=== PATIENT | male | born 1940 | race Caucasian/White ===

== ENCOUNTER → 2017-01-02 | Outpatient (CLI) | payer BC ==
[~2017-01-02] MED LIST: ASPI-232 PO; ATOR10TA88 PO; BUPR-79 PO; CALC-8 PO; CALCIUM/MAG/ZINC PO; CHOL100010 PO; CHONCAP PO; CYAN100020 PO; DOCU100C31 PO; DOCU100T7 PO; FINA5TAB4 PO; GLUC10007 PO; GLUCTAB7 PO; HYDR-3124 PO; HYDR-3785 PO; LISI-461 PO; MIRA1TAB3 PO; MULTTAB PO; NSP/1000 PO; NSP500 PO; OFLO0.3S4 OPR; POLY335019 PO; PRED1SUS OPR; RISP3TAB12 PO; VARD20TA PO
[2017-01-02 13:37] LABS: ALT/SGPT 29 U/L (12-78); AST/SGOT 16 U/L (15-37); BLOOD UREA NITROGEN 16 mg/dl (7-18); BUN/CREATININE RATIO 13.7 (10-20); CALCIUM 9.2 mg/dl (8.5-10.1); CARBON DIOXIDE 28 mmol/L (21-32); CHLORIDE 105 mmol/L (98-107); GLUCOSE 142 mg/dl (70-99); POTASSIUM 4.5 mmol/L (3.5-5.1); SODIUM 140 mmol/L (136-145)
[2017-01-02 13:45] LABS: BASO % 0.1 %; BASO ABS # 0.01 K/uL (0-0.2); COMPLETE YES; EOS % 1.2 %; HEMATOCRIT 45.5 % (42-52); IG% 0.1 %; LYMPH % 24.5 %; LYMPH ABS # 1.67 K/uL (1.2-3.4); MEAN CELL VOLUME 91.2 fL (80-100); MEAN CORPUSCULAR HEMOGLOBIN 32.7 pg (25-34); MEAN CORPUSCULAR HGB CONC 35.8 g/dl (32-36); MONO % 8.5 %; NEUT % 65.6 %; PLATELET COUNT 165 K/uL (130-400); RED BLOOD COUNT 4.99 M/uL (4.7-6.1); WHITE BLOOD COUNT 6.82 K/uL (4.8-10.8)
== END | disposition home or self-care (01) ==
LOC: C.LABBC 10:40
DX: I10 Essential (primary) hypertension (principal); E78.5 Hyperlipidemia, unspecified

== ENCOUNTER → 2017-02-25 | Day surgery (SDC) | payer BC ==
[2017-02-03 14:42] VITALS: Ht 195.6 cm; Wt 111.8 kg
[~2017-02-25] VITALS: Ht 195.6 cm; Wt 111.8 kg
[~2017-02-25] MED LIST changes: +500ML BSS 0.3ML EPI 1:1000PF IRRIG ONE; +ACETAMINOPHEN 325 MG TAB PO PRN; +AMVISC PLUS 0.8ML SYRINGE INT OCU ONE; +ATOR10TA82 PO; -ATOR10TA88 PO; +ATROPINE SULFATE 0.1 MG/ML 5ML SYR IV PRN; +AcetaZOLAMIDE 250 MG TAB PO SCH; +BETAXOLOL HCL 0.25% OP SUSP PER DROP CHARGE OPR SCH; +BRIMONIDINE TART 0.2% OP SOLN PER DROP CHARGE ONE; +BSS FLUSH ONE; -CALCIUM/MAG/ZINC PO; -CHONCAP PO; -DOCU100C31 PO; +ENDOCOAT 0.85ML SYRINGE INT OCU ONE; +EpHEDrine SULFATE INJ 50 MG/ML AMP IV PRN; +EpINEphrine INJ 1MG/ML AMP 1 MG/ML AMP ONE; -GLUC10007 PO; -HYDR-3785 PO; +LACTATED RINGER'S 1000ML 500 ML IV SCH; +LIDOCAINE 4% OP SOLN DROP CHARGE ONE; +LIDOCAINE 4% OP SOLN DROP CHARGE OPR SCH; +LIDOCAINE HCL 1% MPF 2 ML VIAL ONE; +MIDAZOLAM HCL 1 MG/ML 2ML VIAL ONE; -MIRA1TAB3 PO; +MIX: 4ML BSS 1ML EPI 1:1000 PF INSTIL ONE; +MOXIFLOXACIN OPH SOLN PER DROP CHARGE ONE; -NSP/1000 PO; +OCUCOAT 1 ML SOLN IO ONE; -POLY335019 PO; +POVIDONE-IODINE OP SOLN 30 ML BTL ONE; +PROPARACAINE 0.5% OP SOLN PER DROP CHARGE OPR SCH; +TOBRAMYCIN/DEXAMETHASONE OPH OINT PER APPLN CHARGE ONE
--- NOTE | 2017-02-25 07:34 | History & Physical Bridge - [place] ---
H&P Re-Evaluation Bridge Note: I have examined the patient, reviewed the History & Physical and in the interval since the performance of the History & Physical I have noted the following changes of clinical significance: No changes noted
[2017-02-25] MEDS: PHENYLEPHRINE HCL 2.5% OP SOLN PER DROP CHARGE OPR SCH ×2 (07:39→07:45)
[2017-02-25] MEDS: TROPICAMIDE 1% OP SOLN PER DROP CHARGE OPR SCH ×2 (07:41→07:46)
[2017-02-25] MEDS: CYCLOPENTOLATE HCL 1% OP SOLN PER DROP CHARGE OPR SCH ×2 (07:42→07:47)
[2017-02-25] MEDS: MOXIFLOXACIN OPH SOLN PER DROP CHARGE OPR SCH ×2 (07:43→07:54)
--- NOTE | 2017-02-25 08:40 | Discharge Instructions-SurgCtr ---
Discharge Instructions Date of Service February 25, 2017. Visit Reason for Visit: Cataract Right Eye Discharge Discharge Diagnosis / Problem: lens implant right eye Discharge Goals Goal(s): Improve function Activity Recommendations Activity Limitations: resume your previous activity Lifting Limitations: no more than 10 pounds Exercise/Sports Limitations: gradually increase as tolerated May Resume Sexual Activity: when tolerated Shower/Bathe: tomorrow Driving or Machine Use: resume 1 day after discharge Anesthesia . Post Anesthesia Instructions: If you have had General Anesthesia or IV Sedation: * Do not drive today. * Resume driving when surgeon permits. * Do not make important decisions or sign legal documents today. * Call surgeon for: 1. Temperature elevations greater than 101 degrees F. 2. Uncontrollable pain. 3. Excessive bleeding. 4. Persistent nausea and vomiting. 5. Medication intolerance (nausea, vomiting or rash). * For nausea and vomiting use only clear liquids such as: tea, soda, bouillon until nausea subsides, then gradually increase diet as tolerated. * If you have any concerns or questions, call your surgeon's office. If physician is unavailable and it is an emergency, call 911 or go to the nearest emergency room. . Instructions / Follow-Up Instructions / Follow-Up ACTIVITY RECOMMENDATIONS: * Light activities. * Mild irritation and blurred vision are common for the first few days. * You may walk outside, read, watch television. * Redness around the white part of the eye is common. MEDICATIONS: Resume previous medications unless instructed otherwise by your surgeon. * Take white Diamox (Acetazolamide) tablet at 1 pm today. Start all eye drops at 1 pm today: * Eye drops (today and tomorrow): Prednisone - one drop in operative eye every 3 hours while awake Ofloxacin - one drop in operative eye every 3 hours while awake SPECIAL CARE INSTRUCTIONS: * Tape plastic shield over eye to sleep at night. Call your doctor at with any concerns or problems. FOLLOW UP VISIT: Follow-up with Dr Velazquez at [place] office as scheduled. Diet Recommendations Home Diet: no limitations Procedures Procedures Performed: cataract extraction with lens implant Pending Studies Studies pending at discharge: no Medical Emergencies . Who to Call and When: Medical Emergencies: If at any time you feel your situation is an emergency, please call 911 immediately. . Non-Emergent Contact Non-Emergency issues call your: Finance Admin Call Non-Emergent contact if: your pain is not controlled [phone] . . "Provider Documentation" section prepared by Gilbert Velazquez. .
--- NOTE | 2017-02-25 08:42 | [facility] Operative Report ---
Operative Report Date of Service February 25, 2017. Operative Report 1. PREOPERATIVE DIAGNOSIS: Senile nuclear cataract, right eye. 2. POSTOPERATIVE DIAGNOSIS: Senile nuclear cataract, right eye. 3. PROCEDURE: Phacoemulsification of right cataract with posterior chamber lens implant, type Bausch [employer] Lomb, model MX60L, power +10.0 diopters. ANESTHESIA: Local standby. SURGEON: Dr. Velazquez. COMPLICATIONS: None. OPERATING TIME: 10 minutes. 4. OPERATION AND FINDINGS: DESCRIPTION OF PROCEDURE: The right pupil was dilated. The anesthetic was administered using a topical technique. The right eye was prepped and draped. A speculum was placed. A clear corneal incision was formed. The chamber was filled with Amvisc Plus and Endocoat. Epinephrine solution was used. A paracentesis was placed. A capsulorrhexis was performed. The nucleus was hydrodissected. The lens was removed with phacoemulsification. Time was 3.87 seconds. The aspiration unit was used to remove the cortex. The capsule was filled with Amvisc Plus. The lens implant was folded and placed into the capsule. The incision was hydrated. The Amvisc was aspirated. The wound was secure. The chamber was deep. The pupil was round. Brimonidine, TobraDex ointment and Vigamox solution were placed. The speculum was removed. The patient was returned to the Recovery Room in stable condition. I attest to the content of the Intraoperative Record and any orders documented therein. Any exceptions are noted below. The scribe's documentation has been prepared in my presence, under my direction and personally reviewed by me in its entirety. I confirm that the note above accurately reflects all work, treatment, procedures, and medical decision making performed by me. I personally scribed for Gilbert Velazquez M.D. ([email or web address]) on 02/25/17 at 08:42. Electronically submitted by Debo Vale ([email or web address]).
[2017-02-25 08:49] VITALS: TEMP 36.3
[2017-02-25 09:06] VITALS: BP 131/75; PULSE 82; O2SAT 96
--- NOTE | 2017-02-25 09:24 | Anesthesia Progress Nt - [facility] ---
Anesthesia Post Op Note Date & Time February 25, 2017 at 09:25 Vital Signs Pain Intensity: 0 Vital Signs Past 12 Hours Date Time Temp Pulse Resp B/P Pulse Ox O2 Delivery O2 Flow Rate FiO2 02/25/17 09:06 82 16 131/75 96 Room Air 02/25/17 08:49 36.3 82 16 124/73 98 Room Air 02/25/17 07:28 36.6 99 20 109/60 95 Room Air Notes Mental Status: alert / awake / arousable, participated in evaluation Pt Amnestic to Procedure: Yes Nausea / Vomiting: adequately controlled Pain: adequately controlled Airway Patency, RR, SpO2: stable & adequate BP & HR: stable & adequate Hydration State: stable & adequate Anesthetic Complications: no major complications apparent
== END | disposition home or self-care (01) ==
LOC: X.SURG 07:11
PROVIDERS: ATTEND Specialist
DX: H25.11 Age-related nuclear cataract, right eye (principal); I10 Essential (primary) hypertension; Z79.82 Long term (current) use of aspirin; Z79.899 Other long term (current) drug therapy

== ENCOUNTER → 2017-03-04 | Day surgery (SDC) | payer BC ==
[2017-03-03 15:03] VITALS: Ht 195.6 cm; Wt 111.8 kg
[~2017-03-04] VITALS: Ht 195.6 cm; Wt 111.8 kg
[~2017-03-04] MED LIST changes: -ATROPINE SULFATE 0.1 MG/ML 5ML SYR IV PRN; +BETAXOLOL HCL 0.25% OP SUSP PER DROP CHARGE OPL SCH; -BETAXOLOL HCL 0.25% OP SUSP PER DROP CHARGE OPR SCH; -EpHEDrine SULFATE INJ 50 MG/ML AMP IV PRN; +LIDOCAINE 4% OP SOLN DROP CHARGE OPL SCH; -LIDOCAINE 4% OP SOLN DROP CHARGE OPR SCH; +PROPARACAINE 0.5% OP SOLN PER DROP CHARGE OPL SCH; -PROPARACAINE 0.5% OP SOLN PER DROP CHARGE OPR SCH
[2017-03-04] MEDS: PHENYLEPHRINE HCL 2.5% OP SOLN PER DROP CHARGE OPL SCH ×2 (12:00→12:05)
[2017-03-04] MEDS: TROPICAMIDE 1% OP SOLN PER DROP CHARGE OPL SCH ×2 (12:01→12:07)
[2017-03-04] MEDS: CYCLOPENTOLATE HCL 1% OP SOLN PER DROP CHARGE OPL SCH ×2 (12:03→12:09)
[2017-03-04] MEDS: MOXIFLOXACIN OPH SOLN PER DROP CHARGE OPL SCH ×2 (12:04→12:14)
--- NOTE | 2017-03-04 12:40 | Discharge Instructions-SurgCtr ---
Discharge Instructions Date of Service March 04, 2017. Visit Reason for Visit: Cataract Left Eye Discharge Discharge Diagnosis / Problem: lens implant left eye Discharge Goals Goal(s): Improve function Activity Recommendations Activity Limitations: resume your previous activity Lifting Limitations: no more than 10 pounds Exercise/Sports Limitations: gradually increase as tolerated May Resume Sexual Activity: when tolerated Shower/Bathe: tomorrow Driving or Machine Use: resume 1 day after discharge Anesthesia . Post Anesthesia Instructions: If you have had General Anesthesia or IV Sedation: * Do not drive today. * Resume driving when surgeon permits. * Do not make important decisions or sign legal documents today. * Call surgeon for: 1. Temperature elevations greater than 101 degrees F. 2. Uncontrollable pain. 3. Excessive bleeding. 4. Persistent nausea and vomiting. 5. Medication intolerance (nausea, vomiting or rash). * For nausea and vomiting use only clear liquids such as: tea, soda, bouillon until nausea subsides, then gradually increase diet as tolerated. * If you have any concerns or questions, call your surgeon's office. If physician is unavailable and it is an emergency, call 911 or go to the nearest emergency room. . Instructions / Follow-Up Instructions / Follow-Up ACTIVITY RECOMMENDATIONS: * Light activities. * Mild irritation and blurred vision are common for the first few days. * You may walk outside, read, watch television. * Redness around the white part of the eye is common. MEDICATIONS: Resume previous medications unless instructed otherwise by your surgeon. * Take white Diamox (Acetazolamide) tablet at 3 pm today. Start all eye drops at 3 pm today: * Eye drops (today and tomorrow): Prednisone - one drop in operative eye every 3 hours while awake Ofloxacin - one drop in operative eye every 3 hours while awake SPECIAL CARE INSTRUCTIONS: * Tape plastic shield over eye to sleep at night. Call your doctor at with any concerns or problems. FOLLOW UP VISIT: Follow-up with Dr Velazquez at [place] office as scheduled. Diet Recommendations Home Diet: no limitations Procedures Procedures Performed: cataract extraction with lens implant Pending Studies Studies pending at discharge: no Medical Emergencies . Who to Call and When: Medical Emergencies: If at any time you feel your situation is an emergency, please call 911 immediately. . Non-Emergent Contact Non-Emergency issues call your: Double Needle Operator Call Non-Emergent contact if: your pain is not controlled [phone] . . "Provider Documentation" section prepared by Gilbert Velazquez. .
--- NOTE | 2017-03-04 12:41 | [facility] Operative Report ---
Operative Report Date of Service March 04, 2017. Operative Report 1. PREOPERATIVE DIAGNOSIS: Senile nuclear cataract, left eye. 2. POSTOPERATIVE DIAGNOSIS: Senile nuclear cataract, left eye. 3. PROCEDURE: Phacoemulsification of left cataract with posterior chamber lens implant, type Bausch [employer] Lomb, model MI60L, power +10.5 diopters. ANESTHESIA: Local standby. SURGEON: Dr. Velazquez. COMPLICATIONS: None. OPERATING TIME: 10 minutes. 4. OPERATION AND FINDINGS: DESCRIPTION OF PROCEDURE: The left pupil was dilated. The anesthetic was administered using a topical technique. The left eye was prepped and draped. A speculum was placed. A clear corneal incision was formed. The chamber was filled with Amvisc Plus and Endocoat. Epinephrine solution was used. A paracentesis was placed. A capsulorrhexis was performed. The nucleus was hydrodissected. The lens was removed with phacoemulsification. Time was 3.05 seconds. The aspiration unit was used to remove the cortex. The capsule was filled with Amvisc Plus. The lens implant was folded and placed into the capsule. The incision was hydrated. The Amvisc was aspirated. The wound was secure. The chamber was deep. The pupil was round. Brimonidine, TobraDex ointment and Vigamox solution were placed. The speculum was removed. The patient was returned to the Recovery Room in stable condition. I attest to the content of the Intraoperative Record and any orders documented therein. Any exceptions are noted below. The scribe's documentation has been prepared in my presence, under my direction and personally reviewed by me in its entirety. I confirm that the note above accurately reflects all work, treatment, procedures, and medical decision making performed by me. I personally scribed for Gilbert Velazquez M.D. ([email or web address]) on 03/04/17 at 12:41. Electronically submitted by Debo Vale ([email or web address]).
[2017-03-04 12:44] VITALS: TEMP 36.7
[2017-03-04 13:12] VITALS: BP 139/75; PULSE 75; O2SAT 97
--- NOTE | 2017-03-04 13:40 | Anesthesia Progress Nt - [facility] ---
Anesthesia Post Op Note Date & Time March 04, 2017 at 13:40 Vital Signs Pain Intensity: 0 Vital Signs Past 12 Hours Date Time Temp Pulse Resp B/P Pulse Ox O2 Delivery O2 Flow Rate FiO2 03/04/17 13:12 75 18 139/75 97 Room Air 03/04/17 12:44 36.7 80 16 129/69 98 Room Air 03/04/17 11:50 37.1 96 16 113/75 96 Room Air Notes Mental Status: alert / awake / arousable, participated in evaluation Pt Amnestic to Procedure: Yes Nausea / Vomiting: adequately controlled Pain: adequately controlled Airway Patency, RR, SpO2: stable & adequate BP & HR: stable & adequate Hydration State: stable & adequate Anesthetic Complications: no major complications apparent
== END | disposition home or self-care (01) ==
LOC: X.SURG 11:22
PROVIDERS: ATTEND Specialist
DX: H25.12 Age-related nuclear cataract, left eye (principal); I10 Essential (primary) hypertension

== ENCOUNTER → 2017-06-01 | Outpatient (CLI) | payer BC ==
[~2017-06-01] MED LIST changes: -500ML BSS 0.3ML EPI 1:1000PF IRRIG ONE; -ACETAMINOPHEN 325 MG TAB PO PRN; -AMVISC PLUS 0.8ML SYRINGE INT OCU ONE; -ATOR10TA82 PO; +ATOR10TA88 PO; -AcetaZOLAMIDE 250 MG TAB PO SCH; -BETAXOLOL HCL 0.25% OP SUSP PER DROP CHARGE OPL SCH; -BRIMONIDINE TART 0.2% OP SOLN PER DROP CHARGE ONE; -BSS FLUSH ONE; -ENDOCOAT 0.85ML SYRINGE INT OCU ONE; -EpINEphrine INJ 1MG/ML AMP 1 MG/ML AMP ONE; -LACTATED RINGER'S 1000ML 500 ML IV SCH; -LIDOCAINE 4% OP SOLN DROP CHARGE ONE; -LIDOCAINE 4% OP SOLN DROP CHARGE OPL SCH; -LIDOCAINE HCL 1% MPF 2 ML VIAL ONE; -MIDAZOLAM HCL 1 MG/ML 2ML VIAL ONE; -MIX: 4ML BSS 1ML EPI 1:1000 PF INSTIL ONE; -MOXIFLOXACIN OPH SOLN PER DROP CHARGE ONE; -OCUCOAT 1 ML SOLN IO ONE; -POVIDONE-IODINE OP SOLN 30 ML BTL ONE; -PROPARACAINE 0.5% OP SOLN PER DROP CHARGE OPL SCH; -TOBRAMYCIN/DEXAMETHASONE OPH OINT PER APPLN CHARGE ONE
== END | disposition home or self-care (01) ==
LOC: C.LABBC 11:39
PROVIDERS: ATTEND Urology
DX: N40.0 Benign prostatic hyperplasia without lower urinary tract symptoms (principal)

== ENCOUNTER → 2017-07-10 | Outpatient (CLI) | payer BC ==
[2017-07-10 14:27] LABS: ALT/SGPT 25 U/L (12-78); AST/SGOT 16 U/L (15-37); BLOOD UREA NITROGEN 15 mg/dl (7-18); BUN/CREATININE RATIO 12.1 (10-20); CALCIUM 9.1 mg/dl (8.5-10.1); CARBON DIOXIDE 23 mmol/L (21-32); CHLORIDE 105 mmol/L (98-107); CHOLESTEROL 129 mg/dl (0-200); GLUCOSE 126 mg/dl (70-99); SODIUM 138 mmol/L (136-145); TRIGLYCERIDES 160 mg/dl (0-150); VERY LOW DENSITY LIPOPROT CALC 32 mg/dl
[2017-07-10 14:30] LABS: CHOLESTEROL/HDL RATIO 2.6; HDL CHOLESTEROL 49 mg/dl; LDL CHOLESTEROL CALCULATED 48 mg/dl
[2017-07-10 15:09] LABS: ESTIMATED AVERAGE GLUCOSE 105 mg/dl; HA1C FLAG Normal (Normal)
== END | disposition home or self-care (01) ==
LOC: C.LABBC 09:46
DX: E78.5 Hyperlipidemia, unspecified (principal); R73.9 Hyperglycemia, unspecified; I10 Essential (primary) hypertension

== ENCOUNTER → 2018-01-12 | Outpatient (CLI) | payer BC ==
[~2018-01-12] MED LIST changes: +ATOR10TA82 PO; -ATOR10TA88 PO
[2018-01-12 13:19] LABS: BASO % 0.1 %; BASO ABS # 0.01 K/uL (0-0.2); EOS % 1.4 %; EOS ABS # 0.12 K/uL (0-0.5); HEMATOCRIT 47.3 % (42-52); HEMOGLOBIN 16.6 g/dL (14.0-18.0); IG# 0.01 K/uL (0.00-0.02); LYMPH % 21.5 %; LYMPH ABS # 1.82 K/uL (1.2-3.4); MEAN CORPUSCULAR HEMOGLOBIN 33.3 pg (25-34); MEAN CORPUSCULAR HGB CONC 35.1 g/dl (32-36); MEAN PLATELET VOLUME 10.5 fL (7.4-10.4); MONO % 6.7 %; MONO ABS # 0.57 K/uL (0.11-0.59); NEUT % 70.2 %; NEUT ABS # 5.93 K/uL (1.4-6.5); PLATELET COUNT 154 K/uL (130-400); RED CELL DISTRIBUTION WIDTH CV 12.3 % (11.5-14.5); WHITE BLOOD COUNT 8.46 K/uL (4.8-10.8)
[2018-01-12 13:25] LABS: ALT/SGPT 28 U/L (12-78); AST/SGOT 15 U/L (15-37); BLOOD UREA NITROGEN 14 mg/dl (7-18); CARBON DIOXIDE 25 mmol/L (21-32); CREATININE 1.23 mg/dl (0.60-1.40); GLUCOSE 189 mg/dl (70-99); POTASSIUM 4.2 mmol/L (3.5-5.1); SODIUM 136 mmol/L (136-145)
[2018-01-13 06:04] LABS: HEMOGLOBIN A1C 5.6 % (4.5-5.6)
== END | disposition home or self-care (01) ==
LOC: C.LABBC 10:39
DX: I10 Essential (primary) hypertension (principal); E78.5 Hyperlipidemia, unspecified; R73.9 Hyperglycemia, unspecified

== ENCOUNTER → 2018-05-27 | Outpatient (CLI) | payer BC ==
[2018-05-27 13:42] LABS: BLOOD UREA NITROGEN 18 mg/dl (7-18); CREATININE 1.13 mg/dl (0.60-1.40)
== END | disposition home or self-care (01) ==
LOC: C.LABBC 09:47
PROVIDERS: ATTEND Urology
DX: R39.15 Urgency of urination (principal)

== ENCOUNTER 2024-06-09 02:10 | Inpatient (IN) ==
[2024-06-09 04:40] LABS: Hematocrit (blood only) 43.1 % (42.0-52.0); Mean Corpuscular Hemoglobin 32.4 pg (25.0-34.0); Mean Corpuscular Hgb Conc 34.8 g/dL (32.0-36.0); Mean Corpuscular Volume 93.1 fL (80.0-100.0); Mean Platelet Volume 10.3 fL (9.4-12.4); Platelet Count 122 K/uL (130-400); RDW Coefficient of Variation 11.8 % (11.5-14.5); RDW Standard Deviation 40.2 fL (36.4-46.3); Red Blood Count 4.63 M/uL (4.70-6.10); White Blood Count 14.28 K/ul (4.8-10.8)
[2024-06-09] MEDS: OPTIRAY 320 100ml IV ONE (04:58)
[2024-06-09] MEDS: HYDROmorphone INJ 0.5 MG/0.5 ML SYR IV STA (05:13)
[2024-06-09] MEDS: SODIUM CHLORIDE 0.9% 500 ML IV ONE (05:15)
[2024-06-09 05:17] LABS: Troponin I High Sensitivity 8.5 pg/ml (0-20)
[2024-06-09 05:21] LABS: Anion Gap 8 (3-11); BUN Creatinine Ratio 12.7 (10-20); Blood Urea Nitrogen 13 mg/dl (6-23); Calcium 9.4 mg/dl (8.6-10.3); Carbon Dioxide 33 mmol/L (21-32); Chloride 96 mmol/L (98-107); Est GFR (African American) 77.9 ml/min; Est GFR (Non-African American) 67.2 ml/min; Glucose 207 mg/dl (70-99(Fasting)); Sodium 137 mmol/L (136-145)
[2024-06-09 05:30] LABS: Basophils # (auto) 0.01 K/uL (0.00-0.20); Basophils % (auto) 0.1 %; Immature Granulocytes # (auto) 0.09 K/uL (0.01-0.20); Immature Granulocytes % (auto) 0.6 %; Lymphocytes # (auto) 0.49 K/uL (1.20-3.40); Lymphocytes % (auto) 3.4 %; Monocytes # (auto) 0.39 K/uL (0.11-0.59); Monocytes % (auto) 2.7 %; Neutrophils % (auto) 93.2 %
--- NOTE | 2024-06-09 05:47 | Emergency Department Note ---
Impression & Plan Small bowel obstruction, Atrial fibrillation with rapid ventricular response admit to the [facility] ED Provider Note NAME: LENIN FAN AGE: 84 SEX: Male INFORMANT: Patient ED PROVIDER(S): Nano Moss DO CHIEF COMPLAINT: Right-sided abdominal pain PLAN: Disposition: admit to the [facility] MEDICAL DECISION MAKING: this is a 84-year-old male patient presents to the emergency department with right-sided abdominal pain since earlier this afternoon. He became more concerned around 5 PM this evening when the pain started to increase and would not subside. Patient has no previous abdominal surgery history although he suffers from significant constipation as result of his Parkinson's disease. An order was placed for continuous cardiac monitoring. The patient was in A-fib at a rate of 112. A twelve-lead EKG was obtained. Patient's abdominal pain was controlled with IV Dilaudid. Laboratory studies revealed a leukocytosis with a white count of 14.2 with 93% neutrophils. Platelet count was decreased at 122. Troponin was negative Glucose was 207. Portable chest x-ray was performed which was unremarkable. Patient had a CT scan of the abdomen/pelvis which showed evidence of a small bowel obstruction. Patient's heart rhythm appeared to change while here in the ER. he had a repeat ECG performed. Patient went for CT scan of the abdomen/pelvis. Upon returning from radiology had persistent pain and was given another dose of IV Dilaudid. It was noted the patient was significantly tachycardic and had a third ECG performed which showed A-fib with RVR. His blood pressure remained stable. General surgery was consulted as the patient had small bowel obstruction noted on CT scan. Overall, the patient's abdominal pain had diminished after receiving IV analgesia. It was noted the patient's heart rate converted to 75-1/4 ECG was obtained and showed normal sinus rhythm with PACs. Care/management discussed with: General surgery team; [facility] Triage Nursing notes: reviewed and agree With them. Vital Signs: reviewed and remarkable for tachycardia Additional History obtained from: patient's is at the bedside Chronic Medical/Social Conditions affecting care: Parkinson's disease Differential Diagnosis: constipation, small bowel obstruction, diverticulitis, colitis, cholecystitis Diagnostics, independently interpreted by me: ECG: sinus tachycardia at a rate of 119 with PACs. Poor baseline but no obvious signs of ischemia repeat ECG: Atrial flutter at a rate of 124 with 2-1 conduction. There is no obvious ST segment elevation or signs of ischemia. Repeat ECG: Atrial fibrillation with RVR at a rate of 140. PVCs noted. No obvious signs of ischemia. Repeat ECG: Normal sinus rhythm at a rate of 77 with an occasional PAC. Cardiac Monitoring: A-fib at a rate of 112 Imaging studies: CT scan of the abdomen/pelvis: As per stat rad Portable chest x-ray: As per my independent interpretation HPI: 84 year old Male arrives for evaluation of right sided abdominal pain. patient describes a history of chronic constipation as a result of his Parkinson's disease. He noted sudden onset of right-sided abdominal pain yesterday afternoon. pain became worse around 5 PM in the evening and the patient could not get comfortable. He developed some nausea. PAST MEDICAL HISTORY: See Below, Bipolar disorder and Parkinson's disease PAST SURGICAL HISTORY: no intra-abdominal surgeries., SOCIAL HISTORY: Lives with his , does not drink alcohol HOME MEDICATIONS: see list ALLERGIES: see list VITALS: See Below PHYSICAL EXAMINATION: HEENT: Head - normocephalic and atraumatic Pupils are equal, round, and reactive to light. Extraocular eye muscles are intact, and sclera are anicteric. Nose - moist nasal mucosa without discharge. Mouth - moist buccal mucosa. Oropharynx is nonerythematous and there is no tonsillar exudate or edema noted. Neck: Supple; no JVD, nuchal rigidity, cervical lymphadenopathy, or auscultated bruits. Heart: Regular rate and rhythm. There is a normal S1 and S2 with no murmurs, clicks, or gallops appreciated. Lungs: Clear to auscultation bilaterally with no wheezes, rales, or rhonchi. Abdomen: Soft, Mildly distended with some discomfort to palpation in the right middle quadrant of the abdomen. There were diminished bowel sounds. There are no palpable pulsatile masses or hepatosplenomegaly. There is no guarding, rigidity, or rebound noted. Extremities: 1+ pitting edema both lower extremities. There are easily palpable peripheral pulses. Skin: warm and dry with good turgor and no rashes. Emergency department treatment: IV normal saline bolus, IV Zofran, IV Dilaudid x 2 emergency department course: The patient was evaluated in room B-12. A complete history and physical was performed. IV lock was initiated and labs were drawn as above. Twelve-lead EKG was obtained. An order was placed for continuous cardiac monitoring. Patient was in A-fib at a rate of 112. Patient was medicated with IV Zofran and Dilaudid for the abdominal pain. He was bolused with IV normal saline solution. He went for CT scan of the abdomen/pelvis. Upon returning from radiology, the patient had recurrent pain and was given another dose of IV Dilaudid. It was also noted that his heart rate seemed to be even faster and revealed atrial flutter. Was performed. I reviewed some results with the patient. The patient was noted to have a slower heart rate and this revealed normal sinus rhythm. The patient seems to be resting more comfortably. I discussed the case with general surgery and they consulted on the patient. I then discussed the case with the [facility] Hospitalist and they will admit for further management. Past Med/Surg History Problem List (Updated 06/09/24 @ 07:25 by Nano Moss DO) Atrial fibrillation with rapid ventricular response (Acute) Small bowel obstruction (Acute) Atrial fibrillation Parkinsons disease Small bowel obstruction Deviated nasal septum Nasal crusting Benign localized prostatic hyperplasia with lower urinary tract symptoms (LUTS) Impacted cerumen Urinary urgency (Acute) BPH (benign prostatic hyperplasia) Surgical History History of cataract extraction 02/2017-bilateral History of bladder surgery Green light laser surgery for excess bladder tissue-03/09/14 History of Mohs micrographic surgery for skin cancer Head-2014 Left arm-2013 History of sebaceous cyst x3-2 on back, 1 on chest History of tonsillectomy and adenoidectomy 1948 History of surgery femur [id number] leg repair laser vaporization with transurethral resection of prostate Previous back surgery H/O: knee surgery Family History Brother Prostate cancer Father Hypertension Heart disease following heart attack Mother Hearing loss Heart disease following heart attack Other No family history of adverse response to anesthesia No family history of bleeding disorder Social History Smoking Status: Never smoker Do You Dip or Chew Tobacco: No; Hx Alcohol Use: Yes Alcohol Intake Frequency: Monthly or Less Hx Substance Use: No marital status: current occupational status: retired Allergies Allergies Allergy/AdvReac Type Severity Reaction Status Date / Time acetaminophen Allergy Unknown ANKLES Verified 07/10/23 10:51 SWELL UP benzalkonium chloride Allergy Unknown UNKNOWN Verified 07/10/23 10:51 brimonidine Allergy Unknown UNKNOWN Verified 07/10/23 10:51 travoprost Allergy Unknown UNKNOWN Verified 07/10/23 10:51 diclofenac [From Voltaren] Allergy Verified 07/10/23 10:51 Home Meds Home Medications Medication Instructions Recorded Confirmed Areds 2 1 softgel PO BID 06/09/24 06/09/24 Prevagen 1 tab PO QAM 06/09/24 06/09/24 atorvastatin 10 mg tablet 10 mg PO HS 06/09/24 06/09/24 carbidopa 25 mg-levodopa 100 mg 1 tab PO TID 06/09/24 06/09/24 tablet ciclopirox 8 % topical solution 1 applic topical HS 06/09/24 06/09/24 docusate sodium 100 mg tablet 200 mg PO HS PRN Constipation 06/09/24 06/09/24 (Stool Softener) dorzolamide-timolol (PF) 2 %-0.5 % 1 drp OPB BID 06/09/24 06/09/24 eye drops in a dropperette entacapone 200 mg tablet 200 mg PO TID 06/09/24 06/09/24 finasteride 5 mg tablet 5 mg PO HS 06/09/24 06/09/24 glucosamine-chondroitin 750 mg-600 1 tab PO DAILY 06/09/24 06/09/24 mg tablet lisinopril 10 1 tab PO DAILY 06/09/24 06/09/24 mg-hydrochlorothiazide 12.5 mg tablet mirtazapine 30 mg tablet 30 mg PO HS 06/09/24 06/09/24 niacin 1,000 mg tablet,extended 2,000 mg PO HS 06/09/24 06/09/24 release 24 hr peg 400-propylene glycol 0.4 %-0.3 1 drp OPB QID PRN Dry Eyes 06/09/24 06/09/24 % eye drops (Systane (propylene glycol)) quetiapine 100 mg tablet 100 mg PO HS 06/09/24 06/09/24 solifenacin 10 mg tablet 10 mg PO HS 06/09/24 06/09/24 tadalafil 10 mg tablet 10 mg PO DAILY PRN Sexual Activity 06/09/24 06/09/24 vitamin B complex 1 tab PO DAILY 06/09/24 06/09/24 vitamin D3 25 mcg (1,000 unit)-vit 1 tab PO DAILY 06/09/24 06/09/24 K2 90 mcg disintegrating tablet Results & Data (ED) Vital Signs Vital Signs - 24 hr 06/09/24 04:30 06/09/24 05:30 06/09/24 06:30 Pulse Rate Pulse Rate [Apical] 141 H 113 H 87 Pulse Rhythm [Apical] Irregular Irregular Regular Pulse Strength [Apical] Normal Normal Respiratory Rate 20 20 20 Respiratory Effort / Characteristics Non-Labored Non-Labored Non-Labored Respiratory Depth Normal Normal Normal Respiratory Pattern Regular Regular Regular Blood Pressure [Right Arm] 115/84 106/74 119/71 Blood Pressure Mean [Right Arm] 94 84 87 Blood Pressure Position [Right Arm] Sitting Sitting Pulse Oximetry 97 97 99 Oxygen Delivery Method Room Air Room Air Room Air 06/09/24 07:11 Pulse Rate 76 Pulse Rate [Apical] Pulse Rhythm [Apical] Pulse Strength [Apical] Respiratory Rate Respiratory Effort / Characteristics Respiratory Depth Respiratory Pattern Blood Pressure [Right Arm] Blood Pressure Mean [Right Arm] Blood Pressure Position [Right Arm] Pulse Oximetry Oxygen Delivery Method Laboratory Data 06/09/24 Unknown 06/09/24 Unknown Lab Results 06/09/24 06/09/24 Range/Units 05:45 Unknown WBC 14.28 H (4.8-10.8) K/ul RBC 4.63 L (4.70-6.10) M/uL Hgb 15.0 (14.0-18.0) g/dl Hct 43.1 (42.0-52.0) % MCV 93.1 (80.0-100.0) fL MCH 32.4 (25.0-34.0) pg MCHC 34.8 (32.0-36.0) g/dL RDW Std Deviation 40.2 (36.4-46.3) fL RDW Coeff of Jose Luis 11.8 (11.5-14.5) % Plt Count 122 L (130-400) K/uL MPV 10.3 (9.4-12.4) fL Immature Gran % (Auto) 0.6 % Neut % (Auto) 93.2 % Lymph % (Auto) 3.4 % Clinch % (Auto) 2.7 % Eos % (Auto) 0.0 % Baso % (Auto) 0.1 % Neut # (Auto) 13.30 H (1.40-6.50) K/uL Lymph # (Auto) 0.49 L (1.20-3.40) K/uL Clinch # (Auto) 0.39 (0.11-0.59) K/uL Eos # (Auto) 0.00 (0.00-0.50) K/uL Baso # (Auto) 0.01 (0.00-0.20) K/uL Immature Gran # (Auto) 0.09 (0.01-0.20) K/uL Sodium 137 (136-145) mmol/L Potassium 3.9 TNP (3.5-5.1) mmol/L Chloride 96 L (98-107) mmol/L Carbon Dioxide 33 H (21-32) mmol/L Anion Gap 8 (3-11) BUN 13 (6-23) mg/dl Creatinine 1.02 (0.6-1.4) mg/dl Est Cr Clr Drug Dosing Not Reportable Est GFR ( Amer) 77.9 ml/min Est GFR (Non-Af Amer) 67.2 ml/min BUN/Creatinine Ratio 12.7 (10-20) Glucose 207 H (70-99(Fasting)) mg/dl Calcium 9.4 (8.6-10.3) mg/dl Troponin I High Sens 8.5 (0-20) pg/ml TSH 1.312 (0.300-4.500) uIu/ml Administered Medications Discontinued Medications Hydromorphone HCl (Hydromorphone Inj 0.5 Mg/0.5 Ml Syr) 0.5 mg IV NOW STA Stop: 06/09/24 04:42 Last Admin: 06/09/24 05:13 Dose: 0.5 mg Documented By: AAW Sodium Chloride (Nss) 500 mls @ 999 mls/hr IV .Q31M ONE Stop: 06/09/24 05:28 Last Infusion: 06/09/24 05:50 Dose: Infused Documented By: Admin: 06/09/24 05:15 Dose: 999 mls/hr Documented By: ESDRAS Ioversol (Optiray 320 100ml) 100 ml IV ONCE ONE Stop: 06/09/24 04:59 Last Admin: 06/09/24 04:58 Dose: 93 ml Documented By: MARCELLO Imaging Data Radiologist's Impression: Abdomen/Pelvis CT 06/09/24 00:00 CR Exam(s): CT ABDOMEN + PELVIS With Contrast IV Amt: 93 ml optiray 320 EXAM: CT Abdomen and Pelvis With Intravenous Contrast CLINICAL HISTORY: Reason for exam: LOWER ABD PAIN. TECHNIQUE: Axial computed tomography images of the abdomen and pelvis with intravenous contrast. CTDI is 12.19 mGy and DLP is 656.4 mGy-cm. Automated exposure control was utilized for the study. A dose lowering technique was utilized adhering to the principles of ALARA. CONTRAST: Patient received 93 ml optiray 320 of IV contrast COMPARISON: No relevant prior studies available. FINDINGS: Lung bases: Unremarkable. No mass. No consolidation. Heart: Pericardial effusion measuring up to 1.1 cm, incompletely visualized. ABDOMEN: Liver: Calcified granulomata in the liver. Gallbladder and bile ducts: Unremarkable. No calcified stones. No ductal dilation. Pancreas: Unremarkable. No mass. No ductal dilation. Spleen: Unremarkable. No splenomegaly. Adrenals: Unremarkable. No mass. Kidneys and ureters: Unremarkable. No solid mass. No hydronephrosis. Stomach and bowel: Small bowel obstruction with transition point suspected the within the right hemiabdomen (series 301 image 22). Upstream small bowel loops measure up to 3.4 cm. Please note that many of these are fluid-filled. Mild some mucosal enhancement noted. Findings may relate to concurrent enteritis. Consider correlation with laboratory values. PELVIS: Appendix: No findings to suggest acute appendicitis. Bladder: Unremarkable. No mass. Reproductive: Prostatic calcifications. ABDOMEN and PELVIS: Intraperitoneal space: Moderate mesenteric ascites which may be reactive in nature or be due to volume overload. No evidence of pneumatosis, portal venous gas, or free air. Bones/joints: Degenerative changes in the spine. 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 No acute fracture. No dislocation. Soft tissues: Umbilical hernia containing fat. Vasculature: Atherosclerotic disease. No abdominal aortic aneurysm. Lymph nodes: Unremarkable. No enlarged lymph nodes. IMPRESSION: 1. Small bowel obstruction with transition point suspected the within the right hemiabdomen (series 301 image 22). Upstream small bowel loops measure up to 3.4 cm. Please note that many of these are fluid-filled. Mild some mucosal enhancement noted. Findings may relate to concurrent enteritis. Consider correlation with laboratory values. 2. Moderate mesenteric ascites which may be reactive in nature or be due to volume overload. 3. No evidence of pneumatosis, portal venous gas, or free air. 4. No other acute findings. 5. Incidental findings as described. Communications: Verify Receipt Electronically signed by: Tenzin Cummings MD 06/09/24 06:16 AM Discharge Plan Visit Data Chief Complaint: Abdominal Pain Stated Complaint: STOMACH ACHE ED Provider: Nano Moss Discharge Problem: Small bowel obstruction, Atrial fibrillation with rapid ventricular response Forms Stand Alone Forms: [facility] [employer] Prescriptions Prescriptions: No Action Areds 2 1 softgel PO BID niacin 1,000 mg Tablet Extended Release 24 Hr 2,000 mg PO HS atorvastatin 10 mg Tablet 10 mg PO HS quetiapine 100 mg Tablet 100 mg PO HS ciclopirox 8 % Solution 1 applic TOPICAL HS Rx Instructions: Infected Toe Nail entacapone 200 mg Tablet 200 mg PO TID mirtazapine 30 mg Tablet 30 mg PO HS vitamin B complex Tablet 1 tab PO DAILY lisinopril-hydrochlorothiazide 10-12.5 mg Tablet 1 tab PO DAILY carbidopa-levodopa 25-100 mg Tablet 1 tab PO TID docusate sodium [Stool Softener] 100 mg Tablet 200 mg PO HS PRN (Reason: Constipation) finasteride 5 mg Tablet 5 mg PO HS glucosamine-chondroitin 750-600 mg Tablet 1 tab PO DAILY Systane (propylene glycol) 0.4-0.3 % Drops 1 drp OPB QID PRN (Reason: Dry Eyes) tadalafil 10 mg Tablet 10 mg PO DAILY PRN (Reason: Sexual Activity) Rx Instructions: administer approximately 30min before sexual activity; do not use more than 1 dose per 24hrs solifenacin 10 mg Tablet 10 mg PO HS vitamin D3-vitamin K2 25 mcg (1,000 unit)-90 mcg Tablet,Disintegrating 1 tab PO DAILY dorzolamide-timolol (PF) 2-0.5 % Dropperette 1 drp OPB BID Prevagen 1 tab PO QAM Referrals Referrals: Misael Swenson MD [Primary Care Provider] -
--- NOTE | 2024-06-09 06:17 | CT Scan Report ---
Exam(s): CT ABDOMEN + PELVIS With Contrast IV Amt: 93 ml optiray 320 EXAM: CT Abdomen and Pelvis With Intravenous Contrast CLINICAL HISTORY: Reason for exam: LOWER ABD PAIN. TECHNIQUE: Axial computed tomography images of the abdomen and pelvis with intravenous contrast. CTDI is 12.19 mGy and DLP is 656.4 mGy-cm. Automated exposure control was utilized for the study. A dose lowering technique was utilized adhering to the principles of ALARA. CONTRAST: Patient received 93 ml optiray 320 of IV contrast COMPARISON: No relevant prior studies available. FINDINGS: Lung bases: Unremarkable. No mass. No consolidation. Heart: Pericardial effusion measuring up to 1.1 cm, incompletely visualized. ABDOMEN: Liver: Calcified granulomata in the liver. Gallbladder and bile ducts: Unremarkable. No calcified stones. No ductal dilation. Pancreas: Unremarkable. No mass. No ductal dilation. Spleen: Unremarkable. No splenomegaly. Adrenals: Unremarkable. No mass. Kidneys and ureters: Unremarkable. No solid mass. No hydronephrosis. Stomach and bowel: Small bowel obstruction with transition point suspected the within the right hemiabdomen (series 301 image 22). Upstream small bowel loops measure up to 3.4 cm. Please note that many of these are fluid-filled. Mild some mucosal enhancement noted. Findings may relate to concurrent enteritis. Consider correlation with laboratory values. PELVIS: Appendix: No findings to suggest acute appendicitis. Bladder: Unremarkable. No mass. Reproductive: Prostatic calcifications. ABDOMEN and PELVIS: Intraperitoneal space: Moderate mesenteric ascites which may be reactive in nature or be due to volume overload. No evidence of pneumatosis, portal venous gas, or free air. Bones/joints: Degenerative changes in the spine. 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 No acute fracture. No dislocation. Soft tissues: Umbilical hernia containing fat. Vasculature: Atherosclerotic disease. No abdominal aortic aneurysm. Lymph nodes: Unremarkable. No enlarged lymph nodes. IMPRESSION: 1. Small bowel obstruction with transition point suspected the within the right hemiabdomen (series 301 image 22). Upstream small bowel loops measure up to 3.4 cm. Please note that many of these are fluid-filled. Mild some mucosal enhancement noted. Findings may relate to concurrent enteritis. Consider correlation with laboratory values. 2. Moderate mesenteric ascites which may be reactive in nature or be due to volume overload. 3. No evidence of pneumatosis, portal venous gas, or free air. 4. No other acute findings. 5. Incidental findings as described. Communications: Verify Receipt Electronically signed by: Tenzin Cummings MD 06/09/24 06:16 AM
--- NOTE | 2024-06-09 06:34 | Surgery Consultation ---
Date of Consultation June 09, 2024 Assessment & Plan (1) Small bowel obstruction: I discussed with the treating emergency room physician the patient is being admitted on the hospitalist service. The patient was noted to have new onset atrial fibrillation we will defer management of this condition to the hospitalist service From surgery perspective we recommend the following: Provide IV fluid for hydration Provide antiemetics if needed Implement n.p.o. status At the present time the patient is nontoxic-appearing. He has been normotensive. He has had periods of tachycardia but has been noted to have rapid atrial fibrillation at times. He is afebrile. His abdominal exam is entirely benign. He has not had any emesis and his abdomen is nondistended. Therefore feel we can hold off on placing an NG tube but I did explain to the patient that if he would have any worsening of his abdominal exam or if he has any nausea or vomiting this modality may be considered It is unclear what is causing the patient's small bowel obstruction as he has not had any prior surgeries. He may have an enteritis at play which is contributing to this and we will monitor his clinical progress with further recommendations to follow based on his clinical course as it unfolds Supervising Physician Co-Signing Physician Notes Patient seen and examined, labs and imaging reviewed, agree with above. 84-year-old male with no surgical history presented with abdominal pain. Imaging showed small bowel obstruction. On exam he is afebrile stable vitals. His abdomen is soft, moderately tender to palpation, distended, no guarding or rebound. WBC 14. CT personally reviewed and interpreted agree with the assessment at this dented small bowel leading up to some mildly decompressed small bowel indicating a likely small bowel obstruction. Even in version abdomen is these are typically reviewed related to scar tissue. At this point will manage nonoperatively. Hold off on NG tube unless develops nausea or vomiting or failure to improve. Continue with bowel rest. Surgery will follow, call with questions or concerns. PARTH UA in a.m. History of Present Illness Reason for Consultation: Small bowel obstruction History of Present Illness This is an 84-year-old male who presented to the emergency department secondary to abdominal pressure that began yesterday. The patient notes that he felt as though he had some abdominal pressure in his lower abdomen and some associated abdominal pain. He denies any fevers, shakes, or chills. He says he has not had any episodes of nausea or vomiting. He notes he has never had abdominal surgery. He notes that since his current complaints began he has not had a bowel movement or passed any flatus but he did have a bowel movement yesterday before his symptoms began. He does not report any other modifying factors. Since arrival to the hospital the patient has had labs and imaging which independent reviewed. A CT scan of the abdomen pelvis showed the patient had concerns for small bowel obstruction with a transition point in the right hemiabdomen. The interpreting radiologist also felt that this may relate to a possible enteritis. There is no evidence of pneumatosis, portal venous gas, or free air. There was some mesenteric ascites which the interpreting radiologist felt may be reactive in nature due to volume overload. Labs included CBC were white blood cell count was elevated 14.2. Hemoglobin and hematocrit were within normal range. Platelet count was 122,000. Chemistry profile showed sodium was normal as was his BUN and creatinine. A potassium level could not be checked due to hemolysis of the specimen. At the time of my interview the patient was resting comfortably in bed he was in no distress Allergies Allergy/AdvReac Type Severity Reaction Status Date / Time acetaminophen Allergy Unknown ANKLES Verified 07/10/23 10:51 SWELL UP benzalkonium chloride Allergy Unknown UNKNOWN Verified 07/10/23 10:51 brimonidine Allergy Unknown UNKNOWN Verified 07/10/23 10:51 travoprost Allergy Unknown UNKNOWN Verified 07/10/23 10:51 diclofenac [From Voltaren] Allergy Verified 07/10/23 10:51 Home Medications Medication Instructions Recorded Confirmed Type Areds 2 1 softgel PO BID 06/09/24 06/09/24 History Prevagen 1 tab PO QAM 06/09/24 06/09/24 History atorvastatin 10 mg tablet 10 mg PO HS 06/09/24 06/09/24 History carbidopa 25 mg-levodopa 100 mg 1 tab PO TID 06/09/24 06/09/24 History tablet ciclopirox 8 % topical solution 1 applic topical HS 06/09/24 06/09/24 History docusate sodium 100 mg tablet 200 mg PO HS PRN Constipation 06/09/24 06/09/24 History (Stool Softener) dorzolamide-timolol (PF) 2 %-0.5 % 1 drp OPB BID 06/09/24 06/09/24 History eye drops in a dropperette entacapone 200 mg tablet 200 mg PO TID 06/09/24 06/09/24 History finasteride 5 mg tablet 5 mg PO HS 06/09/24 06/09/24 History glucosamine-chondroitin 750 mg-600 1 tab PO DAILY 06/09/24 06/09/24 History mg tablet lisinopril 10 1 tab PO DAILY 06/09/24 06/09/24 History mg-hydrochlorothiazide 12.5 mg tablet mirtazapine 30 mg tablet 30 mg PO HS 06/09/24 06/09/24 History niacin 1,000 mg tablet,extended 2,000 mg PO HS 06/09/24 06/09/24 History release 24 hr peg 400-propylene glycol 0.4 %-0.3 1 drp OPB QID PRN Dry Eyes 06/09/24 06/09/24 History % eye drops (Systane (propylene glycol)) quetiapine 100 mg tablet 100 mg PO HS 06/09/24 06/09/24 History solifenacin 10 mg tablet 10 mg PO HS 06/09/24 06/09/24 History tadalafil 10 mg tablet 10 mg PO DAILY PRN Sexual Activity 06/09/24 06/09/24 History vitamin B complex 1 tab PO DAILY 06/09/24 06/09/24 History vitamin D3 25 mcg (1,000 unit)-vit 1 tab PO DAILY 06/09/24 06/09/24 History K2 90 mcg disintegrating tablet Patient History Surgical History History of cataract extraction 02/2017-bilateral History of bladder surgery Green light laser surgery for excess bladder tissue-03/09/14 History of Mohs micrographic surgery for skin cancer Head-2014 Left arm-2013 History of sebaceous cyst x3-2 on back, 1 on chest History of tonsillectomy and adenoidectomy 1948 History of surgery femur [id number] leg repair laser vaporization with transurethral resection of prostate Previous back surgery H/O: knee surgery Family History Brother Prostate cancer Father Hypertension Heart disease following heart attack Mother Hearing loss Heart disease following heart attack Other No family history of adverse response to anesthesia No family history of bleeding disorder Social History Smoking Status: Unknown if ever smoked Do You Dip or Chew Tobacco: No; Hx Alcohol Use: No Hx Substance Use: No Preferred Language: Welsh Communication Ability: Effective Gum Worker Required: No Beliefs That Will Affect Care: None marital status: Current Living Situation: Spouse current occupational status: retired Feels Safe at Home: Yes Safety Concerns: Feels Safe At This Time Review of Systems Review of Systems: All systems reviewed & are unremarkable except as noted in HPI & below Physical Exam Constitutional: WD/WN, vitals as above Eyes: no conjunctival abnormality ENMT: Ears: no hearing impairment and no external ear abnormality Mouth: no oropharynx abnormality Neck: trachea midline Respiratory: normal respiratory effort; no respiratory distress and no labored breathing Cardiovascular: Rate/Rhythm: + irregularly irregular Gastrointestinal (Abdomen): At the time of my exam the patient's abdomen was soft without distention. He had no pain with palpation at the time of my exam. There is no rebound tenderness or guarding. There is no rigidity of the abdomen noted. I did not appreciate any hernias on exam. Musculoskeletal: No calf tenderness Skin: no rashes Neurologic: moves all extremities Psychiatric: A+Ox3, euthymic affect PG Care Time/CCT Total # of Minutes Spent Total Time Spent with Patient: Total time spent is greater than 50% in coordination of care (as documented) at patient's floor/unit and/or counseling patient: Coding Level of Care Code 50133 INT INP/OBS CARE 3/75MIN Diagnoses Small bowel obstruction K56.609
[2024-06-09 06:41] LABS: Potassium 3.9 mmol/L (3.5-5.1)
[2024-06-09 06:57] LABS: Thyroid Stimulating Hormone 1.312 uIu/ml (0.300-4.500)
--- NOTE | 2024-06-09 07:21 | History & Physical Report ---
Date of Service June 09, 2024 Assessment & Plan (1) Small bowel obstruction: Plan: Patient presented with small bowel obstruction on CT scan with concern for transition into right abdomen. No intra-abdominal surgeries were reported on history. Patient be kept n.p.o. intravenous fluids with potassium we may utilize general surgical consult undertaken Parenteral pain and antiemetic control. (2) Parkinsons disease: Plan: Patient Sinemet and entacapone will be held low threshold to restart given the impact on his movement disorder (3) Atrial fibrillation: Plan: Atrial fibrillation was self-limited and he has no history of the same. Typically for cardiovascular risk he takes atorvastatin for hypertension he takes lisinopril hydrochlorothiazide Plan Patient has previously had greenlight surgery on his prostate he typically takes finasteride and tadalafil For depression patient takes Remeron and he takes quetiapine for sleep The patient is a progressive surgery within 24 hours we will institute heparin subcutaneous for DVT prevention History of Present Illness Primary Care Provider: Misael Swenson MD 84-year-old male presents to the emergency department with right-sided abdominal pain since 06/08/2024 pain was unremitting and increased presents to the emergency department imaging revealed small bowel obstruction with transition point in the right abdomen. During his stay in emergency department the patient developed new onset atrial fibrillation with rapid ventricular response with stopped spontaneously without treatment Patient and states that his abdominal discomfort been for about 2 days worsened over last 1 day. He has had no flatus or bowel movement since. Allergies Allergy/AdvReac Type Severity Reaction Status Date / Time acetaminophen Allergy Unknown ANKLES Verified 07/10/23 10:51 SWELL UP benzalkonium chloride Allergy Unknown UNKNOWN Verified 07/10/23 10:51 brimonidine Allergy Unknown UNKNOWN Verified 07/10/23 10:51 travoprost Allergy Unknown UNKNOWN Verified 07/10/23 10:51 diclofenac [From Voltaren] Allergy Verified 07/10/23 10:51 Home Medications Medication Instructions Recorded Confirmed Type Areds 2 1 softgel PO BID 06/09/24 06/09/24 History Prevagen 1 tab PO QAM 06/09/24 06/09/24 History atorvastatin 10 mg tablet 10 mg PO HS 06/09/24 06/09/24 History carbidopa 25 mg-levodopa 100 mg 1 tab PO TID 06/09/24 06/09/24 History tablet ciclopirox 8 % topical solution 1 applic topical HS 06/09/24 06/09/24 History docusate sodium 100 mg tablet 200 mg PO HS PRN Constipation 06/09/24 06/09/24 History (Stool Softener) dorzolamide-timolol (PF) 2 %-0.5 % 1 drp OPB BID 06/09/24 06/09/24 History eye drops in a dropperette entacapone 200 mg tablet 200 mg PO TID 06/09/24 06/09/24 History finasteride 5 mg tablet 5 mg PO HS 06/09/24 06/09/24 History glucosamine-chondroitin 750 mg-600 1 tab PO DAILY 06/09/24 06/09/24 History mg tablet lisinopril 10 1 tab PO DAILY 06/09/24 06/09/24 History mg-hydrochlorothiazide 12.5 mg tablet mirtazapine 30 mg tablet 30 mg PO HS 06/09/24 06/09/24 History niacin 1,000 mg tablet,extended 2,000 mg PO HS 06/09/24 06/09/24 History release 24 hr peg 400-propylene glycol 0.4 %-0.3 1 drp OPB QID PRN Dry Eyes 06/09/24 06/09/24 History % eye drops (Systane (propylene glycol)) quetiapine 100 mg tablet 100 mg PO HS 06/09/24 06/09/24 History solifenacin 10 mg tablet 10 mg PO HS 06/09/24 06/09/24 History tadalafil 10 mg tablet 10 mg PO DAILY PRN Sexual Activity 06/09/24 06/09/24 History vitamin B complex 1 tab PO DAILY 06/09/24 06/09/24 History vitamin D3 25 mcg (1,000 unit)-vit 1 tab PO DAILY 06/09/24 06/09/24 History K2 90 mcg disintegrating tablet Past Med/Surg History Problem List (Updated 06/09/24 @ 07:25 by Nano Moss DO) Atrial fibrillation with rapid ventricular response (Acute) Small bowel obstruction (Acute) Atrial fibrillation Parkinsons disease Small bowel obstruction Deviated nasal septum Nasal crusting Benign localized prostatic hyperplasia with lower urinary tract symptoms (LUTS) Impacted cerumen Urinary urgency (Acute) BPH (benign prostatic hyperplasia) Surgical History History of cataract extraction 02/2017-bilateral History of bladder surgery Green light laser surgery for excess bladder tissue-03/09/14 History of Mohs micrographic surgery for skin cancer Head-2014 Left arm-2013 History of sebaceous cyst x3-2 on back, 1 on chest History of tonsillectomy and adenoidectomy 1948 History of surgery femur [id number] leg repair laser vaporization with transurethral resection of prostate Previous back surgery H/O: knee surgery Family History Brother Prostate cancer Father Hypertension Heart disease following heart attack Mother Hearing loss Heart disease following heart attack Other No family history of adverse response to anesthesia No family history of bleeding disorder Social History Smoking Status: Unknown if ever smoked Do You Dip or Chew Tobacco: No; Hx Alcohol Use: No Hx Substance Use: No Preferred Language: Guyanese Communication Ability: Effective Bookmaker'S Clerk Required: No Beliefs That Will Affect Care: None marital status: Current Living Situation: Spouse current occupational status: retired Feels Safe at Home: Yes Safety Concerns: Feels Safe At This Time Review of Systems Review of Systems: Mild distress and fatigue no headache, no visual changes no speech or swallowing issues no chest pain, pressure or palpitations patient did not sense palpitations when his atrial fibrillation occurred no shortness of breath, cough or wheezes no abdominal pain, hypoactive bowel sounds mild nausea without vomiting no bowel movements patient without focal pain no dysuria, hematuria or frequency no focal joint pain or swelling no back pain, CVA tenderness or radicular pain no bruising, bleeding or rashes no focal signs of weakness or numbness or altered sensation no complaints of anxiety or depression.. Physical Exam Physical Exam: The patient appeared well nourished and normally developed. Vital signs as documented. Head exam is normocephalic atraumatic Neck is without JVD, thyromegaly, or carotid bruits. Lungs are clear to auscultation, no focal loss of breath sounds Cardiac exam, Rhythm is regular.. No murmurs, rubs or gallops. Abdominal exam reveals absent bowel sounds, soft diffusely tender without acute abdomen Extremities are nonedematous and both pedal pulses are present Neurologic exam is alert and oriented, no focal loss of strength or sensation Skin is without bruises or rashes Psychologically is without concerns for anxiety or depression.. Results & Data Results & Data Vital Signs (Past 12 Hours) Vital Signs Pulse Pulse Resp BP Pulse Ox O2 Del Method 06/09/24 07:11 76 06/09/24 06:30 87 20 119/71 99 Room Air 06/09/24 05:30 113 H 20 106/74 97 Room Air 06/09/24 04:30 141 H 20 115/84 97 Room Air Laboratory Results Reviewed CBC reviewed chemistry reviewed troponin Code Status & VTE Plan VTE Prophylaxis Plan VTE Prophylaxis will be ordered: Yes PG Care Time/CCT Total # of Minutes Spent Total Time Spent with Patient: Total time spent is greater than 50% in coordination of care (as documented) at patient's floor/unit and/or counseling patient: Coding Level of Care Code 45643 INT INP/OBS CARE 2/55MIN Diagnoses Small bowel obstruction K56.609 Parkinsons disease G20.A1 Atrial fibrillation I48.91
[2024-06-09] MEDS ORDERED: MoRPHine SULFATE 4 MG/ML 1 ML CARP\\VIAL IV PRN (08:29)
--- NOTE | 2024-06-09 08:35 | XRay Report ---
XR chest 1V portable HISTORY: new onset afib COMPARISON: Chest 04/29/2023. FINDINGS: The lungs are clear. Cardiac silhouette is normal in size. No pleural effusions. No pneumot horax. IMPRESSION: No acute process. ACT 112: Negative or not required by law. Electronically signed by: Miguel Barillas M.D. 06/09/2024 8:34 AM
[2024-06-09 11:19] LABS: Appearance Urine Turbid (Clear); Bacteria Urine Automated None Seen (None Seen); Bilirubin Urine Negative (Negative); Blood Urine Negative (Negative); Color Urine Dark Yellow; Glucose Urine UA Negative (Negative); Ketones Urine Trace (Negative); Leukocyte Esterase Urine Trace (Negative); Nitrite Urine Negative (Negative); Protein Urine 1+ (Negative); Specific Gravity Urine > 1.045 (1.000-1.030); Urobilinogen Urine Negative (Negative); pH Urine 7.5 (4.5-7.5)
[2024-06-09 11:26] LABS: Amorphous Sediment Urine Present (None Prsent)
[2024-06-09] MEDS: MoRPHine SULFATE 2 MG/ML CARP IV PRN (11:46)
[2024-06-09] MEDS: POTASSIUM CHLORIDE 20 MEQ in SODIUM CHLORIDE 0.9% 1,000 ML IV SCH (12:16)
[2024-06-09] MEDS: MIRTAZAPINE TAB 15 MG TAB PO SCH (20:42)
[2024-06-09] MEDS: QUEtiapine FUMARATE 100 MG TABLET PO SCH (20:42)
[2024-06-09] MEDS: NSS + 20MEQ KCL 20 MEQ/1,000 ML BAG IV SCH (22:04)
[2024-06-09] MEDS: METOPROLOL TARTRATE 1 MG/ML VIAL IV PRN (23:50)
[2024-06-10] MEDS: ONDANSETRON INJ 2 MG/ML 2 ML VIAL IV PRN (03:17)
[2024-06-10] MEDS: LACTATED RINGER'S 500 ML IV ONE ×2 (03:21→04:02)
[2024-06-10 06:49] LABS: Hematocrit (blood only) 41.3 % (42.0-52.0); Hemoglobin 14.7 g/dl (14.0-18.0); Mean Corpuscular Hemoglobin 33.5 pg (25.0-34.0); Mean Corpuscular Hgb Conc 35.6 g/dL (32.0-36.0); Mean Corpuscular Volume 94.1 fL (80.0-100.0); Mean Platelet Volume 10.2 fL (9.4-12.4); Platelet Count 133 K/uL (130-400); RDW Coefficient of Variation 11.9 % (11.5-14.5); RDW Standard Deviation 41.1 fL (36.4-46.3); Red Blood Count 4.39 M/uL (4.70-6.10); White Blood Count 19.09 K/ul (4.8-10.8)
[2024-06-10 07:00] LABS: BUN Creatinine Ratio 22.2 (10-20); Calcium 8.5 mg/dl (8.6-10.3); Creatinine Clr Calc Pharmacy 64.6 ml/min; Est GFR (African American) 90.6 ml/min; Est GFR (Non-African American) 78.2 ml/min; Potassium 4.1 mmol/L (3.5-5.1)
--- NOTE | 2024-06-10 08:17 | Surgery Progress Note ---
Date of Service June 10, 2024 Assessment & Plan (1) Small bowel obstruction: Plan: Patient reports feeling same as yesterday Continues with abd pain abd is distended, soft , TTP wbc increase from yesterday 19 (14) Afebrile this am and overnight ordered KUB nausea with coughing , if emesis occurs would recommend NGT for bowel decompression will follow Admission and Anticipated Discharge Date Admission Date: June 09, 2024 Supervising Physician Co-Signing Physician Notes Patient seen and examined, labs and reviewed, agree with above. Admitted with small bowel obstruction, had some recent emesis, still distended. On exam afebrile, in A-fib, abdomen soft, distended, mildly tender, no peritonitis. WBC up. KUB with persistent distention. NG tube ordered, repeat KUB tomorrow, Dr. Leiva following over the weekend Subjective pt resting in bed, feeling same as yesterday Nausea when coughing , not at rest Review of Systems Constitutional: no fever Respiratory: + cough; no dyspnea Cardiovascular: no chest pain Gastrointestinal: + abdominal pain, + bloating and + nause a; no vomiting Physical Exam Constitutional: cooperative; no acute distress Respiratory: normal respiratory effort; no respiratory distress Cardiovascular: Rate/Rhythm: regular rate Gastrointestinal (Abdomen): Inspection/Auscultation: + abdomen distended Percussion/Palpation: + abdomen tender and abdomen soft Results & Data Vital Signs (Past 12 Hours) Vital Signs Temp Pulse Pulse Pulse Resp BP BP 06/10/24 07:34 97.3 F L 82 19 06/10/24 05:00 71 101/61 06/10/24 04:50 70 06/10/24 04:50 70 06/10/24 04:42 147 H 105/64 06/10/24 04:40 147 H 06/10/24 04:30 133 H 20 06/10/24 04:20 133 H 06/10/24 04:10 126 H 06/10/24 04:01 121 H 06/10/24 03:51 123 H 06/10/24 03:46 119 H 06/10/24 03:42 140 H 06/10/24 03:39 125 H 06/10/24 03:32 144 H 06/10/24 03:27 130 H 06/10/24 03:22 131 H 06/10/24 03:01 98.5 F 147 H 22 109/70 06/10/24 00:24 107 H 06/10/24 00:05 123 H 117/76 06/09/24 23:54 117 H 06/09/24 23:50 129 H 06/09/24 23:30 122 H 06/09/24 23:24 163 H 06/09/24 23:06 98.2 F 86 17 06/09/24 22:46 86 BP Pulse Ox O2 Del Method 06/10/24 07:34 116/69 98 Room Air 06/10/24 05:00 06/10/24 04:50 06/10/24 04:50 103/60 06/10/24 04:42 06/10/24 04:40 105/64 06/10/24 04:30 107/73 99 Room Air 06/10/24 04:20 104/70 06/10/24 04:10 106/69 06/10/24 04:01 83/57 L 06/10/24 03:51 90/54 L 06/10/24 03:46 94/50 L 97 Room Air 06/10/24 03:42 96/64 L 06/10/24 03:39 103/54 L 06/10/24 03:32 103/61 06/10/24 03:27 86/57 L 06/10/24 03:22 97/63 L 06/10/24 03:01 109/70 96 Room Air 06/10/24 00:24 108/68 06/10/24 00:05 06/09/24 23:54 126/77 06/09/24 23:50 06/09/24 23:30 121/64 06/09/24 23:24 114/69 06/09/24 23:06 130/66 97 Room Air 06/09/24 22:46 Results CBC w Diff Results: RBC 4.39 M/uL (4.70-6.10) L 06/10/24 WBC 19.09 K/ul (4.8-10.8) H 06/10/24 Hgb 14.7 g/dl (14.0-18.0) 06/10/24 Hct 41.3 % (42.0-52.0) L 06/10/24 MCV 94.1 fL (80.0-100.0) 06/10/24 MCH 33.5 pg (25.0-34.0) 06/10/24 MCHC 35.6 g/dL (32.0-36.0) 06/10/24 RDW Standard Deviation 41.1 fL (36.4-46.3) 06/10/24 RDW Coefficient of Variation 11.9 % (11.5-14.5) 06/10/24 Plt Count 133 K/uL (130-400) 06/10/24 MPV 10.2 fL (9.4-12.4) 06/10/24 Neutrophils (%) (Auto) 93.2 % 06/09/24 Lymphocytes (%) (Auto) 3.4 % 06/09/24 Monocytes # (Auto) 0.39 K/uL (0.11-0.59) 06/09/24 Eosinophils # (Auto) 0.00 K/uL (0.00-0.50) 06/09/24 Immature Granulocyte % (Auto) 0.6 % 06/09/24 Neutrophils # (Auto) 13.30 K/uL (1.40-6.50) H 06/09/24 Lymphocytes # (Auto) 0.49 K/uL (1.20-3.40) L 06/09/24 Monocytes # (Auto) 0.39 K/uL (0.11-0.59) 06/09/24 Eosinophils # (Auto) 0.00 K/uL (0.00-0.50) 06/09/24 Basophils # (Auto) 0.01 K/uL (0.00-0.20) 06/09/24 Immature Granulocyte # (Auto) 0.09 K/uL (0.01-0.20) 4 PG Care Time/CCT Total # of Minutes Spent Total Time Spent with Patient: Total time spent is greater than 50% in coordination of care (as documented) at patient's floor/unit and/or counseling patient: Coding Level of Care Code 98723 SUB INP/OBS CARE 11/05MIN Diagnoses Small bowel obstruction K56.609
--- NOTE | 2024-06-10 10:46 | XRay Report ---
KUB CLINICAL HISTORY: Small bowel obstruction. COMPARISON STUDY: CT of the abdomen and pelvis June 09, 2024.. FINDINGS: Incidental note is made of contrast within the bladder from recent contrast-enhanced CT. Mu ltiple loops of moderately dilated small bowel are again noted. Small bowel loops measure up to 5.4 c m in caliber. No evidence for free air on supine exam. There is moderate stool within the colon and r ectum. IMPRESSION: Persistent small bowel obstruction. ACT 112: Negative or not required by law. Electronically signed by: Benjamin Urena M.D. 06/10/2024 10:45 AM
--- NOTE | 2024-06-10 14:51 | Hospitalist Progress Note ---
Date of Service June 10, 2024 Assessment & Plan (1) Small bowel obstruction: Plan: Patient presented with small bowel obstruction on CT scan with concern for transition into right abdomen. No intra-abdominal surgeries were reported on history. Patient be kept n.p.o. intravenous fluids with potassium we may utilize general surgical consult undertaken Parenteral pain and antiemetic control. NGT if vomiting (2) Parkinsons disease: Plan: Patient Sinemet and entacapone will be held low threshold to restart given the impact on his movement disorder (3) Atrial fibrillation: Plan: Atrial fibrillation was self-limited and he has no history of the same. Typically for cardiovascular risk he takes atorvastatin for hypertension he takes lisinopril hydrochlorothiazide Plan Patient has previously had greenlight surgery on his prostate he typically takes finasteride and tadalafil For depression patient takes Remeron and he takes quetiapine for sleep The patient is a progressive surgery within 24 hours we will institute heparin subcutaneous for DVT prevention at bedside Admission and Anticipated Discharge Date Admission Date: June 09, 2024 Subjective No acute events overnight Currently states he had a slight spit up earlier, but no further issues and is not feeling nauseous Review of Systems Review of Systems: comprehensive ROS completed Physical Exam Physical Exam: Gen: no acute distress, lying in bed comfortably HEENT: NC/AT, MMM CVS: s1s2 nl, RRR Lungs: CTAB Abd: diminished BS, soft, nontender Ext: no edema : no wang Psych: pleasant, communicating appropriately Results & Data Results & Data Vital Signs (Past 12 Hours) Vital Signs Temp Pulse Pulse Resp BP BP BP 06/10/24 14:23 135 H 115/70 06/10/24 10:59 36.3 C L 126 H 18 105/71 06/10/24 10:08 118 H 126/66 06/10/24 09:13 135 H 06/10/24 07:34 36.3 C L 82 19 116/69 06/10/24 05:00 71 101/61 06/10/24 04:50 70 06/10/24 04:50 70 103/60 06/10/24 04:42 147 H 105/64 06/10/24 04:40 147 H 105/64 06/10/24 04:30 133 H 20 107/73 06/10/24 04:20 133 H 104/70 06/10/24 04:10 126 H 106/69 06/10/24 04:01 121 H 83/57 L 06/10/24 03:51 123 H 90/54 L 06/10/24 03:46 119 H 94/50 L 06/10/24 03:42 140 H 96/64 L 06/10/24 03:39 125 H 103/54 L 06/10/24 03:32 144 H 103/61 06/10/24 03:27 130 H 86/57 L 06/10/24 03:22 131 H 97/63 L 06/10/24 03:01 36.9 C 147 H 22 109/70 109/70 Pulse Ox O2 Del Method 06/10/24 14:23 06/10/24 10:59 96 Room Air 06/10/24 10:08 06/10/24 09:13 06/10/24 07:34 98 Room Air 06/10/24 05:00 06/10/24 04:50 06/10/24 04:50 06/10/24 04:42 06/10/24 04:40 06/10/24 04:30 99 Room Air 06/10/24 04:20 06/10/24 04:10 06/10/24 04:01 06/10/24 03:51 06/10/24 03:46 97 Room Air 06/10/24 03:42 06/10/24 03:39 06/10/24 03:32 06/10/24 03:27 06/10/24 03:22 06/10/24 03:01 96 Room Air PG Care Time/CCT Total # of Minutes Spent Total Time Spent with Patient: Total time spent is greater than 50% in coordination of care (as documented) at patient's floor/unit and/or counseling patient: Coding Level of Care Code 99109 SUB INP/OBS CARE 2/35MIN Diagnoses Small bowel obstruction K56.609 Parkinsons disease G20.A1 Atrial fibrillation I48.91
[2024-06-10] MEDS ORDERED: POTASSIUM CHLORIDE 20 MEQ in SODIUM CHLORIDE 0.9% 1,000 ML IV SCH (17:30)
[2024-06-10] MEDS: ONDANSETRON INJ 2 MG/ML 2 ML VIAL ONE (20:44)
[2024-06-10] MEDS: HYDROmorphone INJ 0.5 MG/0.5 ML SYR ONE (20:44)
[2024-06-10] MEDS: DORZOLAMIDE/TIMOLOL 22.3/6.8MG/ML 10 ML BTL OPB SCH (23:00)
--- NOTE | 2024-06-11 00:10 | Electrocardiogram Report ---
Test Reason : Blood Pressure : */* mmHG Vent. Rate : 119 BPM Atrial Rate : 249 BPM P-R Int : * ms QRS Dur : 82 ms QT Int : 404 ms P-R-T Axes : 107 -70 208 degrees QTcB Int : 568 ms Poor data quality, interpretation may be adversely affected Atrial flutter with variable A-V block Left anterior fascicular block Possible Inferior infarct Poor R wave progression, consider anterior [place] vs. lead placement vs. LVH Abnormal ECG When compared with ECG of 14-Dec-2015 10:47, Atrial flutter has replaced Sinus rhythm Confirmed by Romel Ramos ([id number]) on 06/11/2024 12:10:20 AM Referred By: REFERRED SELF Confirmed By: Romel Ramos
--- NOTE | 2024-06-11 00:11 | Electrocardiogram Report ---
Test Reason : Blood Pressure : */* mmHG Vent. Rate : 124 BPM Atrial Rate : 248 BPM P-R Int : * ms QRS Dur : 78 ms QT Int : 286 ms P-R-T Axes : 270 -48 92 degrees QTcB Int : 410 ms Atrial flutter with 2:1 A-V conduction Left anterior fascicular block Cannot rule out Inferior infarct (cited on or before 09-Jun-2024) Abnormal ECG When compared with ECG of 09-Jun-2024 03:46, No significant change Confirmed by Romel Ramos ([id number]) on 06/11/2024 12:10:51 AM Referred By: REFERRED SELF Confirmed By: Romel Ramos
--- NOTE | 2024-06-11 00:12 | Electrocardiogram Report ---
Test Reason : Blood Pressure : */* mmHG Vent. Rate : 77 BPM Atrial Rate : 77 BPM P-R Int : 172 ms QRS Dur : 80 ms QT Int : 394 ms P-R-T Axes : 72 -13 73 degrees QTcB Int : 445 ms Sinus rhythm with Premature atrial complexes Otherwise normal ECG When compared with ECG of 09-Jun-2024 05:13, Sinus rhythm has replaced Atrial fibrillation Vent. rate has decreased by 63 bpm Confirmed by Romel Ramos ([id number]) on 06/11/2024 12:12:28 AM Referred By: REFERRED SELF Confirmed By: Romel Ramos
--- NOTE | 2024-06-11 00:12 | Electrocardiogram Report ---
Test Reason : Blood Pressure : */* mmHG Vent. Rate : 140 BPM Atrial Rate : * BPM P-R Int : * ms QRS Dur : 82 ms QT Int : 332 ms P-R-T Axes : * 7 78 degrees QTcB Int : 506 ms Atrial fibrillation with rapid ventricular response with premature ventricular or aberrantly conducte d complexes Prolonged QT Abnormal ECG When compared with ECG of 09-Jun-2024 04:35, Atrial fibrillation has replaced Atrial flutter Left anterior fascicular block is no longer Present Minimal criteria for Inferior infarct are no longer Present Confirmed by Romel Ramos ([id number]) on 06/11/2024 12:11:56 AM Referred By: REFERRED SELF Confirmed By: Romel Ramos
--- NOTE | 2024-06-11 00:14 | Electrocardiogram Report ---
Test Reason : Blood Pressure : */* mmHG Vent. Rate : 130 BPM Atrial Rate : 130 BPM P-R Int : 150 ms QRS Dur : 100 ms QT Int : 304 ms P-R-T Axes : 90 -54 81 degrees QTcB Int : 447 ms Probable Atrial flutter Left axis deviation Nonspecific T wave abnormality Abnormal ECG When compared with ECG of 09-Jun-2024 07:11, Atrial flutter has replaced Sinus rhythm Vent. rate has increased by 53 bpm QRS axis Shifted left Confirmed by Romel Ramos ([id number]) on 06/11/2024 12:14:16 AM Referred By: REFERRED SELF Confirmed By: Romel Ramos
[2024-06-11 06:04] LABS: Hematocrit (blood only) 40.5 % (42.0-52.0); Hemoglobin 14.4 g/dl (14.0-18.0); Mean Corpuscular Hemoglobin 33.8 pg (25.0-34.0); Mean Corpuscular Hgb Conc 35.6 g/dL (32.0-36.0); Mean Corpuscular Volume 95.1 fL (80.0-100.0); Mean Platelet Volume 10.7 fL (9.4-12.4); Platelet Count 152 K/uL (130-400); RDW Coefficient of Variation 11.9 % (11.5-14.5); RDW Standard Deviation 41.2 fL (36.4-46.3); Red Blood Count 4.26 M/uL (4.70-6.10); White Blood Count 17.69 K/ul (4.8-10.8)
[2024-06-11 06:20] LABS: BUN Creatinine Ratio 29.6 (10-20); Calcium 8.4 mg/dl (8.6-10.3); Creatinine Clr Calc Pharmacy 53.9 ml/min; Est GFR (African American) 72.7 ml/min; Est GFR (Non-African American) 62.7 ml/min; Potassium 3.6 mmol/L (3.5-5.1)
--- NOTE | 2024-06-11 08:38 | Surgery Progress Note ---
Date of Service June 11, 2024 Assessment & Plan (1) Small bowel obstruction: Plan: NG placed yesterday some progress IVF OOB await bowel function WBC trending down Admission and Anticipated Discharge Date Admission Date: June 09, 2024 Subjective c/o some abdominal pain feels alittle better no flatus NG in place; bilious Review of Systems Constitutional: no fever and no chills Respiratory: no cough and no dyspnea Cardiovascular: no chest pain Gastrointestinal: + abdominal pain and + change in bowel h abits; no nausea and no vomiting Genitourinary: no dysuria Neurologic: + generalized weakness; no localized wea kness Psychiatric: no behavioral changes Physical Exam Constitutional: + thin Neck: trachea midline Respiratory: normal respiratory effort, lungs clear to auscultation Cardiovascular: RRR, no murmur, no edema Gastrointestinal (Abdomen): Inspection/Auscultation: abdomen normal to inspection and normal bowel sounds; abdomen not distended Percussion/Palpation: + abdomen tender and abdomen soft; no guarding and abdomen not rigid Musculoskeletal: Head/Neck/Chest: normocephalic and head atraumatic Skin: no rashes, warm and dry Results & Data Vital Signs (Past 12 Hours) Vital Signs Temp Pulse Pulse Pulse Resp BP BP 06/11/24 08:07 36.4 C L 79 18 115/66 06/11/24 07:38 84 06/11/24 04:25 111 H 96/60 L 06/11/24 04:09 128 H 113/64 06/11/24 04:05 37.1 C 128 H 128 H 14 113/64 06/10/24 23:00 36.7 C 68 17 127/72 06/10/24 22:00 86 Pulse Ox O2 Del Method 06/11/24 08:07 98 Room Air 06/11/24 07:38 06/11/24 04:25 06/11/24 04:09 06/11/24 04:05 94 Room Air 06/10/24 23:00 95 Room Air 06/10/24 22:00
--- NOTE | 2024-06-11 08:53 | Hospitalist Progress Note ---
Date of Service June 11, 2024 Assessment & Plan (1) Small bowel obstruction: (2) Parkinsons disease: (3) Atrial fibrillation: Plan #Small bowel obstruction: - Patient presented with small bowel obstruction on CT scan with concern for transition into right abdomen. No intra-abdominal surgeries were reported on history. - Patient be kept n.p.o. intravenous fluids with potassium - Gen surgery on board - Parenteral pain and antiemetic control. - NGT placed for vomiting #Elevated troponin - he has been intermittently tachycardic. 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 Typically for cardiovascular risk he takes atorvastatin for hypertension he takes lisinopril hydrochlorothiazide Patient has previously had greenlight surgery on his prostate he typically takes finasteride and tadalafil For depression patient takes Remeron and he takes quetiapine for sleep DVT ppx: hep subq 06/10 at bedside Admission and Anticipated Discharge Date Admission Date: June 09, 2024 Subjective NGT placed yesterday Currently: c/o epigastric / lower chest pain Review of Systems Review of Systems: comprehensive ROS completed Physical Exam Physical Exam: Gen: no acute distress, sitting in chair comfortably HEENT: NC/AT, MMM, NGT in place CVS: s1s2 nl, tachycardic Lungs: CTAB Abd: diminished BS, soft, nontender Ext: no edema : no wang Psych: pleasant, communicating appropriately Results & Data Results & Data Vital Signs (Past 12 Hours) Vital Signs Temp Pulse Pulse Pulse Resp BP BP 06/11/24 08:07 36.4 C L 79 18 115/66 06/11/24 07:38 84 06/11/24 04:25 111 H 96/60 L 06/11/24 04:09 128 H 113/64 06/11/24 04:05 37.1 C 128 H 128 H 14 113/64 06/10/24 23:00 36.7 C 68 17 127/72 06/10/24 22:00 86 Pulse Ox O2 Del Method 06/11/24 08:07 98 Room Air 06/11/24 07:38 06/11/24 04:25 06/11/24 04:09 06/11/24 04:05 94 Room Air 06/10/24 23:00 95 Room Air 06/10/24 22:00 PG Care Time/CCT Total # of Minutes Spent Total Time Spent with Patient: Total time spent is greater than 50% in coordination of care (as documented) at patient's floor/unit and/or counseling patient: Coding Level of Care Code 46687 SUB INP/OBS CARE 2/35MIN Diagnoses Small bowel obstruction K56.609 Parkinsons disease G20.A1 Atrial fibrillation I48.91
[2024-06-11 08:56] LABS: Magnesium 2.2 mg/dl (1.7-2.4)
[2024-06-11 09:12] LABS: Troponin I High Sensitivity 26.3 pg/ml (0-20)
[2024-06-11] MEDS: HEPARIN SOD 5,000 UNIT/0.5 ML VIAL SQ SCH (10:11)
--- NOTE | 2024-06-11 11:34 | Electrocardiogram Report ---
Test Reason : Blood Pressure : */* mmHG Vent. Rate : 117 BPM Atrial Rate : 104 BPM P-R Int : 142 ms QRS Dur : 80 ms QT Int : 394 ms P-R-T Axes : 88 -21 56 degrees QTcB Int : 549 ms Sinus rhythm with frequent and consecutive atrial ectopy with occasional aberrant conduction. Nonspecific T wave abnormality Abnormal ECG When compared with ECG of 09-Jun-2024 23:33, QRS axis Shifted right Non-specific change in ST segment in Inferior leads Confirmed by Jardo Antonio ([id number]) on 06/11/2024 11:34:19 AM Referred By: REFERRED SELF Confirmed By: Jarod Antonio
[2024-06-11] MEDS: SODIUM CHLORIDE 0.9% 500 ML IV ONE ×2 (14:05→17:33)
--- NOTE | 2024-06-11 14:37 | XRay Report ---
KUB CLINICAL HISTORY: NG tube placement COMPARISON STUDY: CT of the abdomen and pelvis June 09, 2024. KUB June 10, 2024. FINDINGS: Tip of nasogastric tube projects over the proximal body of the stomach. Sidehole is at the level of the distal esophagus. Several loops of mildly dilated small bowel are noted. Small bowel dil atation has decreased. IMPRESSION: 1. Tip of nasogastric tube within the proximal body of the stomach with sidehole at the level of the distal esophagus. The tube could be advanced an additional 4 cm. 2. Small bowel dilatation, improved since prior exam. ACT 112: Negative or not required by law. Electronically signed by: Benjamin Urena M.D. 06/11/2024 2:36 PM
[2024-06-11] MEDS: SODIUM CHLORIDE 0.9% 1,000 ML IV ONE (15:24)
[2024-06-11] MEDS: METOPROLOL TARTRATE 1 MG/ML VIAL IV STA (17:32)
[2024-06-11] MEDS ORDERED: STAT IV Infusion **Titration per Protocol STA (17:51)
[2024-06-11] MEDS ORDERED: dilTIAZem HCL 125 MG in DEXTROSE 5% 100 ML IV SCH (18:00)
[2024-06-11 19:17] LABS: BUN Creatinine Ratio 41.1 (10-20); Calcium 7.7 mg/dl (8.6-10.3); Creatinine Clr Calc Pharmacy 59.6 ml/min; Est GFR (African American) 84.9 ml/min; Est GFR (Non-African American) 73.2 ml/min; Potassium 3.7 mmol/L (3.5-5.1)
[2024-06-12 06:46] LABS: Hematocrit (blood only) 35.7 % (42.0-52.0); Hemoglobin 12.2 g/dl (14.0-18.0); Mean Corpuscular Hemoglobin 33.2 pg (25.0-34.0); Mean Corpuscular Hgb Conc 34.2 g/dL (32.0-36.0); Mean Platelet Volume 10.5 fL (9.4-12.4); Platelet Count 125 K/uL (130-400); Red Blood Count 3.68 M/uL (4.70-6.10)
[2024-06-12 07:03] LABS: BUN Creatinine Ratio 40.2 (10-20); Calcium 7.6 mg/dl (8.6-10.3); Creatinine Clr Calc Pharmacy 66.2 ml/min; Est GFR (African American) 91.9 ml/min; Est GFR (Non-African American) 79.3 ml/min; Potassium 3.5 mmol/L (3.5-5.1)
--- NOTE | 2024-06-12 07:18 | Electrocardiogram Report ---
Test Reason : Blood Pressure : */* mmHG Vent. Rate : 103 BPM Atrial Rate : 103 BPM P-R Int : 164 ms QRS Dur : 64 ms QT Int : 338 ms P-R-T Axes : 90 -9 67 degrees QTcB Int : 442 ms Sinus tachycardia with PACs Nonspecific ST abnormality Confirmed by Jarod Antonio ([id number]) on 06/12/2024 7:18:07 AM Referred By: REFERRED SELF Confirmed By: Jarod Antonio
--- NOTE | 2024-06-12 07:24 | Electrocardiogram Report ---
Test Reason : Blood Pressure : */* mmHG Vent. Rate : 67 BPM Atrial Rate : 67 BPM P-R Int : 140 ms QRS Dur : 84 ms QT Int : 408 ms P-R-T Axes : 71 -11 52 degrees QTcB Int : 431 ms Sinus rhythm with Premature atrial complexes Nonspecific ST abnormality Otherwise normal ECG When compared with ECG of 11-Jun-2024 09:38, (unconfirmed) Premature atrial complexes are now Present Vent. rate has decreased by 36 bpm Confirmed by Jarod Antonio ([id number]) on 06/12/2024 7:24:04 AM Referred By: REFERRED SELF Confirmed By: Jarod Anotnio
--- NOTE | 2024-06-12 08:11 | Hospitalist Progress Note ---
Date of Service June 12, 2024 Assessment & Plan (1) Small bowel obstruction: (2) Parkinsons disease: (3) Atrial fibrillation: Plan #Small bowel obstruction: - Patient presented with small bowel obstruction on CT scan with concern for transition into right abdomen. No intra-abdominal surgeries were reported on history. - Patient be kept n.p.o. intravenous fluids with potassium - Gen surgery on board - Parenteral pain and antiemetic control. - NGT still with good output today #Elevated troponin - he has been intermittently tachycardic. 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 Pt had a fall as recent as 04/2024. Discussed the risk / benefit of AC. Also recommended outpatient follow up with cardiology for further evaluation, including Watchman procedure. Currently plan is to AC with therapeutic Lovenox (cleared by surgery) but would not discharge on AC as outpatient due to unsteady gait. - metoprolol 5mg IV q6h with prn in place - HR much better controlled at this time Patient has previously had greenlight surgery on his prostate he typically takes finasteride and tadalafil For depression patient takes Remeron and he takes quetiapine for sleep DVT ppx: hep subq 06/10 at bedside 06/12: updated over the phone Admission and Anticipated Discharge Date Admission Date: June 09, 2024 Subjective NGT remains in place No new complaints Review of Systems Review of Systems: comprehensive ROS completed Physical Exam Physical Exam: Gen: no acute distress, sitting in chair comfortably HEENT: NC/AT, MMM, NGT in place CVS: s1s2 nl, tachycardic Lungs: CTAB Abd: diminished BS, soft, nontender Ext: no edema : no wang Psych: pleasant, communicating appropriately Results & Data Results & Data Vital Signs (Past 12 Hours) Vital Signs Temp Pulse Pulse Resp BP BP BP 06/12/24 06:00 36.7 C 89 14 97/50 L 06/12/24 02:20 36.7 C 67 18 122/70 06/12/24 00:15 75 14 99/57 L 06/12/24 00:15 75 99/57 L 06/12/24 00:00 132 H 110/56 L 06/11/24 23:45 132 H 14 110/56 L 06/11/24 23:03 36.7 C 80 18 109/62 06/11/24 22:30 79 06/11/24 20:12 36.7 C 68 18 118/65 Pulse Ox O2 Del Method 06/12/24 06:00 96 Room Air 06/12/24 02:20 94 Room Air 06/12/24 00:15 06/12/24 00:15 06/12/24 00:00 06/11/24 23:45 06/11/24 23:03 94 Room Air 06/11/24 22:30 06/11/24 20:12 98 Room Air PG Care Time/CCT Total # of Minutes Spent Total Time Spent with Patient: Total time spent is greater than 50% in coordination of care (as documented) at patient's floor/unit and/or counseling patient: Coding Level of Care Code 22280 SUB INP/OBS CARE 3/50MIN Diagnoses Small bowel obstruction K56.609 Parkinsons disease G20.A1 Atrial fibrillation I48.91
[2024-06-12] MEDS: LACTATED RINGER'S 1,000 ML IV SCH (08:40)
--- NOTE | 2024-06-12 09:00 | Surgery Progress Note ---
Date of Service June 12, 2024 Assessment & Plan (1) Small bowel obstruction: Plan: some progress NG still with good amount of output; con't NG till at least tomorrow OK to start lovenox Present on Admission?: Yes Admission and Anticipated Discharge Date Admission Date: June 09, 2024 Subjective minimal abdominal pain small BM yesterday NG still with significant output Review of Systems Constitutional: no fever and no chills Respiratory: no cough and no dyspnea Cardiovascular: no chest pain Gastrointestinal: + abdominal pain; no nausea and no vomit ing Genitourinary: no dysuria Neurologic: + generalized weakness Psychiatric: no behavioral changes Physical Exam Constitutional: WD/WN, vitals as above Respiratory: normal respiratory effort, lungs clear to auscultation Cardiovascular: Rate/Rhythm: + irregularly irregular Gastrointestinal (Abdomen): Inspection/Auscultation: abdomen normal to inspection and normal bowel sounds; abdomen not distended Percussion/Palpation: abdomen soft; abdomen nontender, no guarding and abdomen not rigid Musculoskeletal: Head/Neck/Chest: normocephalic and head atraumatic Results & Data Vital Signs (Past 12 Hours) Vital Signs Temp Pulse Pulse Resp BP BP BP 06/12/24 08:49 125 H 104/80 06/12/24 08:39 36.6 C 82 18 111/58 L 06/12/24 06:00 36.7 C 89 14 97/50 L 06/12/24 02:20 36.7 C 67 18 122/70 06/12/24 00:15 75 14 99/57 L 06/12/24 00:15 75 99/57 L 06/12/24 00:00 132 H 110/56 L 06/11/24 23:45 132 H 14 110/56 L 06/11/24 23:03 36.7 C 80 18 109/62 06/11/24 22:30 79 Pulse Ox O2 Del Method 06/12/24 08:49 06/12/24 08:39 98 Room Air 06/12/24 06:00 96 Room Air 06/12/24 02:20 94 Room Air 06/12/24 00:15 06/12/24 00:15 06/12/24 00:00 06/11/24 23:45 06/11/24 23:03 94 Room Air 06/11/24 22:30 Diagnostic Findings KUB CLINICAL HISTORY: NG tube placement COMPARISON STUDY: CT of the abdomen and pelvis June 09, 2024. KUB June 10, 2024. FINDINGS: Tip of nasogastric tube projects over the proximal body of the stomach. Sidehole is at the level of the distal esophagus. Several loops of mildly dilated small bowel are noted. Small bowel dilatation has decreased. IMPRESSION: 1. Tip of nasogastric tube within the proximal body of the stomach with sidehole at the level of the distal esophagus. The tube could be advanced an additional 4 cm. 2. Small bowel dilatation, improved since prior exam.
[2024-06-12] MEDS ORDERED: ENOXAPARIN 1 MG/KG SQ SCH (09:30)
[2024-06-12] MEDS: ENOXAPARIN 80 MG/0.8 ML SYR SQ SCH (11:45)
[2024-06-12] MEDS: METOPROLOL TARTRATE 1 MG/ML VIAL IV SCH (13:06)
--- NOTE | 2024-06-12 18:42 | Communication Note ---
Date of Service: June 12, 2024 Notified by RN that there was some blood in NGT output. Pt evaluated at bedside, appears stable. Given output mixed with bile, will order gastric occult. Furthermore, hold Lovenox, Protonix IV BID. Pt hemodynamically stable. If more blood output, hemodynamic instability, then T&S plus Hgb Check would need to be done.
[2024-06-12 19:23] LABS: Hematocrit (blood only) 37.9 % (42.0-52.0); Hemoglobin 12.8 g/dl (14.0-18.0)
[2024-06-12 19:37] LABS: Gastric Occult Blood Positive (Negative); pH Gastric Fluid 1
[2024-06-12] MEDS: PANTOprazole 40 MG in SYRINGE 0 ML IV SCH (20:47)
[2024-06-12 23:58] LABS: Hematocrit (blood only) 35.5 % (42.0-52.0); Hemoglobin 11.9 g/dl (14.0-18.0)
[2024-06-13 07:05] LABS: Calcium 7.7 mg/dl (8.6-10.3); Potassium 3.3 mmol/L (3.5-5.1)
[2024-06-13 07:10] LABS: BUN Creatinine Ratio 39.7 (10-20); Creatinine Clr Calc Pharmacy 77.2 ml/min; Est GFR (African American) 96.1 ml/min; Est GFR (Non-African American) 82.9 ml/min
[2024-06-13 07:30] LABS: Hematocrit (blood only) 35.6 % (42.0-52.0); Hemoglobin 11.8 g/dl (14.0-18.0); Mean Corpuscular Hemoglobin 32.5 pg (25.0-34.0); Mean Corpuscular Hgb Conc 33.1 g/dL (32.0-36.0); Mean Corpuscular Volume 98.1 fL (80.0-100.0); Mean Platelet Volume 10.3 fL (9.4-12.4); Platelet Count 116 K/uL (130-400); RDW Standard Deviation 43.3 fL (36.4-46.3); Red Blood Count 3.63 M/uL (4.70-6.10); White Blood Count 6.43 K/ul (4.8-10.8)
--- NOTE | 2024-06-13 10:14 | Hospitalist Progress Note ---
Date of Service June 13, 2024 Assessment & Plan (1) Small bowel obstruction: (2) Parkinsons disease: (3) Atrial fibrillation: Plan #Small bowel obstruction: - Patient presented with small bowel obstruction on CT scan with concern for transition into right abdomen. No intra-abdominal surgeries were reported on history. - Patient be kept n.p.o. intravenous fluids with potassium - Gen surgery on board - Parenteral pain and antiemetic control. - NGT still with good output today -will repeat KUB on 06/13; pateint had bloody output on 06/12 however fluid today appears yellow. -Hemoglobin has also remained stable on 06/13 -will continue NG tube on low intermittent suction. #Elevated troponin - he has been intermittently tachycardic. 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 Pt had a fall as recent as 04/2024. Discussed the risk / benefit of AC. Also recommended outpatient follow up with cardiology for further evaluation, including Watchman procedure. Currently plan is to AC with therapeutic Lovenox (cleared by surgery) but would not discharge on AC as outpatient due to unsteady gait. - metoprolol 5mg IV q6h with prn in place - HR much better controlled at this time Patient has previously had greenlight surgery on his prostate he typically takes finasteride and tadalafil For depression patient takes Remeron and he takes quetiapine for sleep DVT ppx: scd 06/10 at bedside 06/12: updated over the phone 06/13: updated at bedsude Admission and Anticipated Discharge Date Admission Date: June 09, 2024 Subjective Patient continues to not pass gas nor did he have a BM. His is at bedside and questions were answered. Review of Systems Review of Systems: All systems reviewed & are unremarkable except as noted in HPI & below Physical Exam Physical Exam: Gen: no acute distress, sitting in bed. HEENT: NC/AT, MMM, NGT in place CVS: s1s2 nl, tachycardic Lungs: CTAB Abd: diminished BS, soft, nontender Ext: no edema : no wang Psych: pleasant, communicating appropriately Results & Data Results & Data Vital Signs (Past 12 Hours) Vital Signs Temp Pulse Pulse Resp BP BP BP 06/13/24 08:04 36.6 C 74 18 129/63 06/13/24 07:15 133 H 06/13/24 06:20 77 134/65 06/13/24 06:05 75 131/68 06/13/24 02:46 36.7 C 79 15 114/57 L 06/13/24 00:15 71 14 123/67 06/13/24 00:15 71 145/70 H 06/13/24 00:00 87 145/70 H 06/12/24 23:59 36.5 C 87 14 145/70 H 06/12/24 23:18 36.7 C 80 15 111/58 L Pulse Ox O2 Del Method 06/13/24 08:04 98 Room Air 06/13/24 07:15 06/13/24 06:20 06/13/24 06:05 06/13/24 02:46 97 Room Air 06/13/24 00:15 06/13/24 00:15 06/13/24 00:00 06/12/24 23:59 95 Room Air 06/12/24 23:18 99 Room Air PG Care Time/CCT Total # of Minutes Spent Total Time Spent with Patient: Total time spent is greater than 50% in coordination of care (as documented) at patient's floor/unit and/or counseling patient: Coding Level of Care Code 28257 SUB INP/OBS CARE 2/35MIN Diagnoses Small bowel obstruction K56.609 Parkinsons disease G20.A1 Atrial fibrillation I48.91
--- NOTE | 2024-06-13 11:20 | XRay Report ---
KUB HISTORY: Small bowel obstruction. NG tube placement. COMPARISON: KUB 06/11/2024. FINDINGS: A nasogastric tube terminates at the gastroesophageal junction. This should be advanced by approximately 5 to 10 cm. Mildly dilated gas-filled loops of small bowel are again noted which is sim ilar to the prior study. No renal calculi. No ureteral calculi. No pneumoperitoneum or pneumatosis. IMPRESSION: 1. Nasogastric tube terminates at the gastroesophageal junction. This should be advanced by approxima tely 5 to 10 cm. 2. Mildly dilated gas-filled loops of small bowel persist. ACT 112: Negative or not required by law. Electronically signed by: Miguel Barillas M.D. 06/13/2024 11:18 AM
--- NOTE | 2024-06-13 12:03 | Surgery Progress Note ---
Date of Service June 13, 2024 Assessment & Plan (1) Small bowel obstruction: Plan: some progress NG still with good amount of output; con't NG till at least tomorrow Continue to monitor Admission and Anticipated Discharge Date Admission Date: June 09, 2024 Subjective continues without flatus. No nausea or vomiting. No fevers. Physical Exam Gastrointestinal (Abdomen): Percussion/Palpation: abdomen soft; abdomen no ntender, no guarding and abdomen not rigid Results & Data Vital Signs (Past 12 Hours) Vital Signs Temp Pulse Pulse Resp BP BP BP 06/13/24 11:50 36.7 C 92 H 19 113/54 L 06/13/24 08:04 36.6 C 74 18 129/63 06/13/24 07:15 133 H 06/13/24 06:20 77 134/65 06/13/24 06:05 75 131/68 06/13/24 02:46 36.7 C 79 15 114/57 L 06/13/24 00:15 71 14 123/67 06/13/24 00:15 71 145/70 H Pulse Ox O2 Del Method 06/13/24 11:50 97 Room Air 06/13/24 08:04 98 Room Air 06/13/24 07:15 06/13/24 06:20 06/13/24 06:05 06/13/24 02:46 97 Room Air 06/13/24 00:15 06/13/24 00:15
[2024-06-14 05:23] LABS: Hematocrit (blood only) 30.4 % (42.0-52.0); Hemoglobin 10.4 g/dl (14.0-18.0); Mean Corpuscular Hemoglobin 32.9 pg (25.0-34.0); Mean Corpuscular Hgb Conc 34.2 g/dL (32.0-36.0); Mean Corpuscular Volume 96.2 fL (80.0-100.0); Mean Platelet Volume 10.1 fL (9.4-12.4); Platelet Count 112 K/uL (130-400); RDW Coefficient of Variation 11.6 % (11.5-14.5); Red Blood Count 3.16 M/uL (4.70-6.10); White Blood Count 6.61 K/ul (4.8-10.8)
[2024-06-14 05:36] LABS: BUN Creatinine Ratio 36.3 (10-20); Calcium 7.7 mg/dl (8.6-10.3); Creatinine Clr Calc Pharmacy 75.3 ml/min; Est GFR (African American) 95.1 ml/min; Potassium 3.3 mmol/L (3.5-5.1)
--- NOTE | 2024-06-14 07:47 | Surgery Progress Note ---
Date of Service June 14, 2024 Assessment & Plan (1) Small bowel obstruction: Plan: Denies abd pain/nausea/vomiting +flatus and bm overnight clamping trial this AM , clamp NGT if residuals less than 200cc in 4 hr , may remove tube and start clear liquids VSS Will follow Admission and Anticipated Discharge Date Admission Date: June 09, 2024 Supervising Physician Co-Signing Physician Notes Patient seen and examined, agree with above. Admitted with SBO, passing flatus and had a small bowel movement overnight. Abdomen feeling much better. On exam afebrile with stable vitals, abdomen soft, nondistended, nontender. NG tube currently clamped, will await residuals and if below 200 we can pull it. Will then advance him to clear liquids. Subjective Pt reports +flatus and bm overnight no n/v no abd pain Review of Systems Constitutional: no fever and no chills Respiratory: no dyspnea Cardiovascular: no chest pain Gastrointestinal: no abdominal pain, no nausea and no vomiting Physical Exam Constitutional: cooperative and comfortable; no acute distress Respiratory: normal respiratory effort and able to speak in complete sentences; no respiratory distress Cardiovascular: Rate/Rhythm: regular rate Gastrointestinal (Abdomen): Inspection/Auscultation: abdomen not distended Percussion/Palpation: abdomen soft; abdomen nontender Results & Data Vital Signs (Past 12 Hours) Vital Signs Temp Pulse Pulse Resp BP BP BP 06/14/24 07:20 97.9 F 75 19 145/67 H 06/14/24 06:20 62 115/52 L 06/14/24 06:05 71 113/52 L 06/14/24 04:00 71 14 06/14/24 00:08 70 113/59 L 06/14/24 00:00 98.8 F 80 14 123/71 06/13/24 23:53 80 123/71 06/13/24 22:00 73 06/13/24 20:30 06/13/24 20:00 99.0 F 83 16 147/74 H Pulse Ox O2 Del Method 06/14/24 07:20 97 Room Air 06/14/24 06:20 06/14/24 06:05 06/14/24 04:00 Room Air 06/14/24 00:08 06/14/24 00:00 99 Room Air 06/13/24 23:53 06/13/24 22:00 06/13/24 20:30 Room Air 06/13/24 20:00 99 Room Air PG Care Time/CCT Total # of Minutes Spent Total Time Spent with Patient: Total time spent is greater than 50% in coordination of care (as documented) at patient's floor/unit and/or counseling patient: Coding Level of Care Code 46223 SUB INP/OBS CARE 11/05MIN Diagnoses Small bowel obstruction K56.609
--- NOTE | 2024-06-14 16:38 | Hospitalist Progress Note ---
Date of Service June 14, 2024 Assessment & Plan (1) Small bowel obstruction: (2) Parkinsons disease: (3) Atrial fibrillation: Plan #Small bowel obstruction: - Patient presented with small bowel obstruction on CT scan with concern for transition into right abdomen. No intra-abdominal surgeries were reported on history. - Gen surgery on board - Parenteral pain and antiemetic control. - NGT clamped and removed -Hemoglobin has also remained decreased on 06/14, but this could be due to IVF dilution -now on a liquid diet, consult dietary for low fiber diet. #Elevated troponin - he has been intermittently tachycardic. 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 Pt had a fall as recent as 04/2024. Discussed the risk / benefit of AC. Also recommended outpatient follow up with cardiology for further evaluation, in cluding Watchman procedure. Currently plan is to AC with therapeutic Lovenox (cleared by surgery) but would not discharge on AC as outpatient due to unsteady gait. - metoprolol 5mg IV q6h with prn in place - HR much better controlled at this time Patient has previously had greenlight surgery on his prostate he typically takes finasteride and tadalafil For depression patient takes Remeron and he takes quetiapine for sleep DVT ppx: scd 06/10 at bedside 06/12: updated over the phone 06/13 and 06/14: updated at bedside Admission and Anticipated Discharge Date Admission Date: June 09, 2024 Subjective Patient reports feeling well. Patient has no new complaints. Patient reports 2 bowel movements. Review of Systems Review of Systems: All systems reviewed & are unremarkable except as noted in HPI & below Physical Exam Physical Exam: Gen: no acute distress, sitting in bed. HEENT: NC/AT, MMM CVS: s1s2 nl, normal heart rate Lungs: CTAB Abd: diminished BS, soft, nontender Ext: no edema : no wang Psych: pleasant, communicating appropriately Results & Data Results & Data Vital Signs (Past 12 Hours) Vital Signs Temp Pulse Pulse Resp BP BP Pulse Ox 06/14/24 13:10 85 132/74 06/14/24 12:38 71 134/68 06/14/24 12:22 36.7 C 71 19 134/68 98 06/14/24 07:20 36.6 C 75 19 145/67 H 97 06/14/24 06:20 62 115/52 L 06/14/24 06:05 71 113/52 L O2 Del Method 06/14/24 13:10 06/14/24 12:38 06/14/24 12:22 Room Air 06/14/24 07:20 Room Air 06/14/24 06:20 06/14/24 06:05 PG Care Time/CCT Total # of Minutes Spent Total Time Spent with Patient: Total time spent is greater than 50% in coordination of care (as documented) at patient's floor/unit and/or counseling patient: Coding Level of Care Code 79662 SUB INP/OBS CARE 2/35MIN Diagnoses Small bowel obstruction K56.609 Parkinsons disease G20.A1 Atrial fibrillation I48.91
--- NOTE | 2024-06-15 07:36 | Surgery Progress Note ---
Date of Service June 15, 2024 Assessment & Plan (1) Small bowel obstruction: Plan: resolving SBO denies abd pain , abd soft non ttp , non distended VSS tolerating clears, advan. to fulls for breakfast if tolerates may have low fiber for lunch General surgery will sign off at this time, call with questions/concerns Admission and Anticipated Discharge Date Admission Date: June 09, 2024 Supervising Physician Co-Signing Physician Notes Patient seen and examined, agree with above. Admitted with small bowel obstruction, now responding to nonoperative management. He has had bowel movements and passing flatus, and he tolerated clear liquid diet. We can advance his diet as tolerated to a low fiber diet. Tolerate some possible discharge tomorrow. Surgery will follow. Subjective having BMs no n/v , ngt removed yesterday Review of Systems Gastrointestinal: no abdominal pain, no nausea and no vomiting Physical Exam Constitutional: + acute distress, cooperative and comfor table Gastrointestinal (Abdomen): Inspection/Auscultation: abdomen not distended Percussion/Palpation: abdomen soft; abdomen nontender Results & Data Vital Signs (Past 12 Hours) Vital Signs Temp Pulse Pulse Pulse Resp BP Pulse Ox 06/15/24 05:48 58 L 06/15/24 03:27 97.9 F 76 16 106/61 94 06/14/24 23:50 54 L 06/14/24 23:05 97.7 F 59 L 16 106/54 L 97 06/14/24 23:00 58 L 06/14/24 22:56 54 L 06/14/24 20:00 97.5 F L 74 16 116/63 98 O2 Del Method 06/15/24 05:48 06/15/24 03:27 Room Air 06/14/24 23:50 06/14/24 23:05 Room Air 06/14/24 23:00 06/14/24 22:56 06/14/24 20:00 Room Air PG Care Time/CCT Total # of Minutes Spent Total Time Spent with Patient: Total time spent is greater than 50% in coordination of care (as documented) at patient's floor/unit and/or counseling patient: Coding Level of Care Code 03871 SUB INP/OBS CARE 25MIN Diagnoses Small bowel obstruction K56.609
[2024-06-15 08:11] VITALS: RESP 18
[2024-06-15 08:25] LABS: Hematocrit (blood only) 37.3 % (42.0-52.0); Hemoglobin 12.7 g/dl (14.0-18.0); Mean Corpuscular Hemoglobin 33.1 pg (25.0-34.0); Mean Corpuscular Volume 97.1 fL (80.0-100.0); Mean Platelet Volume 9.8 fL (9.4-12.4); Platelet Count 130 K/uL (130-400); RDW Coefficient of Variation 11.9 % (11.5-14.5); RDW Standard Deviation 42.7 fL (36.4-46.3); Red Blood Count 3.84 M/uL (4.70-6.10); White Blood Count 8.84 K/ul (4.8-10.8)
[2024-06-15 08:40] LABS: BUN Creatinine Ratio 25.9 (10-20); Calcium 7.6 mg/dl (8.6-10.3); Creatinine Clr Calc Pharmacy 72.4 ml/min; Est GFR (African American) 92.7 ml/min; Potassium 3.3 mmol/L (3.5-5.1)
--- NOTE | 2024-06-15 11:42 | Discharge Summary ---
Discharge Summary Date of Service June 15, 2024 Principal Dx & Hospital Course #1 = Principal Diagnosis (1) Small bowel obstruction: (2) Parkinsons disease: (3) Atrial fibrillation: Plan #Small bowel obstruction: - Patient presented with small bowel obstruction on CT scan with concern for transition into right abdomen. No intra-abdominal surgeries were reported on history. - Gen surgery on board - required parenteral pain and antiemetic control. - NGT clamped and removed day prior to discharge -Patient was then transitioned to a clear liquid diet, then a full liquid diet, then on a low fiber diet. -Unsure of exact cause: perhaps pseudoobstruction from his parkinson's -hemoglobin stable. -will defer to PCP if patient requires a colonoscopy given that he falls in the range of 75-85. #Elevated troponin - he has been intermittently tachycardic. thus suspect Type II - EKG showing sinus tach #Parkinsons disease: -resume home meds. #Atrial fibrillation: - give frequent episodes, had long conversation about AC with pt and his . Pt had a fall as recent as 04/2024. Discussed the risk / benefit of AC. Also recommended outpatient follow up with cardiology for further evaluation, including Watchman procedure. Currently plan not discharge on AC as outpatient due to unsteady gait. - metoprolol 5mg IV q6h with prn in place - HR much better controlled at this time; resumed home meds at discharge. Patient has previously had greenlight surgery on his prostate he typically takes finasteride and tadalafil For depression patient takes Remeron and he takes quetiapine for sleep 1.) Myocardial infarction type 2 due to demand ischemia Trops 26.3/31.9/28.4, EKG's with a A flutter/A fib/nonspecific T wave abnormality Treatment: multiple EKG's, tele monitoring, lovenox, Risk Factor(s): new onset A flutter/A fib with self resolution 2.) Underweight with a BMI 19.2 Significantly low (<19.9) BMI will impact the severity of illness and risk of mortality of your patient. Admission HPI Per Admitting Provider 84-year-old male presents to the emergency department with right-sided abdominal pain since 06/08/2024 pain was unremitting and increased presents to the emergency department imaging revealed small bowel obstruction with transition point in the right abdomen. During his stay in emergency department the patient developed new onset atrial fibrillation with rapid ventricular response with stopped spontaneously without treatment Patient and states that his abdominal discomfort been for about 2 days worsened over last 1 day. He has had no flatus or bowel movement since. Discharge Exam Gen: no acute distress, sitting in bed. HEENT: NC/AT, MMM CVS: s1s2 nl, normal heart rate Lungs: CTAB Abd: diminished BS, soft, nontender Ext: no edema : no wang Psych: pleasant, communicating appropriately Discharge Plan Discharge Items Patient Disposition: Home - Self-Care Reason For Visit: small bowel obstruction Discharge Diagnosis: small bowel obstruction Activity: Resume your previous activity Non-emergency contact: Primary Care Provider Call non-emergency contact if: you have any medication questions Follow-up/Referrals: Misael Swenson MD [Primary Care Provider] - 06/20/24 1:25 pm (Hospital follow up scheduled June 20 at 1:[address] Dent) Diet: Low Fiber Addtl Attending Provider Instructions: You were found to have atrial fibrillation. WIll hold anticoagulation for now due to your usteady gait. Will defer to Dr. Swenson, if he would like to order this. We will also recommend followup with Cardiology. In regards to your Small bowel obstruction, we will recommend you continue on a low fiber diet. Here is some basic information about a low fiber diet: 1. Purpose: A low fiber diet limits the intake of foods high in dietary fiber to reduce the workload on the digestive system and ease symptoms like diarrhea, abdominal pain, or cramping. 2. Foods to limit or avoid: - Whole grains (e.g., whole wheat, whole oats, brown rice) - Legumes (e.g., lentils, beans, chickpeas) - Nuts and seeds - Raw fruits and vegetables (except for some cooked or peeled options) - High-fiber cereals or breads 3. Foods generally allowed: - Refined grains (e.g., white bread, white rice, refined cereals) - Cooked and peeled fruits and vegetables (e.g., applesauce, canned fruits, cooked carrots) - Lean meats, poultry, and fish - Dairy products (unless lactose intolerant) - Eggs 4. Cooking and preparation methods: - Choose peeled or cooked fruits and vegetables instead of raw ones. - Remove seeds and skin from fruits and vegetables. - Opt for refined grain products instead of whole grains. - Cook or soak legumes to reduce their fiber content. Pending Studies at Discharge: No Stand-Alone Forms: [facility], Smoking Cessation Medications and DC Order Prescriptions: Continued Areds 2 1 softgel PO BID niacin 1,000 mg Tablet Extended Release 24 Hr 2,000 mg PO HS atorvastatin 10 mg Tablet 10 mg PO HS quetiapine 100 mg Tablet 100 mg PO HS ciclopirox 8 % Solution 1 applic TOPICAL HS Rx Instructions: Infected Toe Nail entacapone 200 mg Tablet 200 mg PO TID mirtazapine 30 mg Tablet 30 mg PO HS vitamin B complex Tablet 1 tab PO DAILY carbidopa-levodopa 25-100 mg Tablet 1 tab PO TID docusate sodium [Stool Softener] 100 mg Tablet 200 mg PO HS PRN (Reason: Constipation) finasteride 5 mg Tablet 5 mg PO HS glucosamine-chondroitin 750-600 mg Tablet 1 tab PO DAILY Systane (propylene glycol) 0.4-0.3 % Drops 1 drp OPB QID PRN (Reason: Dry Eyes) tadalafil 10 mg Tablet 10 mg PO DAILY PRN (Reason: Sexual Activity) Rx Instructions: administer approximately 30min before sexual activity; do not use more than 1 dose per 24hrs solifenacin 10 mg Tablet 10 mg PO HS vitamin D3-vitamin K2 25 mcg (1,000 unit)-90 mcg Tablet,Disintegrating 1 tab PO DAILY dorzolamide-timolol (PF) 2-0.5 % Dropperette 1 drp OPB BID Prevagen 1 tab PO QAM Held lisinopril-hydrochlorothiazide 10-12.5 mg Tablet 1 tab PO DAILY Hold Instructions: Resume on 06/22/24. until you followup with Dr. Swenson Discharge Orders: Discharge Order (Routine); Ordered 06/15/24 Ordered By: Mat Zelaya Admission Data Admit Date/Time: 06/09/24 07:14 Attending Provider: Mat Zelaya Admit Provider: Leodan Rice Primary Care Provider: Misael Swenson Other Providers: Chucky Roberson; Javier Angela; Leodan Rice Other Interventions: Discharge Summary Assessment (RN) Last Done: 06/15/24 14:55 Hospital Stay Data Consultations 06/09/24 06:22 Consult General Surgery Stat 06/09/24 07:09 ED Decision to Admit Stat 06/09/24 07:14 Consult General Surgery Stat Diagnostic Imagining Performed 06/09/24 CT abd pelvis IV con only Stat Discharge Instructions Given to Patient (Per Discharging Provider) You were found to have atrial fibrillation. WIll hold anticoagulation for now due to your usteady gait. Will defer to Dr. Swenson, if he would like to order this. We will also recommend followup with Cardiology. In regards to your Small bowel obstruction, we will recommend you continue on a low fiber diet. Here is some basic information about a low fiber diet: 1. Purpose: A low fiber diet limits the intake of foods high in dietary fiber to reduce the workload on the digestive system and ease symptoms like diarrhea, abdominal pain, or cramping. 2. Foods to limit or avoid: - Whole grains (e.g., whole wheat, whole oats, brown rice) - Legumes (e.g., lentils, beans, chickpeas) - Nuts and seeds - Raw fruits and vegetables (except for some cooked or peeled options) - High-fiber cereals or breads 3. Foods generally allowed: - Refined grains (e.g., white bread, white rice, refined cereals) - Cooked and peeled fruits and vegetables (e.g., applesauce, canned fruits, cooked carrots) - Lean meats, poultry, and fish - Dairy products (unless lactose intolerant) - Eggs 4. Cooking and preparation methods: - Choose peeled or cooked fruits and vegetables instead of raw ones. - Remove seeds and skin from fruits and vegetables. - Opt for refined grain products instead of whole grains. - Cook or soak legumes to reduce their fiber content. Total Time Total Time Spent Total Time Spent (In Minutes): 32 Coding Level of Care Code 91936 INP/OBS DISCH >30 MIN Diagnoses Small bowel obstruction K56.609 Parkinsons disease G20.A1 Atrial fibrillation I48.91
[2024-06-15 12:21] VITALS: BP 130/71; TEMP 97.5; O2SAT 94
[2024-06-15 14:56] VITALS: PULSE 58
== END 2024-06-15 15:32 | disposition home or self-care (01) | DRG 388 ==
LOC: SUATTDRO → ED 02:10 → SUATTDRO 07:14 → EDINP 07:14 → 4W 08:28
DX: F31.9 Bipolar disorder, unspecified; Z68.1 Body mass index [BMI] 19.9 or less, adult; R63.6 Underweight; K56.609 Unspecified intestinal obstruction, unspecified as to partial versus complete obstruction; G20.A1 Parkinson's disease without dyskinesia, without mention of fluctuations; I21.A1 Myocardial infarction type 2; I48.92 Unspecified atrial flutter; Z88.8 Allergy status to other drugs, medicaments and biological substances; K59.09 Other constipation; I48.91 Unspecified atrial fibrillation

== ENCOUNTER 2024-12-16 15:39 | Inpatient (IN) ==
[2024-12-16 16:57] LABS: Basophils # (auto) 0.02 K/uL (0.00-0.20); Basophils % (auto) 0.2 %; Eosinophils # (auto) 0.03 K/uL (0.00-0.50); Eosinophils % (auto) 0.3 %; Hematocrit (blood only) 43.6 % (42.0-52.0); Immature Granulocytes # (auto) 0.06 K/uL (0.01-0.20); Immature Granulocytes % (auto) 0.6 %; Lymphocytes # (auto) 1.72 K/uL (1.20-3.40); Lymphocytes % (auto) 16.9 %; Mean Corpuscular Hemoglobin 33.6 pg (25.0-34.0); Mean Corpuscular Hgb Conc 34.4 g/dL (32.0-36.0); Mean Corpuscular Volume 97.5 fL (80.0-100.0); Mean Platelet Volume 10.5 fL (9.4-12.4); Monocytes # (auto) 0.95 K/uL (0.11-0.59); Monocytes % (auto) 9.4 %; Neutrophils # (auto) 7.37 K/uL (1.40-6.50); Neutrophils % (auto) 72.6 %; Platelet Count 121 K/uL (130-400); RDW Coefficient of Variation 13.8 % (11.5-14.5); RDW Standard Deviation 49.6 fL (36.4-46.3); Red Blood Count 4.47 M/uL (4.70-6.10); White Blood Count 10.15 K/ul (4.8-10.8)
--- NOTE | 2024-12-16 16:59 | XRay Report ---
EXAM: Radiograph of the Chest 1 View INDICATION: Confusion TECHNIQUE: Frontal view of the chest. COMPARISON: 06/09/2024 FINDINGS: Lungs and pleural spaces: Stable hyperinflation and mild chronic appearing interstitial thickening. No consolidation or pulmonary edema. No pleural effusion or pneumothorax. Heart: Shape and configuration within normal limits allowing for technique. Mediastinum: Normal contour. Bones/joints: Degenerative changes noted throughout the spine. No acute osseous abnormality seen. Soft tissues: No abnormality noted. No radiopaque foreign body noted. Upper abdomen: No abnormality noted. IMPRESSION: Stable chronic changes. No acute disease. ACT 112: N/A Electronically signed by Grace Epps 12-16-2024 4:59 PM
--- NOTE | 2024-12-16 17:07 | Electrocardiogram Report ---
Test Reason : Blood Pressure : */* mmHG Vent. 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
[2024-12-16 17:10] LABS: Albumin Globulin Ratio 1.4 (0.9-2); Albumin Level 3.3 gm/dl (3.4-5.0); BUN Creatinine Ratio 21.9 (10-20); Bilirubin,Total 1.6 mg/dl (0.2-1.0); Calcium 8.9 mg/dl (8.6-10.3); Creatinine Clr Calc Pharmacy 47.8 ml/min; Globulin 2.4 gm/dl (2.5-4.0); Potassium 3.9 mmol/L (3.5-5.1); Total Protein 5.7 gm/dl (6.0-8.3)
[2024-12-16 17:16] LABS: Troponin I High Sensitivity 11.9 pg/ml (0-20)
--- NOTE | 2024-12-16 17:17 | Emergency Department Note ---
Impression & Plan Recurrent falls, Bilateral leg edema, Elevated brain natriuretic peptide (BNP) level, Thrombocytopenia ED Provider Note HISTORY OF PRESENT ILLNESS: Patient is an 84-year-old male presenting at the discretion of his digital sales assistant. Patient reports he was at his digital sales assistant today through [facility] for a routine follow-up examination. They were there to discuss him being off of Eliquis indefinitely, given his recurrent falls from his Parkinson's disease. He had an EKG performed that showed he had atrial flutter and was tachycardic at 112 and reportedly was hypotensive. He has had increasing swelling of his bilateral legs and they referred him to the emergency department for admission. Patient reportedly disclosed to the digital sales assistant at the visit that he has been dizzy, though he denies this in the emergency department. Patient denies any complaints in the ER. at bedside reports that his lower extremities are always swollen, but seem more swollen in the last few days. Reports that patient takes 20 mg of Lasix daily, but has not taken any extra given his increasing swelling. Patient denies any chest pain or shortness of breath. ROS: as above PHYSICAL EXAM: Constitutional: Patient appears in no acute distress. HENT: Head: Normocephalic and atraumatic. Eyes: EOMI, PERRL Mouth/Throat: Mucous membranes moist. Neck: Trachea midline. Neck supple. Cardiovascular: RRR, No murmurs, rubs or gallops. Intact distal pulses. Pulmonary/Chest: No respiratory distress. Breath sounds clear and equal bilaterally. No wheezes or rales. Abdominal: Abdomen soft, no tenderness, rebound or guarding. Musculoskeletal: No tenderness or deformity noted. +3 pitting edema of bilateral lower extremities extending to knees. Skin: Warm and dry. Patient has scattered ecchymosis and abrasions as well as superficial cuts to his bilateral upper extremities. Psychiatric: Appropriate mood and affect for situation. Neurological: Alert and keenly responsive. CN II-XII grossly intact, moving all extremities equally and fully. MDM: - Vitals signs stable. - History obtained via patient and patient's . History as above. - Chronic conditions affecting care: BPH; Afib; Parkinson's disease; CHF - Differential diagnoses include, but are not limited to: electrolyte abnormality; ACS; dysrhythmia; CHF exacerbation - Order placed for continuous cardiac monitoring. At this time, monitor showed rate of 56 bpm with normal sinus rhythm, per my interpretation. - External medical records reviewed. Discharge summary dated 06/2024 was reviewed. Patient was admitted at that time for a small bowel obstruction. - EKG image interpreted by myself showed normal sinus rhythm. Rate 75 bpm. QT 386. No acute ischemic changes. - Laboratory workup interpreted by myself showed normal WBC; thrombocytopenia (plt 121); elevated INR (1.5); normal electrolytes; elevated total bilirubin (1.6); normal troponin; elevated BNP (390) - CXR image reviewed by myself negative for pneumonia, per my interpretation. - Patient's EKG from clinic was reviewed. It was obtained at 1443. Image interpreted by myself showed atrial flutter. Rate 112 bpm. QT 342. No acute ischemic changes. Per nursing report from the cardiology clinic, the patient was hypotensive at clinic. However, we do not know what his vital signs were. - Patient given 20 mg IV lasix. - Discussion was had with caseworker intake about patient's case and need for admission - Hospitalist consulted for admission - Patient admitted to [facility] service for further evaluation and management. ASSESSMENT AND PLAN: Diagnosis: Recurrent falls; thrombocytopenia; elevated BNP; bilateral lower extremity edema Plan: Admit Past Med/Surg History Problem List (Updated 12/16/24 @ 20:01 by Elisha Chawla MD) Thrombocytopenia (Acute) Elevated brain natriuretic peptide (BNP) level (Acute) Bilateral leg edema (Acute) Recurrent falls (Acute) Acute hip pain (Acute) Closed head injury (Acute) Fall (Acute) Atrial fibrillation with rapid ventricular response (Acute) Small bowel obstruction (Acute) Atrial fibrillation Parkinsons disease Small bowel obstruction Deviated nasal septum Nasal crusting Benign localized prostatic hyperplasia with lower urinary tract symptoms (LUTS) Impacted cerumen Urinary urgency (Acute) BPH (benign prostatic hyperplasia) Surgical History History of cataract extraction 02/2017-bilateral History of bladder surgery Green light laser surgery for excess bladder tissue-03/09/14 History of Mohs micrographic surgery for skin cancer Head-2015 Left arm-2014 History of sebaceous cyst x3-2 on back, 1 on chest History of tonsillectomy and adenoidectomy 1949 History of surgery femur [id number] leg repair laser vaporization with transurethral resection of prostate Previous back surgery H/O: knee surgery Family History Brother Prostate cancer Father Hypertension Heart disease following heart attack Mother Hearing loss Heart disease following heart attack Other No family history of adverse response to anesthesia No family history of bleeding disorder Social History Smoking Status: Never smoker Do You Dip or Chew Tobacco: No; Hx Alcohol Use: No Hx Substance Use: No Preferred Language: Macedonian Communication Ability: Effective Gun Fertilizer Required: No Beliefs That Will Affect Care: None marital status: Current Living Situation: Spouse current occupational status: retired Feels Safe at Home: Yes Assistive Devices: Cane and Walker Allergies Allergies Allergy/AdvReac Type Severity Reaction Status Date / Time acetaminophen Allergy Unknown ANKLES Verified 12/16/24 18:04 SWELL UP benzalkonium chloride Allergy Unknown UNKNOWN Verified 12/16/24 18:04 brimonidine Allergy Unknown UNKNOWN Verified 12/16/24 18:04 travoprost Allergy Unknown UNKNOWN Verified 12/16/24 18:04 diclofenac [From Voltaren] Allergy Verified 12/16/24 18:04 Home Meds Home Medications Medication Instructions Recorded Confirmed Prevagen 1 tab PO QAM 06/09/24 12/16/24 carbidopa 25 mg-levodopa 100 mg 1 tab PO TID 06/09/24 12/16/24 tablet ciclopirox 8 % topical solution 1 applic topical HS 06/09/24 12/16/24 docusate sodium 100 mg tablet 200 mg PO HS PRN Constipation 06/09/24 12/16/24 (Stool Softener) dorzolamide-timolol (PF) 2 %-0.5 % 1 drp OPB BID 06/09/24 12/16/24 eye drops in a dropperette entacapone 200 mg tablet 200 mg PO TID 06/09/24 12/16/24 glucosamine-chondroitin 750 mg-600 1 tab PO DAILY 06/09/24 12/16/24 mg tablet mirtazapine 30 mg tablet 30 mg PO HS 06/09/24 12/16/24 niacin 1,000 mg tablet,extended 2,000 mg PO HS 06/09/24 12/16/24 release 24 hr peg 400-propylene glycol 0.4 %-0.3 1 drp OPB QID PRN Dry Eyes 06/09/24 12/16/24 % eye drops (Systane (propylene glycol)) quetiapine 100 mg tablet 100 mg PO HS 06/09/24 12/16/24 vit C 250 mg-vit E 90 mg-zinc 40 1 tab PO BID ##0 06/09/24 12/16/24 mg-copper 1 [id number] capsule (PreserVision AREDS-2) vitamin B complex 1 tab PO DAILY 06/09/24 12/16/24 vitamin D3 25 mcg (1,000 unit)-vit 1 tab PO DAILY 06/09/24 12/16/24 K2 90 mcg disintegrating tablet cholecalciferol (vitamin D3) 25 25 mcg PO DAILY 12/16/24 12/16/24 mcg (1,000 unit) capsule (Vitamin D3) furosemide 20 mg tablet 20 mg PO QAM 12/16/24 12/16/24 metoprolol succinate 25 mg 12.5 mg PO QAM 12/16/24 12/16/24 tablet,extended release 24 hr Previous Rx's Medication Instructions Recorded finasteride 5 mg tablet 5 mg PO HS #90 tabs 07/22/24 solifenacin 10 mg tablet 10 mg PO HS #90 tabs 07/22/24 Results & Data (ED) Vital Signs Vital Signs - 24 hr 12/16/24 15:40 12/16/24 15:40 12/16/24 15:44 Temperature 36.4 C L Temperature Source Oral Pulse Rate 79 Pulse Rate [Right Brachial] 60 Pulse Rhythm [Right Brachial] Regular Pulse Strength [Right Brachial] Normal Respiratory Rate 17 14 Respiratory Effort / Characteristics Non-Labored Non-Labored Spontaneous Respiratory Depth Normal Normal Respiratory Pattern Regular Blood Pressure 110/70 Blood Pressure [Right Arm] 135/81 Blood Pressure Mean 83 Blood Pressure Mean [Right Arm] 99 Blood Pressure Position [Right Arm] Lying Pulse Oximetry 96 99 Oxygen Delivery Method Room Air Room Air Room Air Sepsis Recent Fever Within 48 Hours No Sepsis New/Unexplained Change in Mental Status No Sepsis Action Taken by Nursing No Action Required 12/16/24 15:49 12/16/24 15:49 12/16/24 16:40 Temperature Temperature Source Pulse Rate 63 Pulse Rate [Right Brachial] Pulse Rhythm [Right Brachial] Pulse Strength [Right Brachial] Respiratory Rate Respiratory Effort / Characteristics Respiratory Depth Respiratory Pattern Blood Pressure Blood Pressure [Right Arm] Blood Pressure Mean Blood Pressure Mean [Right Arm] Blood Pressure Position [Right Arm] Pulse Oximetry 96 Oxygen Delivery Method Room Air Room Air Sepsis Recent Fever Within 48 Hours Sepsis New/Unexplained Change in Mental Status Sepsis Action Taken by Nursing 12/16/24 17:40 12/16/24 19:00 Temperature Temperature Source Pulse Rate Pulse Rate [Right Brachial] 53 L 54 L Pulse Rhythm [Right Brachial] Regular Regular Pulse Strength [Right Brachial] Normal Normal Respiratory Rate 19 25 H Respiratory Effort / Characteristics Non-Labored Non-Labored Respiratory Depth Normal Normal Respiratory Pattern Regular Regular Blood Pressure Blood Pressure [Right Arm] 121/53 L 120/58 L Blood Pressure Mean Blood Pressure Mean [Right Arm] 75 78 Blood Pressure Position [Right Arm] Lying Lying Pulse Oximetry 99 96 Oxygen Delivery Method Room Air Room Air Sepsis Recent Fever Within 48 Hours Sepsis New/Unexplained Change in Mental Status Sepsis Action Taken by Nursing Laboratory Data 12/16/24 16:03 12/16/24 16:03 Lab Results 12/16/24 Range/Units 16:03 WBC 10.15 (4.8-10.8) K/ul RBC 4.47 L (4.70-6.10) M/uL Hgb 15.0 (14.0-18.0) g/dl Hct 43.6 (42.0-52.0) % MCV 97.5 (80.0-100.0) fL MCH 33.6 (25.0-34.0) pg MCHC 34.4 (32.0-36.0) g/dL RDW Std Deviation 49.6 H (36.4-46.3) fL RDW Coeff of Jose Luis 13.8 (11.5-14.5) % Plt Count 121 L (130-400) K/uL MPV 10.5 (9.4-12.4) fL Immature Gran % (Auto) 0.6 % Neut % (Auto) 72.6 % Lymph % (Auto) 16.9 % [place] % (Auto) 9.4 % Eos % (Auto) 0.3 % Baso % (Auto) 0.2 % Neut # (Auto) 7.37 H (1.40-6.50) K/uL Lymph # (Auto) 1.72 (1.20-3.40) K/uL [place] # (Auto) 0.95 H (0.11-0.59) K/uL Eos # (Auto) 0.03 (0.00-0.50) K/uL Baso # (Auto) 0.02 (0.00-0.20) K/uL Immature Gran # (Auto) 0.06 (0.01-0.20) K/uL PT 16.1 H (9.0-12.0) Seconds INR 1.5 H (0.9-1.1) APTT 30 (21-31) Seconds PTT Ratio 1.1 Sodium 142 (136-145) mmol/L Potassium 3.9 (3.5-5.1) mmol/L Chloride 102 (98-107) mmol/L Carbon Dioxide 36 H (21-32) mmol/L Anion Gap 4 (3-11) BUN 28 H (6-23) mg/dl Creatinine 1.28 (0.6-1.4) mg/dl Est Cr Clr Drug Dosing 47.8 ml/min eGFR 55.19 BUN/Creatinine Ratio 21.9 H (10-20) Glucose 152 H (70-99(Fasting)) mg/dl Calcium 8.9 (8.6-10.3) mg/dl Magnesium 2.0 (1.7-2.4) mg/dl Total Bilirubin 1.6 H (0.2-1.0) mg/dl AST 47 H (13-39) U/L ALT 16 (7-52) U/L Alkaline Phosphatase 225 H (34-104) U/L Troponin I High Sens 11.9 (0-20) pg/ml B-Natriuretic Peptide 390 H (0-100) pg/ml Total Protein 5.7 L (6.0-8.3) gm/dl Albumin 3.3 L (3.4-5.0) gm/dl Globulin 2.4 L (2.5-4.0) gm/dl Albumin/Globulin Ratio 1.4 (0.9-2) Administered Medications Discontinued Medications Furosemide (Furosemide Inj 20 Mg/2 Ml Vial) 20 mg IV ONE ONE Stop: 12/16/24 18:56 Last Admin: 12/16/24 19:31 Dose: 20 mg Documented By: AUDREY Imaging Data Radiologist's Impression: Chest X-Ray 12/16/24 15:49 EXAM: Radiograph of the Chest 1 View INDICATION: Confusion TECHNIQUE: Frontal view of the chest. COMPARISON: 06/09/2024 FINDINGS: Lungs and pleural spaces: Stable hyperinflation and mild chronic appearing interstitial thickening. No consolidation or pulmonary edema. No pleural effusion or pneumothorax. Heart: Shape and configuration within normal limits allowing for technique. Mediastinum: Normal contour. Bones/joints: Degenerative changes noted throughout the spine. No acute osseous abnormality seen. Soft tissues: No abnormality noted. No radiopaque foreign body noted. Upper abdomen: No abnormality noted. IMPRESSION: Stable chronic changes. No acute disease. ACT 112: N/A Electronically signed by Grace Epps 12-16-2024 4:59 PM Discharge Plan Visit Data Chief Complaint: Cardiac Assessment Stated Complaint: HEART PROBLEMS, DOC REF, LOW BP, TACHYCARDIA ED Provider: Elisha Chawla Discharge Problem: Recurrent falls, Bilateral leg edema, Elevated brain natriuretic peptide (BNP) level, Thrombocytopenia Forms Stand Alone Forms: My [facility] Prescriptions Prescriptions: No Action finasteride 5 mg tablet 5 mg PO HS Qty: 90 3RF solifenacin 10 mg tablet 10 mg PO HS Qty: 90 3RF niacin 1,000 mg Tablet Extended Release 24 Hr 2,000 mg PO HS quetiapine 100 mg Tablet 100 mg PO HS ciclopirox 8 % Solution 1 applic TOPICAL HS Rx Instructions: Infected Toe Nail entacapone 200 mg Tablet 200 mg PO TID mirtazapine 30 mg Tablet 30 mg PO HS vitamin B complex Tablet 1 tab PO DAILY carbidopa-levodopa 25-100 mg Tablet 1 tab PO TID docusate sodium [Stool Softener] 100 mg Tablet 200 mg PO HS PRN (Reason: Constipation) glucosamine-chondroitin 750-600 mg Tablet 1 tab PO DAILY Systane (propylene glycol) 0.4-0.3 % Drops 1 drp OPB QID PRN (Reason: Dry Eyes) vitamin D3-vitamin K2 25 mcg (1,000 unit)-90 mcg Tablet,Disintegrating 1 tab PO DAILY dorzolamide-timolol (PF) 2-0.5 % Dropperette 1 drp OPB BID PreserVision AREDS-2 250-90-40-1 mg Capsule 1 tab PO BID Qty: 0 Prevagen 1 tab PO QAM furosemide 20 mg tablet 20 mg PO QAM metoprolol succinate 25 mg tablet extended release 24 hr 12.5 mg PO QAM cholecalciferol (vitamin D3) [Vitamin D3] 25 mcg (1,000 unit) Capsule 25 mcg PO DAILY Referrals Referrals: Misael Swenson MD [Primary Care Provider] -
[2024-12-16 17:20] LABS: INR 1.5 (0.9-1.1); Partial Thromboplastin Ratio 1.1; Partial Thromboplastin Time 30 Seconds (21-31); Prothrombin Time 16.1 Seconds (9.0-12.0)
[2024-12-16] MEDS: FUROSEMIDE INJ 20 MG/2 ML VIAL IV ONE (19:31)
--- NOTE | 2024-12-16 19:45 | History & Physical Report ---
Date of Service December 16, 2024 Assessment & Plan (1) Recurrent falls: (2) Atrial fibrillation with rapid ventricular response: (3) Parkinsons disease: (4) Heart failure with preserved ejection fraction: (5) Ambulatory dysfunction: Plan Pt is a 84 yo male ("Carlos") with a past medical history of atrial fibrillation previously on eliquis which was stopped 2 weeks ago for recurrent falls, recurrent falls due to parkinsons, and hx of BPH/LUTS who presents to the hospital on 12/16 for recurrent falls at home and afib with RVR and hypotension at cardio appointment on day of admission. #Ambulatory dysfunction - secondary to parkinsons, 7 falls at home in the last 3 weeks - fall precautions - orthostatics ordered - PT/OT consults placed; pending #HFpEF - per [facility] cardio note 12/16: Echocardiogram 08/25/2024 demonstrating normal LVEF with EF of 65%, dilated right atrium, mildly dilated left atrium dilated aortic root of 3.9 cm, ascending aorta 3.6 cm, small anterior pericardial effusion around the RA and RV free wall, no significant valvular abnormalities - no clear cardiac or presyncopal symptoms prior to falls but given noted vague possible "blacking out," will do echo tomorrow am - 20 mg IV lasix given on admission - to get his home 20 mg furosemide dose tomorrow #Atrial fib - no further episodes in the ER of a fib/flutter or RVR, he has been rate controlled and sinus - typically on eliquis but this was stopped given frequent falls - continue home metoprolol succinate - am TSH ordered #Parkinsons - continue home carbidopa-levodopa - see ambulatory dysfunction problem above - may benefit from walker with seat to mitigate further falls Continue all other home medications. VTE prophylaxis: none (decision with /patient given he was taken off his eliquis recently as he frequently falls and his risk of bleeding with frequent falls is high) History of Present Illness Chief Complaint: CHF exacerbation; recurrent falls Primary Care Provider: Misael Swenson MD Pt is a 84 yo male ("Carlos") with a past medical history of atrial fibrillation previously on eliquis which was stopped 2 weeks ago for recurrent falls, recurrent falls due to parkinsons, and hx of BPH/LUTS who presents to the hospital on 12/16 for recurrent falls at home and afib with RVR and hypotension at cardio appointment on day of admission. Pt seen at beside with his . His gives most of the history. She states that recently, he has been falling more due to his parkinsons. She states that over the last 3 weeks he has had 7 falls at home and was here in the ER just a day or so ago due to fall where he hit his head into the wall which left a dent into the wall. Lives at home with his who states she can and does help him but she also has medical problems so the falls as worrisome and difficult for her to manage at times. She states sometimes she is able to get a chair to him a nd he will sit to avoid falling. He uses a walker (one without a seat) at home and a 4 pronged cane when going to appointments. When asked about if he has symptoms prior to the falls, his states that he did mention "blacking out" with a fall before but any time he has fallen he has immediately called for her and seemed to be in his usual state of mind. He denies chest pain or SOB or feeling faint prior to any of his falls. Pt saw cardio today in office with the [facility], also saw them 2 weeks ago and it was decided to stop his home eliquis due to recurrent fall risk. At that appointment his heart rate was in the 110s and his blood pressure was low, although he felt okay. She states his legs have been more swollen the last week or so bilaterally and without pain. No shortness of breath, chest pain, or orthopnea. Right now, pt states he feels fine other than having to urinate. Allergies Allergy/AdvReac Type Severity Reaction Status Date / Time acetaminophen Allergy Unknown ANKLES Verified 12/16/24 18:04 SWELL UP benzalkonium chloride Allergy Unknown UNKNOWN Verified 12/16/24 18:04 brimonidine Allergy Unknown UNKNOWN Verified 12/16/24 18:04 travoprost Allergy Unknown UNKNOWN Verified 12/16/24 18:04 diclofenac [From Voltaren] Allergy Verified 12/16/24 18:04 Home Medications Medication Instructions Recorded Confirmed Type Prevagen 1 tab PO QAM 06/09/24 12/16/24 History carbidopa 25 mg-levodopa 100 mg 1 tab PO TID 06/09/24 12/16/24 History tablet ciclopirox 8 % topical solution 1 applic topical HS 06/09/24 12/16/24 History docusate sodium 100 mg tablet 200 mg PO HS PRN Constipation 06/09/24 12/16/24 Hi story (Stool Softener) dorzolamide-timolol (PF) 2 %-0.5 % 1 drp OPB BID 06/09/24 12/16/24 History eye drops in a dropperette entacapone 200 mg tablet 200 mg PO TID 06/09/24 12/16/24 History glucosamine-chondroitin 750 mg-600 1 tab PO DAILY 06/09/24 12/16/24 History mg tablet mirtazapine 30 mg tablet 30 mg PO HS 06/09/24 12/16/24 History niacin 1,000 mg tablet,extended 2,000 mg PO HS 06/09/24 12/16/24 History release 24 hr peg 400-propylene glycol 0.4 %-0.3 1 drp OPB QID PRN Dry Eyes 06/09/24 12/16/24 History % eye drops (Systane (propylene glycol)) quetiapine 100 mg tablet 100 mg PO HS 06/09/24 12/16/24 History vit C 250 mg-vit E 90 mg-zinc 40 1 tab PO BID ##0 06/09/24 12/16/24 History mg-copper 1 [id number] capsule (PreserVision AREDS-2) vitamin B complex 1 tab PO DAILY 06/09/24 12/16/24 History vitamin D3 25 mcg (1,000 unit)-vit 1 tab PO DAILY 06/09/24 12/16/24 History K2 90 mcg disintegrating tablet finasteride 5 mg tablet 5 mg PO HS #90 tabs 07/22/24 12/16/24 Rx solifenacin 10 mg tablet 10 mg PO HS #90 tabs 07/22/24 12/16/24 Rx cholecalciferol (vitamin D3) 25 25 mcg PO DAILY 12/16/24 12/16/24 History mcg (1,000 unit) capsule (Vitamin D3) furosemide 20 mg tablet 20 mg PO QAM 12/16/24 12/16/24 History metoprolol succinate 25 mg 12.5 mg PO QAM 12/16/24 12/16/24 History tablet,extended release 24 hr Past Med/Surg History Problem List (Updated 12/16/24 @ 21:24 by Angelica Rodrigez DO) Ambulatory dysfunction Heart failure with preserved ejection fraction Thrombocytopenia (Acute) Elevated brain natriuretic peptide (BNP) level (Acute) Bilateral leg edema (Acute) Recurrent falls (Acute) Acute hip pain (Acute) Closed head injury (Acute) Fall (Acute) Atrial fibrillation with rapid ventricular response (Acute) Small bowel obstruction (Acute) Atrial fibrillation Parkinsons disease Small bowel obstruction Deviated nasal septum Nasal crusting Benign localized prostatic hyperplasia with lower urinary tract symptoms (LUTS) Impacted cerumen Urinary urgency (Acute) BPH (benign prostatic hyperplasia) Surgical History History of cataract extraction 02/2017-bilateral History of bladder surgery Green light laser surgery for excess bladder tissue-03/09/14 History of Mohs micrographic surgery for skin cancer Head-2014 Left arm-2013 History of sebaceous cyst x3-2 on back, 1 on chest History of tonsillectomy and adenoidectomy 1948 History of surgery femur [id number] leg repair laser vaporization with transurethral resection of prostate Previous back surgery H/O: knee surgery Family History Brother Prostate cancer Father Hypertension Heart disease following heart attack Mother Hearing loss Heart disease following heart attack Other No family history of adverse response to anesthesia No family history of bleeding disorder Social History Smoking Status: Never smoker Do You Dip or Chew Tobacco: No; Hx Alcohol Use: No Hx Substance Use: No Preferred Language: Tajik Communication Ability: Effective Power Plant Assistant Required: No Beliefs That Will Affect Care: None marital status: Current Living Situation: Spouse current occupational status: retired Other Information That Helps Us Care for You: No Feels Safe at Home: Yes Safety Concerns: Feels Safe At This Time Assistive Devices: Cane, Denture - Upper, Hearing Aid - Bilateral and Walker Review of Systems Review of Systems: Per HPI. Physical Exam Physical Exam: General: Alert and oriented, no acute distress, HEENT: Normocephalic, moist oral mucosa, Cardio: Regular rate and rhythm Resp: Lungs clear to auscultation b/l, no wheezes or rhonchi, GI: Soft and nontender, nondistended, bowel sounds active Skin: Warm, pink, dry, Ext: Bilateral 2+ pitting edema from knees down and including the feet, without calf tenderness, edema is symmetric and homans negative bilaterally Results & Data Results & Data Vital Signs (Past 12 Hours) Vital Signs Temp Pulse Pulse Resp BP BP Pulse Ox 12/16/24 19:00 54 L 25 H 120/58 L 96 12/16/24 17:40 53 L 19 121/53 L 99 12/16/24 16:40 63 12/16/24 15:49 96 12/16/24 15:49 12/16/24 15:44 36.4 C L 79 14 110/70 99 12/16/24 15:40 60 17 135/81 96 12/16/24 15:40 O2 Del Method 12/16/24 19:00 Room Air 12/16/24 17:40 Room Air 12/16/24 16:40 12/16/24 15:49 Room Air 12/16/24 15:49 Room Air 12/16/24 15:44 Room Air 12/16/24 15:40 Room Air 12/16/24 15:40 Room Air Supervising Physician Co-Signing Physician Notes Attending addendum: I have physically seen this patient, have supervised the medical residents activities, and agree with the H&P unless as otherwise noted. Assessment and Plan: The patient is a 84-year-old male with a past medical history including atrial fibrillation, no longer on Eliquis due to falls, HFpEF, thrombocytopenia, bilateral lower extremity edema, history of A-fib with RVR, small bowel obstruction history, Parkinson disease, BPH with LUTS, and history of recurrent falls. The patient had been seen at his cardiology appointment earlier in the day, was found to be in atrial fibrillation with RVR, with low blood pressure, and was advised to come to the emergency department for assessment. #HFpEF/atrial fibrillation/hypertension- Found to be hypotensive, in atrial fibrillation with RVR at cardiology appointment earlier in the day. He was referred to the ED for further assessment. Chest x-ray and clinical examination suggest CHF, and with history of HFpEF, patient did receive furosemide 20 mg IV from the ED, with diuresis noted in the ED The patient will be admitted to telemetry for serial cardiac enzymes, serial EKG's, cardiac rhythm monitoring Will resume his usual oral dose of furosemide 20 mg p.o. every morning tomorrow, adjusting back to IV if necessary As noted, patient continues off of Eliquis due to concerns regarding potential bleeding complications Continue metoprolol succinate Ambulatory dysfunction/recurrent falls- Multiple contributing factors including but not limited to: CHF, Parkinson's, progression of generalized debilitation and weakness, urinary tract infection, medication side effect, and others Consult PT/OT Parkinson's-continue carbidopa-levodopa, entacapone, quetiapine Chronic medical conditions: Glaucoma-continue usual eyedrops BPH with LUTS/bladder spasm-continue finasteride and Solifenacin Resident Activity Tracking Resident Involvement: Resident Care Provided Care Provided: Adult [facility] Medicine
[2024-12-16] MEDS ORDERED: ARTIFICIAL TEARS OP PRN (23:46)
[2024-12-17] MEDS: QUEtiapine FUMARATE 100 MG TABLET PO SCH (00:37)
[2024-12-17] MEDS: FINASTERIDE 5 MG TAB PO SCH (00:38)
[2024-12-17] MEDS: OXYBUTYNIN CHLORIDE XL 5 MG TABCR PO SCH (00:38)
[2024-12-17] MEDS: CARBIDOPA/LEVODOPA 25/100MG TAB PO SCH (00:38)
[2024-12-17] MEDS: MIRTAZAPINE TAB 15 MG TAB PO SCH (00:39)
[2024-12-17] MEDS: ENTACAPONE 200 MG TAB PO SCH (00:40)
[2024-12-17] MEDS: NIACIN EXTENDED REL 500 MG TABCR PO SCH (00:40)
--- NOTE | 2024-12-17 05:27 | Billing Data ---
Date of Service December 17, 2024 Coding Level of Care Code 18147 INT INP/OBS CARE
[2024-12-17 07:41] LABS: Hematocrit (blood only) 35.6 % (42.0-52.0); Hemoglobin 12.3 g/dl (14.0-18.0); Mean Corpuscular Hemoglobin 33.3 pg (25.0-34.0); Mean Corpuscular Hgb Conc 34.6 g/dL (32.0-36.0); Mean Corpuscular Volume 96.5 fL (80.0-100.0); Mean Platelet Volume 10.4 fL (9.4-12.4); Platelet Count 85 K/uL (130-400); RDW Coefficient of Variation 13.7 % (11.5-14.5); RDW Standard Deviation 49.1 fL (36.4-46.3); Red Blood Count 3.69 M/uL (4.70-6.10); White Blood Count 7.22 K/ul (4.8-10.8)
[2024-12-17 08:10] LABS: Albumin Globulin Ratio 1.4 (0.9-2); Albumin Level 2.6 gm/dl (3.4-5.0); BUN Creatinine Ratio 23.6 (10-20); Bilirubin,Total 1.8 mg/dl (0.2-1.0); Calcium 8.1 mg/dl (8.6-10.3); Creatinine Clr Calc Pharmacy 55.6 ml/min; Globulin 1.9 gm/dl (2.5-4.0); Potassium 3.6 mmol/L (3.5-5.1); Total Protein 4.5 gm/dl (6.0-8.3)
[2024-12-17 08:11] LABS: Basophils # (auto) 0.02 K/uL (0.00-0.20); Basophils % (auto) 0.3 %; Eosinophils # (auto) 0.06 K/uL (0.00-0.50); Eosinophils % (auto) 0.8 %; Immature Granulocytes # (auto) 0.02 K/uL (0.01-0.20); Immature Granulocytes % (auto) 0.3 %; Lymphocytes # (auto) 1.73 K/uL (1.20-3.40); Monocytes # (auto) 0.59 K/uL (0.11-0.59); Monocytes % (auto) 8.2 %; Neutrophils % (auto) 66.4 %; Thyroid Stimulating Hormone 1.897 uIu/ml (0.300-4.500)
[2024-12-17] MEDS: VITAMIN B COMPLEX TAB PO SCH (08:20)
[2024-12-17] MEDS: CHOLECALCIFEROL 25 MCG (1000 UNITS) TAB PO SCH (08:20)
[2024-12-17] MEDS: FUROSEMIDE 20 MG TAB PO SCH (08:20)
[2024-12-17] MEDS: METOPROLOL SUCC 25MG EXT REL TAB PO SCH (08:23)
--- NOTE | 2024-12-17 11:31 | XCELERA ---
[id number]
--- NOTE | 2024-12-17 14:41 | Hospitalist Progress Note ---
Date of Service December 17, 2024 Assessment & Plan (1) Recurrent falls: (2) Atrial fibrillation with rapid ventricular response: (3) Parkinsons disease: (4) Heart failure with preserved ejection fraction: (5) Ambulatory dysfunction: Plan Pt is a 84 yo male ("Carlos") with a past medical history of atrial fibrillation previously on eliquis which was stopped 2 weeks ago for recurrent falls, recurrent falls due to parkinsons, and hx of BPH/LUTS who presents to the hospital on 12/16 for recurrent falls at home and afib with RVR and hypotension at cardio appointment on day of admission. #Ambulatory dysfunction - secondary to parkinsons, 7 falls at home in the last 3 weeks - fall precautions - orthostatics positive. Could be related to dehydration as the patient has been on oral Lasix. Could also be related to Parkinson's disease Recheck orthostatic vital signs daily - PT/OT consults placed; pending #HFpEF - per [facility] cardio note 12/16: Echocardiogram 08/25/2024 demonstrating normal LVEF with EF of 65%, dilated right atrium, mildly dilated left atrium dilated aortic root of 3.9 cm, ascending aorta 3.6 cm, small anterior pericardial effusion around the RA and RV free wall, no significant valvular abnormalities - no clear cardiac or presyncopal symptoms prior to falls but given noted vague possible "blacking out," echocardiogram was ordered. Echocardiogram was unremarkable - 20 mg IV lasix given on admission -Back on his 20 mg furosemide home dose starting today. Noted to have orthostatic hypotension. Will hold furosemide #Atrial fib - no further episodes in the ER of a fib/flutter or RVR, he has been rate controlled and sinus - typically on eliquis but this was stopped given frequent falls - continue home metoprolol succinate - am TSH ordered #Parkinsons - continue home carbidopa-levodopa - see ambulatory dysfunction problem above - may benefit from walker with seat to mitigate further falls Patient may orthostatic hypotension related to Parkinson's disease versus related to dehydration from Lasix. Continue all other home medications. VTE prophylaxis: none (decision with /patient given he was taken off his eliquis recently as he frequently falls and his risk of bleeding with frequent falls is high) Admission and Anticipated Discharge Date Admission Date: December 16, 2024 Subjective Patient was seen and examined at 10:30 AM. He denies any chest pain or shortness of breath. He says that he has been falling lately. Review of Systems Review of Systems: All systems reviewed & are unremarkable except as noted in Subjective Physical Exam Physical Exam: General: Awake, conversant Heart: S1, S2/regular rate and rhythm, no murmur rubs or gallops Lungs: Clear to auscultation bilaterally. Normal effort Abdomen: Soft/nontender/nondistended. No hepatosplenomegaly Extremities: No clubbing/cyanosis. 2+ bilateral leg edema Behavior: Appropriate, cooperative Results & Data Results & Data Vital Signs (Past 12 Hours) Vital Signs Temp Pulse Resp BP Pulse Ox O2 Del Method 12/17/24 11:15 36.5 C 60 18 120/64 99 Room Air 12/17/24 07:08 36.4 C L 57 L 18 126/67 100 Room Air 12/17/24 03:02 36.5 C 58 L 20 117/70 99 Room Air Laboratory Results Abnormal lab results 12/16/24 12/17/24 Range/Units 16:03 06:32 RBC 4.47 L 3.69 L (4.70-6.10) M/uL Hgb 12.3 L (14.0-18.0) g/dl Hct 35.6 L (42.0-52.0) % RDW Std Deviation 49.6 H 49.1 H (36.4-46.3) fL Plt Count 121 L 85 L (130-400) K/uL Neut # (Auto) 7.37 H (1.40-6.50) K/uL [place] # (Auto) 0.95 H (0.11-0.59) K/uL PT 16.1 H (9.0-12.0) Seconds INR 1.5 H (0.9-1.1) Carbon Dioxide 36 H 34 H (21-32) mmol/L Anion Gap 1 L (3-11) BUN 28 H 25 H (6-23) mg/dl BUN/Creatinine Ratio 21.9 H 23.6 H (10-20) Glucose 152 H 127 H (70-99(Fasting)) mg/dl Calcium 8.1 L (8.6-10.3) mg/dl Total Bilirubin 1.6 H 1.8 H (0.2-1.0) mg/dl AST 47 H (13-39) U/L ALT 4 L (7-52) U/L Alkaline Phosphatase 225 H 160 H (34-104) U/L B-Natriuretic Peptide 390 H (0-100) pg/ml Total Protein 5.7 L 4.5 L D (6.0-8.3) gm/dl Albumin 3.3 L 2.6 L (3.4-5.0) gm/dl Globulin 2.4 L 1.9 L (2.5-4.0) gm/dl PG Care Time/CCT Total # of Minutes Spent Total Time Spent with Patient: Total time spent is greater than 50% in coordination of care (as documented) at patient's floor/unit and/or counseling patient: Coding Level of Care Code 41241 SUB INP/OBS CARE 2/35MIN Diagnoses Recurrent falls R29.6 Atrial fibrillation with rapid ventricular response I48.91 Parkinsons disease G20.A1 Heart failure with preserved ejection fraction I50.30 Ambulatory dysfunction R26.2
[2024-12-18 07:15] LABS: Basophils # (auto) 0.01 K/uL (0.00-0.20); Basophils % (auto) 0.2 %; Eosinophils # (auto) 0.07 K/uL (0.00-0.50); Eosinophils % (auto) 1.1 %; Hematocrit (blood only) 34.6 % (42.0-52.0); Hemoglobin 12.2 g/dl (14.0-18.0); Immature Granulocytes # (auto) 0.03 K/uL (0.01-0.20); Immature Granulocytes % (auto) 0.5 %; Lymphocytes # (auto) 1.81 K/uL (1.20-3.40); Lymphocytes % (auto) 27.4 %; Mean Corpuscular Hemoglobin 33.7 pg (25.0-34.0); Mean Corpuscular Hgb Conc 35.3 g/dL (32.0-36.0); Mean Corpuscular Volume 95.6 fL (80.0-100.0); Mean Platelet Volume 10.2 fL (9.4-12.4); Monocytes # (auto) 0.48 K/uL (0.11-0.59); Monocytes % (auto) 7.3 %; Neutrophils # (auto) 4.21 K/uL (1.40-6.50); Neutrophils % (auto) 63.5 %; Platelet Count 78 K/uL (130-400); RDW Coefficient of Variation 13.8 % (11.5-14.5); RDW Standard Deviation 48.8 fL (36.4-46.3); Red Blood Count 3.62 M/uL (4.70-6.10); White Blood Count 6.61 K/ul (4.8-10.8)
[2024-12-18 07:33] LABS: Albumin Globulin Ratio 1.5 (0.9-2); Albumin Level 2.5 gm/dl (3.4-5.0); BUN Creatinine Ratio 22.4 (10-20); Bilirubin,Total 1.5 mg/dl (0.2-1.0); Calcium 7.8 mg/dl (8.6-10.3); Creatinine Clr Calc Pharmacy 54.7 ml/min; Globulin 1.7 gm/dl (2.5-4.0); Potassium 3.3 mmol/L (3.5-5.1); Total Protein 4.2 gm/dl (6.0-8.3)
--- NOTE | 2024-12-18 14:01 | Hospitalist Progress Note ---
Date of Service December 18, 2024 Assessment & Plan (1) Recurrent falls: (2) Atrial fibrillation with rapid ventricular response: (3) Parkinsons disease: (4) Heart failure with preserved ejection fraction: (5) Ambulatory dysfunction: Plan Pt is a 84 yo male ("Carlos") with a past medical history of atrial fibrillation previously on eliquis which was stopped 2 weeks ago for recurrent falls, recurrent falls due to parkinsons, and hx of BPH/LUTS who presents to the hospital on 12/16 for recurrent falls at home and afib with RVR and hypotension at cardio appointment on day of admission. #Ambulatory dysfunction - secondary to parkinsons, 7 falls at home in the last 3 weeks - fall precautions - orthostatics positive. Could be related to dehydration as the patient has been on oral Lasix. Could also be related to Parkinson's disease Recheck orthostatic vital signs daily. Still positive orthostatic today - PT/OT consults placed; pending #Orthostatic hypotension Strongly positive in the last 2 days. Multifactorial Parkinson disease could be contributing Lasix could be contributing. Currently on hold as the patient does not have any shortness of breath. He does have significant leg swelling Flomax could be contributing. Patient has BPH with significant symptoms requiring Flomax Start midodrine #HFpEF - per [facility] cardio note 12/16: Echocardiogram 08/25/2024 demonstrating normal LVEF with EF of 65%, dilated right atrium, mildly dilated left atrium dilated aortic root of 3.9 cm, ascending aorta 3.6 cm, small anterior pericardial effusion around the RA and RV free wall, no significant valvular abnormalities - no clear cardiac or presyncopal symptoms prior to falls but given noted vague possible "blacking out," echocardiogram was ordered. Echocardiogram was unremarkable - 20 mg IV lasix given on admission Noted to have orthostatic hypotension. Will hold furosemide #Atrial fib - no further episodes in the ER of a fib/flutter or RVR, he has been rate controlled and sinus - typically on eliquis but this was stopped given frequent falls - continue home metoprolol succinate - am TSH ordered Noted the patient has episodes of RVR. May need to increase the dose of metoprolol but being mindful of orthostatic hypotension #Parkinsons - continue home carbidopa-levodopa - see ambulatory dysfunction problem above - may benefit from walker with seat to mitigate further falls Patient may orthostatic hypotension related to Parkinson's disease versus related to dehydration from Lasix. Continue all other home medications. VTE prophylaxis: none (decision with /patient given he was taken off his eliquis recently as he frequently falls and his risk of bleeding with frequent falls is high) Admission and Anticipated Discharge Date Admission Date: December 16, 2024 Subjective Patient was seen and examined at 11 AM. Denies chest pain or shortness of breath. Patient does not feel dehydrated. He has 2+ pitting edema bilaterally. He does not have any shortness of breath. Review of Systems Review of Systems: All systems reviewed & are unremarkable except as noted in Subjective Physical Exam Physical Exam: General: Awake, conversant Heart: S1, S2/regular rate and rhythm, no murmur rubs or gallops Lungs: Clear to auscultation bilaterally. Normal effort Abdomen: Soft/nontender/nondistended. No hepatosplenomegaly Extremities: No clubbing/cyanosis. 2+ bilateral leg edema Behavior: Appropriate, cooperative Results & Data Results & Data Vital Signs (Past 12 Hours) Vital Signs Temp Pulse Pulse Resp BP Pulse Ox O2 Del Method 12/18/24 13:43 119 H 12/18/24 11:21 36.7 C 84 20 99/63 L 99 Room Air 12/18/24 08:16 36.3 C L 65 20 110/66 98 Room Air 12/18/24 07:06 63 12/18/24 04:26 36.6 C 63 20 127/70 98 Room Air Laboratory Results Abnormal lab results 12/18/24 Range/Units 06:38 RBC 3.62 L (4.70-6.10) M/uL Hgb 12.2 L (14.0-18.0) g/dl Hct 34.6 L (42.0-52.0) % RDW Std Deviation 48.8 H (36.4-46.3) fL Plt Count 78 L (130-400) K/uL Potassium 3.3 L (3.5-5.1) mmol/L Carbon Dioxide 36 H (21-32) mmol/L Anion Gap 0 L (3-11) BUN 24 H (6-23) mg/dl BUN/Creatinine Ratio 22.4 H (10-20) Glucose 126 H (70-99(Fasting)) mg/dl Calcium 7.8 L (8.6-10.3) mg/dl Total Bilirubin 1.5 H (0.2-1.0) mg/dl Alkaline Phosphatase 181 H (34-104) U/L Total Protein 4.2 L (6.0-8.3) gm/dl Albumin 2.5 L (3.4-5.0) gm/dl Globulin 1.7 L (2.5-4.0) gm/dl PG Care Time/CCT Total # of Minutes Spent Total Time Spent with Patient: Total time spent is greater than 50% in coordination of care (as documented) at patient's floor/unit and/or counseling patient: Coding Level of Care Code 21001 SUB INP/OBS CARE 2/35MIN Diagnoses Recurrent falls R29.6 Atrial fibrillation with rapid ventricular response I48.91 Parkinsons disease G20.A1 Heart failure with preserved ejection fraction I50.30 Ambulatory dysfunction R26.2
[2024-12-18] MEDS ORDERED: Nursing to Pharmacy Communication SCH (15:00)
[2024-12-18] MEDS: MIDODRINE HCL 2.5 MG TAB PO SCH (17:03)
[2024-12-18] MEDS ORDERED: CARBIDOPA/LEVODOPA 25/100MG TAB PO SCH (21:00)
[2024-12-19 06:25] LABS: Basophils # (auto) 0.02 K/uL (0.00-0.20); Basophils % (auto) 0.3 %; Eosinophils # (auto) 0.06 K/uL (0.00-0.50); Eosinophils % (auto) 0.9 %; Hemoglobin 11.7 g/dl (14.0-18.0); Immature Granulocytes # (auto) 0.02 K/uL (0.01-0.20); Immature Granulocytes % (auto) 0.3 %; Lymphocytes # (auto) 2.02 K/uL (1.20-3.40); Lymphocytes % (auto) 30.5 %; Mean Corpuscular Hemoglobin 33.3 pg (25.0-34.0); Mean Corpuscular Hgb Conc 34.4 g/dL (32.0-36.0); Mean Corpuscular Volume 96.9 fL (80.0-100.0); Mean Platelet Volume 10.4 fL (9.4-12.4); Monocytes # (auto) 0.41 K/uL (0.11-0.59); Monocytes % (auto) 6.2 %; Neutrophils # (auto) 4.09 K/uL (1.40-6.50); Neutrophils % (auto) 61.8 %; Platelet Count 74 K/uL (130-400); RDW Coefficient of Variation 13.6 % (11.5-14.5); RDW Standard Deviation 48.9 fL (36.4-46.3); Red Blood Count 3.51 M/uL (4.70-6.10); White Blood Count 6.62 K/ul (4.8-10.8)
[2024-12-19 06:41] LABS: Albumin Globulin Ratio 1.5 (0.9-2); Albumin Level 2.4 gm/dl (3.4-5.0); Bilirubin,Total 1.4 mg/dl (0.2-1.0); Calcium 7.6 mg/dl (8.6-10.3); Creatinine Clr Calc Pharmacy 56.2 ml/min; Globulin 1.6 gm/dl (2.5-4.0); Potassium 3.5 mmol/L (3.5-5.1)
[2024-12-19] MEDS: METOPROLOL SUCC 25MG EXT REL TAB PO ONE (11:00)
[2024-12-19] MEDS: dilTIAZem HCL 30 MG TAB PO SCH (13:16)
--- NOTE | 2024-12-19 14:20 | Hospitalist Progress Note ---
Date of Service December 19, 2024 Assessment & Plan (1) Recurrent falls: (2) Atrial fibrillation with rapid ventricular response: (3) Parkinsons disease: (4) Heart failure with preserved ejection fraction: (5) Ambulatory dysfunction: Plan Pt is a 84 yo male ("Carlos") with a past medical history of atrial fibrillation previously on eliquis which was stopped 2 weeks ago for recurrent falls, recurrent falls due to parkinsons, and hx of BPH/LUTS who presents to the hospital on 12/16 for recurrent falls at home and afib with RVR and hypotension at cardio appointment on day of admission. #Ambulatory dysfunction - secondary to parkinsons, 7 falls at home in the last 3 weeks - fall precautions - orthostatics positive. Could be related to dehydration as the patient has been on oral Lasix. Could also be related to Parkinson's disease Recheck orthostatic vital signs daily. Still positive orthostatic today - PT/OT consults placed; pending #Orthostatic hypotension Strongly positive in the last few days. Multifactorial Parkinson disease could be contributing Lasix could be contributing. Currently on hold as the patient does not have any shortness of breath. He does have significant leg swelling Flomax could be contributing. Patient has BPH with significant symptoms requiring Flomax Started midodrine 12/18. Increased dose to 10 mg 3 times daily today #HFpEF - per [facility] cardio note 12/16: Echocardiogram 08/25/2024 demonstrating normal LVEF with EF of 65%, dilated right atrium, mildly dilated left atrium dilated aortic root of 3.9 cm, ascending aorta 3.6 cm, small anterior pericardial effusion around the RA and RV free wall, no significant valvular abnormalities - no clear cardiac or presyncopal symptoms prior to falls but given noted vague possible "blacking out," echocardiogram was ordered. Echocardiogram was unremarkable - 20 mg IV lasix given on admission Noted to have orthostatic hypotension. Will hold furosemide #Atrial fib -Patient is often going into RVR Increased the dose of metoprolol to 25 mg daily Added p.o. Cardizem - typically on eliquis but this was stopped given frequent falls -TSH normal #Parkinsons - continue home carbidopa-levodopa - see ambulatory dysfunction problem above - may benefit from walker with seat to mitigate further falls Patient may orthostatic hypotension related to Parkinson's disease versus related to dehydration from Lasix. Continue all other home medications. VTE prophylaxis: none (decision with /patient given he was taken off his eliquis recently as he frequently falls and his risk of bleeding with frequent falls is high) Admission and Anticipated Discharge Date Admission Date: December 16, 2024 Subjective Patient was seen and examined at 11:05 AM. Orthostatic vital signs were positive this morning but the patient was not dizzy. Nurse informed me that his heart rate is creeping up. Increase the dose of metoprolol and added Cardizem. Midodrine dose increased Review of Systems Review of Systems: All systems reviewed & are unremarkable except as noted in Subjective Physical Exam Physical Exam: General: Awake, conversant Heart: S1, S2/regular rate and rhythm, no murmur rubs or gallops Lungs: Clear to auscultation bilaterally. Normal effort Abdomen: Soft/nontender/nondistended. No hepatosplenomegaly Extremities: No clubbing/cyanosis. 2+ bilateral leg edema Behavior: Appropriate, cooperative Results & Data Results & Data Vital Signs (Past 12 Hours) Vital Signs Temp Pulse Pulse Pulse Resp BP BP 12/19/24 11:11 36.4 C L 119 H 18 106/72 12/19/24 11:00 36.6 C 119 H 19 135/82 12/19/24 07:33 36.6 C 112 H 17 115/63 12/19/24 07:07 36.5 C 81 18 105/62 12/19/24 06:45 55 L 12/19/24 04:10 36.5 C 64 16 125/61 Pulse Ox O2 Del Method 12/19/24 11:11 100 Room Air 12/19/24 11:00 98 Room Air 12/19/24 07:33 98 Room Air 12/19/24 07:07 97 Room Air 12/19/24 06:45 12/19/24 04:10 97 Room Air Laboratory Results Abnormal lab results 12/19/24 Range/Units 05:49 RBC 3.51 L (4.70-6.10) M/uL Hgb 11.7 L (14.0-18.0) g/dl Hct 34.0 L (42.0-52.0) % RDW Std Deviation 48.9 H (36.4-46.3) fL Plt Count 74 L (130-400) K/uL Carbon Dioxide 34 H (21-32) mmol/L Anion Gap 1 L (3-11) BUN 24 H (6-23) mg/dl BUN/Creatinine Ratio 22.0 H (10-20) Glucose 126 H (70-99(Fasting)) mg/dl Calcium 7.6 L (8.6-10.3) mg/dl Total Bilirubin 1.4 H (0.2-1.0) mg/dl Alkaline Phosphatase 175 H (34-104) U/L Total Protein 4.0 L (6.0-8.3) gm/dl Albumin 2.4 L (3.4-5.0) gm/dl Globulin 1.6 L (2.5-4.0) gm/dl PG Care Time/CCT Total # of Minutes Spent Total Time Spent with Patient: Total time spent is greater than 50% in coordination of care (as documented) at patient's floor/unit and/or counseling patient: Coding Level of Care Code 14585 SUB INP/OBS CARE 2/35MIN Diagnoses Recurrent falls R29.6 Atrial fibrillation with rapid ventricular response I48.91 Parkinsons disease G20.A1 Heart failure with preserved ejection fraction I50.30 Ambulatory dysfunction R26.2
[2024-12-19] MEDS: MIDODRINE HCL 10 MG TAB PO SCH (16:19)
[2024-12-19] MEDS: dilTIAZem HCl 5 MG/ML 5 ML VIAL IV STA (16:36)
[2024-12-20 06:20] LABS: Basophils # (auto) 0.02 K/uL (0.00-0.20); Basophils % (auto) 0.3 %; Eosinophils # (auto) 0.09 K/uL (0.00-0.50); Eosinophils % (auto) 1.3 %; Hematocrit (blood only) 33.9 % (42.0-52.0); Hemoglobin 11.7 g/dl (14.0-18.0); Immature Granulocytes # (auto) 0.03 K/uL (0.01-0.20); Immature Granulocytes % (auto) 0.4 %; Lymphocytes % (auto) 24.9 %; Mean Corpuscular Hemoglobin 33.9 pg (25.0-34.0); Mean Corpuscular Hgb Conc 34.5 g/dL (32.0-36.0); Mean Corpuscular Volume 98.3 fL (80.0-100.0); Mean Platelet Volume 10.4 fL (9.4-12.4); Monocytes # (auto) 0.53 K/uL (0.11-0.59); Monocytes % (auto) 7.8 %; Neutrophils # (auto) 4.45 K/uL (1.40-6.50); Neutrophils % (auto) 65.3 %; Platelet Count 78 K/uL (130-400); RDW Coefficient of Variation 13.7 % (11.5-14.5); RDW Standard Deviation 48.9 fL (36.4-46.3); Red Blood Count 3.45 M/uL (4.70-6.10); White Blood Count 6.82 K/ul (4.8-10.8)
[2024-12-20 06:44] LABS: Albumin Globulin Ratio 1.4 (0.9-2); Albumin Level 2.3 gm/dl (3.4-5.0); BUN Creatinine Ratio 20.6 (10-20); Bilirubin,Total 1.2 mg/dl (0.2-1.0); Calcium 7.6 mg/dl (8.6-10.3); Creatinine Clr Calc Pharmacy 48.6 ml/min; Globulin 1.6 gm/dl (2.5-4.0); Potassium 3.5 mmol/L (3.5-5.1); Total Protein 3.9 gm/dl (6.0-8.3)
[2024-12-20] MEDS: METOPROLOL SUCC 25MG EXT REL TAB PO SCH ×2 (09:05→10:11)
[2024-12-20] MEDS: DOCUSATE SODIUM 100 MG CAP PO PRN (14:16)
--- NOTE | 2024-12-20 15:54 | Hospitalist Progress Note ---
Date of Service December 20, 2024 Assessment & Plan (1) Recurrent falls: (2) Atrial fibrillation with rapid ventricular response: (3) Parkinsons disease: (4) Heart failure with preserved ejection fraction: (5) Ambulatory dysfunction: Plan Pt is a 84 yo male ("Carlos") with a past medical history of atrial fibrillation previously on eliquis which was stopped 2 weeks ago for recurrent falls, recurrent falls due to parkinsons, and hx of BPH/LUTS who presents to the hospital on 12/16 for recurrent falls at home and afib with RVR and hypotension at cardio appointment on day of admission. #Ambulatory dysfunction - secondary to parkinsons, 7 falls at home in the last 3 weeks - fall precautions - orthostatics positive. Could be related to dehydration as the patient has been on oral Lasix. Could also be related to Parkinson's disease Recheck orthostatic vital signs daily. Still positive orthostatic today, but less prominent and asymptomatic. - PT/OT recommending rehab #Orthostatic hypotension Strongly positive in the last few days. Multifactorial Parkinson disease could be contributing Lasix could be contributing. Currently on hold as the patient does not have any shortness of breath. He does have significant leg swelling Flomax could be contributing. Patient has BPH with significant symptoms requiring Flomax Started midodrine 12/18. Increased dose to 10 mg 3 times daily 12/19 Josue stocking helping Today 12/16, the patient was orthostatic but was asymptomatic #HFpEF - per [facility] cardio note 12/16: Echocardiogram 08/25/2024 demonstrating normal LVEF with EF of 65%, dilated right atrium, mildly dilated left atrium dilated aortic root of 3.9 cm, ascending aorta 3.6 cm, small anterior pericardial effusion around the RA and RV free wall, no significant valvular abnormalities - no clear cardiac or presyncopal symptoms prior to falls but given noted vague possible "blacking out," echocardiogram was ordered. Echocardiogram was unremarkable - 20 mg IV lasix given on admission Noted to have orthostatic hypotension. Will hold furosemide #Atrial fib -Patient is often going into RVR on 12/19 Increased the dose of metoprolol to 25 mg daily Added p.o. Cardizem Today heart rate seems to be in the low side. Lowered the metoprolol back to usual home dose of 12.5. Discontinue Cardizem. - typically on eliquis but this was stopped given frequent falls -TSH normal #Parkinsons - continue home carbidopa-levodopa - see ambulatory dysfunction problem above - may benefit from walker with seat to mitigate further falls Patient may orthostatic hypotension related to Parkinson's disease versus related to dehydration from Lasix. Continue all other home medications. VTE prophylaxis: none (decision with /patient given he was taken off his eliquis recently as he frequently falls and his risk of bleeding with frequent falls is high) Disposition: If patient continues to do well, may be discharged in the next 1 or 2 days. I asked the case loader operator to apply for authorization. Admission and Anticipated Discharge Date Admission Date: December 16, 2024 Subjective Patient was seen and examined at 12:30 PM. Denied chest pain or shortness of breath. Does not feel dizzy today. Review of Systems Review of Systems: All systems reviewed & are unremarkable except as noted in Subjective Physical Exam Physical Exam: General: Awake, conversant Heart: S1, S2/regular rate and rhythm, no murmur rubs or gallops Lungs: Clear to auscultation bilaterally. Normal effort Abdomen: Soft/nontender/nondistended. No hepatosplenomegaly Extremities: No clubbing/cyanosis. 2+ bilateral leg edema Behavior: Appropriate, cooperative Results & Data Results & Data Vital Signs (Past 12 Hours) Vital Signs Temp Pulse Pulse Resp BP Pulse Ox O2 Del Method 12/20/24 11:59 36.7 C 53 L 18 117/54 L 97 Room Air 12/20/24 08:03 36.5 C 56 L 18 111/58 L 99 Room Air 12/20/24 07:51 51 L 12/20/24 07:25 Room Air 12/20/24 04:26 36.5 C 60 18 94/45 L 97 Room Air Laboratory Results Abnormal lab results 12/20/24 Range/Units 05:59 RBC 3.45 L (4.70-6.10) M/uL Hgb 11.7 L (14.0-18.0) g/dl Hct 33.9 L (42.0-52.0) % RDW Std Deviation 48.9 H (36.4-46.3) fL Plt Count 78 L (130-400) K/uL Chloride 108 H (98-107) mmol/L Carbon Dioxide 33 H (21-32) mmol/L Anion Gap 1 L (3-11) BUN 26 H (6-23) mg/dl BUN/Creatinine Ratio 20.6 H (10-20) Glucose 127 H (70-99(Fasting)) mg/dl Calcium 7.6 L (8.6-10.3) mg/dl Total Bilirubin 1.2 H (0.2-1.0) mg/dl ALT 6 L (7-52) U/L Alkaline Phosphatase 197 H (34-104) U/L Total Protein 3.9 L (6.0-8.3) gm/dl Albumin 2.3 L (3.4-5.0) gm/dl Globulin 1.6 L (2.5-4.0) gm/dl PG Care Time/CCT Total # of Minutes Spent Total Time Spent with Patient: Total time spent is greater than 50% in coordination of care (as documented) at patient's floor/unit and/or counseling patient: Coding Level of Care Code 26454 SUB INP/OBS CARE 2/35MIN Diagnoses Recurrent falls R29.6 Atrial fibrillation with rapid ventricular response I48.91 Parkinsons disease G20.A1 Heart failure with preserved ejection fraction I50.30 Ambulatory dysfunction R26.2
[2024-12-21 06:28] LABS: Albumin Globulin Ratio 1.4 (0.9-2); Albumin Level 2.3 gm/dl (3.4-5.0); Bilirubin,Total 1.2 mg/dl (0.2-1.0); Calcium 7.5 mg/dl (8.6-10.3); Creatinine Clr Calc Pharmacy 51.9 ml/min; Globulin 1.6 gm/dl (2.5-4.0); Potassium 3.8 mmol/L (3.5-5.1); Total Protein 3.9 gm/dl (6.0-8.3)
--- NOTE | 2024-12-21 06:37 | Electrocardiogram Report ---
Test Reason : Blood Pressure : */* mmHG Vent. Rate : 124 BPM Atrial Rate : 248 BPM P-R Int : * ms QRS Dur : 82 ms QT Int : 352 ms P-R-T Axes : * -33 -79 degrees QTcB Int : 506 ms Atrial flutter with 2:1 A-V conduction Left axis deviation Low voltage QRS Nonspecific ST and T wave abnormality Prolonged QT Abnormal ECG When compared with ECG of 16-Dec-2024 15:54, Atrial flutter has replaced Sinus rhythm Vent. rate has increased by 49 bpm Confirmed by Romel Ramos ([id number]) on 12/21/2024 6:37:27 AM Referred By: REFERRED SELF Confirmed By: Romel Ramos
--- NOTE | 2024-12-21 10:30 | Hospitalist Progress Note ---
Date of Service December 21, 2024 Assessment & Plan (1) Recurrent falls: (2) Atrial fibrillation with rapid ventricular response: (3) Parkinsons disease: (4) Heart failure with preserved ejection fraction: (5) Ambulatory dysfunction: Plan Pt is a 84 yo male ("Carlos") with a past medical history of atrial fibrillation previously on eliquis which was stopped 2 weeks ago for recurrent falls, recurrent falls due to parkinsons, and hx of BPH/LUTS who presents to the hospital on 12/16 for recurrent falls at home and afib with RVR and hypotension at cardio appointment on day of admission. #Ambulatory dysfunction - secondary to parkinsons, 7 falls at home in the last 3 weeks - fall precautions - orthostatics positive. Could be related to dehydration as the patient has been on oral Lasix. 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 Multifactorial Dehydration, could also be related to Parkinson's disease and dysauthonomia Lasix could be contributing. Currently on hold as the patient does not have any shortness of breath. He does have significant leg swelling Flomax could be contributing. Patient has BPH with significant symptoms requiring Flomax Started midodrine 12/18. Increased dose to 10 mg 3 times daily 12/19 Josue stocking helping may add Fludrocortisone if needed #HFpEF - per [facility] cardio note 12/16: Echocardiogram 08/25/2024 demonstrating normal LVEF with EF of 65%, dilated right atrium, mildly dilated left atrium dilated aortic root of 3.9 cm, ascending aorta 3.6 cm, small anterior pericardial effusion around the RA and RV free wall, no significant valvular abnormalities - no clear cardiac or presyncopal symptoms prior to falls but given noted vague possible "blacking out," echocardiogram was ordered. Echocardiogram was unrem arkable - 20 mg IV lasix given on admission Noted to have orthostatic hypotension. Will hold furosemide #Atrial fib -Patient is often going into RVR on 12/19 Increased the dose of metoprolol to 25 mg daily Added p.o. Cardizem Today heart rate seems to be in the low side. Lowered the metoprolol back to usual home dose of 12.5. Discontinue Cardizem. - typically on eliquis but this was stopped given frequent falls -TSH normal #Parkinsons - continue home carbidopa-levodopa - see ambulatory dysfunction problem above - may benefit from walker with seat to mitigate further falls Patient may orthostatic hypotension related to Parkinson's disease versus related to dehydration from Lasix. Continue all other home medications. VTE prophylaxis: none (decision with /patient given he was taken off his eliquis recently as he frequently falls and his risk of bleeding with frequent falls is high) Disposition: If patient continues to do well, may be discharged in the next 1 or 2 days. I asked the shelter case manager to apply for authorization. Admission and Anticipated Discharge Date Admission Date: December 16, 2024 Subjective Patient was seen and examined , No new complaints today Review of Systems Review of Systems: All systems reviewed are negative, apart from the ones contained in the history. Physical Exam Physical Exam: The patient is awake, alert and oriented 3, well developed and well nourished, normocephalic and atraumatic, lying in bed and in no acute distress. HEENT--PERRL, EOMI, mucous membranes and oropharynx mildly dry Neck--supple. No JVD. No bruits. Thyroid normal, trachea midline, no adenopathy. Heart--normal S1 and S2. No murmurs, rubs or gallops. Lungs--clear bilaterally, no respiratory distress, no accessory muscle use. Abdomen--normal bowel sounds and soft. Extremities--no cyanosis or clubbing. No edema. Dermatologic--normal skin turgor, normal color, no abnormal lymph nodes, no rash. Neurologic--cranial nerves II through XII grossly intact. Rheumatologic--normal range of motion. Psychiatric--normal affect. Results & Data Results & Data Vital Signs (Past 12 Hours) Vital Signs Temp Pulse Pulse Pulse Resp BP BP 12/21/24 08:12 97.3 F L 63 18 114/63 12/21/24 08:00 59 L 12/21/24 03:11 97.7 F 48 L 16 125/68 12/20/24 23:15 97.5 F L 56 L 18 123/63 Pulse Ox O2 Del Method 12/21/24 08:12 98 Room Air 12/21/24 08:00 12/21/24 03:11 100 Room Air 12/20/24 23:15 97 Room Air PG Care Time/CCT Total # of Minutes Spent Total Time Spent with Patient: Total time spent is greater than 50% in coordination of care (as documented) at patient's floor/unit and/or counseling patient: Coding Level of Care Code 02394 SUB INP/OBS CARE 2/35MIN Diagnoses Recurrent falls R29.6 Atrial fibrillation with rapid ventricular response I48.91 Parkinsons disease G20.A1 Heart failure with preserved ejection fraction I50.30 Ambulatory dysfunction R26.2 Time Spent (min) 35
[2024-12-22 03:14] VITALS: TEMP 97.3
[2024-12-22 06:25] LABS: Hematocrit (blood only) 34.5 % (42.0-52.0); Hemoglobin 12.2 g/dl (14.0-18.0); Mean Corpuscular Hemoglobin 33.9 pg (25.0-34.0); Mean Corpuscular Hgb Conc 35.4 g/dL (32.0-36.0); Mean Corpuscular Volume 95.8 fL (80.0-100.0); Mean Platelet Volume 10.5 fL (9.4-12.4); Platelet Count 78 K/uL (130-400); RDW Standard Deviation 45.7 fL (36.4-46.3); White Blood Count 8.15 K/ul (4.8-10.8)
[2024-12-22 06:34] LABS: BUN Creatinine Ratio 23.2 (10-20); Calcium 7.5 mg/dl (8.6-10.3); Creatinine Clr Calc Pharmacy 62.1 ml/min; Potassium 3.7 mmol/L (3.5-5.1)
[2024-12-22 08:24] VITALS: RESP 18
--- NOTE | 2024-12-22 10:22 | Discharge Summary ---
Date of Service December 22, 2024 Admission HPI Per Admitting Provider Pt is a 84 yo male ("Carlos") with a past medical history of atrial fibrillation previously on eliquis which was stopped 2 weeks ago for recurrent falls, recurrent falls due to parkinsons, and hx of BPH/LUTS who presents to the hospital on 12/16 for recurrent falls at home and afib with RVR and hypotension at cardio appointment on day of admission. Pt seen at beside with his . His gives most of the history. She states that recently, he has been falling more due to his parkinsons. She states that over the last 3 weeks he has had 7 falls at home and was here in the ER just a day or so ago due to fall where he hit his head into the wall which left a dent into the wall. Lives at home with his who states she can and does help him but she also has medical problems so the falls as worrisome and difficult for her to manage at times. She states sometimes she is able to get a chair to him and he will sit to avoid falling. He uses a walker (one without a seat) at home and a 4 pronged cane when going to appointments. When asked about if he has symptoms prior to the falls, his states that he did mention "blacking out" with a fall before but any time he has fallen he has immediately called for her and seemed to be in his usual state of mind. He denies chest pain or SOB or feeling faint prior to any of his falls. Pt saw cardio today in office with the [facility] group, also saw them 2 weeks ago and it was decided to stop his home eliquis due to recurrent fall risk. At that appointment his heart rate was in the 110s and his blood pressure was low, although he felt okay. She states his legs have been more swollen the last week or so bilaterally and without pain. No shortness of breath, chest pain, or orthopnea. Right now, pt states he feels fine other than having to urinate. Admission Exam (Per Admitting) Constitutional The patient is awake, alert and oriented 3, well developed and well nourished, normocephalic and atraumatic, lying in bed and in no acute distress. HEENT--PERRL, EOMI, mucous membranes and oropharynx mildly dry Neck--supple. No JVD. No bruits. Thyroid normal, trachea midline, no adenopathy. Heart--normal S1 and S2. No murmurs, rubs or gallops. Lungs--clear bilaterally, no respiratory distress, no accessory muscle use. Abdomen--normal bowel sounds and soft. Extremities--no cyanosis or clubbing. No edema. Dermatologic--normal skin turgor, normal color, no abnormal lymph nodes, no rash. Neurologic--cranial nerves II through XII grossly intact. Rheumatologic--normal range of motion. Psychiatric--normal affect. Discharge Data Consultations 12/16/24 18:55 ED Decision to Admit Stat Hospital Course (1) Recurrent falls: (2) Atrial fibrillation with rapid ventricular response: (3) Parkinsons disease: (4) Heart failure with preserved ejection fraction: (5) Ambulatory dysfunction: Plan Pt is a 84 yo male ("Carlos") with a past medical history of atrial fibrillation previously on eliquis which was stopped 2 weeks ago for recurrent falls, recurrent falls due to parkinsons, and hx of BPH/LUTS who presents to the hospital on 12/16 for recurrent falls at home and afib with RVR and hypotension at cardio appointment on day of admission. #Ambulatory dysfunction - secondary to parkinsons, 7 falls at home in the last 3 weeks - fall precautions - orthostatics positive. Could be related to dehydration as the patient has been on oral Lasix. 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 Multifactorial Dehydration, could also be related to Parkinson's disease and dysauthonomia Lasix could be contributing. Currently on hold as the patient does not have any shortness of breath. He does have significant leg swelling Flomax could be contributing. Patient has BPH with significant symptoms requiring Flomax Started midodrine 12/18. Increased dose to 10 mg 3 times daily 12/19 Josue stocking helping may add Fludrocortisone if needed #HFpEF - per [facility] cardio note 12/16: Echocardiogram 08/25/2024 demonstrating normal LVEF with EF of 65%, dilated right atrium, mildly dilated left atrium dilated aortic root of 3.9 cm, ascending aorta 3.6 cm, small anterior pericardial effusion around the RA and RV free wall, no significant valvular abnormalities - no clear cardiac or presyncopal symptoms prior to falls but given noted vague possible "blacking out," echocardiogram was ordered. Echocardiogram was unr emarkable - 20 mg IV lasix given on admission Noted to have orthostatic hypotension. Will hold furosemide #Atrial fib -Patient is often going into RVR on 12/19 Increased the dose of metoprolol to 25 mg daily Added p.o. Cardizem Today heart rate seems to be in the low side. Lowered the metoprolol back to usual home dose of 12.5. Discontinue Cardizem. - typically on eliquis but this was stopped given frequent falls -TSH normal #Parkinsons - continue home carbidopa-levodopa - see ambulatory dysfunction problem above - may benefit from walker with seat to mitigate further falls Patient may orthostatic hypotension related to Parkinson's disease versus related to dehydration from Lasix. Continue all other home medications. VTE prophylaxis: none (decision with /patient given he was taken off his eliquis recently as he frequently falls and his risk of bleeding with frequent falls is high) Disposition: Insurance denied authorization for SNF, patient will be discharged home with home health and PT Coding Level of Care Code 67571 INP/OBS DISCH >30 MIN Diagnoses Recurrent falls R29.6 Atrial fibrillation with rapid ventricular response I48.91 Parkinsons disease G20.A1 Heart failure with preserved ejection fraction I50.30 Ambulatory dysfunction R26.2 Time Spent (min) 35
[2024-12-22 11:14] VITALS: BP 146/75; PULSE 89; O2SAT 98
== END 2024-12-22 12:58 | disposition home health service (06) | DRG 57 ==
LOC: ED 15:39 → 2N 20:33 → SUATTDRO 20:33 → 2N 23:43 → 4W 12-19 16:28

== ENCOUNTER 2025-01-26 11:47 | Inpatient (IN) ==
--- NOTE | 2025-01-26 12:20 | Emergency Department Note ---
Impression & Plan Pneumonia, Atrial fibrillation, Weakness, Fall, Thrombocytopenia ED Provider Note NAME: LENIN FAN AGE: 84 SEX: M : 1940 ARRIVES VIA: Ambulance INFORMANT: Patient, ED PROVIDER(S): Gilbert Rivas DO CHIEF COMPLAINT: Fall HPI: The patient is an 84-year-old male who presented to the emergency department for an evaluation after a fall. The patient states that he was going to sit down in his chair but he missed the chair and slid to the ground. He did not hurt himself. He denies having any back pain or neck pain. The patient denies having any hip pain. He was unable to stand so 911 was called. The patient had generalized weakness and he came to emergency department for further evaluation. He does have a history of atrial fibrillation but is not currently taking any blood thinners. The patient denies having any recent fevers. He denies having any dysuria or frequency. ROS: See above HPI for pertinent positives & negatives. A total of 10 systems reviewed and were otherwise negative. PAST MEDICAL HISTORY: See Below PAST SURGICAL HISTORY: See Below FAMILY HISTORY: See Below SOCIAL HISTORY: See Below HOME MEDICATIONS: See Below ALLERGIES: See Below VITALS: See Below PHYSICAL EXAMINATION: GENERAL: Patient is awake alert in no acute distress patient is resting comfortably and showing no signs of anxiety EYES: The conjunctivae are clear. The pupils are round and reactive. EARS, NOSE, MOUTH AND THROAT: The nose is without any evidence of any deformity. NECK: The neck is nontender and supple. RESPIRATORY: Normal respiratory effort is noted there is no evidence of wheezing rhonchi or rales CARDIOVASCULAR: Regular rate and rhythm noted there no murmurs rubs or gallops normal S1 normal S2. GASTROINTESTINAL: The abdomen is soft. Abdomen is nontender. MUSCULOSKELETAL/EXTREMITIES: There is no evidence of gross deformity full range of motion is noted in the hips and shoulders. SKIN: Skin is warm and dry. Pedal edema was noted bilaterally. NEUROLOGIC: Patient is awake alert and oriented x3. Strength is symmetric but diminished. 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 The patient is able to hold each leg off the bed for 5 seconds. Speech was somewhat pressured. There was a slight left facial droop with forehead sparing noted. MEDICAL DECISION MAKING: The patient is an 84-year-old male who presented to the emergency department by ambulance after a fall. The patient had a very minor fall but when the ambulance arrived and tried to help the patient ambulate he was unable to ambulate at his baseline. He states has been very weak especially over the last several days. I discussed the patient's laboratory and radiographic studies with him and his significant other. He was found have signs of pneumonia on chest x-ray. This could be causing the patient's overall weakness. I discussed the patient's laboratory and radiographic studies with with him. I also [facility] They have agreed to evaluate the patient in the emergency department for further management and disposition. He was started on an IV antibiotic. Triage Nursing notes reviewed. Prior medical records reviewed Vital Signs: reviewed and remarkable for bradycardia. Differential diagnosis: Infection, dehydration, metabolic abnormality, hypo/hyperglycemia, electrolyte disturbance, anemia, hypoxia, cardiac sources, intracerebral event, toxicologic, neurologic, as well as other pathologies. ER treatment provided: See below Diagnostics interpreted by me: ECG: EKG was obtained in the emergency department. My interpretation is normal sinus rhythm at 64 bpm. There is no PVCs noted. Nonspecific ST segment abnormalities were noted. This was compared to a tracing from December 19, 2024. Sinus rhythm has replaced atrial fibrillation since the previous tracing. Cardiac Monitoring: An order was placed for continuous cardiac monitoring. The monitor shows a rate of 56 bpm with sinus bradycardia. Laboratory studies: As stated above and show below. Imaging studies: See below. Radiographic imaging was reviewed by myself Consultation(s): I discussed this case with S[facility] Past Med/Surg History Problem List (Updated 01/26/25 @ 17:41 by Gilbert Rivas DO) Fall (Acute) Weakness (Acute) Pneumonia (Acute) Generalized weakness Pneumonia Ambulatory dysfunction Heart failure with preserved ejection fraction Thrombocytopenia (Acute) Elevated brain natriuretic peptide (BNP) level (Acute) Bilateral leg edema (Acute) Recurrent falls (Acute) Atrial fibrillation with rapid ventricular response (Acute) Small bowel obstruction (Acute) Atrial fibrillation (Acute) Parkinsons disease Small bowel obstruction Deviated nasal septum Nasal crusting Benign localized prostatic hyperplasia with lower urinary tract symptoms (LUTS) Impacted cerumen Urinary urgency (Acute) BPH (benign prostatic hyperplasia) Surgical History History of cataract extraction 02/2017-bilateral History of bladder surgery Green light laser surgery for excess bladder tissue-03/09/14 History of Mohs micrographic surgery for skin cancer Head-2014 Left arm-2013 History of sebaceous cyst x3-2 on back, 1 on chest History of tonsillectomy and adenoidectomy 1948 History of surgery femur [id number] leg repair laser vaporization with transurethral resection of prostate Previous back surgery H/O: knee surgery Family History Brother Prostate cancer Father Hypertension Heart disease following heart attack Mother Hearing loss Heart disease following heart attack Other No family history of adverse response to anesthesia No family history of bleeding disorder Social History Smoking Status: Never smoker Do You Dip or Chew Tobacco: No; Hx Alcohol Use: No Hx Substance Use: No Preferred Language: Somali Communication Ability: Effective [place] Cleaner Required: No Beliefs That Will Affect Care: None marital status: Current Living Situation: Spouse current occupational status: retired Feels Safe at Home: Yes Assistive Devices: Cane and Walker Allergies Allergies Allergy/AdvReac Type Severity Reaction Status Date / Time acetaminophen Allergy Unknown ANKLES Verified 01/26/25 15:23 SWELL UP benzalkonium chloride Allergy Unknown UNKNOWN Verified 01/26/25 15:23 brimonidine Allergy Unknown UNKNOWN Verified 01/26/25 15:23 travoprost Allergy Unknown UNKNOWN Verified 01/26/25 15:23 diclofenac [From Voltaren] Allergy Verified 01/26/25 15:23 Home Meds Home Medications Medication Instructions Recorded Confirmed Prevagen 1 tab PO QAM 06/09/24 01/26/25 carbidopa 25 mg-levodopa 100 mg 1 tab PO TID 06/09/24 01/26/25 tablet ciclopirox 8 % topical solution 1 applic topical HS 06/09/24 01/26/25 docusate sodium 100 mg tablet 200 mg PO HS PRN Constipation 06/09/24 01/26/25 (Stool Softener) dorzolamide-timolol (PF) 2 %-0.5 % 1 drp OPB BID 06/09/24 01/26/25 eye drops in a dropperette entacapone 200 mg tablet 200 mg PO TID 06/09/24 01/26/25 glucosamine-chondroitin 750 mg-600 1 tab PO QAM 06/09/24 01/26/25 mg tablet mirtazapine 30 mg tablet 30 mg PO HS 06/09/24 01/26/25 niacin 1,000 mg tablet,extended 2,000 mg PO HS 06/09/24 01/26/25 release 24 hr peg 400-propylene glycol 0.4 %-0.3 1 drp OPB QID PRN Dry Eyes 06/09/24 01/26/25 % eye drops (Systane (propylene glycol)) quetiapine 100 mg tablet 100 mg PO HS 06/09/24 01/26/25 vit C 250 mg-vit E 90 mg-zinc 40 1 tab PO BID ##0 06/09/24 01/26/25 mg-copper 1 [id number] capsule (PreserVision AREDS-2) vitamin B complex 1 tab PO DAILY 06/09/24 01/26/25 cholecalciferol (vitamin D3) 25 25 mcg PO DAILY 12/16/24 01/26/25 mcg (1,000 unit) capsule (Vitamin D3) furosemide 20 mg tablet 20 mg PO QAM 12/16/24 01/26/25 metoprolol succinate 25 mg 12.5 mg PO QAM 12/16/24 01/26/25 tablet,extended release 24 hr midodrine 10 mg tablet 10 mg PO TID 01/26/25 01/26/25 Previous Rx's Medication Instructions Recorded finasteride 5 mg tablet 5 mg PO HS #90 tabs 07/22/24 solifenacin 10 mg tablet 10 mg PO HS #90 tabs 07/22/24 Results & Data (ED) Vital Signs Vital Signs - 24 hr 01/26/25 11:54 01/26/25 14:00 Temperature 36.8 C Temperature Source Oral Pulse Rate 66 Pulse Rate [Apical] 55 L Pulse Rhythm [Apical] Regular Respiratory Rate 18 16 Respiratory Effort / Characteristics Non-Labored Spontaneous Respiratory Depth Normal Respiratory Pattern Regular Blood Pressure 117/66 Blood Pressure [Right Arm] 130/66 Blood Pressure Mean 83 Blood Pressure Mean [Right Arm] 87 Pulse Oximetry 98 Oxygen Delivery Method Room Air Sepsis Recent Fever Within 48 Hours No Sepsis New/Unexplained Change in Mental Status No Sepsis Action Taken by Nursing No Action Required Home Medications Current Medication List: was personally reviewed by me Laboratory Data Attestation: I reviewed the patient's lab results. 01/26/25 12:00 01/26/25 12:00 Lab Results 01/26/25 01/26/25 01/26/25 Range/Units 11:54 12:00 12:45 WBC 10.00 (4.8-10.8) K/ul RBC 4.01 L (4.70-6.10) M/uL Hgb 13.6 L (14.0-18.0) g/dl Hct 38.9 L (42.0-52.0) % MCV 97.0 (80.0-100.0) fL MCH 33.9 (25.0-34.0) pg MCHC 35.0 (32.0-36.0) g/dL RDW Std Deviation 44.9 (36.4-46.3) fL RDW Coeff of Jose Luis 12.6 (11.5-14.5) % Plt Count 85 L (130-400) K/uL MPV 10.4 (9.4-12.4) fL Immature Gran % (Auto) 0.4 % Neut % (Auto) 74.8 % Lymph % (Auto) 15.8 % [place] % (Auto) 8.5 % Eos % (Auto) 0.3 % Baso % (Auto) 0.2 % Neut # (Auto) 7.48 H (1.40-6.50) K/uL Lymph # (Auto) 1.58 (1.20-3.40) K/uL [place] # (Auto) 0.85 H (0.11-0.59) K/uL Eos # (Auto) 0.03 (0.00-0.50) K/uL Baso # (Auto) 0.02 (0.00-0.20) K/uL Immature Gran # (Auto) 0.04 (0.01-0.20) K/uL PT 15.4 H (9.0-12.0) Seconds INR 1.5 H (0.9-1.1) APTT 33 H (21-31) Seconds PTT Ratio 1.2 Sodium 140 (136-145) mmol/L Potassium 4.2 (3.5-5.1) mmol/L Chloride 102 (98-107) mmol/L Carbon Dioxide 36 H (21-32) mmol/L Anion Gap 2 L (3-11) BUN 17 (6-23) mg/dl Creatinine 1.02 (0.6-1.4) mg/dl Est Cr Clr Drug Dosing 63.7 ml/min eGFR 72.47 BUN/Creatinine Ratio 16.7 (10-20) Glucose 136 H (70-99(Fasting)) mg/dl POC Glucose 118 H (70-99) mg/dl Calcium 7.8 L (8.6-10.3) mg/dl Magnesium 2.3 (1.7-2.4) mg/dl Total Bilirubin 2.1 H (0.2-1.0) mg/dl AST 34 (13-39) U/L ALT 31 (7-52) U/L Alkaline Phosphatase 213 H (34-104) U/L Total Creatine Kinase 46 (30-223) U/L Troponin I High Sens 25.2 H (0-20) pg/ml C-Reactive Protein (0-0.5) mg/dl Total Protein 4.6 L (6.0-8.3) gm/dl Albumin 2.6 L (3.4-5.0) gm/dl Globulin 2.0 L (2.5-4.0) gm/dl Albumin/Globulin Ratio 1.3 (0.9-2) Procalcitonin (0-0.5) ng/ml TSH 1.467 (0.300-4.500) uIu/ml Urine Color Urine Appearance (Clear) Urine pH (4.5-7.5) Ur Specific [place] (1.000-1.030) Urine Protein (Negative) Urine Glucose (UA) (Negative) Urine Ketones (Negative) Urine Blood (Negative) Urine Nitrite (Negative) Urine Bilirubin (Negative) Urine Urobilinogen (Negative) Ur Leukocyte Esterase (Negative) Adenovirus (PCR) Not Detected (NotDetected) B. pertussis DNA (PCR) Not Detected (NotDetected) B.parapertussis DNA PCR Not Detected (NotDetected) C. pneumoniae DNA (PCR) Not Detected (NotDetected) Coronavirus OC43 (PCR) DETECTED A (NotDetected) Coronavirus HKU1 (PCR) Not Detected (NotDetected) Coronavirus 229E (PCR) Not Detected (NotDetected) SARS-CoV-2 (PCR) NEGATIVE (Negative) Coronavirus NL63 (PCR) (NotDetected) Human Metapneumovir PCR (NotDetected) Influenza Type A (PCR) (Neg) Influenza Type B (PCR) (Neg) M. pneumoniae (PCR) (NotDetected) Parainfluenza 1 (PCR) (NotDetected) Parainfluenza 2 (PCR) (NotDetected) Parainfluenza 3 (PCR) (NotDetected) Parainfluenza 4 (PCR) (NotDetected) RSV (RT-PCR) (Neg) RSV (PCR) (NotDetected) Entero/Rhino (PCR) (NotDetected) 01/26/25 01/26/25 01/26/25 Range/Units 12:45 12:45 12:45 WBC (4.8-10.8) K/ul RBC (4.70-6.10) M/uL Hgb (14.0-18.0) g/dl Hct (42.0-52.0) % MCV (80.0-100.0) fL MCH (25.0-34.0) pg MCHC (32.0-36.0) g/dL RDW Std Deviation (36.4-46.3) fL RDW Coeff of Jose Luis (11.5-14.5) % Plt Count (130-400) K/uL MPV (9.4-12.4) fL Immature Gran % (Auto) % Neut % (Auto) % Lymph % (Auto) % [place] % (Auto) % Eos % (Auto) % Baso % (Auto) % Neut # (Auto) (1.40-6.50) K/uL Lymph # (Auto) (1.20-3.40) K/uL [place] # (Auto) (0.11-0.59) K/uL Eos # (Auto) (0.00-0.50) K/uL Baso # (Auto) (0.00-0.20) K/uL Immature Gran # (Auto) (0.01-0.20) K/uL PT (9.0-12.0) Seconds INR (0.9-1.1) APTT (21-31) Seconds PTT Ratio Sodium (136-145) mmol/L Potassium (3.5-5.1) mmol/L Chloride (98-107) mmol/L Carbon Dioxide (21-32) mmol/L Anion Gap (3-11) BUN (6-23) mg/dl Creatinine (0.6-1.4) mg/dl Est Cr Clr Drug Dosing ml/min eGFR BUN/Creatinine Ratio (10-20) Glucose (70-99(Fasting)) mg/dl POC Glucose (70-99) mg/dl Calcium (8.6-10.3) mg/dl Magnesium (1.7-2.4) mg/dl Total Bilirubin (0.2-1.0) mg/dl AST (13-39) U/L ALT (7-52) U/L Alkaline Phosphatase (34-104) U/L Total Creatine Kinase (30-223) U/L Troponin I High Sens (0-20) pg/ml C-Reactive Protein (0-0.5) mg/dl Total Protein (6.0-8.3) gm/dl Albumin (3.4-5.0) gm/dl Globulin (2.5-4.0) gm/dl Albumin/Globulin Ratio (0.9-2) Procalcitonin (0-0.5) ng/ml TSH (0.300-4.500) uIu/ml Urine Color Urine Appearance (Clear) Urine pH (4.5-7.5) Ur Specific [place] (1.000-1.030) Urine Protein (Negative) Urine Glucose (UA) (Negative) Urine Ketones (Negative) Urine Blood (Negative) Urine Nitrite (Negative) Urine Bilirubin (Negative) Urine Urobilinogen (Negative) Ur Leukocyte Esterase (Negative) Adenovirus (PCR) (NotDetected) B. pertussis DNA (PCR) (NotDetected) B.parapertussis DNA PCR (NotDetected) C. pneumoniae DNA (PCR) (NotDetected) Coronavirus OC43 (PCR) (NotDetected) Coronavirus HKU1 (PCR) (NotDetected) Coronavirus 229E (PCR) (NotDetected) SARS-CoV-2 (PCR) Not Detected (Negative) Coronavirus NL63 (PCR) Not Detected (NotDetected) Human Metapneumovir PCR Not Detected (NotDetected) Influenza Type A (PCR) Negative Not Detected (Neg) Influenza Type B (PCR) Negative Not Detected (Neg) M. pneumoniae (PCR) Not Detected (NotDetected) Parainfluenza 1 (PCR) Not Detected (NotDetected) Parainfluenza 2 (PCR) Not Detected (NotDetected) Parainfluenza 3 (PCR) Not Detected (NotDetected) Parainfluenza 4 (PCR) Not Detected (NotDetected) RSV (RT-PCR) Negative (Neg) RSV (PCR) Not Detected (NotDetected) Entero/Rhino (PCR) Not Detected (NotDetected) 01/26/25 01/26/25 01/26/25 Range/Units 12:47 13:46 14:18 WBC (4.8-10.8) K/ul RBC (4.70-6.10) M/uL Hgb (14.0-18.0) g/dl Hct (42.0-52.0) % MCV (80.0-100.0) fL MCH (25.0-34.0) pg MCHC (32.0-36.0) g/dL RDW Std Deviation (36.4-46.3) fL RDW Coeff of Jose Luis (11.5-14.5) % Plt Count (130-400) K/uL MPV (9.4-12.4) fL Immature Gran % (Auto) % Neut % (Auto) % Lymph % (Auto) % [place] % (Auto) % Eos % (Auto) % Baso % (Auto) % Neut # (Auto) (1.40-6.50) K/uL Lymph # (Auto) (1.20-3.40) K/uL [place] # (Auto) (0.11-0.59) K/uL Eos # (Auto) (0.00-0.50) K/uL Baso # (Auto) (0.00-0.20) K/uL Immature Gran # (Auto) (0.01-0.20) K/uL PT (9.0-12.0) Seconds INR (0.9-1.1) APTT (21-31) Seconds PTT Ratio Sodium (136-145) mmol/L Potassium (3.5-5.1) mmol/L Chloride (98-107) mmol/L Carbon Dioxide (21-32) mmol/L Anion Gap (3-11) BUN (6-23) mg/dl Creatinine (0.6-1.4) mg/dl Est Cr Clr Drug Dosing ml/min eGFR BUN/Creatinine Ratio (10-20) Glucose (70-99(Fasting)) mg/dl POC Glucose (70-99) mg/dl Calcium (8.6-10.3) mg/dl Magnesium (1.7-2.4) mg/dl Total Bilirubin (0.2-1.0) mg/dl AST (13-39) U/L ALT (7-52) U/L Alkaline Phosphatase (34-104) U/L Total Creatine Kinase (30-223) U/L Troponin I High Sens 22.7 H (0-20) pg/ml C-Reactive Protein 1.59 H (0-0.5) mg/dl Total Protein (6.0-8.3) gm/dl Albumin (3.4-5.0) gm/dl Globulin (2.5-4.0) gm/dl Albumin/Globulin Ratio (0.9-2) Procalcitonin 0.08 (0-0.5) ng/ml TSH (0.300-4.500) uIu/ml Urine Color Yellow Urine Appearance Clear (Clear) Urine pH 6.5 (4.5-7.5) Ur Specific [place] 1.015 (1.000-1.030) Urine Protein Negative (Negative) Urine Glucose (UA) Negative (Negative) Urine Ketones Negative (Negative) Urine Blood Negative (Negative) Urine Nitrite Negative (Negative) Urine Bilirubin Negative (Negative) Urine Urobilinogen Negative (Negative) Ur Leukocyte Esterase Negative (Negative) Adenovirus (PCR) (NotDetected) B. pertussis DNA (PCR) (NotDetected) B.parapertussis DNA PCR (NotDetected) C. pneumoniae DNA (PCR) (NotDetected) Coronavirus OC43 (PCR) (NotDetected) Coronavirus HKU1 (PCR) (NotDetected) Coronavirus 229E (PCR) (NotDetected) SARS-CoV-2 (PCR) (Negative) Coronavirus NL63 (PCR) (NotDetected) Human Metapneumovir PCR (NotDetected) Influenza Type A (PCR) (Neg) Influenza Type B (PCR) (Neg) M. pneumoniae (PCR) (NotDetected) Parainfluenza 1 (PCR) (NotDetected) Parainfluenza 2 (PCR) (NotDetected) Parainfluenza 3 (PCR) (NotDetected) Parainfluenza 4 (PCR) (NotDetected) RSV (RT-PCR) (Neg) RSV (PCR) (NotDetected) Entero/Rhino (PCR) (NotDetected) Administered Medications Azithromycin (Zithromax) 500 mg in 255 mls @ 127.5 mls/hr IV ONCE ONE Stop: 01/26/25 17:51 Last Admin: 01/26/25 16:19 Dose: 127.5 mls/hr Documented By: KERON Discontinued Medications Ceftriaxone Sodium (Rocephin) 2,000 mg in 50 mls @ 100 mls/hr IV NOW STA Stop: 01/26/25 13:10 Last Infusion: 01/26/25 14:05 Dose: Infused Documented By: Admin: 01/26/25 13:28 Dose: 100 mls/hr Documented By: HILDA Imaging Data Attestation: I personally reviewed and interpreted this imaging study as follows: My Impression: 1 view chest x-ray was obtained in the emergency department. My interpretation is left-sided infiltrate, final report below. CT the brain was obtained in the emergency department. My interpretation is no intracranial hemorrhage or mass effect, final report below. Radiologist's Impression: Cervical Spine CT 01/26/25 12:04 CT cervical spine wo con CT DOSE: 1321.61 mGy.cm CLINICAL HISTORY: frequesnt falls. COMPARISON: None TECHNIQUE: Multiple axial CT images of the cervical spine were obtained without contrast. Sagittal and coronal reconstructions were done. A dose lowering technique was utilized adhering to the principles of ALARA. FINDINGS: There is no acute fracture or traumatic malalignment. The prevertebral soft tissues are not swollen. The odontoid and atlantoaxial articulation are intact. There is a torticollis convex to the right which may be degenerative or spastic. There are multilevel changes of degenerative disc disease and spondylosis. The soft tissue analysis demonstrates a generalized thyromegaly and a moderate- sized left pleural effusion. IMPRESSION: No acute traumatic cervical spine injury. Multilevel degenerative change and spondylosis is present. Enlarged thyroid gland. Moderate size left pleural effusion. ACT 112: Negative or not required by law. The above report was generated using voice recognition software. It may contain grammatical, syntax or spelling errors. Electronically signed by: Ariana Steinberg M.D. 01/26/2025 1:38 PM Chest X-Ray 01/26/25 12:04 XR chest 1V portable CLINICAL HISTORY: weakness COMPARISON STUDY: 12/16/2024 FINDINGS: Since the prior exam, the patient has developed a airspace opacity in the left lower lobe compatible with pneumonia in the appropriate clinical context. Heart size and pulmonary vascularity are unremarkable. There is no sizable pleural effusion. There is no pneumothorax. IMPRESSION: Left lower lobe infiltrate compatible with pneumonia. ACT 112: Negative or not required by law. Electronically signed by: Ariana Steinberg M.D. 01/26/2025 12:[address] 01/26/25 12:04 CT head/brain wo con CLINICAL HISTORY: weakness. TECHNIQUE: Multiple axial CT images of the head were obtained without contrast. A dose lowering technique was utilized adhering to the principles of ALARA. CT DOSE: 1322 COMPARISON: 12/15/2024 FINDINGS: No intracranial hemorrhage seen. No mass effect, midline shift, or hydrocephalus. No skull fracture seen. There is mild mucosal thickening and a small amount of fluid in the left maxillary sinus. No mastoid effusion. IMPRESSION: 1. No acute intracranial findings. 2. Mild left maxillary sinusitis. ACT 112: Negative or not required by law. The above report was generated using voice recognition software. It may contain grammatical, syntax or spelling errors. Electronically signed by: Javier Steele M.D. 01/26/2025 1:38 PM Discharge Plan Visit Data Chief Complaint: Fall Stated Complaint: FALL ED Provider: Gilbert Rivas Discharge Problem: Pneumonia, Atrial fibrillation, Weakness, Fall, Thrombocytopenia Patient Disposition: Admitted As Inpatient Discharge Instructions Interventions: ED Discharge Assessment Last Done: 01/26/25 17:12
--- NOTE | 2025-01-26 12:25 | XRay Report ---
XR chest 1V portable CLINICAL HISTORY: weakness COMPARISON STUDY: 12/16/2024 FINDINGS: Since the prior exam, the patient has developed a airspace opacity in the left lower lobe c ompatible with pneumonia in the appropriate clinical context. Heart size and pulmonary vascularity ar e unremarkable. There is no sizable pleural effusion. There is no pneumothorax. IMPRESSION: Left lower lobe infiltrate compatible with pneumonia. ACT 112: Negative or not required by law. Electronically signed by: Ariana Steinberg M.D. 01/26/2025 12:23 PM
[2025-01-26 12:27] LABS: Basophils # (auto) 0.02 K/uL (0.00-0.20); Basophils % (auto) 0.2 %; Eosinophils # (auto) 0.03 K/uL (0.00-0.50); Eosinophils % (auto) 0.3 %; Hematocrit (blood only) 38.9 % (42.0-52.0); Hemoglobin 13.6 g/dl (14.0-18.0); Immature Granulocytes # (auto) 0.04 K/uL (0.01-0.20); Immature Granulocytes % (auto) 0.4 %; Lymphocytes # (auto) 1.58 K/uL (1.20-3.40); Lymphocytes % (auto) 15.8 %; Mean Corpuscular Hemoglobin 33.9 pg (25.0-34.0); Mean Platelet Volume 10.4 fL (9.4-12.4); Monocytes # (auto) 0.85 K/uL (0.11-0.59); Monocytes % (auto) 8.5 %; Neutrophils # (auto) 7.48 K/uL (1.40-6.50); Neutrophils % (auto) 74.8 %; Platelet Count 85 K/uL (130-400); RDW Coefficient of Variation 12.6 % (11.5-14.5); RDW Standard Deviation 44.9 fL (36.4-46.3); Red Blood Count 4.01 M/uL (4.70-6.10)
[2025-01-26 12:34] LABS: INR 1.5 (0.9-1.1); Partial Thromboplastin Ratio 1.2; Partial Thromboplastin Time 33 Seconds (21-31); Prothrombin Time 15.4 Seconds (9.0-12.0)
[2025-01-26 12:47] LABS: Albumin Level 2.6 gm/dl (3.4-5.0); Bilirubin,Total 2.1 mg/dl (0.2-1.0); Calcium 7.8 mg/dl (8.6-10.3); Magnesium 2.3 mg/dl (1.7-2.4); Potassium 4.2 mmol/L (3.5-5.1)
[2025-01-26 12:50] LABS: Troponin I High Sensitivity 25.2 pg/ml (0-20)
[2025-01-26 12:53] LABS: Albumin Globulin Ratio 1.3 (0.9-2); BUN Creatinine Ratio 16.7 (10-20); Creatinine Clr Calc Pharmacy 63.7 ml/min; Total Protein 4.6 gm/dl (6.0-8.3)
[2025-01-26 12:59] LABS: Thyroid Stimulating Hormone 1.467 uIu/ml (0.300-4.500)
[2025-01-26] MEDS: cefTRIAXone SODIUM 2,000 MG/50 ML BAG IV STA (13:28)
[2025-01-26 13:30] LABS: Influenza A virus by PCR Negative (Neg); Influenza B virus by PCR Negative (Neg); RSV by PCR Negative (Neg); SARS CoV2 RNA(COVID-19) Ceph NEGATIVE (Negative)
--- NOTE | 2025-01-26 13:39 | CT Scan Report ---
CT cervical spine wo con CT DOSE: 1321.61 mGy.cm CLINICAL HISTORY: frequesnt falls. COMPARISON: None TECHNIQUE: Multiple axial CT images of the cervical spine were obtained without contrast. Sagittal a nd coronal reconstructions were done. A dose lowering technique was utilized adhering to the principl es of SHARI. FINDINGS: There is no acute fracture or traumatic malalignment. The prevertebral soft tissues are not swollen. The odontoid and atlantoaxial articulation are intact. There is a torticollis convex to the right which may be degenerative or spastic. There are multilevel changes of degenerative disc diseas e and spondylosis. The soft tissue analysis demonstrates a generalized thyromegaly and a moderate-sized left pleural eff usion. IMPRESSION: No acute traumatic cervical spine injury. Multilevel degenerative change and spondylosis is present. Enlarged thyroid gland. Moderate size left pleural effusion. ACT 112: Negative or not required by law. The above report was generated using voice recognition software. It may contain grammatical, syntax o r spelling errors. Electronically signed by: Ariana Steinberg M.D. 01/26/2025 1:38 PM
--- NOTE | 2025-01-26 13:39 | CT Scan Report ---
CT head/brain wo con CLINICAL HISTORY: weakness. TECHNIQUE: Multiple axial CT images of the head were obtained without contrast. A dose lowering tech nique was utilized adhering to the principles of ALARA. CT DOSE: 1322 COMPARISON: 12/15/2024 FINDINGS: No intracranial hemorrhage seen. No mass effect, midline shift, or hydrocephalus. No skull fracture seen. There is mild mucosal thickening and a small amount of fluid in the left maxillary sin us. No mastoid effusion. IMPRESSION: 1. No acute intracranial findings. 2. Mild left maxillary sinusitis. ACT 112: Negative or not required by law. The above report was generated using voice recognition software. It may contain grammatical, syntax o r spelling errors. Electronically signed by: Javier Steele M.D. 01/26/2025 1:38 PM
--- NOTE | 2025-01-26 13:44 | Electrocardiogram Report ---
Test Reason : Blood Pressure : */* mmHG Vent. Rate : 64 BPM Atrial Rate : 64 BPM P-R Int : 142 ms QRS Dur : 64 ms QT Int : 420 ms P-R-T Axes : 68 22 61 degrees QTcB Int : 433 ms Normal sinus rhythm Low voltage QRS Borderline ECG When compared with ECG of 19-Dec-2024 16:36, Sinus rhythm has replaced Atrial flutter Vent. rate has decreased by 60 bpm Questionable change in QRS duration Confirmed by Jarod Antonio ([id number]) on 01/26/2025 1:44:22 PM Referred By: REFERRED SELF Confirmed By: Jarod Antonio
[2025-01-26 14:05] LABS: Appearance Urine Clear (Clear); Bilirubin Urine Negative (Negative); Blood Urine Negative (Negative); Color Urine Yellow; Glucose Urine UA Negative (Negative); Ketones Urine Negative (Negative); Leukocyte Esterase Urine Negative (Negative); Nitrite Urine Negative (Negative); Protein Urine Negative (Negative); Specific Gravity Urine 1.015 (1.000-1.030); Urobilinogen Urine Negative (Negative); pH Urine 6.5 (4.5-7.5)
--- NOTE | 2025-01-26 16:16 | History & Physical Report ---
Date of Service January 26, 2025 Assessment & Plan (1) Pneumonia: Plan: Acute - Admit to med/surg - Heart healthy diet ordered - VS per unit protocol - OOB w/ assist - Pt received Rocephin by ED provider and I added a dose of Zithromax for atypical coverage - Recently hospitalized in December, requires HAP coverage --> d/c rocephin and change to cefepime, continue zithromax for now - Respiratory biofire ordered and pending - Duonebs QIDR and q2 prn dyspnea/wheezing - Mucinex 600mg BID - Incidental finding of left pleural effusion on CT cervical spine, very small when reviewed x-ray, ?parapneumonic effusion (2) Generalized weakness: Plan: Acute on chronic with underlying Parkinson's disease - OOB w/ assist - H/o frequent falls - PT/OT eval and treat - May require short stay in rehab prior to returning home (3) Parkinsons disease: Plan: Chronic/stable - Continue Sinemet and Entacapone (4) Benign localized prostatic hyperplasia with lower urinary tract symptoms (LUTS): Plan: Chronic/stable - Continue finasteride (5) Atrial fibrillation: Plan: Chronic/stable - Examines in sinus, rate controlled - Continue metoprolol succ - Not on DOAC as he has thrombocytopenia Plan Chronic stable medical problems: 1. HFpEF - continue lasix 2. Depression - continue remeron and seroquel 3. Orthostatic hypotension likely secondary to Parkinson's - continue midodrine VTE ppx will be covered with SCDs, no chemoppx d/t thrombocytopenia. Trend TB and LFTs with hepatic function panel in AM. CBC and BMP ordered as well as mag level. Plan of care has been d/w Dr. Zelaya who will also see and evaluate this patient. Further orders to be implemented as clinical course warrants. History of Present Illness Chief Complaint: Generalized weakness Primary Care Provider: Misael Swenson MD Alex ("Carlos") is an 84 yo M with a pmhx of Parkinson's disease, paroxysmal afib, HFpEF, HTN, thrombocytopenia and BPH w/ LUTS who presents to the ER today accompanied by his c/o generalized weakness and fall. Patient reportedly had a fall overnight while ambulating back to his bed from the bathroom and had to summon EMS to assist him back into bed. Today, he was walking over from his lift chair to assist his with something and then he noted feeling weak, when he attempted to ambulate back to his lift chair, he missed the chair and fell. He reports slight cough and some feeling more short winded than usual. He denies fever, chest pain, productive cough, n/v/d, f/c, headache, or urinary symptoms. He does endorse constipation. He denies injury from the fall. Vitals are stable, he is afebrile, and HR and BP are normal. He has no leukocytosis on CBC but known thrombocytopenia with a platelet count of 85. CRP elevated at 1.59, procalcitonin is normal. TB is up at 2.1 and alk phos is elevated at 213, both of which were elevated during previous admission. CXR demonstrates a LLL infiltrate and also incidental findings of a moderate size effusion on CT cervical spine. CTH negative and CT cervical spine without acute abnormalities. He was medicated with a dose of Rocephin and has been referred for admission to the hospital medicine service. Allergies Allergy/AdvReac Type Severity Reaction Status Date / Time acetaminophen Allergy Unknown ANKLES Verified 01/26/25 15:23 SWELL UP benzalkonium chloride Allergy Unknown UNKNOWN Verified 01/26/25 15:23 brimonidine Allergy Unknown UNKNOWN Verified 01/26/25 15:23 travoprost Allergy Unknown UNKNOWN Verified 01/26/25 15:23 diclofenac [From Voltaren] Allergy Verified 01/26/25 15:23 Home Medications Medication Instructions Recorded Confirmed Type Prevagen 1 tab PO QAM 06/09/24 01/26/25 History carbidopa 25 mg-levodopa 100 mg 1 tab PO TID 06/09/24 01/26/25 History tablet ciclopirox 8 % topical solution 1 applic topical HS 06/09/24 01/26/25 History docusate sodium 100 mg tablet 200 mg PO HS PRN Constipation 06/09/24 01/26/25 History (Stool Softener) dorzolamide-timolol (PF) 2 %-0.5 % 1 drp OPB BID 06/09/24 01/26/25 History eye drops in a dropperette entacapone 200 mg tablet 200 mg PO TID 06/09/24 01/26/25 History glucosamine-chondroitin 750 mg-600 1 tab PO QAM 06/09/24 01/26/25 History mg tablet mirtazapine 30 mg tablet 30 mg PO HS 06/09/24 01/26/25 History niacin 1,000 mg tablet,extended 2,000 mg PO HS 06/09/24 01/26/25 History release 24 hr peg 400-propylene glycol 0.4 %-0.3 1 drp OPB QID PRN Dry Eyes 06/09/24 01/26/25 History % eye drops (Systane (propylene glycol)) quetiapine 100 mg tablet 100 mg PO HS 06/09/24 01/26/25 History vit C 250 mg-vit E 90 mg-zinc 40 1 tab PO BID ##0 06/09/24 01/26/25 History mg-copper 1 [id number] capsule (PreserVision AREDS-2) vitamin B complex 1 tab PO DAILY 06/09/24 01/26/25 History finasteride 5 mg tablet 5 mg PO HS #90 tabs 07/22/24 01/26/25 Rx solifenacin 10 mg tablet 10 mg PO HS #90 tabs 07/22/24 01/26/25 Rx cholecalciferol (vitamin D3) 25 25 mcg PO DAILY 12/16/24 01/26/25 History mcg (1,000 unit) capsule (Vitamin D3) furosemide 20 mg tablet 20 mg PO QAM 12/16/24 01/26/25 History metoprolol succinate 25 mg 12.5 mg PO QAM 12/16/24 01/26/25 History tablet,extended release 24 hr midodrine 10 mg tablet 10 mg PO TID 01/26/25 01/26/25 History Past Med/Surg History Problem List (Updated 01/26/25 @ 17:41 by Gilbert Rivas DO) Fall (Acute) Weakness (Acute) Pneumonia (Acute) Generalized weakness Pneumonia Ambulatory dysfunction Heart failure with preserved ejection fraction Thrombocytopenia (Acute) Elevated brain natriuretic peptide (BNP) level (Acute) Bilateral leg edema (Acute) Recurrent falls (Acute) Atrial fibrillation with rapid ventricular response (Acute) Small bowel obstruction (Acute) Atrial fibrillation (Acute) Parkinsons disease Small bowel obstruction Deviated nasal septum Nasal crusting Benign localized prostatic hyperplasia with lower urinary tract symptoms (LUTS) Impacted cerumen Urinary urgency (Acute) BPH (benign prostatic hyperplasia) Surgical History History of cataract extraction 02/2017-bilateral History of bladder surgery Green light laser surgery for excess bladder tissue-03/09/14 History of Mohs micrographic surgery for skin cancer Head-2014 Left arm-2013 History of sebaceous cyst x3-2 on back, 1 on chest History of tonsillectomy and adenoidectomy 1948 History of surgery femur [id number] leg repair laser vaporization with transurethral resection of prostate Previous back surgery H/O: knee surgery Family History Brother Prostate cancer Father Hypertension Heart disease following heart attack Mother Hearing loss Heart disease following heart attack Other No family history of adverse response to anesthesia No family history of bleeding disorder Social History Smoking Status: Never smoker Do You Dip or Chew Tobacco: No; Hx Alcohol Use: No Hx Substance Use: No Preferred Language: Armenian Communication Ability: Effective Copier Operator Required: No Beliefs That Will Affect Care: None marital status: Current Living Situation: Spouse current occupational status: retired Other Information That Helps Us Care for You: No Feels Safe at Home: Yes Safety Concerns: Feels Safe At This Time Assistive Devices: Cane and Walker Assistive Devices Comment: Dentures & hearing aids w/ patient Review of Systems 2 Review of Systems: All systems reviewed and are unremarkable except as noted in HPI and below. Denies fever, chills, fatigue, headache, nasal congestion, sore throat, chest pain, palpitations, orthopnea, PND, abdominal pain, n/v/d, constipation, dysuria, hematuria, frequency, back pain, joint pain or swelling, easy bruising or bleeding, skin lesions or rashes. Physical Exam 2 Physical Exam: GENERAL: 84 yo elderly frail WM. A&Ox4. No distress. EYES: EOMI. PERRLA. Anicteric. HENT: Moist mucous membranes. No cervical lymphadenopathy. LUNGS: Nonlabored. Diminished in left lower lobe. CARDIOVASCULAR: Regular rate and rhythm. ABDOMEN: Soft, non-tender and non-distended. Bowel sounds normoactive x 4 quad. EXTREMITIES: Pedal edema. Non-tender. Peripheral pulses +2/4. SKIN: Warm, dry, intact. No rashes or lesions. Results & Data Results & Data Vital Signs (Past 12 Hours) Vital Signs Temp Pulse Pulse Resp BP BP Pulse Ox 01/26/25 16:00 56 L 14 125/65 100 01/26/25 14:00 55 L 16 130/66 01/26/25 11:54 36.8 C 66 18 117/66 98 O2 Del Method 01/26/25 16:00 Room Air 01/26/25 14:00 01/26/25 11:54 Room Air Laboratory Results 01/26/25 12:00 01/26/25 12:00 Diagnostic Findings Cervical Spine CT 01/26/25 12:04 CT cervical spine wo con CT DOSE: 1321.61 mGy.cm CLINICAL HISTORY: frequesnt falls. COMPARISON: None TECHNIQUE: Multiple axial CT images of the cervical spine were obtained without contrast. Sagittal and coronal reconstructions were done. A dose lowering technique was utilized adhering to the principles of ALARA. FINDINGS: There is no acute fracture or traumatic malalignment. The prevertebral soft tissues are not swollen. The odontoid and atlantoaxial articulation are intact. There is a torticollis convex to the right which may be degenerative or spastic. There are multilevel changes of degenerative disc disease and spondylosis. The soft tissue analysis demonstrates a generalized thyromegaly and a moderate- sized left pleural effusion. IMPRESSION: No acute traumatic cervical spine injury. Multilevel degenerative change and spondylosis is present. Enlarged thyroid gland. Moderate size left pleural effusion. ACT 112: Negative or not required by law. The above report was generated using voice recognition software. It may contain grammatical, syntax or spelling errors. Electronically signed by: Ariana Steinberg M.D. 01/26/2025 1:38 PM Chest X-Ray 01/26/25 12:04 XR chest 1V portable CLINICAL HISTORY: weakness COMPARISON STUDY: 12/16/2024 FINDINGS: Since the prior exam, the patient has developed a airspace opacity in the left lower lobe compatible with pneumonia in the appropriate clinical context. Heart size and pulmonary vascularity are unremarkable. There is no sizable pleural effusion. There is no pneumothorax. IMPRESSION: Left lower lobe infiltrate compatible with pneumonia. ACT 112: Negative or not required by law. Electronically signed by: Ariana Steinberg M.D. 01/26/2025 12:[address] 01/26/25 12:04 CT head/brain wo con CLINICAL HISTORY: weakness. TECHNIQUE: Multiple axial CT images of the head were obtained without contrast. A dose lowering technique was utilized adhering to the principles of ALARA. CT DOSE: 1322 COMPARISON: 12/15/2024 FINDINGS: No intracranial hemorrhage seen. No mass effect, midline shift, or hydrocephalus. No skull fracture seen. There is mild mucosal thickening and a small amount of fluid in the left maxillary sinus. No mastoid effusion. IMPRESSION: 1. No acute intracranial findings. 2. Mild left maxillary sinusitis. ACT 112: Negative or not required by law. The above report was generated using voice recognition software. It may contain grammatical, syntax or spelling errors. Electronically signed by: Javier Steele M.D. 01/26/2025 1:38 PM Code Status & VTE Plan Code Status DNR/DNI status - confirmed with patient and at bedside VTE Prophylaxis Plan VTE Prophylaxis will be ordered: Yes Supervising Physician Co-Signing Physician Notes During face to face encounter, I obtained a history and physical examination, discussed plan of care with patient and answered any questions. I discussed plan of care with EDOUARD Gimenez. I reviewed above note and agree with it except for the following: Patient will be admitted for pnumonia and weakness. WIll monitor for now ad continue antibiotics as above. PG Care Time/CCT Total # of Minutes Spent Total Time Spent with Patient: Total time spent is greater than 50% in coordination of care (as documented) at patient's floor/unit and/or counseling patient: 77 minutes Coding Level of Care Code 30310 INT INP/OBS CARE 3/75MIN Diagnoses Pneumonia of left lower lobe due to infectious organism J18.9 Laterality: left Lung location: lower lobe of lung Pneumonia type: due to unspecified organism Generalized weakness R53.1 Parkinsons disease G20.A1 Benign localized prostatic hyperplasia with lower urinary tract symptoms (LUTS) N40.1 Atrial fibrillation I48.91 (1) Pneumonia Laterality: left Lung location: lower lobe of lung Pneumonia type: due to unspecified organism Qualified Code(s): J18.9 - Pneumonia, unspecified organism
[2025-01-26] MEDS: AZITHROMYCIN 500 MG/255 ML BAG IV ONE (16:19)
[2025-01-26 17:16] LABS: Adenovirus PCR Not Detected (NotDetected); Bordetella parapertussis PCR Not Detected (NotDetected); Bordetella pertussis PCR Not Detected (NotDetected); Chlamydia pneumoniae PCR Not Detected (NotDetected); Coronavirus 229E PCR Not Detected (NotDetected); Coronavirus CoV-2 (COVID19)PCR Not Detected (NotDetected); Coronavirus HKU1 PCR Not Detected (NotDetected); Coronavirus NL63 PCR Not Detected (NotDetected); Coronavirus OC43PCR DETECTED (NotDetected); Human Metapneumovirus PCR Not Detected (NotDetected); Influenza A PCR Not Detected (NotDetected); Influenza B PCR Not Detected (NotDetected); Mycoplasma pneumoniae PCR Not Detected (NotDetected); Parainfluenza Virus 1 PCR Not Detected (NotDetected); Parainfluenza Virus 2 PCR Not Detected (NotDetected); Parainfluenza Virus 3 PCR Not Detected (NotDetected); Parainfluenza Virus 4 PCR Not Detected (NotDetected); Respiratory Syncytial VirusPCR Not Detected (NotDetected); Rhinovirus/Enterovirus PCR Not Detected (NotDetected)
[2025-01-26] MEDS ORDERED: ACETAMINOPHEN 325 MG TAB PO PRN (17:56)
[2025-01-26] MEDS ORDERED: ONDANSETRON INJ 2 MG/ML 2 ML VIAL IV PRN (17:56)
[2025-01-26] MEDS ORDERED: MELATONIN 3 MG TAB PO PRN (17:56)
[2025-01-26] MEDS ORDERED: ALUMINUM/MAGNESIUM SUSP 30 ML UDC PO PRN (17:56)
[2025-01-26] MEDS ORDERED: ARTIFICIAL TEARS OP PRN (18:01)
--- NOTE | 2025-01-26 18:02 | Ultrasound Report ---
Clinical history: Pleural effusion Technique: Directed sonography was performed of the left chest Findings: There is a large left pleural effusion, with a volume of roughly 800 cc Impression: Large left pleural effusion ACT 112: Positive. There are findings on this exam that require communication between the performing entity and the patient following Patient Test Result Information Act ([place] ACT 112) guidelines. Electronically signed by Heath Sam 01-26-2025 6:02 PM
[2025-01-26] MEDS: ENTACAPONE 200 MG TAB PO SCH (18:28)
[2025-01-26] MEDS: CARBIDOPA/LEVODOPA 25/100MG TAB PO SCH (18:28)
[2025-01-26] MEDS: MIDODRINE HCL 10 MG TAB PO SCH (18:28)
--- OUTSIDE RECORDS SUMMARY | 2025-01-26 18:32 | External Medical Summary | Continuity of Care Document ---
Author Name Unknown Organization [facility] [address] [facility] Address [address] [place], [place] [id number] Care Team Providers Care Recruitment Consultant Name Role Phone Gregg Swenson Primary Care Physician [phone] [id number]/16/24 - 12/16/24 [facility] [address] [facility] [address] [facility], [address] [place] [address] [phone] Encounter Diagnosis Tachycardia(Discharge Diagnosis) - 12/16/24 Atrial flutter(Discharge Diagnosis) - 12/16/24 Hypotension(Discharge Diagnosis) - 12/16/24 Frequent falls(Discharge Diagnosis) - 12/16/24 Diastolic CHF(Discharge Diagnosis) - 12/16/24 Discharge Disposition: Home or Self Care Attending Physician: SAPPHIRE Jackson Sarah A Referring Physician: MD Swenson Ravishankar E Encounter Type: Clinic Allergies, Adverse Reactions, Alerts Substance Criticality Severity Reaction Reaction Severity Status Voltaren swelling Active Tylenol 1 Swelling Active 1of feet only Assessment and Plan Extracted from: Title:Cardiology Office Visit Note Author:SAPPHIRE Bridges rd, Sarah A Date:12/16/24 Impression: 1. Paroxysmal atrial fibrillation and atrial flutter 2. Parkinson's disease 3. Diastolic heart failure 4. Hypotension 5. Frequent falls 6. Echocardiogram 08/25/2024 demonstrating normal LVEF with EF of 65%, dilated right atrium, mildly dilated left atrium dilated aortic root of 3.9 cm, ascending aorta 3.6 cm, small anterior pericardial effusion around the RA and RV free wall, no significant valvular abnormalities Mr. Crowe looks very unwell. He does not seem to be compensating well for the atrial flutter and is hypotensive today with systolics in the 70s with standing. He also appears to be in worsening heart failure. As I discussed with him, this combination is very difficult to deal with in the outpatient setting and I think he should return to the emergency department. He may ultimately need midodrine to support his blood pressure while his heart failure and atrial rate is dealt with. He has been off of anticoagulation over the last couple weeks due to his falls which I agree with. He had been considering a watchman but really had no transportation to get to [place]. At this point I think it be very difficult to get him through the pre and postop anticoagulation given his very frequent falls and so this may turn down attendant not to be an option for him anyway. His Parkinson's disease is progressive and his cardiac picture is complicated and if they do not have a goals of care discussion with him at the hospital will be important for us to do so in the outpatient setting. We can decide on follow-up based on his Immunizations Given and Recorded Vaccine Date Status Refusal Reason SARS-CoV-2 mRNA (Pfizer 12+) bivalent 1 07/16/22 R ecorded influenza virus vaccine, inactivated 06/19/22 Rigo rded influenza virus vaccine, inactivated 07/04/20 Give n influenza virus vaccine, inactivated 07/07/19 Give n SARS-CoV-2 mRNA ([id number]) 2 01/16/22 Recorded SARS-CoV-2 (COVID-19) mRNA BNT-162b2 vax 3 08/09/21 Recorded SARS-CoV-2 (COVID-19) mRNA BNT-162b2 vax 4 12/06/20 Recorded SARS-CoV-2 (COVID-19) mRNA BNT-162b2 vax 5 11/15/20 Recorded pneumococcal 23-valent vaccine 6 07/04/20 Given pneumococcal 23-valent vaccine 7 09/04/04 Recorded zoster vaccine, inactivated 07/23/18 Recorded zoster vaccine, inactivated 05/27/17 Recorded tetanus/diphtheria/pertuss, acel (Tdap) 10/23/14 R ecorded influenza virus vaccine, H1N1 8 09/11/09 Recorded pneumococcal 13-valent vaccine 09/04/04 Recorded 1Result Comment: 2022-07-28: Historical information-source unspecified 2Result Comment: 2022-07-28: Historical information-source unspecified 3Result Comment: 2022-07-28: Historical information-source unspecified 4Result Comment: 2022-07-28: Historical information-source unspecified 5Result Comment: 2022-07-28: Historical information-source unspecified 6Result Comment: Raquel Hammond LPN 7Result Comment: Dr. Anne 8Result Comment: 2022-07-28: Historical information-source unspecified Mental Status 12/16/24 Barriers to Learning one year None evide nt Mandatory Health Literacy Documentation Yes Health Literacy Communication Barriers N ever Primary Language Somali Problem List Condition Confirmation Course Effective Dates Status Health Status Informant Actinic keratosis Confirmed Active Multiple nevi Confirmed Active Tailor's bunionette, bilateral Confirmed Active Bipolar 1 disorder Confirmed Active Callus Confirmed Active Chronic depression Confirmed Active Chronic insomnia Confirmed Active Chronic lumbar pain Confirmed Active [place] of foot Confirmed Active Difficulty in urination Confirmed Active Disseminated superficial actinic porokeratosis Confirmed Active Wears hearing aid in both ears Confirmed Active Excessive cerumen in both ear canals Confirmed Active Extrapyramidal symptom Confirmed Active FHx: melanoma Confirmed Active Hx of melanoma of skin Confirmed Active Encounter for follow-up examination after completed treatment for cancer Confirmed Active Hearing loss Confirmed Active Hypercholesterolemia Confirmed Active Hyperlipidemia Confirmed Active Hypertension Confirmed Active Hypertension Confirmed Active ED (erectile dysfunction) Confirmed Active Urinary frequency Confirmed Active Malignant melanoma in situ of skin of anterior chest Confirmed Active Night sweats Confirmed Active Tinea unguium Confirmed Active Parkinson's disease Confirmed Active AF (paroxysmal atrial fibrillation) Confirmed Active Peripheral vascular disease Confirmed Active Seborrheic keratoses Confirmed Active Solar purpura Confirmed Active Actinic elastosis Confirmed Active Weight loss Confirmed Active Diagnosis Diagnosis Type Effective Dates Health Status Cl inical Service Informant Tachycardia Discharge Diagnosis 12/16/24 Non-Specified Hypotension Discharge Diagnosis 12/16/24 Non-Specified Atrial flutter Discharge Diagnosis 12/16/24 Non-Specified Frequent falls Discharge Diagnosis 12/16/24 Non-Specified Diastolic CHF Discharge Diagnosis 12/16/24 Non-Specified Procedures Procedure Date Related Diagnosis Body Site Status Shave biopsy and cauterization of skin 01/28/24 Completed Mohs micrographic surgery 08/25/23 Completed Excision 06/25/23 Completed Shave biopsy and cauterization of skin 06/11/23 Completed Mohs micrographic surgery 12/16/22 Completed Shave biopsy and cauterizati on of skin 1 12/02/22 Completed Shave biopsy and cauterisation of skin 07/25/19 Completed Hip X-ray 2 01/27/19 Completed Knee X-ray 3 01/27/19 Completed Shave biopsy and cauterization of skin 01/19/19 Completed Shave biopsy of skin 06/30/17 Comp leted Shave biopsy and cauterizati on of skin 4 05/07/16 Completed Shave biopsy of skin 08/09/15 Comp leted Shave biopsy and cauterization of skin 10/25/14 Completed Excision of skin 5 10/26/13 Comple cherelle Shave biopsy 6 10/18/13 Completed PET imaging 7 40 Completed EKG Completed Stress test ECG - treadmill Completed 11. Left jawline 2. left lower leg 2IMPRESSION: Mild degenerative changes of the hips bilaterally. Mild degenerative change of the low lumbar spine and sacroiliac joints. No acute process. 3IMPRESSION: Mild degenerative change primarily of the patellofemoral joint. No acute process. 4right forearm 5left forearm 6left forearm 71. No areas of high FDG avidity is seen to suggest neoplastic activity. 2. Mild increase in radiotracer accumulation within the bone marrow likely represent post treatmentbone marrow activity. Vital Signs Most recent to oldest [Reference Range]: 1 2 Patient Weight 78.4 kg (12/16/24 2:49 PM) Heart Rate 115 bpm (12/16/24 2:32 PM) Blood Pressure 98/62mmHg (12/16/24 2:32 PM) 70/54mmHg (12/16/24 2:30 PM) Cuff Pulse Pressure 36 mmHg (12/16/24 2:32 PM) Social History Social History Type Response Smoking Status Never smoked cigaret mervin Sex Male Sex Representation Male (finding) Cardiology Outpatient Note * SAPPHIRE Jackson Sarah A: PERFORM, MODIFY Event Display: Cardiology Outpt Note Authored Date: [id number] Primary Care Provider MD Swenson Ravishankar E Referring Provider MD Messi, Gregg Lakhani Chief Complaint pt decline past 2-3 weeks with falls (7), last fall being dizzy. BLE swelling worse. denies sob. arm wounds/skin tears from fall. ER for fall yesterday. History of Present Illness Mr. Crowe presents for complaints of worsening edema and frequent falls. He has had 7 falls in the past couple of weeks. His notes there is a hole in the wall where he hit his head. He was seen in the emergency department yesterday for hip pain due to falls. Genevieve has a number of skin tears on his right arm from falls. He he reports that his lower extremity edema has worsened somewhat. He is very dizzy when he stands up. Review of Systems All other systems reviewed and negative except as discussed in the HPI Physical Exam Vitals & Measurements HR: 115 (Monitored) BP: 98/62 SpO2: 95% WT: 78.4 kg WT: 78.400 kg (Dosing) Physical Examination General: Alert and oriented, No acute distress. Neck: No jugular venous distention. Respiratory: Lungs are clear to auscultation, Respirations are non-labored. Cardiovascular: Normal rate, Regular rhythm, No murmur, bilateral lower extremity pitting edemato the knees. Integumentary: Warm, Dry, [place] Neurologic: Alert, Oriented. Cognition and Speech: Speech clear and coherent. Psychiatric: Cooperative, Appropriate mood & affect. Assessment/Plan Impression: 1. Paroxysmal atrial fibrillation and atrial flutter 2. Parkinson's disease 3. Diastolic heart failure 4. Hypotension 5. Frequent falls 6. Echocardiogram 08/25/2024 demonstrating normal LVEF with EF of 65%, dilated right atrium, mildlydilated left atrium dilated aortic root of 3.9 cm, ascending aorta 3.6 cm, small anterior pericardial effusion around the RA and RV free wall, no significant valvular abnormalities Mr. Crowe looks very unwell. He does not seem to be compensating well for the atrial flutterand is hypotensive today with systolics in the 70s with standing. He also appears to be in worsening heart failure. As I discussed with him, this combination is very difficult to deal with in the outpatient setting and I think he should return to the emergency department. He may ultimately need midodrine to support his blood pressure while his heart failure and atrial rate is dealt with. He has been off of anticoagulation over the last couple weeks due to his falls which I agree with. He had been considering a watchman but really had no transportation to get to [place]. At this point I think it be very difficult to get him through the pre and postop anticoagulation given his very frequent falls and so this may turn down attendant not to be an option for him anyway. His Parkinson's disease is progressive and his cardiac picture is complicated and if they do nothave a goals of care discussion with him at the hospital will be important for us to do so in theoutpatient setting. 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 Multiple nevi Night sweats Parkinson's disease Peripheral vascular disease Seborrheic keratoses Solar purpura Tailor's bunionette, bilateral Tinea unguium Urinary frequency Wears hearing aid in both ears Weight loss Resolved Acute URI Impacted cerumen Neoplasm of uncertain behavior of skin Seborrheic keratosis Procedure/Surgical History •Shave biopsy and cauterization of skin| Service Date: 01/28/2024•Mohs micrographic surgery| Service Date: 08/25/2023•Excision| Service Date: 06/25/2023•Shave biopsy and cauterization of skin| Service Date: 06/11/2023•Mohs micrographic surgery| Service Date: 12/16/2022•Shave biopsy and cauterization of skin| Service Date: 12/02/2022•Shave biopsy and cauterisation of skin| Service Date: 07/25/2019•Knee X-ray| Service Date: 01/27/2019•Hip X-ray| Service Date: 01/27/2019•Shave biopsy and cauterization of skin| Service Date: 01/19/2019•Shave biopsy of skin| Service Date: 06/30/2017•Shave biopsy and cauterization of skin| Service Date: 05/07/2016•Shave biopsy of skin| Service Date: 08/09/2015•Shave biopsy and cauterization of skin| Service Date: 10/25/2014•Excision of skin| Service Date: 10/26/2013•Shave biopsy| Service Date: 10/18/2013•PET imaging| Service Date: 1940•EKG•Stress test ECG - treadmill Medications apixaban(Eliquis 5 mg oral tablet), 1 tab, PO, bid atorvastatin(atorvastatin 10 mg oral tablet), 1 tab, PO, Daily carbidopa-levodopa(carbidopa-levodopa 25 mg-100 mg oral tablet) cholecalciferol(Vitamin D3) cholecalciferol(Prevagen 50 mcg (2000 intl units) oral capsule), 50 mcg= 1 cap, PO chondroitin/glucosamine/methylsulfonylmethane(Glucosamine Chondroitin Advanced oral tablet) ciclopirox topical(Penlac Nail Lacquer 8% topical solution), 1 appl, topical, Daily, 6 refills dorzolamide-timolol ophthalmic(dorzolamide-timolol 2.23%-0.68% (2%-0.5% base) ophthalmic solution),1 drop, both eyes, bid entacapone(entacapone 200 mg oral tablet) finasteride(finasteride 5 mg oral tablet), 5 mg= 1 tab, PO, Daily furosemide(furosemide 20 mg oral tablet), 20 mg= 1 tab, PO, Daily, 3 refills hydroCHLOROthiazide(hydroCHLOROthiazide 25 mg oral tablet), 1 tab, PO, Daily metoprolol(metoprolol succinate 25 mg oral tablet, extended release), 25 mg= 1 tab, PO, Daily, 3 refills mirtazapine(mirtazapine 30 mg oral tablet), 30 mg= 1 tab, PO, qhs multivitamin(Vitamin B Complex oral capsule), 1 cap, PO, Daily multivitamin with minerals(PreserVision AREDS 2) niacin(niacin 1000 mg oral tablet, extended release), 2 tab, PO, qhs ocular lubricant(Systane) QUEtiapine(QUEtiapine 100 mg oral tablet) solifenacin(solifenacin 10 mg oral tablet), 10 mg= 1 tab, PO, Daily tadalafil(tadalafil 10 mg oral tablet), 20 mg= 2 tab, PO, Daily, PRN, 3 refills Allergies Tylenol Swelling Voltaren swelling Social History Smoking Status Never smoked cigarettes Alcohol - Denies Alcohol Use Substance Abuse - Denies Substance Abuse Tobacco - Denies Tobacco Use Family History Heart attack: Mother and Father. Health Status Family Member(s) Electronic Signature on File CC: Gregg Swenson MD [address] [place] [id number] Electronically Reviewed/Signed by: SAPPHIRE Quispe Author Signature Dt/Tm:12/16/2024 05:21 PM [facility] Patient Care team information Care Team Personnel Name: MD Messi, Gregg Lakhani Position: Physician Member Role: Primary Care Provider Address: [address] [place] [address] Telecom: [phone] Care Team Related Persons Name: MARCUS CROWE Insurance Providers Guarantor name: LENIN CROWE Health Plan Information #: 1 Payer: [employer] Member Number: [id number] Policy Number: NA Group Number: [id number] Health Plan Information #: 2 Payer: [employer] Member Number: [id number] Policy Number: NA Group Number: NA"
--- OUTSIDE RECORDS SUMMARY | 2025-01-26 18:32 | External Medical Summary | Continuity of Care Document ---
Author Name Unknown Organization [address] Address [address] [place] [address] [address] [place], [place] [id number] Care Team Providers Care Game Attendant Name Role Phone Gregg Swenson Primary Care Physician [phone] [id number] Date[facility]s): [facility]/26/24 - 12/26/[address] [facility] [address] [facility], [address] [place] [address] [phone] Encounter Diagnosis Hospital discharge follow-up(Discharge Diagnosis) - 12/26/24 AF (paroxysmal atrial fibrillation)(Discharge Diagnosis) - 12/26/24 Parkinson's disease(Discharge Diagnosis) - 12/26/24 Ambulatory dysfunction(Discharge Diagnosis) - 12/26/24 Orthostatic hypotension(Discharge Diagnosis) - 12/26/24 Sacral wound(Discharge Diagnosis) - 12/26/24 Discharge Disposition: Home or Self Care Attending Physician: DO Small Kristen M Referring Physician: DO Small Kristen M Encounter Type: Clinic Allergies, Adverse Reactions, Alerts Substance Criticality Severity Reaction Reaction Severity Status Voltaren swelling Active Tylenol 1 Swelling Active 1of feet only Immunizations Given and Recorded Vaccine Date Status Refusal Reason SARS-CoV-2 mRNA (Pfizer 12+) bivalent 1 07/16/22 R ecorded influenza virus vaccine, inactivated 06/19/22 Rigo rded influenza virus vaccine, inactivated 07/04/20 Give n influenza virus vaccine, inactivated 07/07/19 Give n SARS-CoV-2 mRNA ([id number]-sib) 2 01/16/22 Recorded SARS-CoV-2 (COVID-19) mRNA BNT-162b2 [...] Anne 8Result Comment: 2022-07-28: Historical information-source unspecified Problem List Condition Confirmation Course Effective Dates Status Health Status Informant Actinic keratosis Confirmed Active Multiple nevi Confirmed Active Tailor's bunionette, bilateral Confirmed Active Bipolar 1 disorder Confirmed Active Callus Confirmed Active Chronic depression Confirmed Active Chronic insomnia Confirmed Active Chronic lumbar pain Confirmed Active [place] of foot Confirmed Active Difficulty in urination [...] purpura Confirmed Active Actinic elastosis Confirmed Active Ambulatory dysfunction Confirmed Active Weight loss Confirmed Active Diagnosis Diagnosis Type Effective Dates Health Status Clinical Service Informant Hospital discharge follow-up Discharge Diagnosis 12/26/24 Non-Specified AF (paroxysmal atrial fibrillation) Discharge Diagnosis 12/26/24 Non-Specified Parkinson's disease Discharge Diagnosis 12/26/24 Non-Specified Ambulatory dysfunction Discharge Diagnosis 12/26/24 Non-Specified Orthostatic hypotension Discharge Diagnosis 12/26/24 Non-Specified Sacral wound Discharge Diagnosis 12/26/24 Non-Specified Procedures Procedure Date Related Diagnosis Body [...] Most recent to oldest [Reference Range]: 1 Patient Weight 80 kg (12/26/24 2:13 PM) Heart Rate 56 bpm (12/26/24 2:13 PM) Respiratory Rate 22 br/min (12/26/24 2:13 PM) Blood Pressure 99/55mmHg (12/26/24 2:13 PM) Social History Social History Type Response Smoking Status Never smoked cigaret mervin Sex Male Sex Representation Male (finding) Patient Care team information Care Team Personnel Name: MD Messi, Gregg Lakhani Position: Physician Member Role: Primary Care Provider Address: [address] [facility] [address] Telecom: [phone] Name: DO Sunny, Jeremy Position: Resident Member Role: Lifetime Relationship [place] [address] [facility] [address] Telecom: [phone] Care Team Related Persons Name: MARCUS FAN Insurance Providers Guarantor name: LENIN FAN Health Plan Information #: 1 Payer: [employer] Member Number: [id number] Policy Number: NA Group Number: [id number] Health Plan Information #: 2 Payer: [employer] Member Number: [id number] Policy Number: NA Group Number: NA
[2025-01-26] MEDS: ALBUT/IPRATROP 3MG/0.5MG NEB 3 ML VIAL NEB SCH (19:40)
[2025-01-26] MEDS ORDERED: NIACIN 1000 MG PO SCH (21:00)
[2025-01-26] MEDS: DOCUSATE SODIUM 100 MG CAP PO SCH (21:02)
[2025-01-26] MEDS: TIMOLOL MALEATE 0.5% OP SOLN 5 ML BTL OP SCH (21:03)
[2025-01-26] MEDS: DORZOLAMIDE HCL 2% OPH SOLN 10 ML BTL OP SCH (21:03)
[2025-01-26] MEDS: FINASTERIDE 5 MG TAB PO SCH (21:04)
[2025-01-26] MEDS: OXYBUTYNIN CHLORIDE XL 5 MG TABCR PO SCH (21:04)
[2025-01-26] MEDS: guaiFENesin 600 MG TABCR PO SCH (21:04)
[2025-01-26] MEDS: MIRTAZAPINE TAB 15 MG TAB PO SCH (21:04)
[2025-01-26] MEDS: CEFEPIME 2000MG 2,000 MG/20 ML SYR IV SCH (21:05)
[2025-01-26] MEDS: QUEtiapine FUMARATE 100 MG TABLET PO SCH (21:06)
[2025-01-27 06:11] LABS: Basophils # (auto) 0.01 K/uL (0.00-0.20); Basophils % (auto) 0.2 %; Eosinophils # (auto) 0.04 K/uL (0.00-0.50); Eosinophils % (auto) 0.6 %; Hematocrit (blood only) 32.5 % (42.0-52.0); Hemoglobin 11.5 g/dl (14.0-18.0); Immature Granulocytes # (auto) 0.06 K/uL (0.01-0.20); Immature Granulocytes % (auto) 0.9 %; Lymphocytes # (auto) 1.21 K/uL (1.20-3.40); Lymphocytes % (auto) 18.2 %; Mean Corpuscular Hemoglobin 33.8 pg (25.0-34.0); Mean Corpuscular Hgb Conc 35.4 g/dL (32.0-36.0); Mean Corpuscular Volume 95.6 fL (80.0-100.0); Mean Platelet Volume 10.3 fL (9.4-12.4); Monocytes # (auto) 0.52 K/uL (0.11-0.59); Monocytes % (auto) 7.8 %; Neutrophils # (auto) 4.82 K/uL (1.40-6.50); Neutrophils % (auto) 72.3 %; Platelet Count 70 K/uL (130-400); RDW Coefficient of Variation 12.5 % (11.5-14.5); RDW Standard Deviation 42.9 fL (36.4-46.3); White Blood Count 6.66 K/ul (4.8-10.8)
[2025-01-27 06:21] LABS: Albumin Level 2.2 gm/dl (3.4-5.0); BUN Creatinine Ratio 17.5 (10-20); Bilirubin Direct 0.5 mg/dl (0-0.2); Bilirubin,Total 1.5 mg/dl (0.2-1.0); C Reactive Protein 1.77 mg/dl (0-0.5); Calcium 7.3 mg/dl (8.6-10.3); Creatinine Clr Calc Pharmacy 63.1 ml/min; Potassium 3.5 mmol/L (3.5-5.1); Total Protein 3.9 gm/dl (6.0-8.3)
[2025-01-27] MEDS: AZITHROMYCIN 250 MG TAB PO SCH (07:24)
[2025-01-27] MEDS: CHOLECALCIFEROL 25 MCG (1000 UNITS) TAB PO SCH (07:24)
[2025-01-27] MEDS: FUROSEMIDE 20 MG TAB PO SCH (07:25)
[2025-01-27] MEDS: METOPROLOL SUCC 25MG EXT REL TAB PO SCH (07:25)
[2025-01-27] MEDS ORDERED: NON-FORMULARY MEDICATION (Glucosamine-Chondroitin 750-600 mg Tablet) PO SCH (09:00)
[2025-01-27] MEDS ORDERED: ALBUT/IPRATROP 3MG/0.5MG NEB 3 ML VIAL NEB PRN (11:12)
[2025-01-27] MEDS: FLUDROCORTISONE ACETATE 0.1 MG TAB PO SCH (11:40)
--- NOTE | 2025-01-27 14:52 | Hospitalist Progress Note ---
Date of Service January 27, 2025 Assessment & Plan (1) Pneumonia: Plan: Patient is a 84-year-old gentleman with history of Parkinson, A-fib, CHF with preserved EF, BPH He been falling since this year, on day of admission been having weakness and sent for, he is also being on midodrine 10 3 times daily for orthostatic hypotension At baseline he can walk 4 to 5 feet with rollator, his CT head and CT C-spine are negative His chest x-ray was concerning for left lower lobe infiltrate and for moderate size effusion He was admitted for IV antibiotics, physical therapy eval for for episode PNA pleural effusion fall episode parkinson with autonomic dysfunction A-fib, CHF with preserved EF BPH s/p LUTS thromocytopenia PNA-ceftriaxone, on room air HCAP coverage with cefepime and zpack f/u on nasal MRSA level fall episode started this year, PT eval, check orthostatic BP may add fludrocortisone to his midodrine regime noted he's on seroquel antipsychotics no neck pain, no low back pain left side pleural effusion he will need to r/u with pulmonary for thoracentesis BPH-finsteride A-fib, CHF metoprolol ER 12.5mg daily he's reportedly off furosemide (2) Generalized weakness: Plan: Acute on chronic with underlying Parkinson's disease - OOB w/ assist - H/o frequent falls - PT/OT eval and treat - May require short stay in rehab prior to returning home (3) Parkinsons disease: Plan: Chronic/stable - Continue Sinemet and Entacapone (4) Benign localized prostatic hyperplasia with lower urinary tract symptoms (LUTS): Plan: Chronic/stable - Continue finasteride (5) Atrial fibrillation: Plan: Chronic/stable - Examines in sinus, rate controlled - Continue metoprolol succ - Not on DOAC as he has thrombocytopenia Plan Chronic stable medical problems: 1. HFpEF - continue lasix 2. Depression - continue remeron and seroquel 3. Orthostatic hypotension likely secondary to Parkinson's - continue midodrine VTE ppx will be covered with SCDs, no chemoppx d/t thrombocytopenia. Trend TB and LFTs with hepatic function panel in AM. CBC and BMP ordered as well as mag level. Plan of care has been d/w Dr. Zelaya who will also see and evaluate this patient. Further orders to be implemented as clinical course warrants. Admission and Anticipated Discharge Date Admission Date: January 26, 2025 Subjective He has been having falling episodes this year, He has been diagnosed with Parkinson's since 1 years ago only able to walk 3 to 4 feet with wheelchair Will add fludrocortisone to his midodrine regimen He was advised to follow-up with his neurologist at [facility] and determine whether he can address the Parkinson regimen He is agreeable to go to short-term rehab No palpitation no diarrhea no fever no chills Review of Systems Review of Systems: Constitutional: No Weight Change, No Fever, No Chills, No Night Sweats, No Fatigue, No Malaise Cardiovascular: no chest pain; no palpitation; no shortness Gastrointestinal: No Nausea, No Vomiting, No Diarrhea, No Constipation, no melena; no hematochezia Musculoskeletal: no back pain; no neck pain = Neuro: + for falling episode; + for parkinson; no LOC, no back pain, no neck pain Heme/Lymph: No Bruising, No Bleeding, No Transfusions History, No Lymphadenopathy Endocrine: No Polyuria, No Polydipsia, No Temperature Intolerance Physical Exam Physical Exam: VITALS: Reviewed. WEIGHT/BMI reviewed. GEN: Healthy appearing, well-developed, NAD. -Head: NC/AT; -Eyes: PERRL, EOMI. No discharge or redn ess; NECK: no carotid burit CV: RRR, no m/r/g. LUNGS: CTAB, no w/r/c. ABD: Soft, NT/ND, NBS, no masses or organomegaly. : N/A MSK: No deformities, Normal gait. EXT: No clubbing, cyanosis, or edema. NEURO: AAox3; normal finger to nose; 5/5 strength; decrease strength in the lower extremity able to follow command; able to speak in full sentence Results & Data Results & Data Vital Signs (Past 12 Hours) Vital Signs Temp Pulse Resp BP Pulse Ox O2 Del Method 01/27/25 07:39 36.4 C L 70 16 120/61 98 Room Air 01/27/25 07:36 Room Air 01/27/25 07:13 69 18 97 Room Air Laboratory Results Abnormal Lab Results 01/26/25 01/26/25 01/27/25 12:45 14:18 05:41 WBC 6.66 RBC 3.40 L Hgb 11.5 L Hct 32.5 L MCV 95.6 MCH 33.8 MCHC 35.4 RDW Std Deviation 42.9 RDW Coeff of Jose Luis 12.5 Plt Count 70 L MPV 10.3 Immature Gran % (Auto) 0.9 Neut % (Auto) 72.3 Lymph % (Auto) 18.2 Dorado % (Auto) 7.8 Eos % (Auto) 0.6 Baso % (Auto) 0.2 Neut # (Auto) 4.82 Lymph # (Auto) 1.21 Dorado # (Auto) 0.52 Eos # (Auto) 0.04 Baso # (Auto) 0.01 Immature Gran # (Auto) 0.06 Sodium 140 Potassium 3.5 Chloride 105 Carbon Dioxide 33 H Anion Gap 2 L BUN 18 Creatinine 1.03 Est Cr Clr Drug Dosing 63.1 eGFR 71.63 BUN/Creatinine Ratio 17.5 Glucose 132 H Calcium 7.3 L Magnesium 2.0 Total Bilirubin 1.5 H Direct Bilirubin 0.5 H AST 28 ALT 8 Alkaline Phosphatase 174 H Troponin I High Sens 22.7 H C-Reactive Protein 1.77 H Total Protein 3.9 L Albumin 2.2 L Adenovirus (PCR) Not Detected B. pertussis DNA (PCR) Not Detected B.parapertussis DNA PCR Not Detected C. pneumoniae DNA (PCR) Not Detected Coronavirus OC43 (PCR) DETECTED A Coronavirus HKU1 (PCR) Not Detected Coronavirus 229E (PCR) Not Detected SARS-CoV-2 (PCR) Not Detected Coronavirus NL63 (PCR) Not Detected Human Metapneumovir PCR Not Detected Influenza Type A (PCR) Not Detected Influenza Type B (PCR) Not Detected M. pneumoniae (PCR) Not Detected Parainfluenza 1 (PCR) Not Detected Parainfluenza 2 (PCR) Not Detected Parainfluenza 3 (PCR) Not Detected Parainfluenza 4 (PCR) Not Detected RSV (PCR) Not Detected Entero/Rhino (PCR) Not Detected Diagnostic Findings Cervical Spine CT 01/26/25 12:04 CT cervical spine wo con CT DOSE: 1321.61 mGy.cm CLINICAL HISTORY: frequesnt falls. COMPARISON: None TECHNIQUE: Multiple axial CT images of the cervical spine were obtained without contrast. Sagittal and coronal reconstructions were done. A dose lowering technique was utilized adhering to the principles of ALARA. FINDINGS: There is no acute fracture or traumatic malalignment. The prevertebral soft tissues are not swollen. The odontoid and atlantoaxial articulation are intact. There is a torticollis convex to the right which may be degenerative or spastic. There are multilevel changes of degenerative disc disease and spondylosis. The soft tissue analysis demonstrates a generalized thyromegaly and a moderate- sized left pleural effusion. IMPRESSION: No acute traumatic cervical spine injury. Multilevel degenerative change and spondylosis is present. Enlarged thyroid gland. Moderate size left pleural effusion. ACT 112: Negative or not required by law. The above report was generated using voice recognition software. It may contain grammatical, syntax or spelling errors. Electronically signed by: Ariana Steinberg M.D. 01/26/2025 1:38 PM Chest X-Ray 01/26/25 12:04 XR chest 1V portable CLINICAL HISTORY: weakness COMPARISON STUDY: 12/16/2024 FINDINGS: Since the prior exam, the patient has developed a airspace opacity in the left lower lobe compatible with pneumonia in the appropriate clinical context. Heart size and pulmonary vascularity are unremarkable. There is no sizable pleural effusion. There is no pneumothorax. IMPRESSION: Left lower lobe infiltrate compatible with pneumonia. ACT 112: Negative or not required by law. Electronically signed by: Ariana Steinberg M.D. 01/26/2025 12:[address] 01/26/25 12:04 CT head/brain wo con CLINICAL HISTORY: weakness. TECHNIQUE: Multiple axial CT images of the head were obtained without contrast. A dose lowering technique was utilized adhering to the principles of ALARA. CT DOSE: 1322 COMPARISON: 12/15/2024 FINDINGS: No intracranial hemorrhage seen. No mass effect, midline shift, or hydrocephalus. No skull fracture seen. There is mild mucosal thickening and a small amount of fluid in the left maxillary sinus. No mastoid effusion. IMPRESSION: 1. No acute intracranial findings. 2. Mild left maxillary sinusitis. ACT 112: Negative or not required by law. The above report was generated using voice recognition software. It may contain grammatical, syntax or spelling errors. Electronically signed by: Javier Steele M.D. 01/26/2025 1:38 PM Chest Ultrasound 01/26/25 16:43 Clinical history: Pleural effusion Technique: Directed sonography was performed of the left chest Findings: There is a large left pleural effusion, with a volume of roughly 800 cc Impression: Large left pleural effusion ACT 112: Positive. There are findings on this exam that require communication between the performing entity and the patient following Patient Test Result Information Act ([place] ACT 112) guidelines. Electronically signed by Heath Sam 01-26-2025 6:02 PM Medications Administered Current Inpatient Medications Acetaminophen (Acetaminophen 325 Mg Tab) 650 mg PO Q4H PRN PRN Reason: pain/fever Stop: 02/25/25 17:55 Al Hydrox/Mg Hydrox/Simethicone (Aluminum/Magnesium Susp 30 Ml Udc) 30 ml PO Q6H PRN PRN Reason: Dyspepsia Stop: 02/25/25 17:55 Albuterol (Albut/Ipratrop 3mg/0.5mg Neb 3 Ml Vial) 3 ml NEB QIDR PRN; Protocol PRN Reason: Shortness Of Breath Or Wheezing Stop: 02/25/25 18:59 Artificial Tears (Artificial Tears) 1 drops OP QID PRN PRN Reason: Dryness Stop: 02/25/25 18:00 Azithromycin (Azithromycin 250 Mg Tab) 250 mg PO QAM DENISSE Stop: 02/01/25 08:59 Last Admin: 01/27/25 07:24 Dose: 250 mg Carbidopa/Levodopa (Carbidopa/Levodopa 25/100mg Tab) 1 tab PO TIDM DENISSE Stop: 02/25/25 18:14 Last Admin: 01/27/25 11:38 Dose: 1 tab Docusate Sodium (Docusate Sodium 100 Mg Cap) 200 mg PO HS DENISSE Stop: 02/25/25 20:59 Last Admin: 01/26/25 21:02 Dose: 200 mg Dorzolamide HCl (Dorzolamide Hcl 2% Oph Soln 10 Ml Btl) 1 drops OP BID DENISSE Stop: 02/25/25 20:59 Last Admin: 01/27/25 07:26 Dose: 1 drops Entacapone (Entacapone 200 Mg Tab) 200 mg PO TIDM DENISSE Stop: 02/25/25 18:14 Last Admin: 01/27/25 11:38 Dose: 200 mg Finasteride (Finasteride 5 Mg Tab) 5 mg PO HS DENISSE Stop: 02/25/25 20:59 Last Admin: 01/26/25 21:04 Dose: 5 mg Fludrocortisone Acetate (Fludrocortisone Acetate 0.1 Mg Tab) 0.1 mg PO QAM [facility] Stop: 02/26/25 11:29 Last Admin: 01/27/25 11:40 Dose: 0.1 mg Furosemide (Furosemide 20 Mg Tab) 20 mg PO QAM [facility] Stop: 02/26/25 08:59 Last Admin: 01/27/25 07:25 Dose: 20 mg Guaifenesin (Guaifenesin 600 Mg Tabcr) 600 mg PO Q12 DENISSE Stop: 02/25/25 20:59 Last Admin: 01/27/25 07:26 Dose: 600 mg Cefepime HCl (Maxipime 2000mg) 2,000 mg in 20 mls @ 5 mls/min IV Q8H [facility]; Protocol Stop: 02/02/25 20:59 Last Admin: 01/27/25 13:40 Dose: 5 mls/min Magnesium Hydroxide (Magnesium Hydroxide Susp 30 Ml Udc) 30 ml PO Q6H PRN PRN Reason: Constipation Stop: 02/25/25 17:55 Melatonin (Melatonin 3 Mg Tab) 3 mg PO HS PRN PRN Reason: Insomnia Stop: 02/25/25 17:55 Metoprolol Succinate (Metoprolol Succ 25mg Ext Rel Tab) 12.5 mg PO QAM [facility] Stop: 02/26/25 08:59 Last Admin: 01/27/25 07:25 Dose: 12.5 mg Midodrine (Midodrine Hcl 10 Mg Tab) 10 mg PO DAILY@0800,1200,1700 [facility] Stop: 02/25/25 18:14 Last Admin: 01/27/25 11:38 Dose: 10 mg Mirtazapine (Mirtazapine Tab 15 Mg Tab) 30 mg PO HS [facility] Stop: 02/25/25 20:59 Last Admin: 01/26/25 21:04 Dose: 30 mg Ondansetron HCl (Ondansetron Inj 2 Mg/Ml 2 Ml Vial) 4 mg IV Q6H PRN PRN Reason: Nausea Stop: 02/25/25 17:55 Oxybutynin Chloride (Oxybutynin Chloride Xl 5 Mg Tabcr) 10 mg PO HS [facility] Stop: 02/25/25 20:59 Last Admin: 01/26/25 21:04 Dose: 10 mg Polyethylene Glycol (Polyethylene (Miralax) 17 Gm Pack) 17 gm PO DAILY PRN PRN Reason: Constipation Stop: 02/25/25 17:55 Quetiapine Fumarate (Quetiapine Fumarate 100 Mg Tablet) 100 mg PO HS DENISSE Stop: 02/25/25 20:59 Last Admin: 01/26/25 21:06 Dose: 100 mg Timolol Maleate (Timolol Maleate 0.5% Op Soln 5 Ml Btl) 1 drops OP BID DENISSE Stop: 02/25/25 20:59 Last Admin: 01/27/25 07:26 Dose: 1 drops Vitamin D (Cholecalciferol 25 Mcg (1000 Units) Tab) 25 mcg PO DAILY DENISSE Stop: 02/26/25 08:59 Last Admin: 01/27/25 07:24 Dose: 25 mcg PG Care Time/CCT Total # of Minutes Spent Total Time Spent with Patient: Total time spent is greater than 50% in coordination of care (as documented) at patient's floor/unit and/or counseling patient: Coding Level of Care Code 76154 SUB INP/OBS CARE 2/35MIN Diagnoses Pneumonia of left lower lobe due to infectious organism J18.9 Pneumonia type: due to unspecified organism Laterality: left Lung location: lower lobe of lung Generalized weakness R53.1 Parkinsons disease G20.A1 Benign localized prostatic hyperplasia with lower urinary tract symptoms (LUTS) N40.1 Atrial fibrillation I48.91 Time Spent (min) 35 (1) Pneumonia Pneumonia type: due to unspecified organism Laterality: left Lung location: lower lobe of lung Qualified Code(s): J18.9 - Pneumonia, unspecified organism
[2025-01-28 08:00] LABS: Hemoglobin 12.4 g/dl (14.0-18.0); Mean Corpuscular Hemoglobin 34.1 pg (25.0-34.0); Mean Corpuscular Hgb Conc 35.4 g/dL (32.0-36.0); Mean Corpuscular Volume 96.2 fL (80.0-100.0); Mean Platelet Volume 9.7 fL (9.4-12.4); Platelet Count 75 K/uL (130-400); RDW Coefficient of Variation 12.2 % (11.5-14.5); RDW Standard Deviation 43.5 fL (36.4-46.3); Red Blood Count 3.64 M/uL (4.70-6.10); White Blood Count 6.02 K/ul (4.8-10.8)
[2025-01-28 08:21] LABS: BUN Creatinine Ratio 21.5 (10-20); Calcium 7.4 mg/dl (8.6-10.3); Creatinine Clr Calc Pharmacy 69.9 ml/min; Phosphorus 2.6 mg/dl (2.5-4.9); Potassium 3.6 mmol/L (3.5-5.1)
[2025-01-28] MEDS: MAGNESIUM HYDROXIDE SUSP 30 ML UDC PO PRN (09:47)
[2025-01-28] MEDS: CALCIUM 600MG + VIT D 400 IU TAB PO SCH (10:39)
--- NOTE | 2025-01-28 13:39 | Hospitalist Progress Note ---
Date of Service January 28, 2025 Assessment & Plan (1) Pneumonia: Plan: Patient is a 84-year-old gentleman with history of Parkinson, A-fib, CHF with preserved EF, BPH He been falling since this year, on day of admission been having weakness and sent for, he is also being on midodrine 10 3 times daily for orthostatic hypotension At baseline he can walk 4 to 5 feet with rollator, his CT head and CT C-spine are negative His chest x-ray was concerning for left lower lobe infiltrate and for moderate size effusion He was admitted for IV antibiotics, physical therapy eval for for episode PNA pleural effusion fall episode parkinson with autonomic dysfunction A-fib, CHF with preserved EF BPH s/p LUTS thromocytopenia overall plan he's will need STR, and PT eval his orthostatic from 140---> 90, added fludrocortisone 0.1mg to his middroine 10mg TID shelter monitor to r/o A-fib likely dc to STR c/w ceftriaxone for PNA PNA-ceftriaxone, on room air HCAP coverage with cefepime and zpack f/u on nasal MRSA level fall episode started this year, PT eval, check orthostatic BP may add fludrocortisone to his midodrine regime noted he's on seroquel antipsychotics no neck pain, no low back pain severe orthostatic hypotension-already on midodrine 10mg TID added fludrocortisone 0.1mg daily left side pleural effusion he will need to r/u with pulmonary for thoracentesis BPH-finsteride A-fib, CHF metoprolol ER 12.5mg daily he's reportedly off furosemide BPH s/p lUTS (2) Generalized weakness: Plan: Acute on chronic with underlying Parkinson's disease - OOB w/ assist - H/o frequent falls - PT/OT eval and treat - May require short stay in rehab prior to returning home (3) Parkinsons disease: Plan: Chronic/stable - Continue Sinemet and Entacapone (4) Benign localized prostatic hyperplasia with lower urinary tract symptoms (LUTS): Plan: Chronic/stable - Continue finasteride (5) Atrial fibrillation: Plan: Chronic/stable - Examines in sinus, rate controlled - Continue metoprolol succ - Not on DOAC as he has thrombocytopenia Plan Chronic stable medical problems: 1. HFpEF - continue lasix 2. Depression - continue remeron and seroquel 3. Orthostatic hypotension likely secondary to Parkinson's - continue midodrine VTE ppx will be covered with SCDs, no chemoppx d/t thrombocytopenia. Trend TB and LFTs with hepatic function panel in AM. CBC and BMP ordered as well as mag level. Plan of care has been d/w Dr. Zelaya who will also see and evaluate this patient. Further orders to be implemented as clinical course warrants. Admission and Anticipated Discharge Date Admission Date: January 26, 2025 Subjective He is orthostatic this morning where his blood pressure dropped from 140 supine to 95 standing He is already on midodrine 10 3 times daily and we added fludrocortisone yesterday He will need short-term rehab, He was advised follow-up with neurologist about titration of regimen Denies any palpitation denies chest pain no dizziness in the supine position Review of Systems Review of Systems: Constitutional: No fever no chills Cardiovascular: No Chest Pain, No SOB, No PND, No Dyspnea on Exertion, No Orthopnea, No Claudication, No Edema, No Palpitations Respiratory: No Cough, No Sputum, No Wheezing, No Smoke Exposure, No Dyspnea Gastrointestinal: No Nausea, No Vomiting, No Diarrhea, No Constipation, No Pain, Genitourinary: No dysuria Musculoskeletal: No Arthralgias, No Myalgias, No Joint Swelling, No Joint Stiffness, No Back Pain, No Neck Pain, No Injury History Skin: No Skin Lesions, No Pruritis, No Hair Changes, No Breast/Skin Changes, No Nipple Discharge Neuro: Positive for weaknesses, dizziness no headache Psych: No Anxiety/Panic, No Depression, No Insomnia, No Personality Changes, No Delusions, No Rumination, No SI/HI/AH/VH, No Social Issues, No Memory Changes, No Violence/Abuse Hx., No Eating Concerns Endocrine: No Polyuria, No Polydipsia, No Temperature Intolerance Physical Exam Physical Exam: VITALS: Reviewed. WEIGHT/BMI reviewed. GEN: Healthy appearing, well-developed, NAD. -Head: NC/AT; -Eyes: PERRL, EOMI. No discharge or redn ess; NECK: Supple, with no masses. CV: RRR, no m/r/g. LUNGS: CTAB, no w/r/c. ABD: Soft, NT/ND, NBS, no masses or organomegaly. SKIN: Warm, well perfused. No skin rashes or abnormal lesions. EXT: + for knee arthritis NEURO: Positive for intention trauma, AO x 3 5 out of 5 strength in upper extremity, decreased strength in lower extremity Results & Data Results & Data Vital Signs (Past 12 Hours) Vital Signs Temp Pulse Pulse Resp BP BP Pulse Ox 01/28/25 11:08 36.3 C L 68 16 126/81 99 01/28/25 09:09 36.5 C 64 16 145/74 H 99 01/28/25 08:35 01/28/25 07:00 65 01/28/25 03:26 36.5 C 63 18 125/67 97 O2 Del Method 01/28/25 11:08 Room Air 01/28/25 09:09 Room Air 01/28/25 08:35 Room Air 01/28/25 07:00 01/28/25 03:26 Room Air Laboratory Results Laboratory Results - last 72 hr 01/26/25 01/26/25 01/26/25 11:54 12:00 12:45 WBC 10.00 RBC 4.01 L Hgb 13.6 L Hct 38.9 L MCV 97.0 MCH 33.9 MCHC 35.0 RDW Std Deviation 44.9 RDW Coeff of Jose Luis 12.6 Plt Count 85 L MPV 10.4 Immature Gran % (Auto) 0.4 Neut % (Auto) 74.8 Lymph % (Auto) 15.8 [place] % (Auto) 8.5 Eos % (Auto) 0.3 Baso % (Auto) 0.2 Neut # (Auto) 7.48 H Lymph # (Auto) 1.58 [place] # (Auto) 0.85 H Eos # (Auto) 0.03 Baso # (Auto) 0.02 Immature Gran # (Auto) 0.04 PT 15.4 H INR 1.5 H APTT 33 H PTT Ratio 1.2 Sodium 140 Potassium 4.2 Chloride 102 Carbon Dioxide 36 H Anion Gap 2 L BUN 17 Creatinine 1.02 Est Cr Clr Drug Dosing 63.7 eGFR 72.47 BUN/Creatinine Ratio 16.7 Glucose 136 H POC Glucose 118 H Calcium 7.8 L Phosphorus Magnesium 2.3 Total Bilirubin 2.1 H Direct Bilirubin AST 34 ALT 31 Alkaline Phosphatase 213 H Total Creatine Kinase 46 Troponin I High Sens 25.2 H C-Reactive Protein Total Protein 4.6 L Albumin 2.6 L Globulin 2.0 L Albumin/Globulin Ratio 1.3 Procalcitonin TSH 1.467 Cortisol AM Sample Urine Color Urine Appearance Urine pH Ur Specific [place] Urine Protein Urine Glucose (UA) Urine Ketones Urine Blood Urine Nitrite Urine Bilirubin Urine Urobilinogen Ur Leukocyte Esterase Adenovirus (PCR) Not Detected B. pertussis DNA (PCR) Not Detected B.parapertussis DNA PCR Not Detected C. pneumoniae DNA (PCR) Not Detected Coronavirus OC43 (PCR) DETECTED A Coronavirus HKU1 (PCR) Not Detected Coronavirus 229E (PCR) Not Detected SARS-CoV-2 (PCR) NEGATIVE Coronavirus NL63 (PCR) Human Metapneumovir PCR Influenza Type A (PCR) Influenza Type B (PCR) M. pneumoniae (PCR) Parainfluenza 1 (PCR) Parainfluenza 2 (PCR) Parainfluenza 3 (PCR) Parainfluenza 4 (PCR) RSV (RT-PCR) RSV (PCR) Entero/Rhino (PCR) 01/26/25 01/26/25 01/26/25 12:45 12:45 12:45 WBC RBC Hgb Hct MCV MCH MCHC RDW Std Deviation RDW Coeff of Jose Luis Plt Count MPV Immature Gran % (Auto) Neut % (Auto) Lymph % (Auto) [place] % (Auto) Eos % (Auto) Baso % (Auto) Neut # (Auto) Lymph # (Auto) [place] # (Auto) Eos # (Auto) Baso # (Auto) Immature Gran # (Auto) PT INR APTT PTT Ratio Sodium Potassium Chloride Carbon Dioxide Anion Gap BUN Creatinine Est Cr Clr Drug Dosing eGFR BUN/Creatinine Ratio Glucose POC Glucose Calcium Phosphorus Magnesium Total Bilirubin Direct Bilirubin AST ALT Alkaline Phosphatase Total Creatine Kinase Troponin I High Sens C-Reactive Protein Total Protein Albumin Globulin Albumin/Globulin Ratio Procalcitonin TSH Cortisol AM Sample Urine Color Urine Appearance Urine pH Ur Specific [place] Urine Protein Urine Glucose (UA) Urine Ketones Urine Blood Urine Nitrite Urine Bilirubin Urine Urobilinogen Ur Leukocyte Esterase Adenovirus (PCR) B. pertussis DNA (PCR) B.parapertussis DNA PCR C. pneumoniae DNA (PCR) Coronavirus OC43 (PCR) Coronavirus HKU1 (PCR) Coronavirus 229E (PCR) SARS-CoV-2 (PCR) Not Detected Coronavirus NL63 (PCR) Not Detected Human Metapneumovir PCR Not Detected Influenza Type A (PCR) Negative Not Detected Influenza Type B (PCR) Negative Not Detected M. pneumoniae (PCR) Not Detected Parainfluenza 1 (PCR) Not Detected Parainfluenza 2 (PCR) Not Detected Parainfluenza 3 (PCR) Not Detected Parainfluenza 4 (PCR) Not Detected RSV (RT-PCR) Negative RSV (PCR) Not Detected Entero/Rhino (PCR) Not Detected 01/26/25 01/26/25 01/26/25 12:47 13:46 14:18 WBC RBC Hgb Hct MCV MCH MCHC RDW Std Deviation RDW Coeff of Jose Luis Plt Count MPV Immature Gran % (Auto) Neut % (Auto) Lymph % (Auto) [place] % (Auto) Eos % (Auto) Baso % (Auto) Neut # (Auto) Lymph # (Auto) [place] # (Auto) Eos # (Auto) Baso # (Auto) Immature Gran # (Auto) PT INR APTT PTT Ratio Sodium Potassium Chloride Carbon Dioxide Anion Gap BUN Creatinine Est Cr Clr Drug Dosing eGFR BUN/Creatinine Ratio Glucose POC Glucose Calcium Phosphorus Magnesium Total Bilirubin Direct Bilirubin AST ALT Alkaline Phosphatase Total Creatine Kinase Troponin I High Sens 22.7 H C-Reactive Protein 1.59 H Total Protein Albumin Globulin Albumin/Globulin Ratio Procalcitonin 0.08 TSH Cortisol AM Sample Urine Color Yellow Urine Appearance Clear Urine pH 6.5 Ur Specific [place] 1.015 Urine Protein Negative Urine Glucose (UA) Negative Urine Ketones Negative Urine Blood Negative Urine Nitrite Negative Urine Bilirubin Negative Urine Urobilinogen Negative Ur Leukocyte Esterase Negative Adenovirus (PCR) B. pertussis DNA (PCR) B.parapertussis DNA PCR C. pneumoniae DNA (PCR) Coronavirus OC43 (PCR) Coronavirus HKU1 (PCR) Coronavirus 229E (PCR) SARS-CoV-2 (PCR) Coronavirus NL63 (PCR) Human Metapneumovir PCR Influenza Type A (PCR) Influenza Type B (PCR) M. pneumoniae (PCR) Parainfluenza 1 (PCR) Parainfluenza 2 (PCR) Parainfluenza 3 (PCR) Parainfluenza 4 (PCR) RSV (RT-PCR) RSV (PCR) Entero/Rhino (PCR) 01/27/25 01/28/25 01/28/25 05:41 07:25 08:23 WBC 6.66 6.02 RBC 3.40 L 3.64 L Hgb 11.5 L 12.4 L Hct 32.5 L 35.0 L MCV 95.6 96.2 MCH 33.8 34.1 H MCHC 35.4 35.4 RDW Std Deviation 42.9 43.5 RDW Coeff of Jose Luis 12.5 12.2 Plt Count 70 L 75 L MPV 10.3 9.7 Immature Gran % (Auto) 0.9 Neut % (Auto) 72.3 Lymph % (Auto) 18.2 [place] % (Auto) 7.8 Eos % (Auto) 0.6 Baso % (Auto) 0.2 Neut # (Auto) 4.82 Lymph # (Auto) 1.21 [place] # (Auto) 0.52 Eos # (Auto) 0.04 Baso # (Auto) 0.01 Immature Gran # (Auto) 0.06 PT INR APTT PTT Ratio Sodium 140 141 Potassium 3.5 3.6 Chloride 105 106 Carbon Dioxide 33 H 35 H Anion Gap 2 L 0 L BUN 18 20 Creatinine 1.03 0.93 Est Cr Clr Drug Dosing 63.1 69.9 eGFR 71.63 80.97 BUN/Creatinine Ratio 17.5 21.5 H Glucose 132 H 103 H POC Glucose 96 Calcium 7.3 L 7.4 L Phosphorus 2.6 Magnesium 2.0 Total Bilirubin 1.5 H Direct Bilirubin 0.5 H AST 28 ALT 8 Alkaline Phosphatase 174 H Total Creatine Kinase Troponin I High Sens C-Reactive Protein 1.77 H Total Protein 3.9 L Albumin 2.2 L Globulin Albumin/Globulin Ratio Procalcitonin TSH Cortisol AM Sample 11.27 Urine Color Urine Appearance Urine pH Ur Specific [place] Urine Protein Urine Glucose (UA) Urine Ketones Urine Blood Urine Nitrite Urine Bilirubin Urine Urobilinogen Ur Leukocyte Esterase Adenovirus (PCR) B. pertussis DNA (PCR) B.parapertussis DNA PCR C. pneumoniae DNA (PCR) Coronavirus OC43 (PCR) Coronavirus HKU1 (PCR) Coronavirus 229E (PCR) SARS-CoV-2 (PCR) Coronavirus NL63 (PCR) Human Metapneumovir PCR Influenza Type A (PCR) Influenza Type B (PCR) M. pneumoniae (PCR) Parainfluenza 1 (PCR) Parainfluenza 2 (PCR) Parainfluenza 3 (PCR) Parainfluenza 4 (PCR) RSV (RT-PCR) RSV (PCR) Entero/Rhino (PCR) 01/28/25 12:07 WBC RBC Hgb Hct MCV MCH MCHC RDW Std Deviation RDW Coeff of Jose Luis Plt Count MPV Immature Gran % (Auto) Neut % (Auto) Lymph % (Auto) [place] % (Auto) Eos % (Auto) Baso % (Auto) Neut # (Auto) Lymph # (Auto) [place] # (Auto) Eos # (Auto) Baso # (Auto) Immature Gran # (Auto) PT INR APTT PTT Ratio Sodium Potassium Chloride Carbon Dioxide Anion Gap BUN Creatinine Est Cr Clr Drug Dosing eGFR BUN/Creatinine Ratio Glucose POC Glucose 142 H Calcium Phosphorus Magnesium Total Bilirubin Direct Bilirubin AST ALT Alkaline Phosphatase Total Creatine Kinase Troponin I High Sens C-Reactive Protein Total Protein Albumin Globulin Albumin/Globulin Ratio Procalcitonin TSH Cortisol AM Sample Urine Color Urine Appearance Urine pH Ur Specific [place] Urine Protein Urine Glucose (UA) Urine Ketones Urine Blood Urine Nitrite Urine Bilirubin Urine Urobilinogen Ur Leukocyte Esterase Adenovirus (PCR) B. pertussis DNA (PCR) B.parapertussis DNA PCR C. pneumoniae DNA (PCR) Coronavirus OC43 (PCR) Coronavirus HKU1 (PCR) Coronavirus 229E (PCR) SARS-CoV-2 (PCR) Coronavirus NL63 (PCR) Human Metapneumovir PCR Influenza Type A (PCR) Influenza Type B (PCR) M. pneumoniae (PCR) Parainfluenza 1 (PCR) Parainfluenza 2 (PCR) Parainfluenza 3 (PCR) Parainfluenza 4 (PCR) RSV (RT-PCR) RSV (PCR) Entero/Rhino (PCR) Diagnostic Findings Cervical Spine CT 01/26/25 12:04 CT cervical spine wo con CT DOSE: 1321.61 mGy.cm CLINICAL HISTORY: frequesnt falls. COMPARISON: None TECHNIQUE: Multiple axial CT images of the cervical spine were obtained without contrast. Sagittal and coronal reconstructions were done. A dose lowering technique was utilized adhering to the principles of ALARA. FINDINGS: There is no acute fracture or traumatic malalignment. The prevertebral soft tissues are not swollen. The odontoid and atlantoaxial articulation are intact. There is a torticollis convex to the right which may be degenerative or spastic. There are multilevel changes of degenerative disc disease and spondylosis. The soft tissue analysis demonstrates a generalized thyromegaly and a moderate- sized left pleural effusion. IMPRESSION: No acute traumatic cervical spine injury. Multilevel degenerative change and spondylosis is present. Enlarged thyroid gland. Moderate size left pleural effusion. ACT 112: Negative or not required by law. The above report was generated using voice recognition software. It may contain grammatical, syntax or spelling errors. Electronically signed by: Ariana Steinberg M.D. 01/26/2025 1:38 PM Chest X-Ray 01/26/25 12:04 XR chest 1V portable CLINICAL HISTORY: weakness COMPARISON STUDY: 12/16/2024 FINDINGS: Since the prior exam, the patient has developed a airspace opacity in the left lower lobe compatible with pneumonia in the appropriate clinical context. Heart size and pulmonary vascularity are unremarkable. There is no sizable pleural effusion. There is no pneumothorax. IMPRESSION: Left lower lobe infiltrate compatible with pneumonia. ACT 112: Negative or not required by law. Electronically signed by: Ariana Steinberg M.D. 01/26/2025 12:[address] 01/26/25 12:04 CT head/brain wo con CLINICAL HISTORY: weakness. TECHNIQUE: Multiple axial CT images of the head were obtained without contrast. A dose lowering technique was utilized adhering to the principles of ALARA. CT DOSE: 1322 COMPARISON: 12/15/2024 FINDINGS: No intracranial hemorrhage seen. No mass effect, midline shift, or hydrocephalus. No skull fracture seen. There is mild mucosal thickening and a small amount of fluid in the left maxillary sinus. No mastoid effusion. IMPRESSION: 1. No acute intracranial findings. 2. Mild left maxillary sinusitis. ACT 112: Negative or not required by law. The above report was generated using voice recognition software. It may contain grammatical, syntax or spelling errors. Electronically signed by: Javier Steele M.D. 01/26/2025 1:38 PM Chest Ultrasound 01/26/25 16:43 Clinical history: Pleural effusion Technique: Directed sonography was performed of the left chest Findings: There is a large left pleural effusion, with a volume of roughly 800 cc Impression: Large left pleural effusion ACT 112: Positive. There are findings on this exam that require communication between the performing entity and the patient following Patient Test Result Information Act ([place] ACT 112) guidelines. Electronically signed by Heath Sam 01-26-2025 6:02 PM Medications Administered Current Inpatient Medications Acetaminophen (Acetaminophen 325 Mg Tab) 650 mg PO Q4H PRN PRN Reason: pain/fever Stop: 02/25/25 17:55 Al Hydrox/Mg Hydrox/Simethicone (Aluminum/Magnesium Susp 30 Ml Udc) 30 ml PO Q6H PRN PRN Reason: Dyspepsia Stop: 02/25/25 17:55 Albuterol (Albut/Ipratrop 3mg/0.5mg Neb 3 Ml Vial) 3 ml NEB QIDR PRN; Protocol PRN Reason: Shortness Of Breath Or Wheezing Stop: 02/25/25 18:59 Artificial Tears (Artificial Tears) 1 drops OP QID PRN PRN Reason: Dryness Stop: 02/25/25 18:00 Azithromycin (Azithromycin 250 Mg Tab) 250 mg PO QAM [facility]ISSE Stop: 02/01/25 08:59 Last Admin: 01/28/25 09:43 Dose: 250 mg Calcium/Vitamin D (Calcium 600mg + Vit D 400 Iu Tab) 1 tab PO BID DENISSE Stop: 02/27/25 09:44 Last Admin: 01/28/25 10:39 Dose: 1 tab Carbidopa/Levodopa (Carbidopa/Levodopa 25/100mg Tab) 1 tab PO TIDM DENISSE Stop: 02/25/25 18:14 Last Admin: 01/28/25 09:42 Dose: 1 tab Docusate Sodium (Docusate Sodium 100 Mg Cap) 200 mg PO HS DENISSE Stop: 02/25/25 20:59 Last Admin: 01/27/25 20:20 Dose: 200 mg Dorzolamide HCl (Dorzolamide Hcl 2% Oph Soln 10 Ml Btl) 1 drops OP BID DENISSE Stop: 02/25/25 20:59 Last Admin: 01/28/25 09:43 Dose: 1 drops Entacapone (Entacapone 200 Mg Tab) 200 mg PO TIDM [facility]ISSE Stop: 02/25/25 18:14 Last Admin: 01/28/25 09:42 Dose: 200 mg Finasteride (Finasteride 5 Mg Tab) 5 mg PO HS DENISSE Stop: 02/25/25 20:59 Last Admin: 01/27/25 20:20 Dose: 5 mg Fludrocortisone Acetate (Fludrocortisone Acetate 0.1 Mg Tab) 0.1 mg PO QAM [facility] Stop: 02/26/25 11:29 Last Admin: 01/28/25 09:43 Dose: 0.1 mg Furosemide (Furosemide 20 Mg Tab) 20 mg PO QAM [facility] Stop: 02/26/25 08:59 Last Admin: 01/28/25 09:44 Dose: 20 mg Guaifenesin (Guaifenesin 600 Mg Tabcr) 600 mg PO Q12 DENISSE Stop: 02/25/25 20:59 Last Admin: 01/28/25 09:42 Dose: 600 mg Cefepime HCl (Maxipime 2000mg) 2,000 mg in 20 mls @ 5 mls/min IV Q8H DENISSE; Protocol Stop: 02/02/25 20:59 Last Admin: 01/28/25 05:28 Dose: 5 mls/min Magnesium Hydroxide (Magnesium Hydroxide Susp 30 Ml Udc) 30 ml PO Q6H PRN PRN Reason: Constipation Stop: 02/25/25 17:55 Last Admin: 01/28/25 09:47 Dose: 30 ml Melatonin (Melatonin 3 Mg Tab) 3 mg PO HS PRN PRN Reason: Insomnia Stop: 02/25/25 17:55 Metoprolol Succinate (Metoprolol Succ 25mg Ext Rel Tab) [facility] Stop: 02/26/25 08:59 Last Admin: 01/28/25 09:42 Dose: 12.5 mg Midodrine (Midodrine Hcl 10 Mg Tab) 10 mg PO DAILY@0800,1200,1700 [facility] Stop: 02/25/25 18:14 Last Admin: 01/28/25 13:33 Dose: 10 mg Mirtazapine (Mirtazapine Tab 15 Mg Tab) 30 mg PO HS [facility] Stop: 02/25/25 20:59 Last Admin: 01/27/25 20:20 Dose: 30 mg Ondansetron HCl (Ondansetron Inj 2 Mg/Ml 2 Ml Vial) 4 mg IV Q6H PRN PRN Reason: Nausea Stop: 02/25/25 17:55 Oxybutynin Chloride (Oxybutynin Chloride Xl 5 Mg Tabcr) 10 mg PO HS [facility] Stop: 02/25/25 20:59 Last Admin: 01/27/25 20:20 Dose: 10 mg Polyethylene Glycol (Polyethylene (Miralax) 17 Gm Pack) 17 gm PO DAILY PRN PRN Reason: Constipation Stop: 02/25/25 17:55 Quetiapine Fumarate (Quetiapine Fumarate 100 Mg Tablet) 100 mg PO HS [facility]ISSE Stop: 02/25/25 20:59 Last Admin: 01/27/25 20:20 Dose: 100 mg Timolol Maleate (Timolol Maleate 0.5% Op Soln 5 Ml Btl) 1 drops OP BID [facility]ISSE Stop: 02/25/25 20:59 Last Admin: 01/28/25 09:43 Dose: 1 drops Vitamin D (Cholecalciferol 25 Mcg (1000 Units) Tab) 25 mcg PO DAILY [facility]ISSE Stop: 02/26/25 08:59 Last Admin: 01/28/25 09:43 Dose: 25 mcg PG Care Time/CCT Total # of Minutes Spent Total Time Spent with Patient: Total time spent is greater than 50% in coordination of care (as documented) at patient's floor/unit and/or counseling patient: Coding Level of Care Code 47239 SUB INP/OBS CARE 2/35MIN Diagnoses Pneumonia of left lower lobe due to infectious organism J18.9 Pneumonia type: due to unspecified organism Laterality: left Lung location: lower lobe of lung Generalized weakness R53.1 Parkinsons disease G20.A1 Benign localized prostatic hyperplasia with lower urinary tract symptoms (LUTS) N40.1 Atrial fibrillation I48.91 Time Spent (min) 35 (1) Pneumonia Pneumonia type: due to unspecified organism Laterality: left Lung location: lower lobe of lung Qualified Code(s): J18.9 - Pneumonia, unspecified organism
[2025-01-29 07:06] LABS: Hematocrit (blood only) 33.8 % (42.0-52.0); Hemoglobin 11.8 g/dl (14.0-18.0); Mean Corpuscular Hemoglobin 33.7 pg (25.0-34.0); Mean Corpuscular Hgb Conc 34.9 g/dL (32.0-36.0); Mean Corpuscular Volume 96.6 fL (80.0-100.0); Mean Platelet Volume 9.9 fL (9.4-12.4); Platelet Count 79 K/uL (130-400); RDW Coefficient of Variation 12.4 % (11.5-14.5); RDW Standard Deviation 43.9 fL (36.4-46.3); White Blood Count 6.48 K/ul (4.8-10.8)
[2025-01-29 07:47] LABS: BUN Creatinine Ratio 24.7 (10-20); Calcium 7.5 mg/dl (8.6-10.3); Creatinine Clr Calc Pharmacy 72.8 ml/min; Potassium 3.7 mmol/L (3.5-5.1)
--- NOTE | 2025-01-29 13:05 | Cardiology Consultation ---
Date of Consultation January 29, 2025 Assessment & Plan (1) Atrial fibrillation: (2) Parkinsons disease: Plan 1. Atrial fibrillation: Known history of paroxysmal atrial fibrillation, occasionally with elevated rates. Not overtly symptomatic. Currently on low- dose metoprolol due to orthostatic hypotension. He is likely have an adverse response to additional metoprolol or diltiazem. As result, digoxin would seem to be a reasonable option. Relatively sedentary at baseline. Not on systemic anticoagulation due to frequent falls and injuries. 2. Orthostatic hypotension: Some of his falls are related to dizziness. He has been started on midodrine. All related to his parkinsonism of course. I think would be reasonable to obtain a norepinephrine level in the morning to see if he is better served by atomoxetine. History of Present Illness Reason for Consultation: Atrial fibrillation Requesting Physician: Randolph Attending Physician: Mony Dickson, DO History of Present Illness The patient is an 84-year-old gentleman with a history of parkinsonism, orthostatic hypotension and paroxysmal atrial fibrillation. He was brought to the hospital after suffering 2 falls recently. His had to call medical help to get him off of the floor. 1 episode appear to be mechanical in nature, the other appeared to be related to dizziness. He reports being somewhat weak over the last day or so. No subjective fevers or chills. No coughing. No br eathing difficulty. He has not had chest pains or symptoms of palpitations. He does have significant lower extremity edema which he believes is worsened recently. In general he is ambulatory with a walker or occasionally with a cane. However, he is quite unsteady and has fallen multiple times. No other exertional symptoms such as dyspnea, palpitations or chest pain. He does have longstanding lower extremity edema and does use compression stockings at home. Allergies Allergy/AdvReac Type Severity Reaction Status Date / Time acetaminophen Allergy Unknown ANKLES Verified 01/26/25 15:23 SWELL UP benzalkonium chloride Allergy Unknown UNKNOWN Verified 01/26/25 15:23 brimonidine Allergy Unknown UNKNOWN Verified 01/26/25 15:23 travoprost Allergy Unknown UNKNOWN Verified 01/26/25 15:23 diclofenac [From Voltaren] Allergy Verified 01/26/25 15:23 Home Medications Medication Instructions Recorded Confirmed Type Prevagen 1 tab PO QAM 06/09/24 01/26/25 History carbidopa 25 mg-levodopa 100 mg 1 tab PO TID 06/09/24 01/26/25 History tablet ciclopirox 8 % topical solution 1 applic topical HS 06/09/24 01/26/25 History docusate sodium 100 mg tablet 200 mg PO HS PRN Constipation 06/09/24 01/26/25 History (Stool Softener) dorzolamide-timolol (PF) 2 %-0.5 % 1 drp OPB BID 06/09/24 01/26/25 History eye drops in a dropperette entacapone 200 mg tablet 200 mg PO TID 06/09/24 01/26/25 History glucosamine-chondroitin 750 mg-600 1 tab PO QAM 06/09/24 01/26/25 History mg tablet mirtazapine 30 mg tablet 30 mg PO HS 06/09/24 01/26/25 History niacin 1,000 mg tablet,extended 2,000 mg PO HS 06/09/24 01/26/25 History release 24 hr peg 400-propylene glycol 0.4 %-0.3 1 drp OPB QID PRN Dry Eyes 06/09/24 01/26/25 History % eye drops (Systane (propylene glycol)) quetiapine 100 mg tablet 100 mg PO HS 06/09/24 01/26/25 History vit C 250 mg-vit E 90 mg-zinc 40 1 tab PO BID ##0 06/09/24 01/26/25 History mg-copper 1 [id number] capsule (PreserVision AREDS-2) vitamin B complex 1 tab PO DAILY 06/09/24 01/26/25 History finasteride 5 mg tablet 5 mg PO HS #90 tabs 07/22/24 01/26/25 Rx solifenacin 10 mg tablet 10 mg PO HS #90 tabs 07/22/24 01/26/25 Rx cholecalciferol (vitamin D3) 25 25 mcg PO DAILY 12/16/24 01/26/25 History mcg (1,000 unit) capsule (Vitamin D3) furosemide 20 mg tablet 20 mg PO QAM 12/16/24 01/26/25 History metoprolol succinate 25 mg 12.5 mg PO QAM 12/16/24 01/26/25 History tablet,extended release 24 hr midodrine 10 mg tablet 10 mg PO TID 01/26/25 01/26/25 History Patient History Surgical History History of cataract extraction 02/2017-bilateral History of bladder surgery Green light laser surgery for excess bladder tissue-03/09/14 History of Mohs micrographic surgery for skin cancer Head-2014 Left arm-2013 History of sebaceous cyst x3-2 on back, 1 on chest History of tonsillectomy and adenoidectomy 1948 History of surgery femur [id number] leg repair laser vaporization with transurethral resection of prostate Previous back surgery H/O: knee surgery Family History Brother Prostate cancer Father Hypertension Heart disease following heart attack Mother Hearing loss Heart disease following heart attack Other No family history of adverse response to anesthesia No family history of bleeding disorder Social History Smoking Status: Never smoker Do You Dip or Chew Tobacco: No; Hx Alcohol Use: No Hx Substance Use: No Preferred Language: Taiwanese Communication Ability: Effective Machine I Trimmer Required: No Beliefs That Will Affect Care: None marital status: Current Living Situation: Spouse current occupational status: retired Other Information That Helps Us Care for You: No Feels Safe at Home: Yes Safety Concerns: Feels Safe At This Time Assistive Devices: Cane and Walker Assistive Devices Comment: Dentures & hearing aids w/ patient Review of Systems Review of Systems: Per HPI Physical Exam Physical Exam: The patient is alert and oriented. Mood and affect appeared normal. He answered all questions appropriately. HEENT: Pupils are equal and reactive to light and accommodation. Extraocular movements are intact. The sclerae are anicteric. Masked facies Neuro: Cranial nerves intact Lungs: Clear to auscultation bilaterally. He has good air movement without use of accessory muscles. No rales wheezes or rhonchi. Cardiac: Heart demonstrates a regular rate and rhythm. Normal S1 and S2. No murmurs on examination. Pulses: The patient has palpable radial pulses bilaterally that are equal in intensity Extremities: There was no evidence of hypoperfusion. There is no cyanosis or clubbing. Moderate bilateral lower extremity edema Skin: I did not appreciate any rashes on examination today. Results & Data Vital Signs (Past 12 Hours) Vital Signs Temp Pulse Resp BP BP Pulse Ox O2 Del Method 01/29/25 11:57 36.8 C 65 16 115/69 98 Room Air 01/29/25 08:38 37.0 C 69 16 96 Room Air 01/29/25 03:38 37.7 C H 66 18 114/57 L 94 Room Air Laboratory Results Abnormal Lab Results 01/29/25 06:46 WBC 6.48 RBC 3.50 L Hgb 11.8 L Hct 33.8 L MCV 96.6 MCH 33.7 MCHC 34.9 RDW Std Deviation 43.9 RDW Coeff of Jose Luis 12.4 Plt Count 79 L MPV 9.9 Sodium 139 Potassium 3.7 Chloride 105 Carbon Dioxide 34 H Anion Gap 0 L BUN 22 Creatinine 0.89 Est Cr Clr Drug Dosing 72.8 eGFR 84.50 BUN/Creatinine Ratio 24.7 H Glucose 105 H Calcium 7.5 L Diagnostic Findings Echocardiogram 08/2024 [facility] 1. Normal left ventricular size and systolic function with no regional wall motion abnormalities. 2. Ejection fraction as calculated by Biplane Simpsons method is 65%. 3. Mild concentric left ventricular hypertrophy. 4. Normal left atrial pressure. 5. Mildly dilated right ventricle with normal systolic function. 6. Mildly dilated left atrium size. 7. Dilated right atrium. 8. Dilated aortic root (3.9 cm) and ascending aorta (3.6 cm). 9. Small anterior pericardial effusion around the RA and RV free wall without tamponade. 10. No significant valvular abnormalities. 11. Normal estimated pulmonary artery pressures, estimated PASP is 22 mmHg. PG Care Time/CCT Total # of Minutes Spent Total Time Spent with Patient: Total time spent is greater than 50% in coordination of care (as documented) at patient's floor/unit and/or counseling patient: Coding Level of Care Code 09475 INT INP/OBS CARE 3/75MIN Diagnoses Atrial fibrillation I48.91 Parkinsons disease G20.A1
--- NOTE | 2025-01-29 13:43 | Hospitalist Progress Note ---
Date of Service January 29, 2025 Assessment & Plan (1) Pneumonia: Plan: Patient is a 84-year-old gentleman with history of Parkinson, A-fib, CHF with preserved EF, BPH He been falling since this year, on day of admission been having weakness and sent for, he is also being on midodrine 10 3 times daily for orthostatic hypotension At baseline he can walk 4 to 5 feet with rollator, his CT head and CT C-spine are negative His chest x-ray was concerning for left lower lobe infiltrate and for moderate size effusion He was admitted for IV antibiotics, physical therapy eval for for episode PNA pleural effusion tachycardia episode, hx of A-fib fall episode parkinson with autonomic dysfunction A-fib, CHF with preserved EF BPH s/p LUTS thromocytopenia overall plan he was found to has tachycardia on 130-140 cardiology input about digoxin or amiodarone weakness need placement to sTR PT and OT to eval added vitamin C to promote sinemet absoprtion ensure supplement, multivitamin and b copmlex PNA-ceftriaxone, on room air HCAP coverage with cefepime and zpack f/u on nasal MRSA level deconditoning-need STR starting ensure, multivitamin fall episode started this year, PT eval, check orthostatic BP may add fludrocortisone to his midodrine regime noted he's on seroquel antipsychotics no neck pain, no low back pain severe orthostatic hypotension-already on midodrine 10mg TID added fludrocortisone 0.1mg daily may consider cutting down his seroquel dosage left side pleural effusion he will need to r/u with pulmonary for thoracentesis BPH-finsteride A-fib, CHF metoprolol ER 12.5mg daily he's reportedly off furosemide BPH s/p lUTS (2) Generalized weakness: Plan: Acute on chronic with underlying Parkinson's disease - OOB w/ assist - H/o frequent falls - PT/OT eval and treat - May require short stay in rehab prior to returning home (3) Parkinsons disease: Plan: Chronic/stable - Continue Sinemet and Entacapone (4) Benign localized prostatic hyperplasia with lower urinary tract symptoms (LUTS): Plan: Chronic/stable - Continue finasteride (5) Atrial fibrillation: Plan: Chronic/stable - Examines in sinus, rate controlled - Continue metoprolol succ - Not on DOAC as he has thrombocytopenia Plan Chronic stable medical problems: 1. HFpEF - continue lasix 2. Depression - continue remeron and seroquel 3. Orthostatic hypotension likely secondary to Parkinson's - continue midodrine VTE ppx will be covered with SCDs, no chemoppx d/t thrombocytopenia. Trend TB and LFTs with hepatic function panel in AM. CBC and BMP ordered as well as mag level. Plan of care has been d/w Dr. Zelaya who will also see and evaluate this patient. Further orders to be implemented as clinical course warrants. Admission and Anticipated Discharge Date Admission Date: January 26, 2025 Subjective he's was orthostatic yesterday from 140--> 90 telemetry found HR in the 140-150 this morning cardiology consulted; appreciate their input about whether digoxin will be benefit his information clerk is with [facility] updated Review of Systems Review of Systems: Constitutional: No Weight Change, No Fever, No Chills, No Night Sweats, No Fatigue, No Malaise Cardiovascular: No Chest Pain, No SOB, No PND, No Dyspnea on Exertion, No Orthopnea, No Claudication, No Edema, No Palpitations Respiratory: No Cough, No Sputum, No Wheezing, No Smoke Exposure, No Dyspnea Gastrointestinal: No Nausea, No Vomiting, No Diarrhea, No Constipation, No Pain, No Heartburn, No Anorexia, No Dysphagia, No Hematochezia, No Melena, No Flatulence, No Jaundice Musculoskeletal: leg edema (+); no back pain Neuro: + for weakness; no neck pain; + for tremor (controlled on sinemet) Psych: No Anxiety/Panic, No Depression, No Insomnia, No Personality Changes, No Delusions, No Rumination, No SI/HI/AH/VH, No Social Issues, No Memory Changes, No Violence/Abuse Hx., No Eating Concerns Physical Exam Physical Exam: VITALS: Reviewed. WEIGHT/BMI reviewed. GEN: Healthy appearing, well-developed, NAD HEENT:AT/NC; neck: no carotid bruit -Ears: External ears are normal. Normal TMs. -Nose: Normal nares. -Mouth and throat: MMM. Normal gums, muc jazmyn, palate,. Good dentition. NECK: Supple, with no masses. CV: RRR, no m/r/g. LUNGS: CTAB, no w/r/c. ABD: Soft, NT/ND, NBS, no masses or organomegaly. : N/A SKIN: Warm, well perfused. No skin rashes or abnormal lesions. EXT: + for edema . NEURO: AAox3; low voice; decrease strength in upper and lower extremity no resting tremor; following command Results & Data Results & Data Vital Signs (Past 12 Hours) Vital Signs Temp Pulse Resp BP BP Pulse Ox O2 Del Method 01/29/25 11:57 36.8 C 65 16 115/69 98 Room Air 01/29/25 08:38 37.0 C 69 16 96 Room Air 01/29/25 03:38 37.7 C H 66 18 114/57 L 94 Room Air Laboratory Results Laboratory Results - last 72 hr 01/26/25 01/26/25 01/26/25 12:45 12:47 13:46 WBC RBC Hgb Hct MCV MCH MCHC RDW Std Deviation RDW Coeff of Jose Luis Plt Count MPV Immature Gran % (Auto) Neut % (Auto) Lymph % (Auto) [place] % (Auto) Eos % (Auto) Baso % (Auto) Neut # (Auto) Lymph # (Auto) [place] # (Auto) Eos # (Auto) Baso # (Auto) Immature Gran # (Auto) Sodium Potassium Chloride Carbon Dioxide Anion Gap BUN Creatinine Est Cr Clr Drug Dosing eGFR BUN/Creatinine Ratio Glucose POC Glucose Calcium Phosphorus Magnesium Total Bilirubin Direct Bilirubin AST ALT Alkaline Phosphatase Troponin I High Sens C-Reactive Protein 1.59 H Total Protein Albumin Cortisol AM Sample Urine Color Yellow Urine Appearance Clear Urine pH 6.5 Ur Specific [place] 1.015 Urine Protein Negative Urine Glucose (UA) Negative Urine Ketones Negative Urine Blood Negative Urine Nitrite Negative Urine Bilirubin Negative Urine Urobilinogen Negative Ur Leukocyte Esterase Negative Adenovirus (PCR) Not Detected B. pertussis DNA (PCR) Not Detected B.parapertussis DNA PCR Not Detected C. pneumoniae DNA (PCR) Not Detected Coronavirus OC43 (PCR) DETECTED A Coronavirus HKU1 (PCR) Not Detected Coronavirus 229E (PCR) Not Detected SARS-CoV-2 (PCR) Not Detected Coronavirus NL63 (PCR) Not Detected Human Metapneumovir PCR Not Detected Influenza Type A (PCR) Not Detected Influenza Type B (PCR) Not Detected M. pneumoniae (PCR) Not Detected Parainfluenza 1 (PCR) Not Detected Parainfluenza 2 (PCR) Not Detected Parainfluenza 3 (PCR) Not Detected Parainfluenza 4 (PCR) Not Detected RSV (PCR) Not Detected Entero/Rhino (PCR) Not Detected 01/26/25 01/27/25 01/28/25 14:18 05:41 07:25 WBC 6.66 6.02 RBC 3.40 L 3.64 L Hgb 11.5 L 12.4 L Hct 32.5 L 35.0 L MCV 95.6 96.2 MCH 33.8 34.1 H MCHC 35.4 35.4 RDW Std Deviation 42.9 43.5 RDW Coeff of Jose Luis 12.5 12.2 Plt Count 70 L 75 L MPV 10.3 9.7 Immature Gran % (Auto) 0.9 Neut % (Auto) 72.3 Lymph % (Auto) 18.2 [place] % (Auto) 7.8 Eos % (Auto) 0.6 Baso % (Auto) 0.2 Neut # (Auto) 4.82 Lymph # (Auto) 1.21 [place] # (Auto) 0.52 Eos # (Auto) 0.04 Baso # (Auto) 0.01 Immature Gran # (Auto) 0.06 Sodium 140 141 Potassium 3.5 3.6 Chloride 105 106 Carbon Dioxide 33 H 35 H Anion Gap 2 L 0 L BUN 18 20 Creatinine 1.03 0.93 Est Cr Clr Drug Dosing 63.1 69.9 eGFR 71.63 80.97 BUN/Creatinine Ratio 17.5 21.5 H Glucose 132 H 103 H POC Glucose Calcium 7.3 L 7.4 L Phosphorus 2.6 Magnesium 2.0 Total Bilirubin 1.5 H Direct Bilirubin 0.5 H AST 28 ALT 8 Alkaline Phosphatase 174 H Troponin I High Sens 22.7 H C-Reactive Protein 1.77 H Total Protein 3.9 L Albumin 2.2 L Cortisol AM Sample 11.27 Urine Color Urine Appearance Urine pH Ur Specific [place] Urine Protein Urine Glucose (UA) Urine Ketones Urine Blood Urine Nitrite Urine Bilirubin Urine Urobilinogen Ur Leukocyte Esterase Adenovirus (PCR) B. pertussis DNA (PCR) B.parapertussis DNA PCR C. pneumoniae DNA (PCR) Coronavirus OC43 (PCR) Coronavirus HKU1 (PCR) Coronavirus 229E (PCR) SARS-CoV-2 (PCR) Coronavirus NL63 (PCR) Human Metapneumovir PCR Influenza Type A (PCR) Influenza Type B (PCR) M. pneumoniae (PCR) Parainfluenza 1 (PCR) Parainfluenza 2 (PCR) Parainfluenza 3 (PCR) Parainfluenza 4 (PCR) RSV (PCR) Entero/Rhino (PCR) 01/28/25 01/28/25 01/29/25 08:23 12:07 06:46 WBC 6.48 RBC 3.50 L Hgb 11.8 L Hct 33.8 L MCV 96.6 MCH 33.7 MCHC 34.9 RDW Std Deviation 43.9 RDW Coeff of Jose Luis 12.4 Plt Count 79 L MPV 9.9 Immature Gran % (Auto) Neut % (Auto) Lymph % (Auto) [place] % (Auto) Eos % (Auto) Baso % (Auto) Neut # (Auto) Lymph # (Auto) [place] # (Auto) Eos # (Auto) Baso # (Auto) Immature Gran # (Auto) Sodium 139 Potassium 3.7 Chloride 105 Carbon Dioxide 34 H Anion Gap 0 L BUN 22 Creatinine 0.89 Est Cr Clr Drug Dosing 72.8 eGFR 84.50 BUN/Creatinine Ratio 24.7 H Glucose 105 H POC Glucose 96 142 H Calcium 7.5 L Phosphorus Magnesium Total Bilirubin Direct Bilirubin AST ALT Alkaline Phosphatase Troponin I High Sens C-Reactive Protein Total Protein Albumin Cortisol AM Sample Urine Color Urine Appearance Urine pH Ur Specific [place] Urine Protein Urine Glucose (UA) Urine Ketones Urine Blood Urine Nitrite Urine Bilirubin Urine Urobilinogen Ur Leukocyte Esterase Adenovirus (PCR) B. pertussis DNA (PCR) B.parapertussis DNA PCR C. pneumoniae DNA (PCR) Coronavirus OC43 (PCR) Coronavirus HKU1 (PCR) Coronavirus 229E (PCR) SARS-CoV-2 (PCR) Coronavirus NL63 (PCR) Human Metapneumovir PCR Influenza Type A (PCR) Influenza Type B (PCR) M. pneumoniae (PCR) Parainfluenza 1 (PCR) Parainfluenza 2 (PCR) Parainfluenza 3 (PCR) Parainfluenza 4 (PCR) RSV (PCR) Entero/Rhino (PCR) PG Care Time/CCT Total # of Minutes Spent Total Time Spent with Patient: Total time spent is greater than 50% in coordination of care (as documented) at patient's floor/unit and/or counseling patient: Coding Level of Care Code 67877 SUB INP/OBS CARE 35MIN Diagnoses Pneumonia of left lower lobe due to infectious organism J18.9 Pneumonia type: due to unspecified organism Laterality: left Lung location: lower lobe of lung Generalized weakness R53.1 Parkinsons disease G20.A1 Benign localized prostatic hyperplasia with lower urinary tract symptoms (LUTS) N40.1 Atrial fibrillation I48.91 Time Spent (min) 35 (1) Pneumonia Pneumonia type: due to unspecified organism Laterality: left Lung location: lower lobe of lung Qualified Code(s): J18.9 - Pneumonia, unspecified organism
[2025-01-29] MEDS: ASCORBIC ACID 500 MG TAB PO SCH (14:24)
[2025-01-30 08:14] LABS: Hematocrit (blood only) 32.2 % (42.0-52.0); Hemoglobin 11.4 g/dl (14.0-18.0); Mean Corpuscular Hemoglobin 34.2 pg (25.0-34.0); Mean Corpuscular Hgb Conc 35.4 g/dL (32.0-36.0); Mean Corpuscular Volume 96.7 fL (80.0-100.0); Mean Platelet Volume 10.2 fL (9.4-12.4); Platelet Count 78 K/uL (130-400); RDW Coefficient of Variation 12.4 % (11.5-14.5); RDW Standard Deviation 43.4 fL (36.4-46.3); Red Blood Count 3.33 M/uL (4.70-6.10); White Blood Count 6.59 K/ul (4.8-10.8)
[2025-01-30 08:26] LABS: BUN Creatinine Ratio 31.2 (10-20); Calcium 7.5 mg/dl (8.6-10.3); Creatinine Clr Calc Pharmacy 83.8 ml/min
[2025-01-30] MEDS: CEROVITE ADV FORMULA TAB PO SCH (08:41)
[2025-01-30] MEDS: VITAMIN B COMPLEX TAB PO SCH (08:41)
--- NOTE | 2025-01-30 08:59 | Electrocardiogram Report ---
Test Reason : Blood Pressure : */* mmHG Vent. Rate : 70 BPM Atrial Rate : 70 BPM P-R Int : 162 ms QRS Dur : 74 ms QT Int : 380 ms P-R-T Axes : 53 -9 22 degrees QTcB Int : 410 ms Normal sinus rhythm Low voltage QRS Borderline ECG When compared with ECG of 26-Jan-2025 12:09, No significant change was found Confirmed by Gilbert Raphael [id number]) on 01/30/2025 8:59:19 AM Referred By: REFERRED SELF Confirmed By: Gilbert Raphael
--- NOTE | 2025-01-30 12:20 | Hospitalist Progress Note ---
Date of Service January 30, 2025 Assessment & Plan (1) Pneumonia: Plan: Patient is a 84-year-old gentleman with history of Parkinson, A-fib, CHF with preserved EF, BPH He been falling since this year, on day of admission been having weakness and sent for, he is also being on midodrine 10 3 times daily for orthostatic hypotension At baseline he can walk 4 to 5 feet with rollator, his CT head and CT C-spine are negative His chest x-ray was concerning for left lower lobe infiltrate and for moderate size effusion He was admitted for IV antibiotics, physical therapy eval for for episode PNA pleural effusion tachycardia episode, hx of A-fib fall episode parkinson with autonomic dysfunction A-fib, CHF with preserved EF BPH s/p LUTS thromocytopenia overall plan he was found to has tachycardia on 130-140 cardiology input about digoxin or amiodarone weakness need placement to sTR PT and OT to eval added vitamin C to promote sinemet absoprtion ensure supplement, multivitamin and b copmlex PNA-ceftriaxone, on room air HCAP coverage with cefepime and zpack f/u on nasal MRSA level deconditoning-need STR starting ensure, multivitamin fall episode started this year, PT eval, check orthostatic BP may add fludrocortisone to his midodrine regime noted he's on seroquel antipsychotics no neck pain, no low back pain severe orthostatic hypotension-already on midodrine 10mg TID added fludrocortisone 0.1mg daily may consider cutting down his seroquel dosage left side pleural effusion he will need to r/u with pulmonary for thoracentesis BPH-finsteride A-fib, CHF metoprolol ER 12.5mg daily he's reportedly off furosemide BPH s/p lUTS (2) Generalized weakness: Plan: Acute on chronic with underlying Parkinson's disease - OOB w/ assist - H/o frequent falls - PT/OT eval and treat - May require short stay in rehab prior to returning home (3) Parkinsons disease: Plan: Chronic/stable - Continue Sinemet and Entacapone (4) Benign localized prostatic hyperplasia with lower urinary tract symptoms (LUTS): Plan: Chronic/stable - Continue finasteride (5) Atrial fibrillation: Plan: Chronic/stable - Examines in sinus, rate controlled - Continue metoprolol succ - Not on DOAC as he has thrombocytopenia Plan Chronic stable medical problems: 1. HFpEF - continue lasix 2. Depression - continue remeron and seroquel 3. Orthostatic hypotension likely secondary to Parkinson's - continue midodrine VTE ppx will be covered with SCDs, no chemoppx d/t thrombocytopenia. Trend TB and LFTs with hepatic function panel in AM. CBC and BMP ordered as well as mag level. Plan of care has been d/w Dr. Zelaya who will also see and evaluate this patient. Further orders to be implemented as clinical course warrants. Admission and Anticipated Discharge Date Admission Date: January 26, 2025 Results & Data Results & Data Vital Signs (Past 12 Hours) Vital Signs Temp Pulse Pulse Resp BP BP Pulse Ox 01/30/25 11:14 36.8 C 61 20 131/72 97 01/30/25 07:45 01/30/25 07:37 36.3 C L 70 18 105/56 L 96 01/30/25 05:46 64 01/30/25 03:21 36.8 C 70 18 134/67 96 O2 Del Method 01/30/25 11:14 Room Air 01/30/25 07:45 Room Air 01/30/25 07:37 Room Air 01/30/25 05:46 01/30/25 03:21 Room Air PG Care Time/CCT Total # of Minutes Spent Total Time Spent with Patient: Total time spent is greater than 50% in coordination of care (as documented) at patient's floor/unit and/or counseling patient: Coding Diagnoses Pneumonia of left lower lobe due to infectious organism J18.9 Pneumonia type: due to unspecified organism Laterality: left Lung location: lower lobe of lung Generalized weakness R53.1 Parkinsons disease G20.A1 Benign localized prostatic hyperplasia with lower urinary tract symptoms (LUTS) N40.1 Atrial fibrillation I48.91 (1) Pneumonia Pneumonia type: due to unspecified organism Laterality: left Lung location: lower lobe of lung Qualified Code(s): J18.9 - Pneumonia, unspecified organism
--- NOTE | 2025-01-30 16:28 | Hospitalist Progress Note ---
Date of Service January 30, 2025 Assessment & Plan (1) Pneumonia: Plan: Acute - Admit to med/surg - OOB w/ assist - Pt received Rocephin by ED provider and I added a dose of Zithromax for atypical coverage - Recently hospitalized in December, requires HAP coverage --> d/c rocephin and change to cefepime, continue zithromax for now - Duonebs QIDR and q2 prn dyspnea/wheezing - Mucinex 600mg BID - Incidental finding of left pleural effusion on CT cervical spine, very small when reviewed x-ray, ?parapneumonic effusion (2) Generalized weakness: Plan: Acute on chronic with underlying Parkinson's disease -orthostatic hypotension on midodrine, on fludrocortisone - PT/OT STR (3) Parkinsons disease: Plan: Chronic/stable - Continue Sinemet and Entacapone -address orthostatic hypotension (4) Benign localized prostatic hyperplasia with lower urinary tract symptoms (LUTS): Plan: Chronic/stable - Continue finasteride (5) Atrial fibrillation: Plan: Chronic/stable - Examines in sinus, rate controlled - Continue metoprolol succ -cardiology consulted for replaced lopressor with digoxin. given orthostatic hypotension - Not on DOAC as he has thrombocytopenia Plan Chronic stable medical problems: 1. HFpEF - continue lasix 2. Depression - continue remeron and seroquel 3. Orthostatic hypotension likely secondary to Parkinson's - continue midodrine VTE ppx will be covered with SCDs, no chemoppx d/t thrombocytopenia. Trend TB and LFTs with hepatic function panel in AM. CBC and BMP ordered as well as mag level. Plan of care has been d/w Dr. Zelaya who will also see and evaluate this patient. Further orders to be implemented as clinical course warrants. Admission and Anticipated Discharge Date Admission Date: January 26, 2025 Subjective He continued to have lightheadedness from sitting to standing He was orthostatic during PT session Will stop his azithromycin today, tomorrow will begin digoxin Potential discharge to correction on Thursday Review of Systems Review of Systems: Constitutional: No Weight Change, No Fever, No Chills, No Night Sweats, No Fatigue, No Malaise Cardiovascular: No Chest Pain, No SOB, No PND, No Dyspnea on Exertion, No Orthopnea, No Claudication, No Edema, No Palpitations Respiratory: No Cough, No Sputum, No Wheezing, No Smoke Exposure, No Dyspnea Gastrointestinal: No Nausea, No Vomiting, No Diarrhea, No Constipation, No Pain Musculoskeletal: No Arthralgias, No Myalgias, No Joint Swelling, No Joint Stiffness, No Back Pain, No Neck Pain, No Injury History Neuro: Positive for dizziness from sitting to standing, no headache no confusion Psych: No Anxiety/Panic, No Depression, No Insomnia, No Personality Changes, No Delusions, No Rumination, No SI/HI/AH/VH, No Social Issues, No Memory Changes, No Violence/Abuse Hx., No Eating Concerns Heme/Lymph: No Bruising, No Bleeding, No Transfusions History, No Lymphadenopathy Endocrine: No Polyuria, No Polydipsia, No Temperature Intolerance Physical Exam Physical Exam: VITALS: Reviewed. WEIGHT/BMI reviewed. GEN: Healthy appearing, well-developed, NAD. PSYCH: Good Judgment. AOx3. Normal memory, mood, and affect. HEENT -Head: NC/AT; -Nose: Normal nares. -Mouth and throat: MMM. Normal gums, muc jazmyn, palate,. Good dentition. NECK: Supple, with no masses. CV: RRR, no m/r/g. LUNGS: CTAB, no w/r/c. ABD: Soft, NT/ND, NBS, no masses or organomegaly. : N/A SKIN: Warm, well perfused. No skin rashes or abnormal lesions. MSK: No deformities, Normal gait. EXT: No clubbing, cyanosis, or edema. NEURO: Ambulating with no limitations. Normal muscle strength and tone. No focal deficits. Results & Data Results & Data Vital Signs (Past 12 Hours) Vital Signs Temp Pulse Pulse Resp BP Pulse Ox O2 Del Method 01/30/25 15:29 36.8 C 61 18 128/71 99 Room Air 01/30/25 13:05 54 L 01/30/25 11:14 36.8 C 61 20 131/72 97 Room Air 01/30/25 07:45 Room Air 01/30/25 07:37 36.3 C L 70 18 105/56 L 96 Room Air 01/30/25 05:46 64 Laboratory Results Laboratory Results - last 72 hr 01/28/25 01/28/25 01/28/25 07:25 08:23 12:07 WBC 6.02 RBC 3.64 L Hgb 12.4 L Hct 35.0 L MCV 96.2 MCH 34.1 H MCHC 35.4 RDW Std Deviation 43.5 RDW Coeff of Jose Luis 12.2 Plt Count 75 L MPV 9.7 Sodium 141 Potassium 3.6 Chloride 106 Carbon Dioxide 35 H Anion Gap 0 L BUN 20 Creatinine 0.93 Est Cr Clr Drug Dosing 69.9 eGFR 80.97 BUN/Creatinine Ratio 21.5 H Glucose 103 H POC Glucose 96 142 H Calcium 7.4 L Phosphorus 2.6 Cortisol AM Sample 11.27 01/29/25 01/30/25 06:46 06:00 WBC 6.48 6.59 RBC 3.50 L 3.33 L Hgb 11.8 L 11.4 L Hct 33.8 L 32.2 L MCV 96.6 96.7 MCH 33.7 34.2 H MCHC 34.9 35.4 RDW Std Deviation 43.9 43.4 RDW Coeff of Jose Luis 12.4 12.4 Plt Count 79 L 78 L MPV 9.9 10.2 Sodium 139 139 Potassium 3.7 4.0 Chloride 105 106 Carbon Dioxide 34 H 33 H Anion Gap 0 L 0 L BUN 22 24 H Creatinine 0.89 0.77 Est Cr Clr Drug Dosing 72.8 83.8 eGFR 84.50 88.28 BUN/Creatinine Ratio 24.7 H 31.2 H Glucose 105 H 109 H POC Glucose Calcium 7.5 L 7.5 L Phosphorus Cortisol AM Sample Medications Administered Current Inpatient Medications Acetaminophen (Acetaminophen 325 Mg Tab) 650 mg PO Q4H PRN PRN Reason: pain/fever Stop: 02/25/25 17:55 Al Hydrox/Mg Hydrox/Simethicone (Aluminum/Magnesium Susp 30 Ml Udc) 30 ml PO Q6H PRN PRN Reason: Dyspepsia Stop: 02/25/25 17:55 Albuterol (Albut/Ipratrop 3mg/0.5mg Neb 3 Ml Vial) 3 ml NEB QIDR PRN; Protocol PRN Reason: Shortness Of Breath Or Wheezing Stop: 02/25/25 18:59 Artificial Tears (Artificial Tears) 1 drops OP QID PRN PRN Reason: Dryness Stop: 02/25/25 18:00 Ascorbic Acid (Ascorbic Acid 500 Mg Tab) 200 mg PO TID DENISSE Stop: 02/28/25 13:59 Last Admin: 01/30/25 12:13 Dose: 200 mg Azithromycin (Azithromycin 250 Mg Tab) 250 mg PO QAM DENISSE Stop: 02/01/25 08:59 Last Admin: 01/30/25 08:43 Dose: 250 mg Calcium/Vitamin D (Calcium 600mg + Vit D 400 Iu Tab) 1 tab PO BID DENISSE Stop: 02/27/25 09:44 Last Admin: 01/30/25 08:43 Dose: 1 tab Carbidopa/Levodopa (Carbidopa/Levodopa 25/100mg Tab) 1 tab PO TIDM DENISSE Stop: 02/25/25 18:14 Last Admin: 01/30/25 16:22 Dose: 1 tab Docusate Sodium (Docusate Sodium 100 Mg Cap) 200 mg PO HS [facility] Stop: 02/25/25 20:59 Last Admin: 01/29/25 21:51 Dose: 200 mg Dorzolamide HCl (Dorzolamide Hcl 2% Oph Soln 10 Ml Btl) 1 drops OP BID DENISSE Stop: 02/25/25 20:59 Last Admin: 01/30/25 08:40 Dose: 1 drops Entacapone (Entacapone 200 Mg Tab) 200 mg PO TIDM DENISSE Stop: 02/25/25 18:14 Last Admin: 01/30/25 16:22 Dose: 200 mg Finasteride (Finasteride 5 Mg Tab) 5 mg PO HS [facility] Stop: 02/25/25 20:59 Last Admin: 01/29/25 21:51 Dose: 5 mg Fludrocortisone Acetate (Fludrocortisone Acetate 0.1 Mg Tab) 0.1 mg PO QAM DENISSE Stop: 02/26/25 11:29 Last Admin: 01/30/25 08:42 Dose: 0.1 mg Furosemide (Furosemide 20 Mg Tab) 20 mg PO QAM DENISSE Stop: 02/26/25 08:59 Last Admin: 01/30/25 08:42 Dose: 20 mg Guaifenesin (Guaifenesin 600 Mg Tabcr) 600 mg PO Q12 DENISSE Stop: 02/25/25 20:59 Last Admin: 01/30/25 08:41 Dose: 600 mg Cefepime HCl (Maxipime 2000mg) 2,000 mg in 20 mls @ 5 mls/min IV Q8H DENISSE; Protocol Stop: 02/02/25 20:59 Last Admin: 01/30/25 12:13 Dose: 5 mls/min Magnesium Hydroxide (Magnesium Hydroxide Susp 30 Ml Udc) 30 ml PO Q6H PRN PRN Reason: Constipation Stop: 02/25/25 17:55 Last Admin: 01/28/25 09:47 Dose: 30 ml Melatonin (Melatonin 3 Mg Tab) 3 mg PO HS PRN PRN Reason: Insomnia Stop: 02/25/25 17:55 Metoprolol Succinate (Metoprolol Succ 25mg Ext Rel Tab) 12.5 mg PO QAM [facility] Stop: 02/26/25 08:59 Last Admin: 01/30/25 08:41 Dose: 12.5 mg Midodrine (Midodrine Hcl 10 Mg Tab) 10 mg PO DAILY@0800,1200,1700 [facility] Stop: 02/25/25 18:14 Last Admin: 01/30/25 16:22 Dose: 10 mg Mirtazapine (Mirtazapine Tab 15 Mg Tab) 30 mg PO HS [facility] Stop: 02/25/25 20:59 Last Admin: 01/29/25 21:51 Dose: 30 mg Multivitamins/Minerals (Cerovite Adv Formula Tab) 1 tab PO QAM [facility] Stop: 03/01/25 08:59 Last Admin: 01/30/25 08:41 Dose: 1 tab Ondansetron HCl (Ondansetron Inj 2 Mg/Ml 2 Ml Vial) 4 mg IV Q6H PRN PRN Reason: Nausea Stop: 02/25/25 17:55 Oxybutynin Chloride (Oxybutynin Chloride Xl 5 Mg Tabcr) 10 mg PO HS [facility] Stop: 02/25/25 20:59 Last Admin: 01/29/25 21:50 Dose: 10 mg Polyethylene Glycol (Polyethylene (Miralax) 17 Gm Pack) 17 gm PO DAILY PRN PRN Reason: Constipation Stop: 02/25/25 17:55 Quetiapine Fumarate (Quetiapine Fumarate 100 Mg Tablet) 100 mg PO HS [facility] Stop: 02/25/25 20:59 Last Admin: 01/29/25 21:50 Dose: 100 mg Timolol Maleate (Timolol Maleate 0.5% Op Soln 5 Ml Btl) 1 drops OP BID DENISSE Stop: 02/25/25 20:59 Last Admin: 01/30/25 08:40 Dose: 1 drops Vitamin B Complex (Vitamin B Complex Tab) 1 tab PO QAM DENISSE Stop: 03/01/25 08:59 Last Admin: 01/30/25 08:41 Dose: 1 tab Vitamin D (Cholecalciferol 25 Mcg (1000 Units) Tab) 25 mcg PO DAILY DENISSE Stop: 02/26/25 08:59 Last Admin: 01/30/25 08:42 Dose: 25 mcg PG Care Time/CCT Total # of Minutes Spent Total Time Spent with Patient: Total time spent is greater than 50% in coordination of care (as documented) at patient's floor/unit and/or counseling patient: Coding Level of Care Code 80211 SUB INP/OBS CARE 2/35MIN Diagnoses Pneumonia of left lower lobe due to infectious organism J18.9 Pneumonia type: due to unspecified organism Laterality: left Lung location: lower lobe of lung Generalized weakness R53.1 Parkinsons disease G20.A1 Benign localized prostatic hyperplasia with lower urinary tract symptoms (LUTS) N40.1 Atrial fibrillation I48.91 Time Spent (min) 35 Assessment and Plan Cardiovascular Risk ACC 10-yr ASCVD calculated risk: Based on the [place]'s (ACC) 10-yr ASCVD calculator Reduced ASCVD risk: It is estimated that if the patient were to take a "statin" drug, it will reduce the patient's 10-year ASCVD risk. Therefore, statin therapy is recommended to reduce morbidity and mortality. Risks and Benefits Discussed: The risks and benefits of statin therapy, including potential adverse effects of myalgia, were discussed in detail with the patient. No contraindications to statins are noted. Background Background: Patients with diabetes are at increased risk for micro- and macro- vascular complications, including atherosclerotic cardiovascular disease (ASCVD), such as myocardial infarction and stroke. HMG-CoA reductase inhibitors, "statins", have been shown to reduce ASCVD and is recommended by current clinical practice guidelines from multiple organizations, including the [place] [employer] (ADA) and the [place] [employer] (AHA), in patients with LDL > 70mg/dL. (1) Pneumonia Pneumonia type: due to unspecified organism Laterality: left Lung location: lower lobe of lung Qualified Code(s): J18.9 - Pneumonia, unspecified organism
[2025-01-31 06:21] LABS: BUN Creatinine Ratio 26.5 (10-20); Calcium 7.8 mg/dl (8.6-10.3); Creatinine Clr Calc Pharmacy 63.3 ml/min; Potassium 3.7 mmol/L (3.5-5.1)
[2025-01-31 06:26] LABS: Hematocrit (blood only) 31.4 % (42.0-52.0); Mean Corpuscular Hemoglobin 33.7 pg (25.0-34.0); Mean Corpuscular Volume 96.3 fL (80.0-100.0); Platelet Count 73 K/uL (130-400); RDW Standard Deviation 42.4 fL (36.4-46.3); Red Blood Count 3.26 M/uL (4.70-6.10); White Blood Count 6.82 K/ul (4.8-10.8)
--- NOTE | 2025-01-31 08:55 | Cardiology Progress Note ---
Date of Service January 31, 2025 Assessment & Plan (1) Pneumonia: (2) Parkinsons disease: (3) Atrial fibrillation: (4) Recurrent falls: (5) Orthostatic hypotension: Plan Past cardiac history: 1. Paroxysmal atrial fibrillation and atrial flutter 2. Parkinson's disease 3. Diastolic heart failure 4. Hypotension 5. Frequent falls 6. Echocardiogram 08/25/2024 demonstrating normal LVEF with EF of 65%, dilated right atrium, mildly dilated left atrium dilated aortic root of 3.9 cm, ascending aorta 3.6 cm, small anterior pericardial effusion around the RA and RV free wall, no significant valvular abnormalities Orthostatic hypotension related to Parkinson's disease can be difficult to treat. Currently Carlos is on max dose midodrine with only minimal effect. Droxidopa could be considered but I would defer to neurology to initiate and guide its uptitration. Similarly, atomoxetine or pyrostigmine could be used but would need to be ok'd and guided by psych/neuro given its possible interactions with his other medications. I would recommend avoiding Florinef if possible given his history of diastolic heart failure. He has not had any afib for the last two days but did have a couple of hours of afib RVR two days ago. He has also had intermittent atrial flutter prior to this hospitalization. Adding digoxin may help the afib but will not really address the intermittent atrial flutter. We considered low dose amiodarone but it is contraindicated with amiodarone. I think that given his stable echo and that he does not really feel it when he is in these short episodes of afib his only option for now is to continue metoprolol at a low dose. His frequent falls make anticoagulating more risk than reward and he is not on blood thinner. He continues his home dosing of oral furosemide. He did not appear congested on his CXR but does have a large left pleural effusion likely secondary to his pneumonia rather than heart failure. He has significant chronic lower extremity edema and should wear compression stockings. Admission and Anticipated Discharge Date Admission Date: January 26, 2025 Subjective Mr. Crowe feels well when he is laying in bed but is still feeling very weak on his feet when he stands. His PT notes yesterday showed significant orthostasis when he stands. No afib on the monitor since 01/29. He denies sob or chest pain. No palpitations. He has chronic lower extremity edema. Review of Systems Review of Systems: All systems reviewed & are unremarkable except as noted in HPI & below Physical Exam Constitutional: WD/WN, vitals as above Respiratory: normal respiratory effort, lungs clear to auscultation Cardiovascular: Rate/Rhythm: regular rate and regular rhythm Heart Sounds: no murmur Extremities: + edema (pitting bilateral lower extremities ) Skin: no rashes, warm and dry Neurologic: moves all extremities and awake Psychiatric: A+Ox3, euthymic affect Results & Data Vital Signs (Past 12 Hours) Vital Signs Temp Pulse Pulse Resp BP BP Pulse Ox 01/31/25 07:39 36.6 C 71 18 123/67 97 01/31/25 05:41 67 01/31/25 04:00 37.0 C 68 18 116/56 L 96 01/31/25 01:32 59 L 01/31/25 00:00 36.9 C 64 18 112/62 97 O2 Del Method 01/31/25 07:39 Room Air 01/31/25 05:41 01/31/25 04:00 Room Air 01/31/25 01:32 01/31/25 00:00 Room Air
--- NOTE | 2025-01-31 14:01 | Hospitalist Progress Note ---
Date of Service January 31, 2025 Assessment & Plan (1) Pneumonia: Plan: Acute cefepime while inpatient total course of 8-10 days duoneb, stable, (2) Generalized weakness: Plan: Acute on chronic with underlying Parkinson's disease -orthostatic hypotension on midodrine, on fludrocortisone neurology consulted; appreciate their input on switching atomoxetine or pyrostigmine or droxidopa need placement to STR. (3) Parkinsons disease: Plan: Chronic/stable - Continue Sinemet and Entacapone -address orthostatic hypotension significant orthostatic hypotension significant leg weakness neuro (Stacy) consulted; appreciate their input about added atomoxetine or pyrostigmine or droxidopa (4) Benign localized prostatic hyperplasia with lower urinary tract symptoms (LUTS): Plan: Chronic/stable - Continue finasteride (5) Atrial fibrillation: Plan: Chronic/stable - Examines in sinus, rate controlled - Continue metoprolol succ -cardiology consulted for replaced lopressor with digoxin to prevent orthostatic hypotension - Not on DOAC as he has thrombocytopenia -high risk for bleeding Plan overall plan in next 24-48 hours he's has significant leg weakness, and need neuro input about adding atomoxetine or physostigmine or droxidopa for orthostatic hypotension defer to cardiology input about replacing metprolol with digoxin to prevent orthostatic hypotension in addition. placement to STR continue treatment for pneummonia with cefepime, will repeat CXR to assess for the pleural effusion and r/o worsening PNA Chronic stable medical problems: 1. HFpEF - continue lasix 2. Depression - continue remeron and seroquel 3. Orthostatic hypotension likely secondary to Parkinson's - continue midodrine VTE ppx will be covered with SCDs, no chemoppx d/t thrombocytopenia. Trend TB and LFTs with hepatic function panel in AM. CBC and BMP ordered as well as mag level. Plan of care has been d/w Dr. Zelaya who will also see and evaluate this patient. Further orders to be implemented as clinical course warrants. Admission and Anticipated Discharge Date Admission Date: January 26, 2025 Subjective Patient still have significant orthostatic hypotension, Leg weakness this Neurology consulted about adding atomoxetine or pyrostigmine or droxidopa No chest pain no shortness of breath Review of Systems Review of Systems: Constitutional: No Weight Change, No Fever, No Chills, No Night Sweats, No Fatigue, No Malaise Cardiovascular: No Chest Pain, No SOB, No PND, No Dyspnea on Exertion, No Orthopnea, No Claudication, No Edema, No Palpitations Respiratory: No Cough, No Sputum, No Wheezing, No Smoke Exposure, No Dyspnea Gastrointestinal: No Nausea, No Vomiting, No Diarrhea, No Constipation, No Pain, No Heartburn, No Anorexia, No Dysphagia, No Hematochezia, No Melena, No Flatulence, No Jaundice Musculoskeletal: leg weakness; no upper extremity tremor; Skin: No Skin Lesions, No Pruritis, No Hair Changes, No Breast/Skin Changes, No Nipple Discharge Neuro: for weakness; + for dizziness with standing up. no headache Heme/Lymph: No Bruising, No Bleeding, No Transfusions History, No Lymphadenopathy Endocrine: No Polyuria, No Polydipsia, No Temperature Intolerance Physical Exam Physical Exam: VITALS: Reviewed. WEIGHT/BMI reviewed. GEN: chronically ill appearing -Head: NC/AT; Neuro: decrease strength in the lower extremity; AAOx3; limited upper extremity tremor -Mouth and throat: MMM. Normal gums, muc jazmyn, palate,. Good dentition. NECK: Supple, with no masses. CV: RRR, no m/r/g. LUNGS: CTAB, no w/r/c. ABD: Soft, NT/ND, NBS, no masses or organomegaly. : N/A EXT: No clubbing, cyanosis, or edema. Results & Data Results & Data Vital Signs (Past 12 Hours) Vital Signs Temp Pulse Pulse Resp BP Pulse Ox O2 Del Method 01/31/25 11:19 36.8 C 61 18 118/65 98 Room Air 01/31/25 07:39 36.6 C 71 18 123/67 97 Room Air 01/31/25 05:41 67 01/31/25 04:00 37.0 C 68 18 116/56 L 96 Room Air Laboratory Results Abnormal lab results 01/31/25 Range/Units 05:50 RBC 3.26 L (4.70-6.10) M/uL Hgb 11.0 L (14.0-18.0) g/dl Hct 31.4 L (42.0-52.0) % Plt Count 73 L (130-400) K/uL Carbon Dioxide 35 H (21-32) mmol/L Anion Gap -2 L (3-11) BUN 27 H (6-23) mg/dl BUN/Creatinine Ratio 26.5 H (10-20) Glucose 105 H (70-99(Fasting)) mg/dl Calcium 7.8 L (8.6-10.3) mg/dl Diagnostic Findings Cervical Spine CT 01/26/25 12:04 CT cervical spine wo con CT DOSE: 1321.61 mGy.cm CLINICAL HISTORY: frequesnt falls. COMPARISON: None TECHNIQUE: Multiple axial CT images of the cervical spine were obtained without contrast. Sagittal and coronal reconstructions were done. A dose lowering technique was utilized adhering to the principles of ALARA. FINDINGS: There is no acute fracture or traumatic malalignment. The prevertebral soft tissues are not swollen. The odontoid and atlantoaxial articulation are intact. There is a torticollis convex to the right which may be degenerative or spastic. There are multilevel changes of degenerative disc disease and spondylosis. The soft tissue analysis demonstrates a generalized thyromegaly and a moderate- sized left pleural effusion. IMPRESSION: No acute traumatic cervical spine injury. Multilevel degenerative change and spondylosis is present. Enlarged thyroid gland. Moderate size left pleural effusion. ACT 112: Negative or not required by law. The above report was generated using voice recognition software. It may contain grammatical, syntax or spelling errors. Electronically signed by: Ariana Steinberg M.D. 01/26/2025 1:38 PM Chest X-Ray 01/26/25 12:04 XR chest 1V portable CLINICAL HISTORY: weakness COMPARISON STUDY: 12/16/2024 FINDINGS: Since the prior exam, the patient has developed a airspace opacity in the left lower lobe compatible with pneumonia in the appropriate clinical context. Heart size and pulmonary vascularity are unremarkable. There is no sizable pleural effusion. There is no pneumothorax. IMPRESSION: Left lower lobe infiltrate compatible with pneumonia. ACT 112: Negative or not required by law. Electronically signed by: Ariana Steinberg M.D. 01/26/2025 12:[address] 01/26/25 12:04 CT head/brain wo con CLINICAL HISTORY: weakness. TECHNIQUE: Multiple axial CT images of the head were obtained without contrast. A dose lowering technique was utilized adhering to the principles of ALARA. CT DOSE: 1322 COMPARISON: 12/15/2024 FINDINGS: No intracranial hemorrhage seen. No mass effect, midline shift, or hydrocephalus. No skull fracture seen. There is mild mucosal thickening and a small amount of fluid in the left maxillary sinus. No mastoid effusion. IMPRESSION: 1. No acute intracranial findings. 2. Mild left maxillary sinusitis. ACT 112: Negative or not required by law. The above report was generated using voice recognition software. It may contain grammatical, syntax or spelling errors. Electronically signed by: Javier Steele M.D. 01/26/2025 1:38 PM Chest Ultrasound 01/26/25 16:43 Clinical history: Pleural effusion Technique: Directed sonography was performed of the left chest Findings: There is a large left pleural effusion, with a volume of roughly 800 cc Impression: Large left pleural effusion ACT 112: Positive. There are findings on this exam that require communication between the performing entity and the patient following Patient Test Result Information Act ([place] ACT 112) guidelines. Electronically signed by Heath Sam 01-26-2025 6:02 PM Medications Administered Current Inpatient Medications Acetaminophen (Acetaminophen 325 Mg Tab) 650 mg PO Q4H PRN PRN Reason: pain/fever Stop: 02/25/25 17:55 Al Hydrox/Mg Hydrox/Simethicone (Aluminum/Magnesium Susp 30 Ml Udc) 30 ml PO Q6H PRN PRN Reason: Dyspepsia Stop: 02/25/25 17:55 Albuterol (Albut/Ipratrop 3mg/0.5mg Neb 3 Ml Vial) 3 ml NEB QIDR PRN; Protocol PRN Reason: Shortness Of Breath Or Wheezing Stop: 02/25/25 18:59 Artificial Tears (Artificial Tears) 1 drops OP QID PRN PRN Reason: Dryness Stop: 02/25/25 18:00 Ascorbic Acid (Ascorbic Acid 500 Mg Tab) 200 mg PO TID DENISSE Stop: 02/28/25 13:59 Last Admin: 01/31/25 08:48 Dose: 200 mg Calcium/Vitamin D (Calcium 600mg + Vit D 400 Iu Tab) 1 tab PO BID DENISSE Stop: 02/27/25 09:44 Last Admin: 01/31/25 08:47 Dose: 1 tab Carbidopa/Levodopa (Carbidopa/Levodopa 25/100mg Tab) 1 tab PO TIDM DENISSE Stop: 02/25/25 18:14 Last Admin: 01/31/25 12:02 Dose: 1 tab Docusate Sodium (Docusate Sodium 100 Mg Cap) 200 mg PO HS DENISSE Stop: 02/25/25 20:59 Last Admin: 01/30/25 21:52 Dose: 200 mg Dorzolamide HCl (Dorzolamide Hcl 2% Oph Soln 10 Ml Btl) 1 drops OP BID DENISSE Stop: 02/25/25 20:59 Last Admin: 01/31/25 08:51 Dose: 1 drops Entacapone (Entacapone 200 Mg Tab) 200 mg PO TIDM DENISSE Stop: 02/25/25 18:14 Last Admin: 01/31/25 12:02 Dose: 200 mg Finasteride (Finasteride 5 Mg Tab) 5 mg PO HS [facility] Stop: 02/25/25 20:59 Last Admin: 01/30/25 21:53 Dose: 5 mg Fludrocortisone Acetate (Fludrocortisone Acetate 0.1 Mg Tab) 0.1 mg PO QAM [facility] Stop: 02/26/25 11:29 Last Admin: 01/31/25 08:49 Dose: 0.1 mg Furosemide (Furosemide 20 Mg Tab) 20 mg PO QAM [facility] Stop: 02/26/25 08:59 Last Admin: 01/31/25 08:46 Dose: 20 mg Guaifenesin (Guaifenesin 600 Mg Tabcr) 600 mg PO Q12 DENISSE Stop: 02/25/25 20:59 Last Admin: 01/31/25 08:47 Dose: 600 mg Cefepime HCl (Maxipime 2000mg) 2,000 mg in 20 mls @ 5 mls/min IV Q8H DENISSE; Protocol Stop: 02/02/25 20:59 Last Admin: 01/31/25 12:03 Dose: 5 mls/min Magnesium Hydroxide (Magnesium Hydroxide Susp 30 Ml Udc) 30 ml PO Q6H PRN PRN Reason: Constipation Stop: 02/25/25 17:55 Last Admin: 01/28/25 09:47 Dose: 30 ml Melatonin (Melatonin 3 Mg Tab) 3 mg PO HS PRN PRN Reason: Insomnia Stop: 02/25/25 17:55 Metoprolol Succinate (Metoprolol Succ 25mg Ext Rel Tab) 12.5 mg PO QAM [facility]ISSE Stop: 02/26/25 08:59 Last Admin: 01/31/25 08:47 Dose: 12.5 mg Midodrine (Midodrine Hcl 10 Mg Tab) 10 mg PO DAILY@0800,1200,1700 [facility] Stop: 02/25/25 18:14 Last Admin: 01/31/25 12:02 Dose: 10 mg Mirtazapine (Mirtazapine Tab 15 Mg Tab) 30 mg PO [facility] Stop: 02/25/25 20:59 Last Admin: 01/30/25 21:48 Dose: 30 mg Multivitamins/Minerals (Cerovite Adv Formula Tab) 1 tab PO QAM [facility] Stop: 03/01/25 08:59 Last Admin: 01/31/25 08:49 Dose: 1 tab Ondansetron HCl (Ondansetron Inj 2 Mg/Ml 2 Ml Vial) 4 mg IV Q6H PRN PRN Reason: Nausea Stop: 02/25/25 17:55 Oxybutynin Chloride (Oxybutynin Chloride Xl 5 Mg Tabcr) 10 mg PO [facility] Stop: 02/25/25 20:59 Last Admin: 01/30/25 21:48 Dose: 10 mg Polyethylene Glycol (Polyethylene (Miralax) 17 Gm Pack) 17 gm PO DAILY PRN PRN Reason: Constipation Stop: 02/25/25 17:55 Quetiapine Fumarate (Quetiapine Fumarate 100 Mg Tablet) 100 mg PO [facility] Stop: 02/25/25 20:59 Last Admin: 01/30/25 21:51 Dose: 100 mg Timolol Maleate (Timolol Maleate 0.5% Op Soln 5 Ml Btl) 1 drops OP BID [facility] Stop: 02/25/25 20:59 Last Admin: 01/31/25 08:51 Dose: 1 drops Vitamin B Complex (Vitamin B Complex Tab) 1 tab PO QAM [facility] Stop: 03/01/25 08:59 Last Admin: 01/31/25 08:49 Dose: 1 tab Vitamin D (Cholecalciferol 25 Mcg (1000 Units) Tab) 25 mcg PO DAILY [facility] Stop: 02/26/25 08:59 Last Admin: 01/31/25 08:50 Dose: 25 mcg PG Care Time/CCT Total # of Minutes Spent Total Time Spent with Patient: Total time spent is greater than 50% in coordination of care (as documented) at patient's floor/unit and/or counseling patient: Coding Level of Care Code 33697 SUB INP/OBS CARE MIN Diagnoses Pneumonia of left lower lobe due to infectious organism J18.9 Pneumonia type: due to unspecified organism Laterality: left Lung location: lower lobe of lung Generalized weakness R53.1 Parkinsons disease G20.A1 Benign localized prostatic hyperplasia with lower urinary tract symptoms (LUTS) N40.1 Atrial fibrillation I48.91 Time Spent (min) 30 (1) Pneumonia Pneumonia type: due to unspecified organism Laterality: left Lung location: lower lobe of lung Qualified Code(s): J18.9 - Pneumonia, unspecified organism
--- NOTE | 2025-01-31 18:22 | Neurology Consultation ---
Date of Consultation January 31, 2025 Assessment & Plan (1) Orthostatic hypotension: likely exacerbated by inflammatory state. Agree with adding fludrocortisone. the patient is on multiple medications that can lower BP including , furosemide,metoprolol, seroquel Plan Agree with adding fludrocortisone. Recommend discontinuing Lasix. Per cardiology planning to switch metoprolol to digoxin. Recommend thigh-high elastic stockings and abdominal elastic bands. Would not add another agent at this point. The patient will need to follow-up with his neurologist as outpatient. Continue current parkinsonian medications, continue Seroquel for now Telehealth Consultation Telehealth Information Telehealth Information: I performed this visit using a real-time telehealth connection between my location and the patients location ([facility]). After connecting through interactive tele-video, patient was identified by name and date of and/or wristband check.Patient (or authorized healthcare financial services representative) was informed that this was a telemedicine visit and it was being conducted confidentially over secure lines. My office door was closed and no one else was present in the room with me.Patient (or authorized healthcare financial services representative) provided consent to proceed with the visit, expressed an understanding of privacy and security of the telemedicine visit, and gave permission to have a hospital financial services representative in the room in order to assist with the visit and to conduct portions of the visit, as needed. I informed the patient (or authorized healthcare financial services representative) that I reviewed their record and presented the opportunity for them to ask any questions regarding the visit today. The patient agreed to participate. History of Present Illness Reason for Consultation: Orthostatic hypotension , frequent falls parkinsonism. Requesting Physician: Mony Dickson DO Attending Physician: Mony Dickson DO History of Present Illness 84-year-old male patient with PMH of Parkinson's disease, unmasked by neuroleptic medications used, history of paroxysmal A-fib, HTN, thrombocytopenia, BPH who presented to the ED for frequent falls. The patient tells me that he fell about 5-6 times at home prior to admission and this has been going on for several days. He was feeling generally weak, he ambulates with a walker at home and a cane whenever he is outside. He tells me that he feels lightheaded whenever he stands up which is a very difficult task for him given his PD, however he can fall regardless. He reports constant lightheadedness, has been maintained on midodrine 10 mg 3 times daily for orthostatic hide potential. The patient is also maintained on furosemide 20 mg daily, and metoprolol, in addition to Seroquel 100 mg nightly. The patient had positive orthostatic hypotension. In the setting of pneumonia, Currently being treated by cefepime. Cardiology suggested switching metoprolol or digoxin to prevent orthostatic hypotension. The patient reports being wobbly on his legs when he walks but I could not demonstrate any limb weakness Allergies Allergy/AdvReac Type Severity Reaction Status Date / Time acetaminophen Allergy Unknown ANKLES Verified 01/26/25 15:23 SWELL UP benzalkonium chloride Allergy Unknown UNKNOWN Verified 01/26/25 15:23 brimonidine Allergy Unknown UNKNOWN Verified 01/26/25 15:23 travoprost Allergy Unknown UNKNOWN Verified 01/26/25 15:23 diclofenac [From Voltaren] Allergy Verified 01/26/25 15:23 Home Medications Medication Instructions Recorded Confirmed Type Prevagen 1 tab PO QAM 06/09/24 01/26/25 History carbidopa 25 mg-levodopa 100 mg 1 tab PO TID 06/09/24 01/26/25 History tablet ciclopirox 8 % topical solution 1 applic topical HS 06/09/24 01/26/25 History docusate sodium 100 mg tablet 200 mg PO HS PRN Constipation 06/09/24 01/26/25 History (Stool Softener) dorzolamide-timolol (PF) 2 %-0.5 % 1 drp OPB BID 06/09/24 01/26/25 History eye drops in a dropperette entacapone 200 mg tablet 200 mg PO TID 06/09/24 01/26/25 History glucosamine-chondroitin 750 mg-600 1 tab PO QAM 06/09/24 01/26/25 History mg tablet mirtazapine 30 mg tablet 30 mg PO HS 06/09/24 01/26/25 History niacin 1,000 mg tablet,extended 2,000 mg PO HS 06/09/24 01/26/25 History release 24 hr peg 400-propylene glycol 0.4 %-0.3 1 drp OPB QID PRN Dry Eyes 06/09/24 01/26/25 History % eye drops (Systane (propylene glycol)) quetiapine 100 mg tablet 100 mg PO HS 06/09/24 01/26/25 History vit C 250 mg-vit E 90 mg-zinc 40 1 tab PO BID ##0 06/09/24 01/26/25 History mg-copper 1 [id number] capsule (PreserVision AREDS-2) vitamin B complex 1 tab PO DAILY 06/09/24 01/26/25 History finasteride 5 mg tablet 5 mg PO HS #90 tabs 07/22/24 01/26/25 Rx solifenacin 10 mg tablet 10 mg PO HS #90 tabs 07/22/24 01/26/25 Rx cholecalciferol (vitamin D3) 25 25 mcg PO DAILY 12/16/24 01/26/25 History mcg (1,000 unit) capsule (Vitamin D3) furosemide 20 mg tablet 20 mg PO QAM 12/16/24 01/26/25 History metoprolol succinate 25 mg 12.5 mg PO QAM 12/16/24 01/26/25 History tablet,extended release 24 hr midodrine 10 mg tablet 10 mg PO TID 01/26/25 01/26/25 History Patient History Surgical History History of cataract extraction 02/2017-bilateral History of bladder surgery Green light laser surgery for excess bladder tissue-03/09/14 History of Mohs micrographic surgery for skin cancer Head-2014 Left arm-2013 History of sebaceous cyst x3-2 on back, 1 on chest History of tonsillectomy and adenoidectomy 1948 History of surgery femur [id number] leg repair laser vaporization with transurethral resection of prostate Previous back surgery H/O: knee surgery Family History Brother Prostate cancer Father Hypertension Heart disease following heart attack Mother Hearing loss Heart disease following heart attack Other No family history of adverse response to anesthesia No family history of bleeding disorder Social History Smoking Status: Never smoker Do You Dip or Chew Tobacco: No; Hx Alcohol Use: No Hx Substance Use: No Preferred Language: [place]an Communication Ability: Effective Cam Maker Required: No Beliefs That Will Affect Care: None marital status: Current Living Situation: Spouse current occupational status: retired Other Information That Helps Us Care for You: No Feels Safe at Home: Yes Safety Concerns: Feels Safe At This Time Assistive Devices: Cane and Walker Assistive Devices Comment: Dentures & hearing aids w/ patient Review of Systems See HPI , there has Physical Exam General Constitutional: Appearance normally developed Head and face: normocephalic and atraumatic Eyes: no ptosis, no anisocoria, and no dysconjugate gaze Respiratory: normal effort Cardiovascular: regular rhythm and regular rate Abdomen: non distended Skin: no rashes, lesions, or ulcers noted Psychiatric: normal judgement and insight, normal mood, and normal affect NEUROLOGIC EXAMINATION: Mental Status:alert, oriented to time, place, person, normal recent memory,normal concentration, normal language and normal fund of knowledge Cranial Nerves: CN 2 - no visual defect on confrontation and pupils round, equal, reactive to light CN 3, 4, 6 - extra-ocular movements intact and no nystagmus CN 5 - facial sensation intact CN 7 - no facial asymmetry CN 8 - intact hearing CN 9, 10 - palate symmetric, normal gag CN 11 - good shoulder shrug CN 12 - tongue midline MOTOR: Strength was at least antigravity throughout, Pronator drift was absent and There were no abnormal movements SENSATION: intact and symmetric to pinprick, light touch, vibration and joint position GAIT: deferred COORDINATION: no ataxia with finger to nose testing and heel to jacobo testing REFLEXES: cannot assess over telemedicine Results & Data Vital Signs (Past 12 Hours) Vital Signs Temp Pulse Pulse Resp BP Pulse Ox O2 Del Method 01/31/25 15:15 36.7 C 63 20 125/69 99 Room Air 01/31/25 13:17 65 01/31/25 11:19 36.8 C 61 18 118/65 98 Room Air 01/31/25 07:39 36.6 C 71 18 123/67 97 Room Air 01/31/25 05:41 67 Laboratory Results Laboratory Results - last 24 hr 01/31/25 05:50 WBC 6.82 RBC 3.26 L Hgb 11.0 L Hct 31.4 L MCV 96.3 MCH 33.7 MCHC 35.0 RDW Std Deviation 42.4 RDW Coeff of Jose Luis 12.0 Plt Count 73 L MPV 10.0 Sodium 140 Potassium 3.7 Chloride 107 Carbon Dioxide 35 H Anion Gap -2 L BUN 27 H Creatinine 1.02 Est Cr Clr Drug Dosing 63.3 eGFR 72.47 BUN/Creatinine Ratio 26.5 H Glucose 105 H Calcium 7.[address] scan of the head shows no acute changes, mild left maxillary sinusitis EKG shows NSR with a rate of 70. Medications Administered Home Medications Medication Instructions Recorded Confirmed Last Taken Prevagen 1 tab PO QAM 06/09/24 01/26/25 01/25/25 carbidopa 25 mg-levodopa 100 mg 1 tab PO TID 06/09/24 01/26/25 01/25/25 tablet ciclopirox 8 % topical solution 1 applic topical HS 06/09/24 01/26/25 01/25/25 docusate sodium 100 mg tablet 200 mg PO HS PRN Constipation 06/09/24 01/26/25 01/25/25 (Stool Softener) dorzolamide-timolol (PF) 2 %-0.5 % 1 drp OPB BID 06/09/24 01/26/25 01/25/25 eye drops in a dropperette entacapone 200 mg tablet 200 mg PO TID 06/09/24 01/26/25 01/25/25 glucosamine-chondroitin 750 mg-600 1 tab PO QAM 06/09/24 01/26/25 01/25/25 mg tablet mirtazapine 30 mg tablet 30 mg PO HS 06/09/24 01/26/25 01/25/25 niacin 1,000 mg tablet,extended 2,000 mg PO HS 06/09/24 01/26/25 01/25/25 release 24 hr peg 400-propylene glycol 0.4 %-0.3 1 drp OPB QID PRN Dry Eyes 06/09/24 01/26/25 01/25/25 % eye drops (Systane (propylene glycol)) quetiapine 100 mg tablet 100 mg PO HS 06/09/24 01/26/25 01/25/25 vit C 250 mg-vit E 90 mg-zinc 40 1 tab PO BID ##0 06/09/24 01/26/25 01/25/25 mg-copper 1 [id number] capsule (PreserVision AREDS-2) vitamin B complex 1 tab PO DAILY 06/09/24 01/26/25 01/25/25 finasteride 5 mg tablet 5 mg PO HS #90 tabs 07/22/24 01/26/25 01/25/25 solifenacin 10 mg tablet 10 mg PO HS #90 tabs 07/22/24 01/26/25 01/25/25 cholecalciferol (vitamin D3) 25 25 mcg PO DAILY 12/16/24 01/26/25 01/25/25 mcg (1,000 unit) capsule (Vitamin D3) furosemide 20 mg tablet 20 mg PO QAM 12/16/24 01/26/25 01/25/25 metoprolol succinate 25 mg 12.5 mg PO QAM 12/16/24 01/26/25 01/25/25 tablet,extended release 24 hr midodrine 10 mg tablet 10 mg PO TID 01/26/25 01/26/25 01/25/25 Active Medications Generic Name Dose Route Start Last Admin Trade Name Timmyq PRN Reason Stop Dose Admin Ascorbic Acid 200 mg 01/29/25 14:00 01/31/25 15:29 Ascorbic Acid 500 Mg Tab PO 02/28/25 13:59 200 mg TID DENISSE Administration Calcium/Vitamin D 1 tab 01/28/25 09:45 01/31/25 08:47 Calcium 600mg + Vit D 400 Iu Tab PO 02/27/25 09:44 1 tab BID DENISSE Administration Carbidopa/Levodopa 1 tab 01/26/25 18:15 01/31/25 17:17 Carbidopa/Levodopa 25/100mg Tab PO 02/25/25 18:14 1 tab TIDM DENISSE Administration Docusate Sodium 200 mg 01/26/25 21:00 01/30/25 21:52 Docusate Sodium 100 Mg Cap PO 02/25/25 20:59 200 mg HS DENISSE Administration Dorzolamide HCl 1 drops 01/26/25 21:00 01/31/25 08:51 Dorzolamide Hcl 2% Oph Soln 10 Ml Btl OP 02/25/25 20:59 1 drops BID DENISSE Administration Entacapone 200 mg 01/26/25 18:15 01/31/25 17:17 Entacapone 200 Mg Tab PO 02/25/25 18:14 200 mg TIDM DENISSE Administration Finasteride 5 mg 01/26/25 21:00 01/30/25 21:53 Finasteride 5 Mg Tab PO 02/25/25 20:59 5 mg HS DENISSE Administration Fludrocortisone Acetate 0.1 mg 01/27/25 11:30 01/31/25 08:49 Fludrocortisone Acetate 0.1 Mg Tab PO 02/26/25 11:29 0.1 mg QAM DENISSE Administration Guaifenesin 600 mg 01/26/25 21:00 01/31/25 08:47 Guaifenesin 600 Mg Tabcr PO 02/25/25 20:59 600 mg Q12 DENISSE Administration Cefepime HCl 2,000 mg in 20 mls @ 5 mls/min 01/26/25 21:00 01/31/25 12:03 Maxipime 2000mg IV 02/02/25 20:59 5 mls/min Q8H DENISSE Administration Protocol Magnesium Hydroxide 30 ml 01/26/25 17:56 01/28/25 09:47 Magnesium Hydroxide Susp 30 Ml Udc PO 02/25/25 17:55 30 ml Q6H PRN Administration Constipation Metoprolol Succinate 12.5 mg 01/27/25 09:00 01/31/25 08:47 Metoprolol Succ 25mg Ext Rel Tab PO 02/26/25 08:59 12.5 mg QAM DENISSE Administration Midodrine 10 mg 01/26/25 18:15 01/31/25 17:17 Midodrine Hcl 10 Mg Tab PO 02/25/25 18:14 10 mg DAILY@0800,1200,1700 DENISSE Administration Mirtazapine 30 mg 01/26/25 21:00 01/30/25 21:48 Mirtazapine Tab 15 Mg Tab PO 02/25/25 20:59 30 mg HS DENISSE Administration Multivitamins/Minerals 1 tab 01/30/25 09:00 01/31/25 08:49 Cerovite Adv Formula Tab PO 03/01/25 08:59 1 tab QAM DENISSE Administration Oxybutynin Chloride 10 mg 01/26/25 21:00 01/30/25 21:48 Oxybutynin Chloride Xl 5 Mg Tabcr PO 02/25/25 20:59 10 mg HS DENISSE Administration Quetiapine Fumarate 100 mg 01/26/25 21:00 01/30/25 21:51 Quetiapine Fumarate 100 Mg Tablet PO 02/25/25 20:59 100 mg HS DENISSE Administration Timolol Maleate 1 drops 01/26/25 21:00 01/31/25 08:51 Timolol Maleate 0.5% Op Soln 5 Ml Btl OP 02/25/25 20:59 1 drops BID DENISSE Administration Vitamin B Complex 1 tab 01/30/25 09:00 01/31/25 08:49 Vitamin B Complex Tab PO 03/01/25 08:59 1 tab QAM DENISSE Administration Vitamin D 25 mcg 01/27/25 09:00 01/31/25 08:50 Cholecalciferol 25 Mcg (1000 Units) Tab PO 02/26/25 08:59 25 mcg DAILY DENISSE Administration
[2025-02-01 07:19] LABS: Hematocrit (blood only) 34.4 % (42.0-52.0); Hemoglobin 12.3 g/dl (14.0-18.0); Mean Corpuscular Hemoglobin 34.6 pg (25.0-34.0); Mean Corpuscular Hgb Conc 35.8 g/dL (32.0-36.0); Mean Corpuscular Volume 96.9 fL (80.0-100.0); Mean Platelet Volume 9.8 fL (9.4-12.4); Platelet Count 95 K/uL (130-400); RDW Coefficient of Variation 11.8 % (11.5-14.5); RDW Standard Deviation 41.3 fL (36.4-46.3); Red Blood Count 3.55 M/uL (4.70-6.10); White Blood Count 7.51 K/ul (4.8-10.8)
[2025-02-01 07:24] LABS: BUN Creatinine Ratio 32.5 (10-20); Creatinine Clr Calc Pharmacy 67.4 ml/min; Potassium 3.6 mmol/L (3.5-5.1)
--- NOTE | 2025-02-01 15:25 | Hospitalist Progress Note ---
Date of Service February 01, 2025 Assessment & Plan (1) Pneumonia: Plan: Acute cefepime while inpatient total course of 8-10 days duoneb, stable, (2) Generalized weakness: Plan: Acute on chronic with underlying Parkinson's disease -orthostatic hypotension on midodrine, on fludrocortisone neurology consulted; appreciate their input. Orders placed for stockings and abdominal binders Lasix discontinued need placement to STR. (3) Parkinsons disease: Plan: Chronic/stable - Continue Sinemet and Entacapone -address orthostatic hypotension significant orthostatic hypotension significant leg weakness neuro (Stacy) consulted; appreciate their input (4) Benign localized prostatic hyperplasia with lower urinary tract symptoms (LUTS): Plan: Chronic/stable - Continue finasteride (5) Atrial fibrillation: Plan: Chronic/stable - Examines in sinus, rate controlled - Continue metoprolol succ -cardiology consulted but they recommend continuing metoprolol - Not on DOAC as he has thrombocytopenia -high risk for bleeding Plan Chronic stable medical problems: 1. HFpEF - continue lasix 2. Depression - continue remeron and seroquel 3. Orthostatic hypotension likely secondary to Parkinson's - continue midodrine VTE ppx will be covered with SCDs, no chemoppx d/t thrombocytopenia. Trend TB and LFTs with hepatic function panel in AM. CBC and BMP ordered as well as mag level. Admission and Anticipated Discharge Date Admission Date: January 26, 2025 Subjective Patient says that he feels dizzy when he stands up. Laying down he does not feel dizzy. Denies chest pain or shortness of breath Review of Systems Review of Systems: All systems reviewed & are unremarkable except as noted in Subjective Physical Exam Physical Exam: General: Awake, conversant. Frail looking elderly male Heart: S1, S2/regular rate and rhythm, no murmur rubs or gallops Lungs: Clear to auscultation bilaterally. Normal effort Abdomen: Soft/nontender/nondistended. No hepatosplenomegaly Extremities: No clubbing/cyanosis. No edema Behavior: Appropriate, cooperative Results & Data Results & Data Vital Signs (Past 12 Hours) Vital Signs Temp Pulse Pulse Resp BP Pulse Ox O2 Del Method 02/01/25 13:09 66 02/01/25 11:22 36.6 C 18 97 Room Air 02/01/25 07:49 36.5 C 67 18 130/71 98 Room Air 02/01/25 05:45 61 02/01/25 04:35 63 Laboratory Results Abnormal lab results 02/01/25 Range/Units 06:06 RBC 3.55 L (4.70-6.10) M/uL Hgb 12.3 L (14.0-18.0) g/dl Hct 34.4 L (42.0-52.0) % MCH 34.6 H (25.0-34.0) pg Plt Count 95 L (130-400) K/uL Carbon Dioxide 34 H (21-32) mmol/L Anion Gap 1 L (3-11) BUN 27 H (6-23) mg/dl BUN/Creatinine Ratio 32.5 H (10-20) Glucose 101 H (70-99(Fasting)) mg/dl Calcium 8.0 L (8.6-10.3) mg/dl PG Care Time/CCT Total # of Minutes Spent Total Time Spent with Patient: Total time spent is greater than 50% in coordination of care (as documented) at patient's floor/unit and/or counseling patient: Coding Level of Care Code 78552 SUB INP/OBS CARE MIN Diagnoses Pneumonia of left lower lobe due to infectious organism J18.9 Pneumonia type: due to unspecified organism Laterality: left Lung location: lower lobe of lung Generalized weakness R53.1 Parkinsons disease G20.A1 Benign localized prostatic hyperplasia with lower urinary tract symptoms (LUTS) N40.1 Atrial fibrillation I48.91 (1) Pneumonia Pneumonia type: due to unspecified organism Laterality: left Lung location: lower lobe of lung Qualified Code(s): J18.9 - Pneumonia, unspecified organism
--- NOTE | 2025-02-02 10:11 | Cardiology Progress Note ---
Date of Service February 02, 2025 Assessment & Plan (1) Pneumonia: (2) Parkinsons disease: (3) Atrial fibrillation: (4) Recurrent falls: (5) Orthostatic hypotension: Plan Past cardiac history: 1. Paroxysmal atrial fibrillation and atrial flutter 2. Parkinson's disease 3. Diastolic heart failure 4. Hypotension 5. Frequent falls 6. Echocardiogram 08/25/2024 demonstrating normal LVEF with EF of 65%, dilated right atrium, mildly dilated left atrium dilated aortic root of 3.9 cm, ascending aorta 3.6 cm, small anterior pericardial effusion around the RA and RV free wall, no significant valvular abnormalities Orthostatic hypotension related to Parkinson's disease can be difficult to treat. Currently Carlos is on max dose midodrine with only minimal effect. Droxidopa could be considered but I would defer to neurology to initiate and guide its uptitration. Similarly, atomoxetine or pyrostigmine could be used but would need to be ok'd and guided by psych/neuro given its possible interactions with his other medications. I would recommend avoiding Florinef if possible given his history of diastolic heart failure. He has not had any afib for the last two days but did have a couple of hours of afib RVR two days ago. He has also had intermittent atrial flutter prior to this hospitalization. Adding digoxin may help the afib but will not really address the intermittent atrial flutter. We considered low dose amiodarone but it is contraindicated with amiodarone. I think that given his stable echo and that he does not really feel it when he is in these short episodes of afib his only option for now is to continue metoprolol at a low dose. His frequent falls make anticoagulating more risk than reward and he is not on blood thinner. He continues his home dosing of oral furosemide. He did not appear congested on his CXR but does have a large left pleural effusion likely secondary to his pneumonia rather than heart failure. He has significant chronic lower extremity edema and should wear compression stockings. Admission and Anticipated Discharge Date Admission Date: January 26, 2025 Subjective Patient feels well. Denies chest pain or shortness of breath. He said that when they were checking his orthostatic vital signs, he felt a little bit dizzy but much better compared to previously Review of Systems Review of Systems: All systems reviewed & are unremarkable except as noted in HPI & below Results & Data Vital Signs (Past 12 Hours) Vital Signs Temp Pulse Resp BP BP Pulse Ox O2 Del Method 02/02/25 07:49 37.1 C 67 16 129/57 L 97 Room Air 02/02/25 03:08 36.8 C 62 18 120/65 97 Room Air 02/02/25 01:26 57 L 111/55 L 97 Room Air 02/01/25 23:30 36.8 C 59 L 18 105/36 L 98 Room Air O2 Flow Rate 02/02/25 07:49 02/02/25 03:08 02/02/25 01:26 02/01/25 23:30 2 Medications Administered Current Inpatient Medications Acetaminophen (Acetaminophen 325 Mg Tab) 650 mg PO Q4H PRN PRN Reason: pain/fever Stop: 02/25/25 17:55 Al Hydrox/Mg Hydrox/Simethicone (Aluminum/Magnesium Susp 30 Ml Udc) 30 ml PO Q6H PRN PRN Reason: Dyspepsia Stop: 02/25/25 17:55 Albuterol (Albut/Ipratrop 3mg/0.5mg Neb 3 Ml Vial) 3 ml NEB QIDR PRN; Protocol PRN Reason: Shortness Of Breath Or Wheezing Stop: 02/25/25 18:59 Artificial Tears (Artificial Tears) 1 drops OP QID PRN PRN Reason: Dryness Stop: 02/25/25 18:00 Ascorbic Acid (Ascorbic Acid 500 Mg Tab) 200 mg PO TID DENISSE Stop: 02/28/25 13:59 Last Admin: 02/02/25 09:11 Dose: 200 mg Calcium/Vitamin D (Calcium 600mg + Vit D 400 Iu Tab) 1 tab PO BID DENISSE Stop: 02/27/25 09:44 Last Admin: 02/02/25 09:12 Dose: 1 tab Carbidopa/Levodopa (Carbidopa/Levodopa 25/100mg Tab) 1 tab PO TIDM DENISSE Stop: 02/25/25 18:14 Last Admin: 02/02/25 09:11 Dose: 1 tab Docusate Sodium (Docusate Sodium 100 Mg Cap) 200 mg PO HS DENISSE Stop: 02/25/25 20:59 Last Admin: 02/01/25 20:27 Dose: 200 mg Dorzolamide HCl (Dorzolamide Hcl 2% Oph Soln 10 Ml Btl) 1 drops OP BID DENISSE Stop: 02/25/25 20:59 Last Admin: 02/02/25 09:12 Dose: 1 drops Entacapone (Entacapone 200 Mg Tab) 200 mg PO TIDM DENISSE Stop: 02/25/25 18:14 Last Admin: 02/02/25 09:11 Dose: 200 mg Finasteride (Finasteride 5 Mg Tab) 5 mg PO HS DENISSE Stop: 02/25/25 20:59 Last Admin: 02/01/25 20:22 Dose: 5 mg Fludrocortisone Acetate (Fludrocortisone Acetate 0.1 Mg Tab) 0.1 mg PO QAM DENISSE Stop: 02/26/25 11:29 Last Admin: 02/02/25 09:12 Dose: 0.1 mg Guaifenesin (Guaifenesin 600 Mg Tabcr) 600 mg PO Q12 DENISSE Stop: 02/25/25 20:59 Last Admin: 02/02/25 09:12 Dose: 600 mg Cefepime HCl (Maxipime 2000mg) 2,000 mg in 20 mls @ 5 mls/min IV Q8H DENISSE; Protocol Stop: 02/02/25 20:59 Last Admin: 02/02/25 04:57 Dose: 5 mls/min Magnesium Hydroxide (Magnesium Hydroxide Susp 30 Ml Udc) 30 ml PO Q6H PRN PRN Reason: Constipation Stop: 02/25/25 17:55 Last Admin: 01/28/25 09:47 Dose: 30 ml Melatonin (Melatonin 3 Mg Tab) 3 mg PO HS PRN PRN Reason: Insomnia Stop: 02/25/25 17:55 Metoprolol Succinate (Metoprolol Succ 25mg Ext Rel Tab) 12.5 mg PO QAM DENISSE Stop: 02/26/25 08:59 Last Admin: 02/02/25 09:12 Dose: 12.5 mg Midodrine (Midodrine Hcl 10 Mg Tab) 10 mg PO DAILY@0800,1200,1700 [facility] Stop: 02/25/25 18:14 Last Admin: 02/02/25 09:10 Dose: 10 mg Mirtazapine (Mirtazapine Tab 15 Mg Tab) 30 mg PO HS DENISSE Stop: 02/25/25 20:59 Last Admin: 02/01/25 20:24 Dose: 30 mg Multivitamins/Minerals (Cerovite Adv Formula Tab) 1 tab PO QAM DENISSE Stop: 03/01/25 08:59 Last Admin: 02/02/25 09:11 Dose: 1 tab Ondansetron HCl (Ondansetron Inj 2 Mg/Ml 2 Ml Vial) 4 mg IV Q6H PRN PRN Reason: Nausea Stop: 02/25/25 17:55 Oxybutynin Chloride (Oxybutynin Chloride Xl 5 Mg Tabcr) 10 mg PO HS DENISSE Stop: 02/25/25 20:59 Last Admin: 02/01/25 20:24 Dose: 10 mg Polyethylene Glycol (Polyethylene (Miralax) 17 Gm Pack) 17 gm PO DAILY PRN PRN Reason: Constipation Stop: 02/25/25 17:55 Quetiapine Fumarate (Quetiapine Fumarate 100 Mg Tablet) 100 mg PO HS [facility] Stop: 02/25/25 20:59 Last Admin: 02/01/25 20:24 Dose: 100 mg Timolol Maleate (Timolol Maleate 0.5% Op Soln 5 Ml Btl) 1 drops OP BID DENISSE Stop: 02/25/25 20:59 Last Admin: 02/02/25 09:12 Dose: 1 drops Vitamin B Complex (Vitamin B Complex Tab) 1 tab PO QAM DENISSE Stop: 03/01/25 08:59 Last Admin: 02/02/25 09:11 Dose: 1 tab Vitamin D (Cholecalciferol 25 Mcg (1000 Units) Tab) 25 mcg PO DAILY DENISSE Stop: 02/26/25 08:59 Last Admin: 02/02/25 09:11 Dose: 25 mcg
--- NOTE | 2025-02-02 13:55 | Hospitalist Progress Note ---
Date of Service February 02, 2025 Assessment & Plan (1) Pneumonia: Plan: Acute cefepime while inpatient total course of 8-10 days duoneb, stable, (2) Generalized weakness: Plan: Acute on chronic with underlying Parkinson's disease -orthostatic hypotension on midodrine, on fludrocortisone neurology consulted; appreciate their input. Orders placed for stockings and abdominal binders Lasix discontinued need placement to STR. (3) Parkinsons disease: Plan: Chronic/stable - Continue Sinemet and Entacapone -address orthostatic hypotension significant orthostatic hypotension significant leg weakness neuro (Stacy) consulted; appreciate their input (4) Benign localized prostatic hyperplasia with lower urinary tract symptoms (LUTS): Plan: Chronic/stable - Continue finasteride (5) Atrial fibrillation: Plan: Chronic/stable - Examines in sinus, rate controlled - Continue metoprolol succ -cardiology consulted but they recommend continuing metoprolol - Not on DOAC as he has thrombocytopenia -high risk for bleeding Plan Chronic stable medical problems: 1. HFpEF - continue lasix 2. Depression - continue remeron and seroquel 3. Orthostatic hypotension likely secondary to Parkinson's - continue midodrine VTE ppx will be covered with SCDs, no chemoppx d/t thrombocytopenia. Peer to peer completed with insurance company. They want the patient to be able to participate in therapy and her orthostatic hypotension to be controlled enough so he can benefit from rehab. Informed rn case management and nurse. Or thostatic vital signs will be checked daily. Admission and Anticipated Discharge Date Admission Date: January 26, 2025 Subjective Patient still complains of feeling dizzy upon standing. Denies chest pain or shortness of breath. Review of Systems Review of Systems: All systems reviewed & are unremarkable except as noted in Subjective Physical Exam Physical Exam: General: Awake, conversant. Frail looking elderly male Heart: S1, S2/regular rate and rhythm, no murmur rubs or gallops Lungs: Clear to auscultation bilaterally. Normal effort Abdomen: Soft/nontender/nondistended. No hepatosplenomegaly Extremities: No clubbing/cyanosis. No edema Behavior: Appropriate, cooperative Results & Data Results & Data Vital Signs (Past 12 Hours) Vital Signs Temp Pulse Resp BP BP Pulse Ox O2 Del Method 02/02/25 11:14 36.8 C 66 20 138/66 95 Room Air 02/02/25 07:49 37.1 C 67 16 129/57 L 97 Room Air 02/02/25 03:08 36.8 C 62 18 120/65 97 Room Air PG Care Time/CCT Total # of Minutes Spent Total Time Spent with Patient: Total time spent is greater than 50% in coordination of care (as documented) at patient's floor/unit and/or counseling patient: Coding Level of Care Code 76997 SUB INP/OBS CARE 2/35MIN Diagnoses Pneumonia of left lower lobe due to infectious organism J18.9 Pneumonia type: due to unspecified organism Laterality: left Lung location: lower lobe of lung Generalized weakness R53.1 Parkinsons disease G20.A1 Benign localized prostatic hyperplasia with lower urinary tract symptoms (LUTS) N40.1 Atrial fibrillation I48.91 (1) Pneumonia Pneumonia type: due to unspecified organism Laterality: left Lung location: lower lobe of lung Qualified Code(s): J18.9 - Pneumonia, unspecified organism
[2025-02-03] MEDS ORDERED: Nursing to Pharmacy Communication SCH (12:30)
[2025-02-03] MEDS: ASCORBIC ACID 500 MG TAB PO SCH (12:31)
--- NOTE | 2025-02-03 15:16 | Hospitalist Progress Note ---
Date of Service February 03, 2025 Assessment & Plan (1) Pneumonia: Plan: Acute cefepime while inpatient total course of 8-10 days duoneb, stable, (2) Generalized weakness: Plan: Acute on chronic with underlying Parkinson's disease -orthostatic hypotension on midodrine, on fludrocortisone neurology consulted; appreciate their input. Orders placed for stockings and abdominal binders Lasix discontinued need placement to STR. (3) Parkinsons disease: Plan: Chronic/stable - Continue Sinemet and Entacapone -address orthostatic hypotension significant orthostatic hypotension significant leg weakness neuro (Stacy) consulted; appreciate their input (4) Benign localized prostatic hyperplasia with lower urinary tract symptoms (LUTS): Plan: Chronic/stable - Continue finasteride (5) Atrial fibrillation: Plan: Chronic/stable - Examines in sinus, rate controlled - Continue metoprolol succ -cardiology consulted but they recommend continuing metoprolol - Not on DOAC as he has thrombocytopenia -high risk for bleeding Plan Chronic stable medical problems: 1. HFpEF - continue lasix 2. Depression - continue remeron and seroquel 3. Orthostatic hypotension likely secondary to Parkinson's - continue midodrine VTE ppx will be covered with SCDs, no chemoppx d/t thrombocytopenia. Peer to peer completed with insurance company. They want the patient to be able to participate in therapy and her orthostatic hypotension to be controlled enough so he can benefit from rehab. Informed case picker and nurse. Or thostatic vital signs will be checked daily. Orthostatic vital signs are improved. Awaiting PT notes documenting patient's participation. Once we have PT documentation, case picker will need to resubmit authorization request Admission and Anticipated Discharge Date Admission Date: January 26, 2025 Subjective Patient feels well overall. He was seen sitting up on his recliner. Review of Systems Review of Systems: All systems reviewed & are unremarkable except as noted in Subjective Physical Exam Physical Exam: General: Awake, conversant. Frail looking elderly male Heart: S1, S2/regular rate and rhythm, no murmur rubs or gallops Lungs: Clear to auscultation bilaterally. Normal effort Abdomen: Soft/nontender/nondistended. No hepatosplenomegaly Extremities: No clubbing/cyanosis. No edema Behavior: Appropriate, cooperative Results & Data Results & Data Vital Signs (Past 12 Hours) Vital Signs Temp Pulse Pulse Resp BP BP Pulse Ox 04/25/25 14:00 71 02/03/25 11:26 36.7 C 64 16 115/62 96 02/03/25 08:35 36.7 C 64 16 121/55 L 97 02/03/25 08:10 02/03/25 07:00 56 L 02/03/25 03:34 36.6 C 66 18 124/60 96 O2 Del Method 02/03/25 14:00 02/03/25 11:26 Room Air 02/03/25 08:35 Room Air 02/03/25 08:10 Room Air 02/03/25 07:00 02/03/25 03:34 Room Air PG Care Time/CCT Total # of Minutes Spent Total Time Spent with Patient: Total time spent is greater than 50% in coordination of care (as documented) at patient's floor/unit and/or counseling patient: Coding Level of Care Code 08526 SUB INP/OBS CARE 2/35MIN Diagnoses Pneumonia of left lower lobe due to infectious organism J18.9 Pneumonia type: due to unspecified organism Laterality: left Lung location: lower lobe of lung Generalized weakness R53.1 Parkinsons disease G20.A1 Benign localized prostatic hyperplasia with lower urinary tract symptoms (LUTS) N40.1 Atrial fibrillation I48.91 (1) Pneumonia Pneumonia type: due to unspecified organism Laterality: left Lung location: lower lobe of lung Qualified Code(s): J18.9 - Pneumonia, unspecified organism
--- NOTE | 2025-02-04 13:23 | Hospitalist Progress Note ---
Date of Service February 04, 2025 Assessment & Plan (1) Pneumonia: Plan: Acute Completed cefepime course duoneb, stable, (2) Generalized weakness: Plan: Acute on chronic with underlying Parkinson's disease -orthostatic hypotension on midodrine, on fludrocortisone neurology consulted; appreciate their input. Orders placed for stockings and abdominal binders Lasix discontinued need placement to STR. (3) Parkinsons disease: Plan: Chronic/stable - Continue Sinemet and Entacapone -address orthostatic hypotension significant orthostatic hypotension significant leg weakness neuro (Stacy) consulted; appreciate their input (4) Benign localized prostatic hyperplasia with lower urinary tract symptoms (LUTS): Plan: Chronic/stable - Continue finasteride (5) Atrial fibrillation: Plan: Chronic/stable - Examines in sinus, rate controlled - Continue metoprolol succ -cardiology consulted but they recommend continuing metoprolol - Not on DOAC as he has thrombocytopenia -high risk for bleeding Plan Chronic stable medical problems: 1. HFpEF - continue lasix 2. Depression - continue remeron and seroquel 3. Orthostatic hypotension likely secondary to Parkinson's - continue midodrine VTE ppx will be covered with SCDs, no chemoppx d/t thrombocytopenia. Peer to peer completed with insurance company. They want the patient to be able to participate in therapy and her orthostatic hypotension to be controlled enough so he can benefit from rehab. Informed therapeutic case manager and nurse. Orthostatic vital signs will be checked daily. Orthostatic vital signs are improved. I now see PT notes documenting patient's participation. The therapeutic case manager will need to resubmit authorization request next Admission and Anticipated Discharge Date Admission Date: January 26, 2025 Subjective Patient feels well. Denies chest pain or shortness of breath. No dizziness Review of Systems Review of Systems: All systems reviewed & are unremarkable except as noted in Subjective Physical Exam Physical Exam: General: Awake, conversant. Frail looking elderly male Heart: S1, S2/regular rate and rhythm, no murmur rubs or gallops Lungs: Clear to auscultation bilaterally. Normal effort Abdomen: Soft/nontender/nondistended. No hepatosplenomegaly Extremities: No clubbing/cyanosis. No edema Behavior: Appropriate, cooperative Results & Data Results & Data Vital Signs (Past 12 Hours) Vital Signs Temp Pulse Pulse Resp BP Pulse Ox O2 Del Method 02/04/25 11:26 37.2 C 58 L 18 120/58 L 98 Room Air 02/04/25 10:43 Room Air 02/04/25 08:12 36.9 C 58 L 17 126/52 L 97 Room Air 02/04/25 07:22 59 L 02/04/25 04:20 36.9 C 62 18 116/64 95 Room Air PG Care Time/CCT Total # of Minutes Spent Total Time Spent with Patient: Total time spent is greater than 50% in coordination of care (as documented) at patient's floor/unit and/or counseling patient: Coding Level of Care Code 80366 SUB INP/OBS CARE 235MIN Diagnoses Pneumonia of left lower lobe due to infectious organism J18.9 Pneumonia type: due to unspecified organism Laterality: left Lung location: lower lobe of lung Generalized weakness R53.1 Parkinsons disease G20.A1 Benign localized prostatic hyperplasia with lower urinary tract symptoms (LUTS) N40.1 Atrial fibrillation I48.91 (1) Pneumonia Pneumonia type: due to unspecified organism Laterality: left Lung location: lower lobe of lung Qualified Code(s): J18.9 - Pneumonia, unspecified organism
--- NOTE | 2025-02-05 13:51 | Hospitalist Progress Note ---
Date of Service February 05, 2025 Assessment & Plan (1) Pneumonia: Plan: Acute Completed cefepime course duoneb, stable, (2) Generalized weakness: Plan: Acute on chronic with underlying Parkinson's disease -orthostatic hypotension on midodrine, on fludrocortisone neurology consulted; appreciate their input. Orders placed for stockings and abdominal binders Lasix discontinued need placement to STR. (3) Parkinsons disease: Plan: Chronic/stable - Continue Sinemet and Entacapone -address orthostatic hypotension. significant orthostatic hypotension. Improving with abdominal binders and leg stockings significant leg weakness neuro (Stacy) consulted; appreciate their input (4) Benign localized prostatic hyperplasia with lower urinary tract symptoms (LUTS): Plan: Chronic/stable - Continue finasteride (5) Atrial fibrillation: Plan: Chronic/stable - Examines in sinus, rate controlled - Continue metoprolol succ -cardiology consulted but they recommend continuing metoprolol - Not on DOAC as he has thrombocytopenia -high risk for bleeding Plan Chronic stable medical problems: 1. HFpEF - continue lasix 2. Depression - continue remeron and seroquel 3. Orthostatic hypotension likely secondary to Parkinson's - continue midodrine VTE ppx will be covered with SCDs, no chemoppx d/t thrombocytopenia. Peer to peer completed with insurance company. They want the patient to be able to participate in therapy and her orthostatic hypotension to be controlled enough so he can benefit from rehab. Informed patient case coordinator and nurse. Orthostatic vital signs will be checked daily. Orthostatic vital signs are improved. I now see PT notes documenting patient's participation. The patient case coordinator will need to resubmit authorization request next. Admission and Anticipated Discharge Date Admission Date: January 26, 2025 Subjective Patient feels well. Denies chest pain or shortness of breath. He said that when they were checking his orthostatic vital signs, he felt a little bit dizzy but much better compared to previously Review of Systems Review of Systems: All systems reviewed & are unremarkable except as noted in Subjective Physical Exam Physical Exam: General: Awake, conversant. Frail looking elderly male Heart: S1, S2/regular rate and rhythm, no murmur rubs or gallops Lungs: Clear to auscultation bilaterally. Normal effort Abdomen: Soft/nontender/nondistended. No hepatosplenomegaly Extremities: No clubbing/cyanosis. No edema Behavior: Appropriate, cooperative Results & Data Results & Data Vital Signs (Past 12 Hours) Vital Signs Temp Pulse Pulse Resp BP Pulse Ox O2 Del Method 02/05/25 11:22 36.7 C 55 L 18 117/62 95 Room Air 02/05/25 07:35 36.7 C 65 18 143/67 H 98 Room Air 02/05/25 07:11 61 02/05/25 03:38 36.5 C 55 L 18 131/61 100 Room Air PG Care Time/CCT Total # of Minutes Spent Total Time Spent with Patient: Total time spent is greater than 50% in coordination of care (as documented) at patient's floor/unit and/or counseling patient: Coding Level of Care Code 57165 SUB INP/OBS CARE 235MIN Diagnoses Pneumonia of left lower lobe due to infectious organism J18.9 Pneumonia type: due to unspecified organism Laterality: left Lung location: lower lobe of lung Generalized weakness R53.1 Parkinsons disease G20.A1 Benign localized prostatic hyperplasia with lower urinary tract symptoms (LUTS) N40.1 Atrial fibrillation I48.91 (1) Pneumonia Pneumonia type: due to unspecified organism Laterality: left Lung location: lower lobe of lung Qualified Code(s): J18.9 - Pneumonia, unspecified organism
--- NOTE | 2025-02-06 15:08 | Hospitalist Progress Note ---
Date of Service February 06, 2025 Assessment & Plan (1) Pneumonia: Plan: Acute Completed cefepime course duoneb, stable, (2) Generalized weakness: Plan: Acute on chronic with underlying Parkinson's disease -orthostatic hypotension on midodrine, on fludrocortisone neurology consulted; appreciate their input. Orders placed for stockings and abdominal binders Lasix discontinued need placement to STR. (3) Parkinsons disease: Plan: Chronic/stable - Continue Sinemet and Entacapone -address orthostatic hypotension. significant orthostatic hypotension. Improving with abdominal binders and leg stockings significant leg weakness neuro (Stacy) consulted; appreciate their input (4) Benign localized prostatic hyperplasia with lower urinary tract symptoms (LUTS): Plan: Chronic/stable - Continue finasteride (5) Atrial fibrillation: Plan: Chronic/stable - Examines in sinus, rate controlled - Continue metoprolol succ -cardiology consulted but they recommend continuing metoprolol - Not on DOAC as he has thrombocytopenia -high risk for bleeding Plan Chronic stable medical problems: 1. HFpEF - continue lasix 2. Depression - continue remeron and seroquel 3. Orthostatic hypotension likely secondary to Parkinson's - continue midodrine VTE ppx will be covered with SCDs, no chemoppx d/t thrombocytopenia. Peer to peer completed with insurance company. They want the patient to be able to participate in therapy and her orthostatic hypotension to be controlled enough so he can benefit from rehab. Informed case manager specialist and nurse. Orthostatic vital signs will be checked daily. Orthostatic vital signs are improved. I now see PT notes documenting patient's participation. The case manager specialist will need to resubmit authorization request next. Admission and Anticipated Discharge Date Admission Date: January 26, 2025 Subjective Patient feels well overall. Says that his dizziness upon standing is improving. Review of Systems Review of Systems: All systems reviewed & are unremarkable except as noted in Subjective Physical Exam Physical Exam: General: Awake, conversant. Frail looking elderly male Heart: S1, S2/regular rate and rhythm, no murmur rubs or gallops Lungs: Clear to auscultation bilaterally. Normal effort Abdomen: Soft/nontender/nondistended. No hepatosplenomegaly Extremities: No clubbing/cyanosis. No edema Behavior: Appropriate, cooperative Results & Data Results & Data Vital Signs (Past 12 Hours) Vital Signs Temp Pulse Pulse Resp BP Pulse Ox O2 Del Method 02/06/25 14:11 51 L 02/06/25 07:39 36.6 C 63 20 115/54 L 96 Room Air 02/06/25 07:23 60 02/06/25 04:04 37 C 59 L 16 143/74 H 97 Room Air PG Care Time/CCT Total # of Minutes Spent Total Time Spent with Patient: Total time spent is greater than 50% in coordination of care (as documented) at patient's floor/unit and/or counseling patient: Coding Level of Care Code 32561 SUB INP/OBS CARE 2/35MIN Diagnoses Pneumonia of left lower lobe due to infectious organism J18.9 Pneumonia type: due to unspecified organism Laterality: left Lung location: lower lobe of lung Generalized weakness R53.1 Parkinsons disease G20.A1 Benign localized prostatic hyperplasia with lower urinary tract symptoms (LUTS) N40.1 Atrial fibrillation I48.91 (1) Pneumonia Pneumonia type: due to unspecified organism Laterality: left Lung location: lower lobe of lung Qualified Code(s): J18.9 - Pneumonia, unspecified organism
--- NOTE | 2025-02-07 10:22 | Hospitalist Progress Note ---
Date of Service February 07, 2025 Assessment & Plan (1) Pneumonia: Plan: Acute Completed cefepime course duoneb, stable, (2) Generalized weakness: Plan: Acute on chronic with underlying Parkinson's disease -orthostatic hypotension on midodrine, on fludrocortisone neurology consulted; appreciate their input. Orders placed for stockings and abdominal binders Lasix discontinued need placement to STR. (3) Parkinsons disease: Plan: Chronic/stable - Continue Sinemet and Entacapone -address orthostatic hypotension. significant orthostatic hypotension. Improving with abdominal binders and leg stockings significant leg weakness neuro (Stacy) consulted; appreciate their input (4) Benign localized prostatic hyperplasia with lower urinary tract symptoms (LUTS): Plan: Chronic/stable - Continue finasteride (5) Atrial fibrillation: Plan: Chronic/stable - Examines in sinus, rate controlled - Continue metoprolol succ -cardiology consulted but they recommend continuing metoprolol - Not on DOAC as he has thrombocytopenia -high risk for bleeding Plan Chronic stable medical problems: 1. HFpEF - continue lasix 2. Depression - continue remeron and seroquel 3. Orthostatic hypotension likely secondary to Parkinson's - continue midodrine VTE ppx will be covered with SCDs, no chemoppx d/t thrombocytopenia. Peer to peer completed with insurance company. They want the patient to be able to participate in therapy and her orthostatic hypotension to be controlled enough so he can benefit from rehab. Informed watch case polisher and nurse. Orthostatic vital signs will be checked daily. Orthostatic vital signs are improved. I now see PT notes documenting patient's participation. The watch case polisher will need to resubmit authorization request next. Awaiting authorization and placement. Admission and Anticipated Discharge Date Admission Date: January 26, 2025 Subjective No events overnight. Pt resting comfortably in bed. Review of Systems Review of Systems: CONST: Negative for fever, body aches and chills. HENT: Negative for neck pain/stiffness, headache, congestion, sore throat, swelling. EYES: Negative for discharge/pain or vision changes. RESP: Negative for cough/hemoptysis and shortness of breath. CV: Negative chest pain, difficulty breathing, palpitations. ABD: Negative pain, nausea, vomiting. : Negative increase frequency, dysuria, blood in urine or stool. MUSC: Negative for muscle aches, edema. SKIN: Negative rash, lesions/sores. NEURO: Negative headache, dizziness, weakness. Physical Exam Physical Exam: GENERAL APPEARANCE NAD, activity normal for age, well developed/ well nourished, no cyanosis, pallor, or diaphoresis. EYES lids/conjunctiva normal. EARS/NOSE/THROAT Mucous membranes moist, nares normal, lips/teeth normal uvula midline without oral pharyngeal erythema, exudate or swelling TMs normal bilaterally. No lymphangitis/lymphedema. HEAD/NECK normocephalic atraumatic, no facial trauma, neck is supple. RESPIRATORY respiratory effort normal, speaks in full sentences, no tripod position, no accessory muscle use. Lungs clear to auscultation without rhonchi, wheezes, rales CARDIAC Regular rate and rhythm, no edema. ABDOMINAL Soft, ND/NT. No evidence of fluid wave. No pulsatile masses on exam, rebound tenderness, Torres sign or pain over Mcburney's point. MUSCLES/EXTREMITIES No abnormal range of motion, no swelling. SKIN Warm, pink and dry. No rashes, dermatoses, petechiae or lesions. NEUROLOGICAL Speech is clear and appropriate. Normal level of consciousness. Gait and coordination are normal. 5/5 strength in all extremities. PSYCH Normal mood and affect. Judgement/competence is appropriate Results & Data Results & Data Vital Signs (Past 12 Hours) Vital Signs Temp Pulse Pulse Pulse Resp BP Pulse Ox 02/07/25 07:45 36.6 C 59 L 59 L 16 134/67 97 02/07/25 06:57 64 02/07/25 02:50 36.5 C 58 L 18 122/60 96 02/07/25 00:16 48 L 02/06/25 22:28 36.4 C L 56 L 18 130/64 97 O2 Del Method 02/07/25 07:45 Room Air 02/07/25 06:57 02/07/25 02:50 Room Air 02/07/25 00:16 02/06/25 22:28 Room Air PG Care Time/CCT Total # of Minutes Spent Total Time Spent with Patient: Total time spent is greater than 50% in coordination of care (as documented) at patient's floor/unit and/or counseling patient: Coding Level of Care Code 06319 SUB INP/OBS CARE 2/35MIN Diagnoses Pneumonia of left lower lobe due to infectious organism J18.9 Pneumonia type: due to unspecified organism Laterality: left Lung location: lower lobe of lung Generalized weakness R53.1 Parkinsons disease G20.A1 Benign localized prostatic hyperplasia with lower urinary tract symptoms (LUTS) N40.1 Atrial fibrillation I48.91 (1) Pneumonia Pneumonia type: due to unspecified organism Laterality: left Lung location: lower lobe of lung Qualified Code(s): J18.9 - Pneumonia, unspecified organism
[2025-02-07] MEDS: POLYETHYLENE (MIRALAX) 17 GM PACK PO PRN (11:51)
[2025-02-08 03:29] VITALS: TEMP 97.7
[2025-02-08 08:31] VITALS: PULSE 59; RESP 16; O2SAT 97
--- NOTE | 2025-02-08 10:05 | Discharge Summary ---
Discharge Summary Date of Service February 08, 2025 Principal Dx & Hospital Course #1 = Principal Diagnosis (1) Pneumonia: Acute Completed cefepime course duoneb, stable, (2) Generalized weakness: Acute on chronic with underlying Parkinson's disease -orthostatic hypotension on midodrine, on fludrocortisone neurology consulted; appreciate their input. Orders placed for stockings and abdominal binders Lasix discontinued need placement to STR. (3) Parkinsons disease: Chronic/stable - Continue Sinemet and Entacapone -address orthostatic hypotension. significant orthostatic hypotension. Improving with abdominal binders and leg stockings significant leg weakness neuro (Stacy) consulted; appreciate their input (4) Benign localized prostatic hyperplasia with lower urinary tract symptoms (LUTS): Chronic/stable - Continue finasteride (5) Atrial fibrillation: Chronic/stable - Examines in sinus, rate controlled - Continue metoprolol succ -cardiology consulted but they recommend continuing metoprolol - Not on DOAC as he has thrombocytopenia -high risk for bleeding Plan Chronic stable medical problems: 1. HFpEF - continue lasix 2. Depression - continue remeron and seroquel 3. Orthostatic hypotension likely secondary to Parkinson's - continue midodrine VTE ppx will be covered with SCDs, no chemoppx d/t thrombocytopenia. Peer to peer completed with insurance company. They want the patient to be able to participate in therapy and her orthostatic hypotension to be controlled enough so he can benefit from rehab. Informed case resource manager and nurse. Orthostatic vital signs will be checked daily. Orthostatic vital signs are improved. I now see PT notes documenting patient's participation. The case resource manager will need to resubmit authorization request next. Awaiting authorization and placement. Admission HPI Per Admitting Provider Alex ("Carlos") is an 84 yo M with a pmhx of Parkinson's disease, paroxysmal afib, HFpEF, HTN, thrombocytopenia and BPH w/ LUTS who presents to the ER today accompanied by his c/o generalized weakness and fall. Patient reportedly had a fall overnight while ambulating back to his bed from the bathroom and had to summon EMS to assist him back into bed. Today, he was walking over from his lift chair to assist his with something and then he noted feeling weak, when he attempted to ambulate back to his lift chair, he missed the chair and fell. He reports slight cough and some feeling more short winded than usual. He denies fever, chest pain, productive cough, n/v/d, f/c, headache, or urinary symptoms. He does endorse constipation. He denies injury from the fall. Vitals are stable, he is afebrile, and HR and BP are normal. He has no leukocytosis on CBC but known thrombocytopenia with a platelet count of 85. CRP elevated at 1.59, procalcitonin is normal. TB is up at 2.1 and alk phos is elevated at 213, both of which were elevated during previous admission. CXR demonstrates a LLL infiltrate and also incidental findings of a moderate size effusion on CT cervical spine. CTH negative and CT cervical spine without acute abnormalities. He was medicated with a dose of Rocephin and has been referred for admission to the hospital medicine service. Discharge Exam GENERAL APPEARANCE NAD, activity normal for age, well developed/ well nourished, no cyanosis, pallor, or diaphoresis. EYES lids/conjunctiva normal. EARS/NOSE/THROAT Mucous membranes moist, nares normal, lips/teeth normal uvula midline without oral pharyngeal erythema, exudate or swelling TMs normal bilaterally. No lymphangitis/lymphedema. HEAD/NECK normocephalic atraumatic, no facial trauma, neck is supple. RESPIRATORY respiratory effort normal, speaks in full sentences, no tripod position, no accessory muscle use. Lungs clear to auscultation without rhonchi, wheezes, rales CARDIAC Regular rate and rhythm, no edema. ABDOMINAL Soft, ND/NT. No evidence of fluid wave. No pulsatile masses on exam, rebound tenderness, Torres sign or pain over Mcburney's point. MUSCLES/EXTREMITIES No abnormal range of motion, no swelling. SKIN Warm, pink and dry. No rashes, dermatoses, petechiae or lesions. NEUROLOGICAL Speech is clear and appropriate. Normal level of consciousness. Gait and coordination are normal. 5/5 strength in all extremities. PSYCH Normal mood and affect. Judgement/competence is appropriate Discharge Plan Discharge Items Patient Disposition: Home - Self-Care Reason For Visit: PNEUMONIA Discharge Diagnosis: PNA, orthostatic hypotension Activity: Resume your previous activity Non-emergency contact: Primary Care Provider Call non-emergency contact if: you have any medication questions Follow-up/Referrals: Misael Swenson MD [Primary Care Provider] - Diet: Regular Addtl Attending Provider Instructions: Follow up with pmh 1 week Pending Studies at Discharge: No Stand-Alone Forms: My [facility], Smoking Cessation Medications and DC Order Prescriptions: Continued finasteride 5 mg tablet 5 mg PO HS Qty: 90 3RF solifenacin 10 mg tablet 10 mg PO HS Qty: 90 3RF niacin 1,000 mg Tablet Extended Release 24 Hr 2,000 mg PO HS quetiapine 100 mg Tablet 100 mg PO HS ciclopirox 8 % Solution 1 applic TOPICAL HS Rx Instructions: Infected Toe Nail entacapone 200 mg Tablet 200 mg PO TID Rx Instructions: Before meals mirtazapine 30 mg Tablet 30 mg PO HS vitamin B complex Tablet 1 tab PO DAILY carbidopa-levodopa 25-100 mg Tablet 1 tab PO TID Rx Instructions: Give before meals docusate sodium [Stool Softener] 100 mg Tablet 200 mg PO HS PRN (Reason: Constipation) glucosamine-chondroitin 750-600 mg Tablet 1 tab PO QAM Systane (propylene glycol) 0.4-0.3 % Drops 1 drp OPB QID PRN (Reason: Dry Eyes) dorzolamide-timolol (PF) 2-0.5 % Dropperette 1 drp OPB BID PreserVision AREDS-2 250-90-40-1 mg Capsule 1 tab PO BID Qty: 0 Prevagen 1 tab PO QAM furosemide 20 mg tablet 20 mg PO QAM metoprolol succinate 25 mg tablet extended release 24 hr 12.5 mg PO QAM cholecalciferol (vitamin D3) [Vitamin D3] 25 mcg (1,000 unit) Capsule 25 mcg PO DAILY midodrine 10 mg tablet 10 mg PO TID Rx Instructions: @0800,1200,1700 Discharge Orders: Discharge Order (Routine); Ordered 02/08/25 Ordered By: Blaise Londono Admission Data Admit Date/Time: 01/26/25 15:51 Attending Provider: Blaise Londono Admit Provider: Mat Zelaya Primary Care Provider: Misael Swenson Other Providers: Mat Zelaya; [facility]; [place]; [facility]; Jarod Antonio; [facility] Stay Data Consultations 01/26/25 15:45 ED Decision to Admit Stat 01/29/25 10:53 Consult Cardiology Routine 01/31/25 13:53 Consult Neurology Routine 01/31/25 15:21 Consult Neurology Routine Diagnostic Imagining Performed 01/26/25 12:04 CT cervical spine wo con Stat CT head/brain wo con Stat 01/26/25 16:43 US effusion-chest/mediastinum Routine Pending Results Patient Have Any Pending Studies at Discharge: No Discharge Instructions Given to Patient (Per Discharging Provider) Follow up with pmh 1 week Total Time Total Time Spent Total Time Spent (In Minutes): 50 Coding Level of Care Code 99075 INP/OBS DISCH >30 MIN Diagnoses Pneumonia of left lower lobe due to infectious organism J18.9 Pneumonia type: due to unspecified organism Laterality: left Lung location: lower lobe of lung Generalized weakness R53.1 Parkinsons disease G20.A1 Benign localized prostatic hyperplasia with lower urinary tract symptoms (LUTS) N40.1 Atrial fibrillation I48.91
[2025-02-08 10:11] VITALS: BP 157/62
== END 2025-02-08 11:53 | disposition home or self-care (01) | DRG 194 ==
LOC: ED 11:47 → SUATTDRO 15:51 → 3N 15:51 → 2W 01-27 17:56
DX: J18.9 Pneumonia, unspecified organism; Z79.899 Other long term (current) drug therapy; I50.32 Chronic diastolic (congestive) heart failure; N40.1 Benign prostatic hyperplasia with lower urinary tract symptoms; W19.XXXA Unspecified fall, initial encounter; R29.6 Repeated falls; I95.1 Orthostatic hypotension; G20.A1 Parkinson's disease without dyskinesia, without mention of fluctuations; I48.0 Paroxysmal atrial fibrillation; F32.A Depression, unspecified; Z88.8 Allergy status to other drugs, medicaments and biological substances; J90 Pleural effusion, not elsewhere classified; Z88.6 Allergy status to analgesic agent; D69.6 Thrombocytopenia, unspecified

== ENCOUNTER 2025-05-29 23:19 | Inpatient (IN) ==
[2025-05-30 00:17] LABS: Hematocrit (blood only) 35.2 % (42.0-52.0); Hemoglobin 12.3 g/dl (14.0-18.0); Immature Granulocytes # (auto) 0.01 K/uL (0.01-0.20); Immature Granulocytes % (auto) 0.2 %; Mean Corpuscular Hemoglobin 33.8 pg (25.0-34.0); Mean Corpuscular Volume 96.7 fL (80.0-100.0); Platelet Count 68 K/uL (130-400); RDW Standard Deviation 50.4 fL (36.4-46.3); Red Blood Count 3.64 M/uL (4.70-6.10); White Blood Count 6.29 K/ul (4.8-10.8)
--- NOTE | 2025-05-30 00:31 | Emergency Department Note ---
Impression & Plan Atrial fibrillation with rapid ventricular response, Bilateral leg edema, Heart failure with preserved ejection fraction ED Provider Note NAME: LENIN FAN AGE: 84 SEX: M : 1940 ARRIVES VIA: Ambulance INFORMANT: Patient, ED PROVIDER(S): Farhan Vargas MD CHIEF COMPLAINT: Fall HPI: This is an 84-year-old male presenting after a fall. Patient did fall in the bathroom, did not hit his head. Has no current head pain. He denies any blood thinner use. He states his biggest complaint is his right forearm that is painful, near his wrist and elbow. Patient does report pain to his upper back. ROS: See above HPI for pertinent positives & negatives. A total of 10 systems reviewed and were otherwise negative. PAST MEDICAL HISTORY: See Below PAST SURGICAL HISTORY: See Below FAMILY HISTORY: See Below SOCIAL HISTORY: See Below HOME MEDICATIONS: See Below ALLERGIES: See Below VITALS: See Below PHYSICAL EXAMINATION: Primary Survey Airway: Intact Breathing: Normal, breath sounds equal bilaterally Circulation: Skin warm, distal pulses 2+ Disability Pupils: Equal and reactive to light GCS: 15, Motor Function: Moves all extremities. Sensory: No deficits Secondary Survey GEN: Well developed and well-nourished HEAD: Normal cephalic atraumatic EYES: Pupils round reactive to light, conjunctiva clear, extraocular movements intact, no raccoons eyes ENT: no solitario's sign, nares patent, oropharynx clear NECK: No JVD, midline trachea, no midline C-spine tenderness, no paresthesias HEART: Regular rate and rhythm LUNGS: Clear to auscultation bilaterally. CHEST: Chest wall non-tender, no bruising/deformity BACK: Mild upper thoracic tenderness without step-off ABD: soft, non-tender, no rebound or guarding, PELVIS: Stable to rock EXT: 2+ global pulses, moving all extremities well, +5/5 muscle strength globally NEURO: CNII-XII grossly intact, no sensory deficits Skin: Skin tears on the right wrist MEDICAL DECISION MAKING: This is an 84-year-old male presenting after a fall. Will do screening x-rays of the right wrist, elbow and ankle. Otherwise of the CT of the head, C-spine and chest. - Blood work reveals hemoglobin 12.3 with platelet count of 68, lower than baseline. No severe electrolyte disturbances. Normal creatinine. - X-rays do not reveal signs of osseous fracture or dislocation - CT of the head and chest are negative for traumatic injury - CT of the chest also negative traumatic injury but does reveal bilateral gross pleural effusions with subsegmental collapse of both lower lobes with mild congestive changes and minimal pericardial effusion. Subtle sclerotic area noted in T7-T9 vertebrae - Patient is also in A-fib with RVR. His initial rate was in the 70s but is now jumped to the 120s. Goes as high as 140. Patient given 2 doses of metoprolol IV without resolution of atrial fibrillation with RVR. - Due to persistent A-fib with RVR as well as significant pleural effusion on CT, will admit the patient for further care - Care discussed with Dr. Tolbert for admission Differential diagnosis: Adrenal hemorrhage, wrist fracture, elbow fracture, intracranial hemorrhage, thoracic or cervical spine spine fractures Diagnostics interpreted by me: ECG: ECG independently interpreted by me with atrial fibrillation with RVR, rate 120 normal QRS, normal QTc, no ST segment elevations consistent with STEMI criteria Cardiac Monitoring: An order was placed for continuous cardiac monitoring. The monitor shows a rate o 125 with atrial fibrillation rhythm. Critical Care Note: I have personally spent 37 minutes of critical care time in the direct management of this patient. This includes bedside care, interpretation of diagnostic studies, and testing, discussion with consultants, patient, and family members, and other required patient management activities. This 37 minutes is in excess of all separately billable procedures. Past Med/Surg History Problem List (Updated 05/31/25 @ 03:15 by Farhan Vargas MD) Thrombocytopenia Hypocalcemia Hypokalemia Pleural effusion, bilateral Orthostatic hypotension Pneumonia (Acute) Ambulatory dysfunction Heart failure with preserved ejection fraction (Acute) Elevated brain natriuretic peptide (BNP) level (Acute) Bilateral leg edema (Acute) Atrial fibrillation with rapid ventricular response (Acute) Small bowel obstruction (Acute) Small bowel obstruction Deviated nasal septum Nasal crusting Impacted cerumen Urinary urgency (Acute) BPH (benign prostatic hyperplasia) Medical History Fall Weakness Generalized weakness Pneumonia Thrombocytopenia Recurrent falls Atrial fibrillation Parkinsons disease Benign localized prostatic hyperplasia with lower urinary tract symptoms (LUTS) Surgical History History of cataract extraction 02/2017-bilateral History of bladder surgery Green light laser surgery for excess bladder tissue-03/09/14 History of Mohs micrographic surgery for skin cancer Head-2015 Left arm-2013 History of sebaceous cyst x3-2 on back, 1 on chest History of tonsillectomy and adenoidectomy 1948 History of surgery femur [id number] leg repair laser vaporization with transurethral resection of prostate Previous back surgery H/O: knee surgery Family History Brother Prostate cancer Father Hypertension Heart disease following heart attack Mother Hearing loss Heart disease following heart attack Other No family history of adverse response to anesthesia No family history of bleeding disorder Social History Smoking Status: Never smoker Do You Dip or Chew Tobacco: No; Hx Alcohol Use: No Hx Substance Use: No Preferred Language: [place] Communication Ability: Effective Dispatch Specialist Required: No Beliefs That Will Affect Care: None marital status: Current Living Situation: Spouse current occupational status: retired Feels Safe at Home: Yes Safety Concerns: Feels Safe At This Time Assistive Devices: Walker Allergies Allergies Allergy/AdvReac Type Severity Reaction Status Date / Time acetaminophen Allergy Unknown ANKLES Verified 01/26/25 15:23 SWELL UP benzalkonium chloride Allergy Unknown UNKNOWN Verified 01/26/25 15:23 brimonidine Allergy Unknown UNKNOWN Verified 01/26/25 15:23 travoprost Allergy Unknown UNKNOWN Verified 01/26/25 15:23 diclofenac [From Voltaren] Allergy Verified 01/26/25 15:23 Home Meds Home Medications Medication Instructions Recorded Confirmed Prevagen 1 tab PO QAM 06/09/24 01/26/25 carbidopa 25 mg-levodopa 100 mg 1 tab PO TID 06/09/24 05/30/25 tablet ciclopirox 8 % topical solution 1 applic topical HS 06/09/24 01/26/25 docusate sodium 100 mg tablet 200 mg PO HS PRN Constipation 06/09/24 01/26/25 (Stool Softener) dorzolamide-timolol (PF) 2 %-0.5 % 1 drp OPB BID 06/09/24 01/26/25 eye drops in a dropperette entacapone 200 mg tablet 200 mg PO TID 06/09/24 05/30/25 glucosamine-chondroitin 750 mg-600 1 tab PO QAM 06/09/24 01/26/25 mg tablet mirtazapine 30 mg tablet 15 mg PO HS 06/09/24 05/30/25 niacin 1,000 mg tablet,extended 2,000 mg PO HS 06/09/24 01/26/25 release 24 hr peg 400-propylene glycol 0.4 %-0.3 1 drp OPB QID PRN Dry Eyes 06/09/24 01/26/25 % eye drops (Systane (propylene glycol)) quetiapine 100 mg tablet 75 mg PO HS 06/09/24 05/30/25 vit C 250 mg-vit E 90 mg-zinc 40 1 tab PO BID ##0 06/09/24 01/26/25 mg-copper 1 [id number] capsule (PreserVision AREDS-2) vitamin B complex 1 tab PO DAILY 06/09/24 01/26/25 cholecalciferol (vitamin D3) 25 25 mcg PO DAILY 12/16/24 01/26/25 mcg (1,000 unit) capsule (Vitamin D3) furosemide 20 mg tablet 20 mg PO QAM 12/16/24 05/30/25 metoprolol succinate 25 mg 12.5 mg PO QAM 12/16/24 05/30/25 tablet,extended release 24 hr midodrine 10 mg tablet 5 mg PO TID 01/26/25 05/30/25 Previous Rx's Medication Instructions Recorded finasteride 5 mg tablet 5 mg PO HS #90 tabs 07/22/24 solifenacin 10 mg tablet 10 mg PO HS #90 tabs 07/22/24 Results & Data (ED) Vital Signs Vital Signs - 24 hr 05/30/25 03:15 05/30/25 03:30 Pulse Rate 105 H Pulse Rate [Apical] 106 H Respiratory Rate 20 Respiratory Effort / Characteristics Non-Labored Spontaneous Respiratory Depth Normal Respiratory Pattern Regular Blood Pressure 110/64 Blood Pressure [Right Arm] 125/100 Blood Pressure Mean [Right Arm] 108 Pulse Oximetry 96 Oxygen Delivery Method Room Air Laboratory Data 05/30/25 08:41 05/30/25 08:41 Lab Results 05/30/25 Range/Units 00:01 WBC 6.29 (4.8-10.8) K/ul RBC 3.64 L (4.70-6.10) M/uL Hgb 12.3 L (14.0-18.0) g/dl Hct 35.2 L (42.0-52.0) % MCV 96.7 (80.0-100.0) fL MCH 33.8 (25.0-34.0) pg MCHC 34.9 (32.0-36.0) g/dL RDW Std Deviation 50.4 H (36.4-46.3) fL RDW Coeff of Jose Luis 14.2 (11.5-14.5) % Plt Count 68 L (130-400) K/uL MPV 10.8 (9.4-12.4) fL Immature Gran % (Auto) 0.2 % Neut % (Auto) 69.2 % Lymph % (Auto) 21.8 % [place] % (Auto) 7.8 % Eos % (Auto) 0.8 % Baso % (Auto) 0.2 % Neut # (Auto) 4.36 (1.40-6.50) K/uL Lymph # (Auto) 1.37 (1.20-3.40) K/uL [place] # (Auto) 0.49 (0.11-0.59) K/uL Eos # (Auto) 0.05 (0.00-0.50) K/uL Baso # (Auto) 0.01 (0.00-0.20) K/uL Immature Gran # (Auto) 0.01 (0.01-0.20) K/uL Sodium 143 (136-145) mmol/L Potassium 3.3 L (3.5-5.1) mmol/L Chloride 103 (98-107) mmol/L Carbon Dioxide 35 H (21-32) mmol/L Anion Gap 5 (3-11) BUN 20 (6-23) mg/dl Creatinine 1.15 (0.6-1.4) mg/dl Est Cr Clr Drug Dosing 60.3 ml/min eGFR 62.76 BUN/Creatinine Ratio 17.4 (10-20) Glucose 160 H (70-99(Fasting)) mg/dl Calcium 7.8 L (8.6-10.3) mg/dl Magnesium 2.1 (1.7-2.4) mg/dl Total Bilirubin 1.6 H (0.2-1.0) mg/dl AST 36 (13-39) U/L ALT 10 (7-52) U/L Alkaline Phosphatase 248 H (34-104) U/L Total Protein 4.4 L (6.0-8.3) gm/dl Albumin 2.5 L (3.4-5.0) gm/dl Globulin 1.9 L (2.5-4.0) gm/dl Albumin/Globulin Ratio 1.3 (0.9-2) Lipase 14 (11-82) U/L TSH 1.878 (0.300-4.500) uIu/ml Administered Medications Carbidopa/Levodopa (Carbidopa/Levodopa 25/100mg Tab) 1 tab PO AC DENISSE Stop: 06/29/25 07:29 Last Admin: 05/30/25 16:26 Dose: 1 tab Documented By: Admin: 05/30/25 11:47 Dose: 1 tab Documented By: Admin: 05/30/25 08:46 Dose: 1 tab Documented By: MINA Entacapone (Entacapone 200 Mg Tab) 200 mg PO AC DENISSE Stop: 06/29/25 07:29 Last Admin: 05/30/25 16:26 Dose: 200 mg Documented By: Admin: 05/30/25 11:47 Dose: 200 mg Documented By: Admin: 05/30/25 08:46 Dose: 200 mg Documented By: MINA Finasteride (Finasteride 5 Mg Tab) 5 mg PO HS DENISSE Stop: 06/29/25 20:59 Last Admin: 05/30/25 20:20 Dose: 5 mg Documented By: RENETTA Furosemide (Furosemide 40 Mg/4 Ml Vial) 40 mg IV DAILY DENISSE Stop: 06/29/25 10:29 Last Admin: 05/30/25 11:13 Dose: 40 mg Documented By: MINA Amiodarone HCl/Dextrose (Nexterone / D5w) 360 mg in 200 mls @ 16.667 mls/hr IV .Q12H DENISSE Stop: 06/29/25 22:59 Last Admin: 05/30/25 23:38 Dose: 0.5 mg/min, 16.7 mls/hr Documented By: RENETTA Co-signed By: BELKIS Metoprolol Succinate (Metoprolol Succ 25mg Ext Rel Tab) 12.5 mg PO QAM DENISSE Stop: 06/29/25 08:59 Last Admin: 05/30/25 08:47 Dose: 12.5 mg Documented By: MINA Midodrine (Midodrine Hcl 2.5 Mg Tab) 5 mg PO TIDM DENISSE Stop: 06/29/25 07:59 Last Admin: 05/30/25 16:25 Dose: 5 mg Documented By: Admin: 05/30/25 11:47 Dose: 5 mg Documented By: Admin: 05/30/25 08:46 Dose: 5 mg Documented By: MINA Mirtazapine (Mirtazapine Tab 15 Mg Tab) 15 mg PO HS DENISSE Stop: 06/29/25 20:59 Last Admin: 05/30/25 20:20 Dose: 15 mg Documented By: RENETTA Oxybutynin Chloride (Oxybutynin Chloride Xl 5 Mg Tabcr) 10 mg PO HS DENISSE Stop: 06/29/25 20:59 Last Admin: 05/30/25 20:20 Dose: 10 mg Documented By: RENETTA Potassium Chloride (Potassium Chloride Crtab 20 Meq Tabcr) 20 meq PO BID DENISSE Stop: 06/29/25 10:29 Last Admin: 05/30/25 20:20 Dose: 20 meq Documented By: Admin: 05/30/25 11:14 Dose: 20 meq Documented By: MINA Quetiapine Fumarate (Quetiapine Fumarate 25 Mg Tablet) 75 mg PO HS DENISSE Stop: 06/29/25 20:59 Last Admin: 05/30/25 20:20 Dose: 75 mg Documented By: RENETTA Discontinued Medications Calcium Carbonate (Calcium Carbonate 500 Mg Chewable Tab) 1,000 mg PO NOW STA Stop: 05/30/25 03:35 Last Admin: 05/30/25 04:30 Dose: 1,000 mg Documented By: RADHA Furosemide (Furosemide 20 Mg Tab) 20 mg PO QAM DENISSE Stop: 06/29/25 08:59 Last Admin: 05/30/25 08:47 Dose: 20 mg Documented By: MINA Amiodarone HCl/Dextrose (Nexterone / D5w) 360 mg in 200 mls @ 33.333 mls/hr IV ONE ONE Stop: 05/30/25 23:01 Last Infusion: 05/30/25 23:38 Dose: Infused Documented By: RENETTA Co-signed By: BELKIS Admin: 05/30/25 17:55 Dose: 1 mg/min, 33.3 mls/hr Documented By: MINA Co-signed By: SILVIA Amiodarone HCl/Dextrose (Nexterone / D5w) 150 mg in 100 mls @ 600 mls/hr IV NOW STA Stop: 05/30/25 17:02 Last Infusion: 05/30/25 18:20 Dose: Infused Documented By: MINA Co-signed By: KENRICK Admin: 05/30/25 17:10 Dose: 600 mls/hr Documented By: MINA Co-signed By: KENRICK Metoprolol Tartrate (Metoprolol Tartrate 1 Mg/Ml Vial) 5 mg IV NOW STA Stop: 05/30/25 02:16 Last Admin: 05/30/25 02:20 Dose: 5 mg Documented By: ANJALI Metoprolol Tartrate (Metoprolol Tartrate 1 Mg/Ml Vial) 5 mg IV NOW STA Stop: 05/30/25 02:48 Last Admin: 05/30/25 02:51 Dose: 5 mg Documented By: ANJALI Potassium Chloride (Potassium Chloride Crtab 20 Meq Tabcr) 20 meq PO NOW STA Stop: 05/30/25 03:35 Last Admin: 05/30/25 04:30 Dose: 20 meq Documented By: RADHA Imaging Data Radiologist's Impression: Elbow X-Ray 05/29/25 23:56 EXAM: XR elbow RT min 3V routine CLINICAL HISTORY: fall, pain TECHNIQUE: X-ray images of the right elbow were obtained in anteroposterior (AP), lateral, and oblique projections. COMPARISON: No prior studies available for comparison. FINDINGS: Bone Structure: Small bony densities along the posterior aspect of the olecranon and along the medial and lateral epicondyles may represent enthesophytes; however, age-indeterminate avulsion fragments cannot be excluded. The rest of the bone structure is intact. The anterior and posterior fat pads are not elevated. Joint Spaces: Joint spaces are preserved. No evidence of joint effusion or subluxation. Articular surfaces are smooth and intact. No signs of osteophyte formation or subchondral sclerosis. Soft Tissues: Mild soft tissue swelling along the posterior aspect of the elbow. IMPRESSION: 1. Small bony densities along the posterior aspect of the olecranon and along the medial and lateral epicondyles likely represent enthesophytes; however, age-indeterminate avulsion fragments cannot be excluded. Correlation with point tenderness is suggested. 2. The anterior and posterior fat pads are not elevated. 3. Mild soft tissue swelling. Disclaimer: A subtle bone abnormality or fracture may not be readily apparent on X-rays, thus clinical correlation and further imaging including follow-up CT, MRI, or follow-up X-rays are advised as needed. Electronically signed by Efrain Byrne 05-30-2025 03:15 AM Wrist X-Ray 05/29/25 23:56 EXAM: XR wrist RT min 3V routine CLINICAL HISTORY: Pain to R wrist TECHNIQUE: X-ray images of the right wrist were obtained in anteroposterior (AP), lateral, and oblique projections. COMPARISON: No prior studies available for comparison. FINDINGS: Bone Structure: Bone structure is normal and aligned. No evidence of fracture or dislocation. No osseous lesions or abnormalities identified. Joint Spaces: Radio-carpal joint osteoarthritic changes. No evidence of joint effusion or subluxation. Soft Tissues: Soft tissues appear normal and unremarkable. No soft tissue swelling, calcifications, or foreign bodies noted. Additional Findings: Diffuse bony osteoporotic changes. 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 3. No evidence of acute fracture, dislocation, or significant soft tissue abnormalities. Disclaimer: A subtle bone abnormality or fracture may not be readily apparent on X-rays, thus clinical correlation and further imaging including follow-up CT, MRI, or follow-up X-rays are advised as needed. Electronically signed by Efrain Byrne 05-30-2025 02:46 AM Ankle X-Ray 05/30/25 00:01 EXAM: XR ankle RT min 3V routine CLINICAL HISTORY: pain TECHNIQUE: X-ray images of the right ankle were obtained in anteroposterior (AP), lateral, and mortise projections. COMPARISON: No prior studies available for comparison. FINDINGS: Bone Structure: No evidence of gross fracture or dislocation. Sesamoid bones/degenerative changes related to both medial and lateral malleoli. Joint Spaces: Joint spaces are normal. No evidence of joint effusion or subluxation. Soft Tissues: Soft tissues appear normal and unremarkable. No soft tissue swelling, or foreign bodies noted. Mild soft tissue vascular calcifications. Additional Findings: No signs of lytic or sclerotic lesions. Calcific enthesopathy of the Achilles tendon. Plantar calcaneal spur. IMPRESSION: No evidence of gross acute fracture, dislocation. Sesamoid bones/degenerative changes related to both medial and lateral malleoli. Please correlate clinically with the maximum point of pain to rule out an avulsion fracture. Calcific enthesopathy of the Achilles tendon. Plantar calcaneal spur. Disclaimer: A subtle bone abnormality or fracture may not be readily apparent on X-rays, thus clinical correlation and further imaging including follow-up CT, MRI, or follow-up X-rays are advised as needed. Electronically signed by Efrain Byrne 05-30-2025 02:[address] 05/30/25 00:01 EXAM: CT cervical spine wo con CLINICAL HISTORY: Fall, head trauma TECHNIQUE: Computed tomography of the cervical spine performed without intravenous contrast. Contiguous axial images were obtained from the skull base to T2, with sagittal and coronal reformatted images reconstructed from the axial data. CT scan was performed according to ALARA (as low as reasonable achievable). 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 FINDINGS: Loss of cervical lordosis - suggest possibility of muscle spasm/positional. Degenerative changes involving cervical spine in the form of multilevel marginal osteophytes, disc space reduction and facetal arthrosis. Cervical vertebral bodies are normal in height and alignment, with no evidence of fracture or subluxation. Lateral masses of C1 are symmetrical, and the dens is intact. Prevertebral soft tissues are not widened. The remaining suprahyoid and infrahyoid soft tissues in the neck are unremarkable. Posterior uncovertebral arthrosis is noted at C3-C4 to C67 levels, which indenting ventral thecal sac and causes bilateral neuroforaminal narrowing. Thyroid gland appears unremarkable. IMPRESSION: 1.No acute fracture or subluxation in the cervical spine. 2.Cervical spondylosis.-stable. No other new interval abnormality since prior study. Electronically signed by Charanjit Askew 05-30-2025 02:[address] 05/30/25 00:01 EXAM: CT head/brain wo con CLINICAL HISTORY: Fall, head trauma TECHNIQUE: Multiple axial images are obtained from the skull base to the vertex without contrast. CT scan was performed according to ALARA (as low as reasonable achievable). COMPARISON: February 03. FINDINGS: There is cerebral atrophy. No evidence of space occupying lesion, hemorrhage, edema, mass effect, midline shift, extra axial collection, or hydrocephalus is noted. Basal cisterns are symmetric and normal in size and configuration. There are scattered periventricular hypodensities as can be seen with chronic microvascular ischemic changes. The earl-white matter differentiation is preserved. Visualized paranasal sinuses and mastoid air cells are well aerated. Orbital contents are within normal limits. Bony structures are intact. IMPRESSION: 1. No evidence of acute intracranial abnormality is demonstrated. 2. Chronic microvascular ischemic changes.-stable. 3. Cerebral atrophy.-stable. No other new interval abnormality since prior study. Electronically signed by Charanjit Askew 05-30-2025 02:[address] 05/30/25 00:03 EXAM: CT chest diagnostic wo con CLINICAL HISTORY: thoracic back pain TECHNIQUE: Contiguous axial images were obtained from the neck base through the upper abdomen without contrast. In addition, sagittal and coronal reconstructions were performed to potentially increase the sensitivity for the detection of disease. CT scan was performed according to ALARA (as low as reasonable achievable). COMPARISON: None. FINDINGS: Gross bilateral pleural effusion with basal subsegmental collapse of both lower lobes are seen. Mild congestive changes involving bilateral lung bases. The lungs are clear, with no focal areas of consolidation. No pulmonary nodules are seen. The central airways are patent. There are no pleural effusions. No pneumothorax is seen. Evaluation of the mediastinum and mc is limited due to the lack of intravenous contrast. No axillary or mediastinal adenopathy is identified. The thyroid is unremarkable. The heart, aorta, and pulmonary arteries are of normal size and configuration. There are no appreciable coronary artery and aortic atherosclerotic calcifications. Minimal pericardial effusion is identified. Imaged portions of the upper abdomen are unremarkable. No aggressive appearing osseous lesions are identified. Mild degenerative changes involving visualized spine. Subtle sclerotic area is noted involving T7-T9 vertebra. IMPRESSION: Gross bilateral pleural effusion with basal subsegmental collapse of both lower lobes are seen. Mild congestive changes involving bilateral lung bases. Minimal pericardial effusion seen. Subtle sclerotic area is noted involving T7-T9 vertebra. Suggested correlation with previous imaging/imaging follow up. Electronically signed by Charanjit Askew 05-30-2025 02:14 AM Discharge Plan Visit Data Chief Complaint: Fall Stated Complaint: GLF, skin tear to right forearm, neck/back pain ED Provider: Farhan Vargas Discharge Problem: Atrial fibrillation with rapid ventricular response, Bilateral leg edema, Heart failure with preserved ejection fraction Patient Disposition: Admitted As Inpatient Condition: Fair Discharge Instructions Interventions: ED Discharge Assessment Last Done: 05/30/25 05:45
[2025-05-30 00:33] LABS: Alanine Aminotransferase 10.0 U/L (7-52); Albumin Globulin Ratio 1.3 (0.9-2); Alkaline Phosphatase 248.0 U/L (34-104); Anion Gap 5.0 (3-11); Bilirubin,Total 1.6 mg/dl (0.2-1.0); Blood Urea Nitrogen 20.0 mg/dl (6-23); Calcium 7.8 mg/dl (8.6-10.3); Carbon Dioxide 35.0 mmol/L (21-32); Chloride 103.0 mmol/L (98-107); Creatinine Clr Calc Pharmacy 60.3 ml/min; Globulin 1.9 gm/dl (2.5-4.0); Glucose 160.0 mg/dl (70-99(Fasting)); Lipase 14.0 U/L (11-82); Potassium 3.3 mmol/L (3.5-5.1); Sodium 143.0 mmol/L (136-145); Total Protein 4.4 gm/dl (6.0-8.3)
--- NOTE | 2025-05-30 02:11 | CT Scan Report ---
EXAM: CT head/brain wo con CLINICAL HISTORY: Fall, head trauma TECHNIQUE: Multiple axial images are obtained from the skull base to the vertex without contrast. CT scan was performed according to ALARA (as low as reasonable achievable). COMPARISON: February 03. FINDINGS: There is cerebral atrophy. No evidence of space occupying lesion, hemorrhage, edema, mass effect, midline shift, extra axial collection, or hydrocephalus is noted. Basal cisterns are symmetric and normal in size and configuration. There are scattered periventricular hypodensities as can be seen with chronic microvascular ischemic changes. The earl-white matter differentiation is preserved. Visualized paranasal sinuses and mastoid air cells are well aerated. Orbital contents are within normal limits. Bony structures are intact. IMPRESSION: 1. No evidence of acute intracranial abnormality is demonstrated. 2. Chronic microvascular ischemic changes.-stable. 3. Cerebral atrophy.-stable. No other new interval abnormality since prior study. Electronically signed by Charanjit Askew 05-30-2025 02:11 AM
--- NOTE | 2025-05-30 02:15 | CT Scan Report ---
EXAM: CT chest diagnostic wo con CLINICAL HISTORY: thoracic back pain TECHNIQUE: Contiguous axial images were obtained from the neck base through the upper abdomen without contrast. In addition, sagittal and coronal reconstructions were performed to potentially increase the sensitivity for the detection of disease. CT scan was performed according to ALARA (as low as reasonable achievable). COMPARISON: None. FINDINGS: Gross bilateral pleural effusion with basal subsegmental collapse of both lower lobes are seen. Mild congestive changes involving bilateral lung bases. The lungs are clear, with no focal areas of consolidation. No pulmonary nodules are seen. The central airways are patent. There are no pleural effusions. No pneumothorax is seen. Evaluation of the mediastinum and mc is limited due to the lack of intravenous contrast. No axillary or mediastinal adenopathy is identified. The thyroid is unremarkable. The heart, aorta, and pulmonary arteries are of normal size and configuration. There are no appreciable coronary artery and aortic atherosclerotic calcifications. Minimal pericardial effusion is identified. Imaged portions of the upper abdomen are unremarkable. No aggressive appearing osseous lesions are identified. Mild degenerative changes involving visualized spine. Subtle sclerotic area is noted involving T7-T9 vertebra. IMPRESSION: Gross bilateral pleural effusion with basal subsegmental collapse of both lower lobes are seen. Mild congestive changes involving bilateral lung bases. Minimal pericardial effusion seen. Subtle sclerotic area is noted involving T7-T9 vertebra. Suggested correlation with previous imaging/imaging follow up. Electronically signed by Charanjit Askew 05-30-2025 02:14 AM
--- NOTE | 2025-05-30 02:16 | CT Scan Report ---
EXAM: CT cervical spine wo con CLINICAL HISTORY: Fall, head trauma TECHNIQUE: Computed tomography of the cervical spine performed without intravenous contrast. Contiguous axial images were obtained from the skull base to T2, with sagittal and coronal reformatted images reconstructed from the axial data. CT scan was performed according to ALARA (as low as reasonable achievable). COMPARISON: 12:16:26 [employer] . FINDINGS: Loss of cervical lordosis - suggest possibility of muscle spasm/positional. Degenerative changes involving cervical spine in the form of multilevel marginal osteophytes, disc space reduction and facetal arthrosis. Cervical vertebral bodies are normal in height and alignment, with no evidence of fracture or subluxation. Lateral masses of C1 are symmetrical, and the dens is intact. Prevertebral soft tissues are not widened. The remaining suprahyoid and infrahyoid soft tissues in the neck are unremarkable. Posterior uncovertebral arthrosis is noted at C3-C4 to C67 levels, which indenting ventral thecal sac and causes bilateral neuroforaminal narrowing. Thyroid gland appears unremarkable. IMPRESSION: 1.No acute fracture or subluxation in the cervical spine. 2.Cervical spondylosis.-stable. No other new interval abnormality since prior study. Electronically signed by Charanjit Askew 05-30-2025 02:15 AM
[2025-05-30] MEDS: METOPROLOL TARTRATE 1 MG/ML VIAL IV STA ×2 (02:20→02:51)
--- NOTE | 2025-05-30 02:47 | XRay Report ---
EXAM: XR wrist RT min 3V routine CLINICAL HISTORY: Pain to R wrist TECHNIQUE: X-ray images of the right wrist were obtained in anteroposterior (AP), lateral, and oblique projections. COMPARISON: No prior studies available for comparison. FINDINGS: Bone Structure: Bone structure is normal and aligned. No evidence of fracture or dislocation. No osseous lesions or abnormalities identified. Joint Spaces: Radio-carpal joint osteoarthritic changes. No evidence of joint effusion or subluxation. Soft Tissues: Soft tissues appear normal and unremarkable. No soft tissue swelling, calcifications, or foreign bodies noted. Additional Findings: Diffuse bony osteoporotic changes. 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 3. No evidence of acute fracture, dislocation, or significant soft tissue abnormalities. Disclaimer: A subtle bone abnormality or fracture may not be readily apparent on X-rays, thus clinical correlation and further imaging including follow-up CT, MRI, or follow-up X-rays are advised as needed. Electronically signed by Efrain Byrne 05-30-2025 02:46 AM
--- NOTE | 2025-05-30 02:47 | XRay Report ---
EXAM: XR ankle RT min 3V routine CLINICAL HISTORY: pain TECHNIQUE: X-ray images of the right ankle were obtained in anteroposterior (AP), lateral, and mortise projections. COMPARISON: No prior studies available for comparison. FINDINGS: Bone Structure: No evidence of gross fracture or dislocation. Sesamoid bones/degenerative changes related to both medial and lateral malleoli. Joint Spaces: Joint spaces are normal. No evidence of joint effusion or subluxation. Soft Tissues: Soft tissues appear normal and unremarkable. No soft tissue swelling, or foreign bodies noted. Mild soft tissue vascular calcifications. Additional Findings: No signs of lytic or sclerotic lesions. Calcific enthesopathy of the Achilles tendon. Plantar calcaneal spur. IMPRESSION: No evidence of gross acute fracture, dislocation. Sesamoid bones/degenerative changes related to both medial and lateral malleoli. Please correlate clinically with the maximum point of pain to rule out an avulsion fracture. Calcific enthesopathy of the Achilles tendon. Plantar calcaneal spur. Disclaimer: A subtle bone abnormality or fracture may not be readily apparent on X-rays, thus clinical correlation and further imaging including follow-up CT, MRI, or follow-up X-rays are advised as needed. Electronically signed by Efrain Byrne 05-30-2025 02:47 AM
--- NOTE | 2025-05-30 03:08 | History & Physical Report ---
Date of Service May 30, 2025 Assessment & Plan (1) Atrial fibrillation with rapid ventricular response: (2) Pleural effusion, bilateral: (3) Hypokalemia: (4) Hypocalcemia: Plan 84-year-old male PMHx Parkinson's disease, paroxysmal A-fib, HFpEF, HTN, thrombocytopenia, BPH with LUTS, and recurrent falls who presents via ambulance for a ground-level fall the night [employer]. ED evaluation is concerning for recurrent anemia and thrombocytopenia. He also was found to have low potassium and calcium. All of his imaging reveals negative traumatic findings, but CXR does reveal a bilateral pleural effusion with mild congestive changes and minimal pericardial effusion. He is brought in for A-fib with RVR as his heart rate has ranged from 90s to 130s. Patient did require 2 doses of metoprolol titrate 5 mg IV in the ED. #Afib w/ RVR H/o paroxysmal Afib, not on AC 2/2 recurrent falls. Received metoprolol tartrate 5mg IV x 2 in ED. Currently rate controlled in 90s. Asx. - EKG at admission initially NSR, but on repeat was Afib w/ RVR @ 120 bpm - CBC without leukocytosis, recurrent anemia and thrombocytopenia present; CMP K 3.3; TSH pending - Chest CT with pleural effusions bilat + pericardial effusion - Will provide IV metoprolol for uncontrolled rate, otherwise continue on home dosing #Pleural effusions/Pericardial effusion - Chest CT bilat pleural effusions, collapse, mild congestive changes, minimal pericardial effusion - Echo 12/2024 with pericardial effusion without evidence of tamponade - pending repeat - Incentive spirometry - Consider pulm consult #Fall GLF at place of residence, no symptoms prior to. Admits to "15 falls". Uses walker. Suspect mechanical fall. H/o orthostatic hypotension as well as PD. - Fall precautions - Continue midodrine - PT/OT ordered - appreciate assistance #Hypokalemia Asx, pending Mg. - K 3.3, Mg pending - BMP am - KCl 20 mEq po x 1 #Hypocalcemia Asx, in setting of low albumin. - Ca 7, albumin 2.5; corrected 8 - Calcium carbonate 500mg x 2 - Ca am #Elevated Alk phos Prior history of such, no abdominal pain - Alk phos 248 - Trend as appropriate #Anemia/Thrombocytopenia Prior history of, denies bleeding, not on thinners - H/H 12.3/35.2, plt 68 - No AC - Trend CBC #PD- Carbidopa levodopa, entacapone - continue #HFpEF- Furosemide - continue #BPH/Uro- Finasteride, solifenacin - continue #Psych- Mirtazapine, quetiapine - continue Some medications were able to be confirmed at time of admission, and adjustments were also made based off of fill history. Further medication reconciliation required. Dispo: Admit, PCU VTE Prohylaxis: SCDs This document was dictated utilizing [place] [place]. Please excuse any grammatical errors that may be secondary to use of this software. 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 Patient states that he has fallen approximately 15 times over the course of a few weeks, and that he falls all the time. At around [id number] he was getting up off the toilet when he ended up falling to the ground. He states that he hit his R elbow and R hip, but does not have any pain at this time. Denies hitting his head, not on blood thinners. States that he did not have any symptoms prior to falling to include dizziness, chest pain, or feeling as though he would pass out. He is denying any symptoms at this time. No chest pain or palpitations. No shortness of breath, cough, or orthopnea. Patient denies any fever or chills. States that the hospital is very cold and is requesting another blanket. Overall up again denies chest pain, SOB, palpitations, abdominal pain, N/V/D/C, numbness/tingling, fever/chills, URI symptoms, LUTS, weakness, lightheadedness, or syncope. ED evaluations reveals CBC without leukocytosis, H&H 12.3/35.2, platelets 68; CMP potassium 3.3, CO2 35, glucose 160, bilirubin 1.6, alkaline phosphatase 248, protein 4.4, albumin 2.5, globulin 1.9; calcium 7.8; lipase 14; R elbow XR small bony densities along posterior aspect of olecranon along medial/lateral epicondyles represent enthesophytes, soft tissue swelling, no fat pad; R wrist XR radiocarpal joint osteoarthritic changes, diffuse bone OP, no fracture or dislocation; R ankle XR no evidence of fracture or dislocation, sesamoid bone/degenerative changes related to both medial and lateral malleoli, calcific enthesopathy of the Achilles, plantar calcaneal spur; cervical spine CT no acute fracture or subluxation, cervical spondylosis is stable; head CT no evidence of acute findings, chronic microvascular ischemic changes and cerebral atrophy stable; CXR with bilateral pleural effusions with basilar subsegmental collapse of both lower lobes, mild congestive changes involving bilateral lung bases, minimal pericardial effusion, subtle sclerotic area involving T7-T9 vertebrae; EKG (#1) sinus rhythm with PACs and low voltage QRS at 71 bpm, EKG (#2) A-fib with RVR in the QRS at 120 bpm.; Provided with metoprolol tartrate 5mg x [address] Please see Dr[address] Tolbert attestation for adjustments/additions to treatment plan. Allergies Allergy/AdvReac Type Severity Reaction Status Date / Time acetaminophen Allergy Unknown ANKLES Verified 01/26/25 15:23 SWELL UP benzalkonium chloride Allergy Unknown UNKNOWN Verified 01/26/25 15:23 brimonidine Allergy Unknown UNKNOWN Verified 01/26/25 15:23 travoprost Allergy Unknown UNKNOWN Verified 01/26/25 15:23 diclofenac [From Voltaren] Allergy Verified 01/26/25 15:23 Home Medications Medication Instructions Recorded Confirmed Type Prevagen 1 tab PO QAM 06/09/24 01/26/25 History carbidopa 25 mg-levodopa 100 mg 1 tab PO TID 06/09/24 05/30/25 History tablet ciclopirox 8 % topical solution 1 applic topical HS 06/09/24 01/26/25 History docusate sodium 100 mg tablet 200 mg PO HS PRN Constipation 06/09/24 01/26/25 History (Stool Softener) dorzolamide-timolol (PF) 2 %-0.5 % 1 drp OPB BID 06/09/24 01/26/25 History eye drops in a dropperette entacapone 200 mg tablet 200 mg PO TID 06/09/24 05/30/25 History glucosamine-chondroitin 750 mg-600 1 tab PO QAM 06/09/24 01/26/25 History mg tablet mirtazapine 30 mg tablet 15 mg PO HS 06/09/24 05/30/25 History niacin 1,000 mg tablet,extended 2,000 mg PO HS 06/09/24 01/26/25 History release 24 hr peg 400-propylene glycol 0.4 %-0.3 1 drp OPB QID PRN Dry Eyes 06/09/24 01/26/25 History % eye drops (Systane (propylene glycol)) quetiapine 100 mg tablet 75 mg PO HS 06/09/24 05/30/25 History vit C 250 mg-vit E 90 mg-zinc 40 1 tab PO BID ##0 06/09/24 01/26/25 History mg-copper 1 [id number] capsule (PreserVision AREDS-2) vitamin B complex 1 tab PO DAILY 06/09/24 01/26/25 History finasteride 5 mg tablet 5 mg PO HS #90 tabs 07/22/24 05/30/25 Rx solifenacin 10 mg tablet 10 mg PO HS #90 tabs 07/22/24 05/30/25 Rx cholecalciferol (vitamin D3) 25 25 mcg PO DAILY 12/16/24 01/26/25 History mcg (1,000 unit) capsule (Vitamin D3) furosemide 20 mg tablet 20 mg PO QAM 12/16/24 05/30/25 History metoprolol succinate 25 mg 12.5 mg PO QAM 12/16/24 05/30/25 History tablet,extended release 24 hr midodrine 10 mg tablet 5 mg PO TID 01/26/25 05/30/25 History Past Med/Surg History Problem List (Updated 05/30/25 @ 04:32 by Yuly Vasquze PA-C) Hypocalcemia Hypokalemia Pleural effusion, bilateral Orthostatic hypotension Pneumonia (Acute) Ambulatory dysfunction Heart failure with preserved ejection fraction Elevated brain natriuretic peptide (BNP) level (Acute) Bilateral leg edema (Acute) Atrial fibrillation with rapid ventricular response (Acute) Small bowel obstruction (Acute) Small bowel obstruction Deviated nasal septum Nasal crusting Impacted cerumen Urinary urgency (Acute) BPH (benign prostatic hyperplasia) Medical History Fall Weakness Generalized weakness Pneumonia Thrombocytopenia Recurrent falls Atrial fibrillation Parkinsons disease Benign localized prostatic hyperplasia with lower urinary tract symptoms (LUTS) Surgical History History of cataract extraction 02/2017-bilateral History of bladder surgery Green light laser surgery for excess bladder tissue-03/09/14 History of Mohs micrographic surgery for skin cancer Head-2014 Left arm-2013 History of sebaceous cyst x3-2 on back, 1 on chest History of tonsillectomy and adenoidectomy 1948 History of surgery femur [id number] leg repair laser vaporization with transurethral resection of prostate Previous back surgery H/O: knee surgery Family History Brother Prostate cancer Father Hypertension Heart disease following heart attack Mother Hearing loss Heart disease following heart attack Other No family history of adverse response to anesthesia No family history of bleeding disorder Social History Smoking Status: Never smoker Do You Dip or Chew Tobacco: No; Hx Alcohol Use: No Hx Substance Use: No Preferred Language: Filipino Communication Ability: Effective Shelter Monitor Required: No Beliefs That Will Affect Care: None marital status: Current Living Situation: Spouse current occupational status: retired Feels Safe at Home: Yes Assistive Devices: Cane and Walker Review of Systems Review of Systems: All systems reviewed & are unremarkable except as noted in Subjective Physical Exam Physical Exam: General: No acute distress Skin: Warm and dry Head: Normocephalic, atraumatic Eyes: PERRL, conjunctivae clear, sclera non-icteric ENT: External ear and ear canal without swelling; nose atraumatic; good dentition, tongue normal appearance, pharynx normal Neck: Supple, no LAD Cardio: Irregularly irregular rhythm ranging between WNL HR and tachycardia, no M/G/R, S1 and S2 normal Resp: No respiratory distress, Lungs CTA in all lobes bilaterally, no wheezes, rales, or rhonchi Abdomen: Soft, symmetric, nontender; No masses or hepatosplenomegaly; Bowel sounds normoactive MSK: No deformities; pulses palpable and equal; no edema. Neuro: Awake, alert; Sensation intact bilaterally; CN grossly intact Psych: Quiet, slow voice. Appropriate mood and affect; good judgement and insight. Results & Data Results & Data Vital Signs (Past 12 Hours) Vital Signs Temp Pulse Pulse Resp BP BP Pulse Ox 05/30/25 02:51 129 H 107/88 05/30/25 02:36 124 H 123/95 05/30/25 02:21 121 H 05/30/25 02:20 123 H 103/84 05/30/25 01:14 105 H 17 134/89 99 05/29/25 23:32 77 05/29/25 23:08 36.8 C 71 18 151/80 H 96 O2 Del Method 05/30/25 02:51 05/30/25 02:36 05/30/25 02:21 05/30/25 02:20 05/30/25 01:14 Room Air 05/29/25 23:32 05/29/25 23:08 Room Air Laboratory Results 05/30/25 00:01 WBC 6.29 RBC 3.64 L Hgb 12.3 L Hct 35.2 L MCV 96.7 MCH 33.8 MCHC 34.9 RDW Std Deviation 50.4 H RDW Coeff of Jose Luis 14.2 Plt Count 68 L MPV 10.8 Immature Gran % (Auto) 0.2 Neut % (Auto) 69.2 Lymph % (Auto) 21.8 [place] % (Auto) 7.8 Eos % (Auto) 0.8 Baso % (Auto) 0.2 Neut # (Auto) 4.36 Lymph # (Auto) 1.37 [place] # (Auto) 0.49 Eos # (Auto) 0.05 Baso # (Auto) 0.01 Immature Gran # (Auto) 0.01 Sodium 143 Potassium 3.3 L Chloride 103 Carbon Dioxide 35 H Anion Gap 5 BUN 20 Creatinine 1.15 Est Cr Clr Drug Dosing 60.3 eGFR 62.76 BUN/Creatinine Ratio 17.4 Glucose 160 H Calcium 7.8 L Total Bilirubin 1.6 H AST 36 ALT 10 Alkaline Phosphatase 248 H Total Protein 4.4 L Albumin 2.5 L Globulin 1.9 L Albumin/Globulin Ratio 1.3 Lipase 14 Diagnostic Findings Wrist X-Ray 05/29/25 23:56 EXAM: XR wrist RT min 3V routine CLINICAL HISTORY: Pain to R wrist TECHNIQUE: X-ray images of the right wrist were obtained in anteroposterior (AP), lateral, and oblique projections. COMPARISON: No prior studies available for comparison. FINDINGS: Bone Structure: Bone structure is normal and aligned. No evidence of fracture or dislocation. No osseous lesions or abnormalities identified. Joint Spaces: Radio-carpal joint osteoarthritic changes. No evidence of joint effusion or subluxation. Soft Tissues: Soft tissues appear normal and unremarkable. No soft tissue swelling, calcifications, or foreign bodies noted. Additional Findings: Diffuse bony osteoporotic changes. 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 3. No evidence of acute fracture, dislocation, or significant soft tissue abnormalities. Disclaimer: A subtle bone abnormality or fracture may not be readily apparent on X-rays, thus clinical correlation and further imaging including follow-up CT, MRI, or follow-up X-rays are advised as needed. Electronically signed by Efrain Byrne 05-30-2025 02:46 AM Ankle X-Ray 05/30/25 00:01 EXAM: XR ankle RT min 3V routine CLINICAL HISTORY: pain TECHNIQUE: X-ray images of the right ankle were obtained in anteroposterior (AP), lateral, and mortise projections. COMPARISON: No prior studies available for comparison. FINDINGS: Bone Structure: No evidence of gross fracture or dislocation. Sesamoid bones/degenerative changes related to both medial and lateral malleoli. Joint Spaces: Joint spaces are normal. No evidence of joint effusion or subluxation. Soft Tissues: Soft tissues appear normal and unremarkable. No soft tissue swelling, or foreign bodies noted. Mild soft tissue vascular calcifications. Additional Findings: No signs of lytic or sclerotic lesions. Calcific enthesopathy of the Achilles tendon. Plantar calcaneal spur. IMPRESSION: No evidence of gross acute fracture, dislocation. Sesamoid bones/degenerative changes related to both medial and lateral malleoli. Please correlate clinically with the maximum point of pain to rule out an avulsion fracture. Calcific enthesopathy of the Achilles tendon. Plantar calcaneal spur. Disclaimer: A subtle bone abnormality or fracture may not be readily apparent on X-rays, thus clinical correlation and further imaging including follow-up CT, MRI, or follow-up X-rays are advised as needed. Electronically signed by Efrain Byrne 05-30-2025 02:[address] 05/30/25 00:01 EXAM: CT cervical spine wo con CLINICAL HISTORY: Fall, head trauma TECHNIQUE: Computed tomography of the cervical spine performed without intravenous contrast. Contiguous axial images were obtained from the skull base to T2, with sagittal and coronal reformatted images reconstructed from the axial data. CT scan was performed according to ALARA (as low as reasonable achievable). COMPARISON: 12:16:26 [employer] . FINDINGS: Loss of cervical lordosis - suggest possibility of muscle spasm/positional. Degenerative changes involving cervical spine in the form of multilevel marginal osteophytes, disc space reduction and facetal arthrosis. Cervical vertebral bodies are normal in height and alignment, with no evidence of fracture or subluxation. Lateral masses of C1 are symmetrical, and the dens is intact. Prevertebral soft tissues are not widened. The remaining suprahyoid and infrahyoid soft tissues in the neck are unremarkable. Posterior uncovertebral arthrosis is noted at C3-C4 to C67 levels, which indenting ventral thecal sac and causes bilateral neuroforaminal narrowing. Thyroid gland appears unremarkable. IMPRESSION: 1.No acute fracture or subluxation in the cervical spine. 2.Cervical spondylosis.-stable. No other new interval abnormality since prior study. Electronically signed by Charanjit Askew 05-30-2025 02:[address] 05/30/25 00:01 EXAM: CT head/brain wo con CLINICAL HISTORY: Fall, head trauma TECHNIQUE: Multiple axial images are obtained from the skull base to the vertex without contrast. CT scan was performed according to ALARA (as low as reasonable achievable). COMPARISON: February 03. FINDINGS: There is cerebral atrophy. No evidence of space occupying lesion, hemorrhage, edema, mass effect, midline shift, extra axial collection, or hydrocephalus is noted. Basal cisterns are symmetric and normal in size and configuration. There are scattered periventricular hypodensities as can be seen with chronic microvascular ischemic changes. The earl-white matter differentiation is preserved. Visualized paranasal sinuses and mastoid air cells are well aerated. Orbital contents are within normal limits. Bony structures are intact. IMPRESSION: 1. No evidence of acute intracranial abnormality is demonstrated. 2. Chronic microvascular ischemic changes.-stable. 3. Cerebral atrophy.-stable. No other new interval abnormality since prior study. Electronically signed by Charanjit Askew 05-30-2025 02:[address] 05/30/25 00:03 EXAM: CT chest diagnostic wo con CLINICAL HISTORY: thoracic back pain TECHNIQUE: Contiguous axial images were obtained from the neck base through the upper abdomen without contrast. In addition, sagittal and coronal reconstructions were performed to potentially increase the sensitivity for the detection of disease. CT scan was performed according to ALARA (as low as reasonable achievable). COMPARISON: None. FINDINGS: Gross bilateral pleural effusion with basal subsegmental collapse of both lower lobes are seen. Mild congestive changes involving bilateral lung bases. The lungs are clear, with no focal areas of consolidation. No pulmonary nodules are seen. The central airways are patent. There are no pleural effusions. No pneumothorax is seen. Evaluation of the mediastinum and mc is limited due to the lack of intravenous contrast. No axillary or mediastinal adenopathy is identified. The thyroid is unremarkable. The heart, aorta, and pulmonary arteries are of normal size and configuration. There are no appreciable coronary artery and aortic atherosclerotic calcifications. Minimal pericardial effusion is identified. Imaged portions of the upper abdomen are unremarkable. No aggressive appearing osseous lesions are identified. Mild degenerative changes involving visualized spine. Subtle sclerotic area is noted involving T7-T9 vertebra. IMPRESSION: Gross bilateral pleural effusion with basal subsegmental collapse of both lower lobes are seen. Mild congestive changes involving bilateral lung bases. Minimal pericardial effusion seen. Subtle sclerotic area is noted involving T7-T9 vertebra. Suggested correlation with previous imaging/imaging follow up. Electronically signed by Charanjit Askew 05-30-2025 02:14 AM Medications Administered Metoprolol tartrate 5mg IV x 2 ECG Additional Comments: EKG #1: Sinus rhythm with PACs, low voltage QRS 71 bpm, SD 150, QRS 86, QT/QTc 400/434, PRT 90/-70/-14 EKG #2: A-fib with RVR, low voltage QRS 120 bpm, QRS 78, QT/QTc 390/409, PRT*/-15/-30 Code Status & VTE Plan Code Status DNR/DNI PG Care Time/CCT Total # of Minutes Spent Total Time Spent with Patient: Total time spent is greater than 50% in coordination of care (as documented) at patient's floor/unit and/or counseling patient: Coding Level of Care Code 71269 INT INP/OBS CARE 3/75MIN Diagnoses Atrial fibrillation with rapid ventricular response I48.91 Pleural effusion, bilateral J90 Hypokalemia E87.6 Hypocalcemia E83.51
--- NOTE | 2025-05-30 03:15 | XRay Report ---
EXAM: XR elbow RT min 3V routine CLINICAL HISTORY: fall, pain TECHNIQUE: X-ray images of the right elbow were obtained in anteroposterior (AP), lateral, and oblique projections. COMPARISON: No prior studies available for comparison. FINDINGS: Bone Structure: Small bony densities along the posterior aspect of the olecranon and along the medial and lateral epicondyles may represent enthesophytes; however, age-indeterminate avulsion fragments cannot be excluded. The rest of the bone structure is intact. The anterior and posterior fat pads are not elevated. Joint Spaces: Joint spaces are preserved. No evidence of joint effusion or subluxation. Articular surfaces are smooth and intact. No signs of osteophyte formation or subchondral sclerosis. Soft Tissues: Mild soft tissue swelling along the posterior aspect of the elbow. IMPRESSION: 1. Small bony densities along the posterior aspect of the olecranon and along the medial and lateral epicondyles likely represent enthesophytes; however, age-indeterminate avulsion fragments cannot be excluded. Correlation with point tenderness is suggested. 2. The anterior and posterior fat pads are not elevated. 3. Mild soft tissue swelling. Disclaimer: A subtle bone abnormality or fracture may not be readily apparent on X-rays, thus clinical correlation and further imaging including follow-up CT, MRI, or follow-up X-rays are advised as needed. Electronically signed by Efrain Byrne 05-30-2025 03:15 AM
[2025-05-30 03:54] LABS: Magnesium 2.1 mg/dl (1.7-2.4)
[2025-05-30 04:21] LABS: Thyroid Stimulating Hormone 1.878 uIu/ml (0.300-4.500)
[2025-05-30] MEDS: POTASSIUM CHLORIDE CRTAB 20 MEQ TABCR PO STA (04:30)
[2025-05-30] MEDS: CALCIUM CARBONATE 500 MG CHEWABLE TAB PO STA (04:30)
[2025-05-30] MEDS ORDERED: MELATONIN 3 MG TAB PO PRN (06:40)
[2025-05-30] MEDS ORDERED: ONDANSETRON INJ 2 MG/ML 2 ML VIAL IV PRN (06:40)
[2025-05-30] MEDS: ENTACAPONE 200 MG TAB PO SCH (08:46)
[2025-05-30] MEDS: MIDODRINE HCL 2.5 MG TAB PO SCH (08:46)
[2025-05-30] MEDS: CARBIDOPA/LEVODOPA 25/100MG TAB PO SCH (08:46)
[2025-05-30] MEDS: FUROSEMIDE 20 MG TAB PO SCH (08:47)
[2025-05-30] MEDS: METOPROLOL SUCC 25MG EXT REL TAB PO SCH (08:47)
--- NOTE | 2025-05-30 09:07 | XRay Report ---
XR chest 1V portable CLINICAL HISTORY: CHF COMPARISON STUDY: 01/26/2025 FINDINGS: Heart size and pulmonary vasculature are normal. There is interval hazy opacity in the lung bases with obscuration of the diaphragm, left greater than right. No pneumothorax seen. IMPRESSION: Interval lung base opacity could represent atelectasis, pneumonia, or small pleural effu sions. ACT 112: Negative or not required by law. Electronically signed by: Javier Steele M.D. 05/30/2025 9:05 AM
[2025-05-30 09:23] LABS: Hematocrit (blood only) 43.5 % (42.0-52.0); Hemoglobin 15.1 g/dl (14.0-18.0); Mean Corpuscular Hemoglobin 33.6 pg (25.0-34.0); Mean Corpuscular Volume 96.7 fL (80.0-100.0); Platelet Count 78 K/uL (130-400); RDW Standard Deviation 50.4 fL (36.4-46.3); Red Blood Count 4.50 M/uL (4.70-6.10); White Blood Count 8.15 K/ul (4.8-10.8)
[2025-05-30 09:35] LABS: Anion Gap 6.0 (3-11); Blood Urea Nitrogen 20.0 mg/dl (6-23); Calcium 8.1 mg/dl (8.6-10.3); Carbon Dioxide 33.0 mmol/L (21-32); Chloride 104.0 mmol/L (98-107); Creatinine Clr Calc Pharmacy 70.0 ml/min; Glucose 152.0 mg/dl (70-99(Fasting)); Potassium 3.1 mmol/L (3.5-5.1); Sodium 143.0 mmol/L (136-145)
[2025-05-30] MEDS: FUROSEMIDE 40 MG/4 ML VIAL IV SCH (11:13)
[2025-05-30] MEDS: POTASSIUM CHLORIDE CRTAB 20 MEQ TABCR PO SCH (11:14)
--- NOTE | 2025-05-30 12:40 | Hospitalist Progress Note ---
Date of Service May 30, 2025 Assessment & Plan (1) Atrial fibrillation with rapid ventricular response: Plan: Paroxysmal. He received intravenous metoprolol in the ED. He has converted to normal sinus rhythm at approximately 824 this morning. Repeat EKG is pending. Continue telemetry and current medical management (2) Pleural effusion, bilateral: Plan: He appears to have acute on chronic diastolic CHF. BNP is elevated at 474. He is now on parenteral Lasix therapy. Will monitor intake and output. Serial chest x-ray (3) Hypokalemia: Plan: Potassium was 3.3 on admission. Oral potassium replacement has been ordered. Serial labs (4) Hypocalcemia: Plan: Mild on admission. No intervention necessary at this time. Will follow (5) Thrombocytopenia: Plan: Chronic per history. Platelet count 68,000. Will follow. No anticoagulant therapy at this time (6) Ambulatory dysfunction: Plan: With frequent falls. Will avoid systemic anticoagulation. OT and PT assessments have been requested Plan To be determined by OT and PT assessments. He may need SNF placement Admission and Anticipated Discharge Date Admission Date: May 30, 2025 Subjective Awake and alert. No distress. He converted back to normal sinus rhythm from atrial fibrillation at 824 this morning. Repeat EKG is pending. He appears to have acute on chronic diastolic CHF. He is now on IV Lasix. Oral potassium replacement ordered. Fortunately he is on room air. Platelet count is low at 16,000 and will be followed. Will request OT and PT assessments tomorrow Review of Systems 2 Review of Systems: Constitutionalno fever or chills ENTno blurred vision, no double vision, no epistaxis, no sore throat Respiratoryno cough, no wheezing, no shortness of breath Cardiacno palpitations, no chest pain, no syncope Lorenzo nausea, vomiting, diarrhea, melena, hematochezia GUno urinary retention, no urinary incontinence, no dysuria, no hematuria Musculoskeletalno joint pain, no muscle tenderness Skinno bruising, no rashes, no pruritus Neurono isolated weakness, no paresthesia. He does have generalized weakness and chronic ambulatory dysfunction Psychno depression, no anxiety Physical Exam 2 Physical Exam: General-alert and oriented x3, no fever, no chills HEENT-head atraumatic and normocephalic, pupils equal and reactive to light, extraocular muscles intact Neck-no lymphadenopathy or thyromegaly, trachea midline Chest-bibasilar inspiratory rales. No wheezing. No rhonchi Cardiac-regular rate and rhythm, normal S1 and S2 Abdomen-normal bowel sounds, no hepatosplenomegaly Bdchgfthfvi-6-2+ pitting edema bilateral lower extremities below the knees Neuro-cranial nerves II through XII intact, motor and sensory function within normal limits, strength symmetrical with generalized weakness, no focal deficits Psych-normal affect, normal mood Results & Data Results & Data Vital Signs (Past 12 Hours) Vital Signs Temp Pulse Pulse Resp BP BP BP 05/30/25 11:42 36.7 C 67 117/67 05/30/25 11:19 05/30/25 08:42 36.3 C L 75 18 130/71 05/30/25 08:06 05/30/25 08:02 128 H 05/30/25 06:40 36.4 C L 128 H 18 143/93 H 05/30/25 06:40 05/30/25 06:00 36.4 C L 96 H 18 143/93 H 05/30/25 05:39 95 H 17 130/86 05/30/25 04:30 115 H 17 118/82 05/30/25 03:30 106 H 20 125/100 05/30/25 03:15 105 H 110/64 05/30/25 03:00 100 H 17 110/64 05/30/25 02:51 129 H 107/88 05/30/25 02:36 124 H 123/95 05/30/25 02:21 121 H 05/30/25 02:20 123 H 103/84 05/30/25 01:14 105 H 17 134/89 Pulse Ox Pulse Ox O2 Del Method O2 Del Method 05/30/25 11:42 99 Room Air 05/30/25 11:19 Room Air 05/30/25 08:42 98 Room Air 05/30/25 08:06 Room Air 05/30/25 08:02 05/30/25 06:40 97 Room Air 05/30/25 06:40 98 Room Air 05/30/25 06:00 97 Room Air 05/30/25 05:39 98 Room Air 05/30/25 04:30 100 Room Air 05/30/25 03:30 96 Room Air 05/30/25 03:15 05/30/25 03:00 98 Room Air 05/30/25 02:51 05/30/25 02:36 05/30/25 02:21 05/30/25 02:20 05/30/25 01:14 99 Room Air Laboratory Results 05/30/25 08:41 05/30/25 08:41 PG Care Time/CCT Total # of Minutes Spent Total Time Spent with Patient: Total time spent is greater than 50% in coordination of care (as documented) at patient's floor/unit and/or counseling patient: Coding Level of Care Code 40515 SUB INP/OBS CARE 3/50MIN Diagnoses Atrial fibrillation with rapid ventricular response I48.91 Pleural effusion, bilateral J90 Hypokalemia E87.6 Hypocalcemia E83.51 Thrombocytopenia D69.6 Ambulatory dysfunction R26.2
[2025-05-30] MEDS ORDERED: STAT IV Infusion **Titration per Protocol STA (16:51)
[2025-05-30] MEDS ORDERED: AMIODARONE / D5W 150 MG/100 ML BAG IV STA (16:51)
[2025-05-30] MEDS ORDERED: AMIODARONE IV BOLUS & DRIP IV STA (16:51)
[2025-05-30] MEDS ORDERED: 0.2 MICRON FILTER SET 1 EACH IV STA (16:51)
[2025-05-30] MEDS: AMIODARONE / D5W 150 MG/100 ML BAG IV STA (17:10)
[2025-05-30 17:31] LABS: Thyroid Stimulating Hormone 2.52 uIu/ml (0.300-4.500)
[2025-05-30] MEDS: AMIODARONE / D5W 360 MG/200 ML BAG IV ONE (17:55)
[2025-05-30] MEDS: MIRTAZAPINE TAB 15 MG TAB PO SCH (20:20)
[2025-05-30] MEDS: FINASTERIDE 5 MG TAB PO SCH (20:20)
[2025-05-30] MEDS: OXYBUTYNIN CHLORIDE XL 5 MG TABCR PO SCH (20:20)
[2025-05-30] MEDS: AMIODARONE / D5W 360 MG/200 ML BAG IV SCH (23:38)
[2025-05-31 06:29] LABS: Hematocrit (blood only) 33.4 % (42.0-52.0); Hemoglobin 11.8 g/dl (14.0-18.0); Mean Corpuscular Hemoglobin 33.8 pg (25.0-34.0); Mean Corpuscular Volume 95.7 fL (80.0-100.0); Platelet Count 65 K/uL (130-400); RDW Standard Deviation 49.7 fL (36.4-46.3); Red Blood Count 3.49 M/uL (4.70-6.10); White Blood Count 5.89 K/ul (4.8-10.8)
[2025-05-31 06:30] LABS: Immature Granulocytes # (auto) 0.02 K/uL (0.01-0.20); Immature Granulocytes % (auto) 0.3 %
[2025-05-31 06:45] LABS: Anion Gap 3.0 (3-11); Blood Urea Nitrogen 18.0 mg/dl (6-23); Calcium 7.3 mg/dl (8.6-10.3); Carbon Dioxide 34.0 mmol/L (21-32); Chloride 106.0 mmol/L (98-107); Creatinine Clr Calc Pharmacy 77.9 ml/min; Glucose 151.0 mg/dl (70-99(Fasting)); Potassium 3.0 mmol/L (3.5-5.1); Sodium 143.0 mmol/L (136-145)
[2025-05-31] MEDS: POTASSIUM CHLORIDE / WTR 10 MEQ/100 ML PLCT IV SCH (11:05)
[2025-05-31] MEDS: LIOTHYRONINE SODIUM 5 MCG TAB PO SCH (12:01)
--- NOTE | 2025-05-31 12:03 | Hospitalist Progress Note ---
Date of Service May 31, 2025 Assessment & Plan (1) Atrial fibrillation with rapid ventricular response: Plan: Paroxysmal. He received intravenous metoprolol in the ED. He has converted to normal sinus rhythm on the morning of May 30 but then had recurrent atrial fibrillation. He was then started on an amiodarone drip and converted back to normal sinus rhythm. He was switched to oral amiodarone treatment today, May 31. (2) Pleural effusion, bilateral: Plan: He appears to have acute on chronic diastolic CHF. BNP is elevated at 474. Good diuretic response thus far from parenteral Lasix therapy. Repeat chest x- ray again tomorrow, June 01 (3) Hypokalemia: Plan: Potassium remains low due to Lasix diuresis. Oral and parenteral replacement ordered. Serial labs. (4) Hypocalcemia: Plan: Mild on admission. No intervention necessary at this time. Will follow (5) Thrombocytopenia: Plan: Chronic per history. Platelet count 65,000. Will follow. No anticoagulant therapy at this time (6) Ambulatory dysfunction: Plan: With frequent falls. Will avoid systemic anticoagulation. OT and PT assessments have been completed and both recommend rehab placement at discharge (7) Hypothyroidism: Plan: Free T3 levels are low. Free T4 levels are normal. Cytomel has been started today, May 31 Plan Anticipate discharge to rehab facility within the next 2 to 3 days. Admission and Anticipated Discharge Date Admission Date: May 30, 2025 Subjective Awake and alert. No distress. Good diuretic response to parenteral Lasix. Will repeat chest x-ray again tomorrow, June 01. Potassium is still low and oral and parenteral replacement ordered. He has converted back to normal sinus rhythm and amiodarone drip has been switched to oral dosing. I spoke to his , Mar, by phone. Both OT and PT recommend rehab placement at discharge and the patient and his are both aware that this will take place at the time of discharge. Hopefully he can be discharged in the next 2 to 3 days Review of Systems 2 Review of Systems: Constitutionalno fever or chills ENTno blurred vision, no double vision, no epistaxis, no sore throat Respiratoryno cough, no wheezing, no shortness of breath Cardiacno palpitations, no chest pain, no syncope Lorenzo nausea, vomiting, diarrhea, melena, hematochezia GUno urinary retention, no urinary incontinence, no dysuria, no hematuria Musculoskeletalno joint pain, no muscle tenderness Skinno bruising, no rashes, no pruritus Neurono isolated weakness, no paresthesia. He does have generalized weakness and chronic ambulatory dysfunction Psychno depression, no anxiety Physical Exam 2 Physical Exam: General-alert and oriented x3, no fever, no chills HEENT-head atraumatic and normocephalic, pupils equal and reactive to light, extraocular muscles intact Neck-no lymphadenopathy or thyromegaly, trachea midline Chest-bibasilar inspiratory rales. No wheezing. No rhonchi Cardiac-regular rate and rhythm, normal S1 and S2 Abdomen-normal bowel sounds, no hepatosplenomegaly Kraocfazyno-4-4+ pitting edema bilateral lower extremities below the knees Neuro-cranial nerves II through XII intact, motor and sensory function within normal limits, strength symmetrical with generalized weakness, no focal deficits Psych-normal affect, normal mood Results & Data Results & Data Vital Signs (Past 12 Hours) Vital Signs Temp Pulse Resp BP Pulse Ox O2 Del Method 05/31/25 11:10 36.5 C 60 20 146/66 H 98 Room Air 05/31/25 10:21 Room Air 05/31/25 08:13 36.3 C L 57 L 18 121/56 L 96 Room Air 05/31/25 03:48 36.6 C 59 L 14 107/60 97 Room Air Laboratory Results 05/31/25 05:41 05/31/25 05:41 PG Care Time/CCT Total # of Minutes Spent Total Time Spent with Patient: Total time spent is greater than 50% in coordination of care (as documented) at patient's floor/unit and/or counseling patient: Coding Level of Care Code 91935 SUB INP/OBS CARE 3/50MIN Diagnoses Atrial fibrillation with rapid ventricular response I48.91 Pleural effusion, bilateral J90 Hypokalemia E87.6 Hypocalcemia E83.51 Thrombocytopenia D69.6 Ambulatory dysfunction R26.2 Hypothyroidism E03.9
[2025-05-31] MEDS: POLYETHYLENE (MIRALAX) 17 GM PACK PO PRN (13:22)
[2025-05-31] MEDS: POTASSIUM CHLORIDE CRTAB 20 MEQ TABCR PO SCH (13:27)
[2025-05-31] MEDS: AMIODARONE 200 MG TAB PO SCH (16:13)
--- NOTE | 2025-05-31 17:39 | XCELERA ---
[id number]
[2025-05-31] MEDS: METOPROLOL TARTRATE 1 MG/ML VIAL IV STA (18:49)
[2025-06-01 06:09] LABS: Hematocrit (blood only) 38.4 % (42.0-52.0); Hemoglobin 13.3 g/dl (14.0-18.0); Immature Granulocytes # (auto) 0.02 K/uL (0.01-0.20); Immature Granulocytes % (auto) 0.3 %; Mean Corpuscular Hemoglobin 33.0 pg (25.0-34.0); Mean Corpuscular Volume 95.3 fL (80.0-100.0); Platelet Count 76 K/uL (130-400); RDW Standard Deviation 49.3 fL (36.4-46.3); Red Blood Count 4.03 M/uL (4.70-6.10); White Blood Count 6.35 K/ul (4.8-10.8)
[2025-06-01 06:26] LABS: Anion Gap 2.0 (3-11); Blood Urea Nitrogen 17.0 mg/dl (6-23); Calcium 7.7 mg/dl (8.6-10.3); Carbon Dioxide 33.0 mmol/L (21-32); Chloride 107.0 mmol/L (98-107); Creatinine Clr Calc Pharmacy 71.1 ml/min; Glucose 117.0 mg/dl (70-99(Fasting)); Potassium 3.8 mmol/L (3.5-5.1); Sodium 142.0 mmol/L (136-145)
[2025-06-01] MEDS ORDERED: AMIODARONE IV BOLUS & DRIP IV STA (07:34)
[2025-06-01] MEDS ORDERED: STAT IV Infusion **Titration per Protocol STA (07:34)
[2025-06-01] MEDS ORDERED: 0.2 MICRON FILTER SET 1 EACH IV STA (07:34)
[2025-06-01] MEDS: AMIODARONE / D5W 150 MG/100 ML BAG IV STA (07:52)
[2025-06-01] MEDS: AMIODARONE / D5W 360 MG/200 ML BAG IV ONE (08:08)
--- NOTE | 2025-06-01 08:10 | XRay Report ---
EXAM: XR chest 1V portable CLINICAL HISTORY: CHF TECHNIQUE: An X-ray image of the chest is obtained in AP portable projection. COMPARISON: 05/30/2025. FINDINGS: Pulmonary Parenchyma: Stable appearance of the bilateral mid and lower zonal faint opacities seen , can be related to effusion/air space opacification No pulmonary nodules are identified. Heart and Mediastinum: Heart size and shape are normal. No mediastinal widening or masses. No hilar or mediastinal lymphadenopathy. Bony Thorax: Bony thorax appears intact without fractures or deformities. Soft Tissues: Soft tissues overlying the chest wall are unremarkable. IMPRESSION: Stable appearance of the bilateral mid and lower zonal faint opacities is seen , can be related to effusion/air space opacification Electronically signed by Efrain Byrne 06-01-2025 08:10 AM
--- NOTE | 2025-06-01 12:27 | Hospitalist Progress Note ---
Date of Service June 01, 2025 Assessment & Plan (1) Atrial fibrillation with rapid ventricular response: Plan: Paroxysmal. He received intravenous metoprolol in the ED. He has had several episodes of normal sinus rhythm and recurrent atrial fibrillation with rapid ventricular rate. Amiodarone is new and was initially given IV then switched to oral dosing then switch back to IV dosing because of recurrent atrial fibrillation. Fortunately, cardiac echo revealed reveals normal left ventricular ejection fraction with normal left and right atrial size. Free T4 level is normal but free T3 level was low and he has been started on low-dose Cytomel replacement therapy. (2) Pleural effusion, bilateral: Plan: He appears to have acute on chronic diastolic CHF. BNP is elevated at 474. Good diuretic response thus far from parenteral Lasix therapy. Chest x-ray done today, June 01, shows no significant change with persistence of CHF which will eventually resolve. Will obtain chest x-ray every 2 days while hospitalized (3) Hypokalemia: Plan: Potassium now corrected to 3.8. Continue oral replacement. Serial labs. (4) Hypocalcemia: Plan: Mild on admission. No intervention necessary at this time. Will follow (5) Thrombocytopenia: Plan: Chronic per history. Platelet count is stable in the 70,000 range. Will follow. No anticoagulant therapy at this time (6) Ambulatory dysfunction: Plan: With frequent falls. Will avoid systemic anticoagulation. OT and PT assessments have been completed and both recommend rehab placement at discharge . Plan is for eventual discharge to [facility] (7) Hypothyroidism: Plan: Free T3 levels are low. Free T4 levels are normal. Cytomel was started on May 31 Plan Hopeful discharge to [facility] within the next day or 2 Admission and Anticipated Discharge Date Admission Date: May 30, 2025 Subjective Alert and in no acute distress. Unfortunately he flipped back into atrial fibrillation with a rapid ventricular rate and the amiodarone was switched back to parenteral dosing. He remains on room air. Chest x-ray done today continues to show evidence of CHF. He remains on intravenous Lasix with good diuretic response so far. Cardiac echo reveals mild left ventricular hypertrophy with normal ejection fraction and normal left atrial and right atrial size. Plan is for eventual discharge to [facility] for rehab. Review of Systems 2 Review of Systems: Constitutionalno fever or chills ENTno blurred vision, no double vision, no epistaxis, no sore throat Respiratoryno cough, no wheezing, no shortness of breath Cardiacno palpitations, no chest pain, no syncope Lorenzo nausea, vomiting, diarrhea, melena, hematochezia GUno urinary retention, no urinary incontinence, no dysuria, no hematuria Musculoskeletalno joint pain, no muscle tenderness Skinno bruising, no rashes, no pruritus Neurono isolated weakness, no paresthesia. He does have generalized weakness and chronic ambulatory dysfunction Psychno depression, no anxiety Physical Exam 2 Physical Exam: General-alert and oriented x3, no fever, no chills HEENT-head atraumatic and normocephalic, pupils equal and reactive to light, extraocular muscles intact Neck-no lymphadenopathy or thyromegaly, trachea midline Chest-bibasilar inspiratory rales. No wheezing. No rhonchi Cardiac-slightly tachycardic irregular rate and rhythm. Normal S1 and S2 Abdomen-normal bowel sounds, no hepatosplenomegaly Uuxkqmqfqvw-4-8+ pitting edema bilateral lower extremities below the knees has improved with diuresis Neuro-cranial nerves II through XII intact, motor and sensory function within normal limits, strength symmetrical with generalized weakness, no focal deficits Psych-normal affect, normal mood Results & Data Results & Data Vital Signs (Past 12 Hours) Vital Signs Temp Pulse Resp BP Pulse Ox O2 Del Method O2 Del Method 06/01/25 11:18 36.6 C 122 H 24 101/70 96 Room Air 06/01/25 08:00 36.7 C 126 H 18 109/75 94 Room Air 06/01/25 07:45 Room Air 06/01/25 05:55 Room Air 06/01/25 03:40 37.1 C 124 H 18 99/68 L 98 Room Air Laboratory Results 06/01/25 05:44 06/01/25 05:44 PG Care Time/CCT Total # of Minutes Spent Total Time Spent with Patient: Total time spent is greater than 50% in coordination of care (as documented) at patient's floor/unit and/or counseling patient: Coding Level of Care Code 64788 SUB INP/OBS CARE 3/50MIN Diagnoses Atrial fibrillation with rapid ventricular response I48.91 Pleural effusion, bilateral J90 Hypokalemia E87.6 Hypocalcemia E83.51 Thrombocytopenia D69.6 Ambulatory dysfunction R26.2 Hypothyroidism E03.9
[2025-06-01] MEDS: AMIODARONE / D5W 360 MG/200 ML BAG IV SCH (14:29)
[2025-06-02 06:18] LABS: Hematocrit (blood only) 35.4 % (42.0-52.0); Hemoglobin 12.4 g/dl (14.0-18.0); Immature Granulocytes # (auto) 0.02 K/uL (0.01-0.20); Immature Granulocytes % (auto) 0.3 %; Mean Corpuscular Hemoglobin 33.4 pg (25.0-34.0); Mean Corpuscular Volume 95.4 fL (80.0-100.0); Platelet Count 71 K/uL (130-400); RDW Standard Deviation 48.8 fL (36.4-46.3); Red Blood Count 3.71 M/uL (4.70-6.10); White Blood Count 6.25 K/ul (4.8-10.8)
[2025-06-02 06:37] LABS: Anion Gap 1.0 (3-11); Blood Urea Nitrogen 22.0 mg/dl (6-23); Calcium 7.8 mg/dl (8.6-10.3); Carbon Dioxide 33.0 mmol/L (21-32); Chloride 105.0 mmol/L (98-107); Creatinine Clr Calc Pharmacy 67.0 ml/min; Glucose 116.0 mg/dl (70-99(Fasting)); Potassium 3.9 mmol/L (3.5-5.1); Sodium 139.0 mmol/L (136-145)
[2025-06-02] MEDS: METOPROLOL SUCC 25MG EXT REL TAB PO SCH (08:46)
[2025-06-02] MEDS: AMIODARONE 200 MG TAB PO SCH (10:34)
--- NOTE | 2025-06-02 12:55 | Hospitalist Progress Note ---
Date of Service June 02, 2025 Assessment & Plan (1) Atrial fibrillation with rapid ventricular response: Plan: Paroxysmal. He received intravenous metoprolol in the ED. He has had several episodes of normal sinus rhythm and recurrent atrial fibrillation with rapid ventricular rate. Amiodarone is new and was initially given IV then switched to oral dosing then switch back to IV dosing because of recurrent atrial fibrillation. Fortunately, cardiac echo revealed reveals normal left ventricular ejection fraction with normal left and right atrial size. Free T4 level is normal but free T3 level was low and he has been started on low-dose Cytomel replacement therapy. Amiodarone drip switch back to oral dosing today, June 02. Metoprolol dosage was uptitrated today, June 02. (2) Pleural effusion, bilateral: Plan: He appears to have acute on chronic diastolic CHF. BNP is elevated at 474. Good diuretic response thus far from parenteral Lasix therapy. Chest x-ray done on June 01 shows no significant change with persistence of CHF which will eventually resolve. Will repeat chest x-ray again tomorrow, June 03. Will obtain chest x-ray every 2 days while hospitalized (3) Hypokalemia: Plan: Potassium now corrected. Continue oral replacement. Serial labs. (4) Hypocalcemia: Plan: Mild on admission. No intervention necessary at this time. Will follow (5) Thrombocytopenia: Plan: Chronic per history. Platelet count is stable in the 70,000 range. Will follow. No anticoagulant therapy at this time (6) Ambulatory dysfunction: Plan: With frequent falls. Will avoid systemic anticoagulation. OT and PT assessments have been completed and both recommend rehab placement at discharge . Plan is for eventual discharge to [facility] (7) Hypothyroidism: Plan: Free T3 levels are low. Free T4 levels are normal. Cytomel was started on May 31 Plan Hopeful discharge to [facility] within the next day or 2. Possibly tomorrowJune 03 Admission and Anticipated Discharge Date Admission Date: May 30, 2025 Subjective Alert. Medically stable. Ventricular rate associated with atrial fibrillation remains mildly elevated. Metoprolol dosage has been uptitrated. Amiodarone drip switched to oral dosing. Will repeat chest x-ray again tomorrow, June 03. Hopefully he can be discharged to [facility] tomorrowJune 03 Review of Systems 2 Review of Systems: Constitutionalno fever or chills ENTno blurred vision, no double vision, no epistaxis, no sore throat Respiratoryno cough, no wheezing, no shortness of breath Cardiacno palpitations, no chest pain, no syncope Lorenzo nausea, vomiting, diarrhea, melena, hematochezia GUno urinary retention, no urinary incontinence, no dysuria, no hematuria Musculoskeletalno joint pain, no muscle tenderness Skinno bruising, no rashes, no pruritus Neurono isolated weakness, no paresthesia. He does have generalized weakness and chronic ambulatory dysfunction Psychno depression, no anxiety Physical Exam 2 Physical Exam: General-alert and oriented x3, no fever, no chills HEENT-head atraumatic and normocephalic, pupils equal and reactive to light, extraocular muscles intact Neck-no lymphadenopathy or thyromegaly, trachea midline Chest-bibasilar inspiratory rales. No wheezing. No rhonchi Cardiac-slightly tachycardic irregular rate and rhythm. Normal S1 and S2 Abdomen-normal bowel sounds, no hepatosplenomegaly Xridbpvizsi-1-2+ pitting edema bilateral lower extremities below the knees has improved with diuresis Neuro-cranial nerves II through XII intact, motor and sensory function within normal limits, strength symmetrical with generalized weakness, no focal deficits Psych-normal affect, normal mood Results & Data Results & Data Vital Signs (Past 12 Hours) Vital Signs Temp Pulse Pulse Resp BP BP Pulse Ox 06/02/25 11:14 36.6 C 99 H 18 106/70 96 06/02/25 07:23 36.6 C 120 H 19 114/77 95 06/02/25 05:55 110 H 06/02/25 03:06 37.0 C 118 H 18 110/72 93 O2 Del Method 06/02/25 11:14 Room Air 06/02/25 07:23 Room Air 06/02/25 05:55 06/02/25 03:06 Room Air Laboratory Results 06/02/25 05:46 06/02/25 05:46 PG Care Time/CCT Total # of Minutes Spent Total Time Spent with Patient: Total time spent is greater than 50% in coordination of care (as documented) at patient's floor/unit and/or counseling patient: Coding Level of Care Code 52011 SUB INP/OBS CARE 3/50MIN Diagnoses Atrial fibrillation with rapid ventricular response I48.91 Pleural effusion, bilateral J90 Hypokalemia E87.6 Hypocalcemia E83.51 Thrombocytopenia D69.6 Ambulatory dysfunction R26.2 Hypothyroidism E03.9
--- NOTE | 2025-06-02 15:05 | Electrocardiogram Report ---
Test Reason : Blood Pressure : */* mmHG Vent. Rate : 62 BPM Atrial Rate : 62 BPM P-R Int : 138 ms QRS Dur : 74 ms QT Int : 470 ms P-R-T Axes : 28 -4 4 degrees QTcB Int : 477 ms Normal sinus rhythm Low voltage QRS Nonspecific T wave abnormality Abnormal ECG When compared with ECG of 30-May-2025 00:49, (unconfirmed) Sinus rhythm has replaced Atrial fibrillation Vent. rate has decreased by 58 bpm Borderline criteria for Inferior infarct are no longer Present Confirmed by Alex Baldwin ([id number]) on 06/02/2025 3:05:16 PM Referred By: REFERRED SELF Confirmed By: Alex Baldwin
--- NOTE | 2025-06-02 15:06 | Electrocardiogram Report ---
Test Reason : Blood Pressure : */* mmHG Vent. Rate : 107 BPM Atrial Rate : * BPM P-R Int : * ms QRS Dur : 84 ms QT Int : 284 ms P-R-T Axes : * 0 -2 degrees QTcB Int : 379 ms Atrial fibrillation with rapid ventricular response with premature ventricular or aberrantly conducte d complexes Low voltage QRS Nonspecific T wave abnormality Abnormal ECG When compared with ECG of 30-May-2025 00:49, (unconfirmed) Atrial fibrillation is now Present Confirmed by Alex Baldwin ([id number]) on 06/02/2025 3:06:23 PM Referred By: REFERRED SELF Confirmed By: Alex Baldwin
--- NOTE | 2025-06-03 09:20 | XRay Report ---
SINGLE VIEW CHEST CLINICAL HISTORY: Congestive heart failure. FINDINGS: 2 AP, portable, upright chest radiographs are compared to study dated 06/01/2025 and correla cherelle with chest CT dated 05/30/2025. The heart is enlarged noting atherosclerotic calcification of the thoracic aorta. There is pulmonary vascular congestion. There are layering pleural effusions with dep endent consolidation, left side larger than right. No pneumothorax is seen. The skeletal structures a re osteopenic. The bony thorax is grossly intact. Degenerative change is noted in the shoulders and s pine. IMPRESSION: 1. Cardiomegaly with evidence of congestive failure. 2. Left larger than right pleural effusions with dependent consolidation. ACT 112: Negative or not required by law. Electronically signed by: Reggie Acosta M.D. 06/03/2025 9:18 AM
--- NOTE | 2025-06-03 09:54 | Electrocardiogram Report ---
Test Reason : Blood Pressure : */* mmHG Vent. Rate : 120 BPM Atrial Rate : * BPM P-R Int : * ms QRS Dur : 78 ms QT Int : 290 ms P-R-T Axes : * -15 -13 degrees QTcB Int : 409 ms Atrial fibrillation with rapid ventricular response Low voltage QRS Possible Inferior infarct , age undetermined Abnormal ECG When compared with ECG of 29-Jan-2025 10:44, Atrial fibrillation has replaced Sinus rhythm Vent. rate has increased by 50 bpm Borderline criteria for Inferior infarct are now Present Confirmed by Alex Baldwin ([id number]) on 06/03/2025 9:53:58 AM Referred By: REFERRED SELF Confirmed By: Alex Baldwin
--- NOTE | 2025-06-03 10:27 | Discharge Summary ---
Discharge Summary Date of Service June 03, 2025 Principal Dx & Hospital Course #1 = Principal Diagnosis (1) Atrial fibrillation with rapid ventricular response: Paroxysmal. He received intravenous metoprolol in the ED. He has had several episodes of normal sinus rhythm and recurrent atrial fibrillation with rapid ventricular rate. Amiodarone is new and was initially given IV then switched to oral dosing then switch back to IV dosing because of recurrent atrial fibrillation. Fortunately, cardiac echo revealed reveals normal left ventricular ejection fraction with normal left and right atrial size. Free T4 level is normal but free T3 level was low and he has been started on low-dose Cytomel replacement therapy. Amiodarone drip switch back to oral dosing today, June 02. Metoprolol dosage was uptitrated today, June 02. (2) Pleural effusion, bilateral: He appears to have acute on chronic diastolic CHF. BNP is elevated at 474. Good diuretic response thus far from parenteral Lasix therapy. Chest x-ray done on June 01 shows no significant change with persistence of CHF which will eventually resolve. (3) Hypokalemia: Potassium now corrected. Continue oral replacement at discharge. Serial labs. (4) Hypocalcemia: Mild on admission. No intervention necessary at this time. Will follow (5) Thrombocytopenia: Chronic per history. Platelet count is stable in the 70,000 range. Will follow. No anticoagulant therapy at this time (6) Ambulatory dysfunction: With frequent falls. Will avoid systemic anticoagulation. OT and PT assessments have been completed and both recommend rehab placement at discharge . Plan is for eventual discharge to [facility] (7) Hypothyroidism: Free T3 levels are low. Free T4 levels are normal. Cytomel was started on May 31 Plan Discharge to [facility] today, June 03 Admission HPI Per Admitting Provider 84-year-old male PMHx Parkinson's disease, paroxysmal A-fib, HFpEF, HTN, thrombocytopenia, BPH with LUTS, and recurrent falls who presents via ambulance for a ground-level fall the night [employer]. Patient states that he has fallen approximately 15 times over the course of a few weeks, and that he falls all the time. At around [id number] he was getting up off the toilet when he ended up falling to the ground. He states that he hit his R elbow and R hip, but does not have any pain at this time. Denies hitting his head, not on blood thinners. States that he did not have any symptoms prior to falling to include dizziness, chest pain, or feeling as though he would pass out. He is denying any symptoms at this time. No chest pain or palpitations. No shortness of breath, cough, or orthopnea. Patient denies any fever or chills. States that the hospital is very cold and is requesting another blanket. Overall up again denies chest pain, SOB, palpitations, abdominal pain, N/V/D/C, numbness/tingling, fever/chills, URI symptoms, LUTS, weakness, lightheadedness, or syncope. ED e valuations reveals CBC without leukocytosis, H&H 12.3/35.2, platelets 68; CMP potassium 3.3, CO2 35, glucose 160, bilirubin 1.6, alkaline phosphatase 248, protein 4.4, albumin 2.5, globulin 1.9; calcium 7.8; lipase 14; R elbow XR small bony densities along posterior aspect of olecranon along medial/lateral epicondyles represent enthesophytes, soft tissue swelling, no fat pad; R wrist XR radiocarpal joint osteoarthritic changes, diffuse bone OP, no fracture or dislocation; R ankle XR no evidence of fracture or dislocation, sesamoid bone/degenerative changes related to both medial and lateral malleoli, calcific enthesopathy of the Achilles, plantar calcaneal spur; cervical spine CT no acute fracture or subluxation, cervical spondylosis is stable; head CT no evidence of acute findings, chronic microvascular ischemic changes and cerebral atrophy stable; CXR with bilateral pleural effusions with basilar subsegmental collapse of both lower lobes, mild congestive changes involving bilateral lung bases, minimal pericardial effusion, subtle sclerotic area involving T7-T9 vertebrae; EKG (#1) sinus rhythm with PACs and low voltage QRS at 71 bpm, EKG (#2) A-fib with RVR in the QRS at 120 bpm.; Provided with metoprolol tartrate 5mg x [address] Please see Dr[address] Tolbert attestation for adjustments/additions to treatment plan. Discharge Exam General-alert and oriented x3, no fever, no chills HEENT-head atraumatic and normocephalic, pupils equal and reactive to light, extraocular muscles intact Neck-no lymphadenopathy or thyromegaly, trachea midline Chest-bibasilar inspiratory rales. No wheezing. No rhonchi Cardiac-slightly tachycardic irregular rate and rhythm. Normal S1 and S2 Abdomen-normal bowel sounds, no hepatosplenomegaly [place]-8-5+ pitting edema bilateral lower extremities below the knees has improved with diuresis Neuro-cranial nerves II through XII intact, motor and sensory function within normal limits, strength symmetrical with generalized weakness, no focal deficits Psych-normal affect, normal mood Discharge Plan Discharge Items Patient Disposition: Transfer [facility] Fac Reason For Visit: AFIB RVR, FALL Discharge Diagnosis: Paroxysmal atrial fibrillation with rapid ventricular rate, acute diastolic congestive heart failure, low free T3 levels Condition on Discharge: Fair Activity: Resume your previous activity Non-emergency contact: Primary Care Provider Call non-emergency contact if: your symptoms worsen Follow-up/Referrals: Nasreen Ryan [Primary Care Provider] - Diet: Regular and Heart Healthy Addtl Attending Provider Instructions: Amiodarone is new. Cytomel is new. Lasix is taken twice daily. Bowling catheter placed for hygiene reasons Pending Studies at Discharge: No Stand-Alone Forms: [facility] Skilled Items Patient informed of condition?: Yes DNR: Yes Discharge Level of Care: Skilled Communicable Disease: No Discharge Prognosis: Stable Lines: None Urinary Catheter: Yes Medications and DC Order Prescriptions: New furosemide 40 mg Tablet 40 mg PO BID17 Qty: 30 0RF amiodarone 200 mg Tablet 400 mg PO BIDM Qty: 30 0RF potassium chloride 20 mEq tablet extended release 20 meq PO DAILY Qty: 20 0RF liothyronine 5 mcg Tablet 5 mcg PO DAILYBB Qty: 20 0RF Continued finasteride 5 mg tablet 5 mg PO HS Qty: 90 3RF solifenacin 10 mg tablet 10 mg PO HS Qty: 90 3RF niacin 1,000 mg Tablet Extended Release 24 Hr 2,000 mg PO HS quetiapine 100 mg Tablet 75 mg PO HS Rx Instructions: Takes a 25mg + 50mg tab HS per script ciclopirox 8 % Solution 1 applic TOPICAL HS Rx Instructions: Infected Toe Nail entacapone 200 mg Tablet 200 mg PO TID Rx Instructions: Before meals mirtazapine 30 mg Tablet 15 mg PO HS vitamin B complex Tablet 1 tab PO DAILY carbidopa-levodopa 25-100 mg Tablet 1 tab PO TID Rx Instructions: Give before meals docusate sodium [Stool Softener] 100 mg Tablet 200 mg PO HS PRN (Reason: Constipation) glucosamine-chondroitin 750-600 mg Tablet 1 tab PO QAM Systane (propylene glycol) 0.4-0.3 % Drops 1 drp OPB QID PRN (Reason: Dry Eyes) dorzolamide-timolol (PF) 2-0.5 % Dropperette 1 drp OPB BID PreserVision AREDS-2 250-90-40-1 mg Capsule 1 tab PO BID Qty: 0 Prevagen 1 tab PO QAM metoprolol succinate 25 mg tablet extended release 24 hr 12.5 mg PO QAM cholecalciferol (vitamin D3) [Vitamin D3] 25 mcg (1,000 unit) Capsule 25 mcg PO DAILY midodrine 10 mg tablet 5 mg PO TID Rx Instructions: @0800,1200,1700 Discontinued furosemide 20 mg tablet 20 mg PO QAM Discharge Orders: Discharge Order- CHF (Routine); Ordered 06/03/25 Ordered By: Jacobo Agustin Admission Data Admit Date/Time: 05/30/25 03:33 Attending Provider: Jacobo Agustni Admit Provider: Leann Tolbert Primary Care Provider: Nasreen Ryan Other Providers: Leann Tolbert; Tammi Chu [facility] Stay Data Consultations 05/30/25 03:06 ED Decision to Admit Stat Diagnostic Imagining Performed 05/30/25 00:01 CT cervical spine wo con Stat CT head/brain wo con Stat 05/30/25 00:03 CT chest diagnostic wo con Stat Pending Results Patient Have Any Pending Studies at Discharge: No Discharge Instructions Given to Patient (Per Discharging Provider) Amiodarone is new. Cytomel is new. Lasix is taken twice daily. Bowling catheter placed for hygiene reasons Total Time Total Time Spent Total Time Spent (In Minutes): 45 minutes Coding Level of Care Code 65693 INP/OBS DISCH >30 MIN Diagnoses Atrial fibrillation with rapid ventricular response I48.91 Pleural effusion, bilateral J90 Hypokalemia E87.6 Hypocalcemia E83.51 Thrombocytopenia D69.6 Ambulatory dysfunction R26.2 Hypothyroidism E03.9
[2025-06-03] MEDS: FUROSEMIDE 40 MG TAB PO SCH (16:44)
[2025-06-03 23:32] VITALS: TEMP 98.1
[2025-06-04 03:36] VITALS: RESP 18; O2SAT 95
[2025-06-04 09:13] VITALS: PULSE 112
[2025-06-04 09:35] VITALS: BP 101/62
== END 2025-06-04 10:13 | DRG 291 ==
LOC: SUATTDRO → ED 23:19 → 4W 05-30 03:33 → SUATTDRO 05-30 03:33 → 4W 05-30 05:45

== ENCOUNTER 2025-06-29 14:29 | Observation (INO) ==
[2025-06-29] MEDS: SODIUM CHLORIDE 0.9% 1,000 ML IV SCH (14:45)
[2025-06-29 14:56] LABS: Hematocrit (blood only) 35.5 % (42.0-52.0); Hemoglobin 12.0 g/dl (14.0-18.0); Immature Granulocytes # (auto) 0.13 K/uL (0.01-0.20); Immature Granulocytes % (auto) 0.9 %; Mean Corpuscular Hemoglobin 33.8 pg (25.0-34.0); Mean Corpuscular Volume 100.0 fL (80.0-100.0); Platelet Count 148 K/uL (130-400); RDW Standard Deviation 49.8 fL (36.4-46.3); Red Blood Count 3.55 M/uL (4.70-6.10); White Blood Count 14.58 K/ul (4.8-10.8)
[2025-06-29 15:21] LABS: Alanine Aminotransferase 5.0 U/L (7-52); Albumin Globulin Ratio 1.1 (0.9-2); Albumin Level 3.0 gm/dl (3.4-5.0); Alkaline Phosphatase 119.0 U/L (34-104); Anion Gap 5.0 (3-11); Bilirubin,Total 1.2 mg/dl (0.2-1.0); Blood Urea Nitrogen 38.0 mg/dl (6-23); Calcium 8.6 mg/dl (8.6-10.3); Carbon Dioxide 33.0 mmol/L (21-32); Chloride 104.0 mmol/L (98-107); Creatinine Clr Calc Pharmacy 39.4 ml/min; Globulin 2.8 gm/dl (2.5-4.0); Glucose 125.0 mg/dl (70-99(Fasting)); Magnesium 2.2 mg/dl (1.7-2.4); Potassium 3.8 mmol/L (3.5-5.1); Sodium 142.0 mmol/L (136-145); Total Protein 5.8 gm/dl (6.0-8.3)
--- NOTE | 2025-06-29 15:36 | XRay Report ---
XR chest 1V portable CLINICAL HISTORY: weakness COMPARISON STUDY: 06/03/2025 FINDINGS: Heart size and pulmonary vasculature are normal. No consolidation or pleural effusion. No p neumothorax. IMPRESSION: No acute findings. ACT 112: Negative or not required by law. Electronically signed by: Javier Steele M.D. 06/29/2025 3:34 PM
[2025-06-29 15:37] LABS: INR 1.2 (0.9-1.1); Prothrombin Time 13.1 Seconds (9.0-12.0); Thyroid Stimulating Hormone 0.701 uIu/ml (0.300-4.500)
[2025-06-29 15:44] LABS: Chlamydia pneumoniae PCR Not Detected (NotDetected); Coronavirus 229E PCR Not Detected (NotDetected); Coronavirus CoV-2 (COVID19)PCR Not Detected (NotDetected); Coronavirus HKU1 PCR Not Detected (NotDetected); Coronavirus NL63 PCR Not Detected (NotDetected); Coronavirus OC43PCR Not Detected (NotDetected); Human Metapneumovirus PCR Not Detected (NotDetected); Parainfluenza Virus 1 PCR Not Detected (NotDetected); Parainfluenza Virus 2 PCR Not Detected (NotDetected); Parainfluenza Virus 3 PCR Not Detected (NotDetected); Parainfluenza Virus 4 PCR Not Detected (NotDetected); Respiratory Syncytial VirusPCR Not Detected (NotDetected); Rhinovirus/Enterovirus PCR Not Detected (NotDetected)
--- NOTE | 2025-06-29 16:34 | Emergency Department Note ---
Impression & Plan Generalized weakness, Frequent falls, Parkinson's disease ED Provider Note ED Provider Note NAME: LENIN FAN AGE:85 SEX: Male : 1940 ARRIVES VIA: EMS INFORMANT: Patient ED PROVIDER(s): [place] Orozco DO CHIEF COMPLAINT: weakness, fatigue HPI: This is an 85-year-old male who presents to the emergency department from facility due to their concern for increased weakness and fatigue. Patient states he has Parkinson's disease and does have frequent falls but did not fall today. He states staff at the facility did not tell Him when they were sending him here. He denies fevers, chills, headaches, chest pain, difficulty breathing, or abdominal pain. Patient states he does usually walk with a cane or walker. He states he does have chronic lower extremity swelling. He states his legs will occasionally feel weak which caused him to fall. He states his appetite comes and goes. He states he is occasionally constipated. He states he has no difficulty urinating. Patient is not anticoagulated. PAST MEDICAL HISTORY:See Below PAST SURGICAL HISTORY:See Below FAMILY HISTORY:See Below SOCIAL HISTORY:See Below HOME MEDICATIONS:See Below ALLERGIES:See Below VITALS:See Below PHYSICAL EXAMINATION: GENERAL: alert, well appearing, well nourished, no distress, non-toxic HEAD: nc/at EYE EXAM: normal conjunctiva, PERRL and EOM's grossly intact OROPHARYNX: no exudate, no erythema, lips, buccal mucosa, and tongue normal and mucous membranes are very dry NECK: supple, no nuchal rigidity, no adenopathy, non-tender LUNGS: Clear to auscultation. Normal chest wall mechanics, no w/r/r HEART: no murmurs, S1 normal and S2 normal ABDOMEN: abdomen soft, non-tender, normo-active bowel sounds, no masses, no rebound or guarding. BACK: Back is symmetrical on inspection and there is no deformity, no midline tenderness, no CVA tenderness. SKIN: no rashes, petechiae, orbruising UPPER EXTREMITIES: upper extremities are grossly normal. FROM, nml pulses b/l. Several contusions in various stages of healing noted, several small skin tears/abrasions also noted with dressing in place. LOWER EXTREMITIES: 3+ b/l pitting edema which patient states is chronic. FROM, nml pulses b/l. No evidence of significant trauma or deformity. NEURO EXAM: Normal sensorium, cranial nerves II-XII grossly intact, normal speech, no facial droop,nogross weakness of arms, no gross weakness of legs. Gross sensation intact. No ataxia. Vital Signs: reviewed and remarkable Differential Diagnosis: dehydration, stroke, anemia, hypoglycemia, hyponatremia, hypernatremia, urinary tract infection, pneumonia, bronchitis, sepsis, gastroenteritis, additional abdominal pathology, metabolic abnormalities, as well as others were considered MEDICAL DECISION MAKING: This is an 85-year-old male presents to the emergency department via EMS due to staff concern at the facility where he has been rehabilitating for increased fatigue and somnolence today. ER patient afebrile and hemodynamically stable. Patient denies any concerns or complaints is a physical why the staff. He come in patient valuation for patient does appear clinically hydrated. Patient does admit to recent falls but states he has Parkinson's disease and falls a lot. He states his legs get weak and give out, although he does try to use a cane or walker. Labs drawn and sent, IV established, EKG and CXR performed and interpreted at bedside, and patient placed on telemetry. Nasal swab obtained and sent additionally. Patient noted upon further undressing at bedside to have an indwelling Bowling catheter. Eventually specimen was obtained and following drainage of initial bag and sent for analysis. eventually appeared to bedside was able to provide additional history. Catheter has been present for approximately 3 weeks as it was placed just prior to discharge due to difficulty urinating and urinary incontinence. Patient denies any pain or discomfort, denies noting any blood in the catheter tubing. Patient was noted to have a leukocytosis of 14 which is new compared to his prior admission. Patient was given IV Rocephin as a precaution due to concern for a catheter associated UTI. Patient's other labs and viral panel were reassuring. He did appear clinically dehydrated and was given IV fluids. Given patient had been moved to a personal care side of the facility and has now had frequent falls, I do have concerns for safety in addition to the possibility of asymptomatic catheter associated urinary tract infection. I discussed with patient and further inpatient evaluation and management until he could be safely return to the facility and possibly add an upgraded level of care again. Case discussed with the hospitalist team for additional evaluation and management. At this time I have a low suspicion for any additional occult traumatic injury related to the recent falls. No evidence for bacteremia/sepsis. Consultation(s): 193: Discussed with Dr. Tolbert, [facility] hospitalist team, for additional evaluation and management. ER Treatment Provided: See below Diagnostics Interpreted By Me: -ECG: sinus bradycardia at 48, nml axis, nml intervals, non specific ST/T wave changes -Cardiac Monitoring: An order was placed for continuous cardiac monitoring. The monitor shows a rate of 52 with sinus bradycardia rhythm. -Laboratory studies: As stated above and show below. -Imaging studies: X-ray Chest: A single view study of the chest was reviewed and was negative for cardiomegaly, focal infiltrate, effusion, pulmonary edema, or wide mediastinum. Triage Nursing Note Reviewed Prior/Outside Records Reviewed Past Med/Surg History Problem List (Updated 06/30/25 @ 12:46 by Jarod Diaz MD) Left arm pain Parkinson's disease (Acute) Frequent falls (Acute) Generalized weakness (Acute) Hypothyroidism Thrombocytopenia Hypocalcemia Hypokalemia Pleural effusion, bilateral Orthostatic hypotension Pneumonia (Acute) Ambulatory dysfunction Heart failure with preserved ejection fraction (Acute) Elevated brain natriuretic peptide (BNP) level (Acute) Bilateral leg edema (Acute) Atrial fibrillation with rapid ventricular response (Acute) Small bowel obstruction (Acute) Small bowel obstruction Deviated nasal septum Nasal crusting Impacted cerumen Urinary urgency (Acute) BPH (benign prostatic hyperplasia) Medical History Fall Weakness Generalized weakness Pneumonia Thrombocytopenia Recurrent falls Atrial fibrillation Parkinsons disease Benign localized prostatic hyperplasia with lower urinary tract symptoms (LUTS) Surgical History History of cataract extraction 02/2017-bilateral History of bladder surgery Green light laser surgery for excess bladder tissue-03/09/14 History of Mohs micrographic surgery for skin cancer Head-2015 Left arm-2013 History of sebaceous cyst x3-2 on back, 1 on chest History of tonsillectomy and adenoidectomy 1948 History of surgery femur [id number] leg repair laser vaporization with transurethral resection of prostate Previous back surgery H/O: knee surgery Family History Brother Prostate cancer Father Hypertension Heart disease following heart attack Mother Hearing loss Heart disease following heart attack Other No family history of adverse response to anesthesia No family history of bleeding disorder Social History Smoking Status: Never smoker Do You Dip or Chew Tobacco: No; Hx Alcohol Use: No Hx Substance Use: No Preferred Language: Czech Communication Ability: Effective 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 Required: No Beliefs That Will Affect Care: None marital status: Current Living Situation: Spouse current occupational status: retired Feels Safe at Home: Yes Safety Concerns: Feels Safe At This Time Assistive Devices: Walker Allergies Allergies Allergy/AdvReac Type Severity Reaction Status Date / Time benzalkonium chloride Allergy Unknown ON [facility] Verified 06/29/25 17:19 [facility] brimonidine Allergy Unknown ON [facility] Verified 06/29/25 17:19 [facility] diclofenac [From Voltaren] Allergy Unknown ON [facility] Verified 06/29/25 17:19 [facility] travoprost Allergy Unknown ON [facility] Verified 06/29/25 17:19 [facility] acetaminophen AdvReac Mild ANK[facility] Verified 06/29/25 17:19 SWELL UP Home Meds Home Medications Medication Instructions Recorded Confirmed Prevagen 10 mg PO QAM 06/09/24 06/29/25 carbidopa 25 mg-levodopa 100 mg 1.5 tab PO AC 06/09/24 06/29/25 tablet docusate sodium 100 mg tablet 200 mg PO Q24H PRN Constipation 06/09/24 06/29/25 (Stool Softener) dorzolamide-timolol (PF) 2 %-0.5 % 1 drp OPB BID 06/09/24 06/29/25 eye drops in a dropperette entacapone 200 mg tablet 200 mg PO AC 06/09/24 06/29/25 glucosamine-chondroitin 750 mg-600 1 tab PO QAM 06/09/24 06/29/25 mg tablet niacin 1,000 mg tablet,extended 2,000 mg PO HS 06/09/24 06/29/25 release 24 hr peg 400-propylene glycol 0.4 %-0.3 1 drp OPB Q6H PRN Dry Eyes 06/09/24 06/29/25 % eye drops (Systane (propylene glycol)) vit C 250 mg-vit E 90 mg-zinc 40 1 tab PO BID ##0 06/09/24 06/29/25 mg-copper 1 [id number]-oztrit capsule (PreserVision AREDS-2) vitamin B complex 1 tab PO DAILY 06/09/24 06/29/25 cholecalciferol (vitamin D3) 25 25 mcg PO DAILY 12/16/24 06/29/25 mcg (1,000 unit) capsule (Vitamin D3) metoprolol succinate 25 mg 12.5 mg PO QAM 12/16/24 06/29/25 tablet,extended release 24 hr amiodarone 400 mg tablet 200 mg PO BIDM 06/29/25 06/29/25 ibuprofen 200 mg tablet 400 mg PO Q6H PRN Pain 06/29/25 06/29/25 midodrine 5 mg tablet 7.5 mg PO TID 06/29/25 06/29/25 mirtazapine 15 mg tablet 15 mg PO HS 06/29/25 06/29/25 potassium chloride 20 mEq 20 meq PO BID 06/29/25 06/29/25 tablet,extended release quetiapine 50 mg tablet 75 mg PO HS 06/29/25 06/29/25 Previous Rx's Medication Instructions Recorded finasteride 5 mg tablet 5 mg PO HS #90 tabs 07/22/24 solifenacin 10 mg tablet 10 mg PO HS #90 tabs 07/22/24 furosemide 40 mg tablet 40 mg PO BID17 #30 tabs 06/03/25 liothyronine 5 mcg tablet 5 mcg PO DAILYBB #20 tabs 06/03/25 Results & Data (ED) Vital Signs Vital Signs - 24 hr 06/29/25 14:35 06/29/25 14:35 06/29/25 14:42 Temperature 36.5 C Temperature Source Oral Pulse Rate 50 L 55 L Respiratory Rate 14 16 Respiratory Effort / Characteristics Non-Labored Spontaneous Respiratory Depth Normal Respiratory Pattern Regular Blood Pressure 112/51 L Blood Pressure Mean 71 Pulse Oximetry 99 98 Oxygen Delivery Method Room Air Room Air Room Air Sepsis Recent Fever Within 48 Hours No Sepsis New/Unexplained Change in Mental Status N/A Sepsis Action Taken by Nursing No Action Required 06/29/25 14:45 Temperature Temperature Source Pulse Rate 50 L Respiratory Rate Respiratory Effort / Characteristics Respiratory Depth Respiratory Pattern Blood Pressure Blood Pressure Mean Pulse Oximetry Oxygen Delivery Method Sepsis Recent Fever Within 48 Hours Sepsis New/Unexplained Change in Mental Status Sepsis Action Taken by Nursing Laboratory Data 06/30/25 06:44 06/30/25 06:44 Lab Results 06/29/25 06/29/25 06/29/25 Range/Units 14:42 16:48 18:00 WBC 14.58 H (4.8-10.8) K/ul RBC 3.55 L (4.70-6.10) M/uL Hgb 12.0 L (14.0-18.0) g/dl Hct 35.5 L (42.0-52.0) % MCV 100.0 (80.0-100.0) fL MCH 33.8 (25.0-34.0) pg MCHC 33.8 (32.0-36.0) g/dL RDW Std Deviation 49.8 H (36.4-46.3) fL RDW Coeff of Jose Luis 13.4 (11.5-14.5) % Plt Count 148 (130-400) K/uL MPV 9.4 (9.4-12.4) fL Immature Gran % (Auto) 0.9 % Neut % (Auto) 87.7 % Lymph % (Auto) 5.5 % Meagher % (Auto) 5.7 % Eos % (Auto) 0.1 % Baso % (Auto) 0.1 % Neut # (Auto) 12.79 H (1.40-6.50) K/uL Lymph # (Auto) 0.80 L (1.20-3.40) K/uL Meagher # (Auto) 0.83 H (0.11-0.59) K/uL Eos # (Auto) 0.01 (0.00-0.50) K/uL Baso # (Auto) 0.02 (0.00-0.20) K/uL Immature Gran # (Auto) 0.13 (0.01-0.20) K/uL PT 13.1 H (9.0-12.0) Seconds INR 1.2 H (0.9-1.1) Sodium 142 (136-145) mmol/L Potassium 3.8 (3.5-5.1) mmol/L Chloride 104 (98-107) mmol/L Carbon Dioxide 33 H (21-32) mmol/L Anion Gap 5 (3-11) BUN 38 H (6-23) mg/dl Creatinine 1.37 (0.6-1.4) mg/dl Est Cr Clr Drug Dosing 39.4 ml/min eGFR 50.55 BUN/Creatinine Ratio 27.7 H (10-20) Glucose 125 H (70-99(Fasting)) mg/dl Calcium 8.6 (8.6-10.3) mg/dl Magnesium 2.2 (1.7-2.4) mg/dl Total Bilirubin 1.2 H (0.2-1.0) mg/dl AST 32 (13-39) U/L ALT 5 L (7-52) U/L Alkaline Phosphatase 119 H (34-104) U/L Troponin I High Sens 23.1 H 24.5 H (0-20) pg/ml Total Protein 5.8 L (6.0-8.3) gm/dl Albumin 3.0 L (3.4-5.0) gm/dl Globulin 2.8 (2.5-4.0) gm/dl Albumin/Globulin Ratio 1.1 (0.9-2) Procalcitonin 0.43 (0-0.5) ng/ml TSH 0.701 (0.300-4.500) uIu/ml Urine Color Dark Yellow Urine Appearance Clear (Clear) Urine pH 5.0 (4.5-7.5) Ur Specific [place] 1.015 (1.000-1.030) Urine Protein Negative (Negative) Urine Glucose (UA) Negative (Negative) Urine Ketones Negative (Negative) Urine Blood Negative (Negative) Urine Nitrite Positive A (Negative) Urine Bilirubin Negative (Negative) Urine Urobilinogen Negative (Negative) Ur Leukocyte Esterase 3+ H (Negative) Urine WBC (Auto) >50 H (0-5) /hpf Urine RBC (Auto) 0-2 (0-2) /hpf U Hyaline Cast (Auto) 11-20 H (0-2) /lpf U Epithel Cells (Auto) 0-2 (0-2) /hpf Urine Bacteria (Auto) 1+ H (None Seen) Hyaline Casts Present A (None Presnt) /lpf Urine Comment Adenovirus (PCR) Not Detected (NotDetected) B. pertussis DNA (PCR) Not Detected (NotDetected) B.parapertussis DNA PCR Not Detected (NotDetected) C. pneumoniae DNA (PCR) Not Detected (NotDetected) Coronavirus OC43 (PCR) Not Detected (NotDetected) Coronavirus HKU1 (PCR) Not Detected (NotDetected) Coronavirus 229E (PCR) Not Detected (NotDetected) SARS-CoV-2 (PCR) Not Detected (NotDetected) Coronavirus NL63 (PCR) Not Detected (NotDetected) Human Metapneumovir PCR Not Detected (NotDetected) Influenza Type A (PCR) Not Detected (NotDetected) Influenza Type B (PCR) Not Detected (NotDetected) M. pneumoniae (PCR) Not Detected (NotDetected) Parainfluenza 1 (PCR) Not Detected (NotDetected) Parainfluenza 2 (PCR) Not Detected (NotDetected) Parainfluenza 3 (PCR) Not Detected (NotDetected) Parainfluenza 4 (PCR) Not Detected (NotDetected) RSV (PCR) Not Detected (NotDetected) Entero/Rhino (PCR) Not Detected (NotDetected) Administered Medications Amiodarone HCl (Amiodarone 200 Mg Tab) [facility] Stop: 07/30/25 07:59 Last Admin: 06/30/25 16:56 Dose: 200 mg Documented By: Admin: 06/30/25 08:38 Dose: 200 mg Documented By: PASTOR Carbidopa/Levodopa (Carbidopa/Levodopa 25/100mg Tab) 1.5 tab PO AC [facility] Stop: 07/30/25 07:29 Last Admin: 06/30/25 16:02 Dose: 1.5 tab Documented By: Admin: 06/30/25 11:10 Dose: 1.5 tab Documented By: Admin: 06/30/25 07:58 Dose: 1.5 tab Documented By: PASTOR Entacapone (Entacapone 200 Mg Tab) 200 mg PO AC [facility] Stop: 07/30/25 07:29 Last Admin: 06/30/25 16:02 Dose: 200 mg Documented By: Admin: 06/30/25 11:09 Dose: 200 mg Documented By: Admin: 06/30/25 07:58 Dose: 200 mg Documented By: PASTOR Finasteride (Finasteride 5 Mg Tab) 5 mg PO HS [facility] Stop: 07/30/25 20:59 Last Admin: 06/30/25 20:08 Dose: 5 mg Documented By: bert Ceftriaxone Sodium (Rocephin) 2,000 mg in 50 mls @ 100 mls/hr IV Q24H [facility] Stop: 07/05/25 17:59 Last Infusion: 06/30/25 18:08 Dose: Infused Documented By: Admin: 06/30/25 17:23 Dose: 100 mls/hr Documented By: PASTOR Liothyronine Sodium (Liothyronine Sodium 5 Mcg Tab) 5 mcg PO DAILYBB [facility] Stop: 07/30/25 06:29 Last Admin: 06/30/25 06:17 Dose: 5 mcg Documented By: PRADEEP Metoprolol Succinate (Metoprolol Succ 25mg Ext Rel Tab) 12.5 mg PO QAM [facility] Stop: 07/30/25 08:59 Last Admin: 06/30/25 08:38 Dose: 12.5 mg Documented By: PASTOR Midodrine (Midodrine Hcl 2.5 Mg Tab) 7.5 mg PO TID@0700,1100,1700 [facility] Stop: 07/30/25 06:59 Last Admin: 06/30/25 16:56 Dose: 7.5 mg Documented By: Admin: 06/30/25 11:09 Dose: 7.5 mg Documented By: Admin: 06/30/25 06:19 Dose: 7.5 mg Documented By: PRADEEP Mirtazapine (Mirtazapine Tab 15 Mg Tab) 15 mg PO HS [facility]ISSE Stop: 07/30/25 20:59 Last Admin: 06/30/25 20:08 Dose: 15 mg Documented By: bert Quetiapine Fumarate (Quetiapine Fumarate 25 Mg Tablet) 75 mg PO HS [facility]ISSE Stop: 07/30/25 20:59 Last Admin: 06/30/25 20:08 Dose: 75 mg Documented By: bert Discontinued Medications Amiodarone HCl (Amiodarone 200 Mg Tab) 200 mg PO NOW ONE Stop: 06/29/25 20:12 Last Admin: 06/29/25 21:18 Dose: 200 mg Documented By: HENRY Finasteride (Finasteride 5 Mg Tab) 5 mg PO QAM ONE Stop: 06/29/25 20:13 Last Admin: 06/29/25 21:16 Dose: 5 mg Documented By: HENRY Sodium Chloride (Nss) 1,000 mls @ 125 mls/hr IV .Q8H DENISSE Stop: 07/02/25 14:44 Last Infusion: 06/29/25 22:57 Dose: Infused Documented By: Admin: 06/29/25 14:45 Dose: 125 mls/hr Documented By: PIETRO Ceftriaxone Sodium (Rocephin) 2,000 mg in 50 mls @ 100 mls/hr IV NOW STA Stop: 06/29/25 18:21 Last Infusion: 06/29/25 20:57 Dose: Infused Documented By: Admin: 06/29/25 19:07 Dose: 100 mls/hr Documented By: HENRY Lactated Ringer's (Lr) 1,000 mls @ 125 mls/hr IV .Q8H STA Stop: 06/30/25 06:56 Last Infusion: 06/30/25 07:54 Dose: Infused Documented By: Infusion: 06/30/25 03:52 Dose: 125 mls/hr Documented By: Admin: 06/29/25 23:30 Dose: 125 mls/hr Documented By: LEAH Lactated Ringer's (Lr) 1,000 mls @ 125 mls/hr IV .Q8H DENISSE Stop: 07/03/25 02:59 Last Infusion: 06/30/25 07:53 Dose: Infused Documented By: Admin: 06/30/25 06:18 Dose: 125 mls/hr Documented By: PRADEEP Lactated Ringer's (Lr) 1,000 mls @ 125 mls/hr IV .Q8H DENISSE Stop: 06/30/25 15:44 Last Infusion: 06/30/25 17:11 Dose: Infused Documented By: Admin: 06/30/25 07:54 Dose: 125 mls/hr Documented By: PASTOR Midodrine (Midodrine Hcl 2.5 Mg Tab) 7.5 mg PO NOW STA Stop: 06/29/25 20:12 Last Admin: 06/29/25 21:16 Dose: 7.5 mg Documented By: HENRY Mirtazapine (Mirtazapine Tab 15 Mg Tab) 15 mg PO NOW ONE Stop: 06/29/25 20:12 Last Admin: 06/29/25 21:16 Dose: 15 mg Documented By: HENRY Quetiapine Fumarate (Quetiapine Fumarate 25 Mg Tablet) 75 mg PO NOW STA Stop: 06/29/25 20:12 Last Admin: 06/29/25 21:16 Dose: 75 mg Documented By: HENRY Imaging Data Radiologist's Impression: Chest X-Ray 06/29/25 14:42 XR chest 1V portable CLINICAL HISTORY: weakness COMPARISON STUDY: 06/03/2025 FINDINGS: Heart size and pulmonary vasculature are normal. No consolidation or pleural effusion. No pneumothorax. IMPRESSION: No acute findings. ACT 112: Negative or not required by law. Electronically signed by: Javier Steele M.D. 06/29/2025 3:34 PM Discharge Plan Visit Data Chief Complaint: Lethargic Stated Complaint: LETHARGIC ED Provider: La Orozco Discharge Problem: Generalized weakness, Frequent falls, Parkinson's disease Patient Disposition: Admitted As Inpatient Condition: Fair Discharge Instructions Interventions: ED Discharge Assessment Last Done: 06/29/25 22:41
[2025-06-29 18:36] LABS: Appearance Urine Clear (Clear); Bacteria Urine Automated 1+ (None Seen); Epithelial Cell Urine Auto 0-2 /hpf (0-2); Glucose Urine UA Negative (Negative); RBC Urine Automated 0-2 /hpf (0-2); WBC Urine Automated >50 /hpf (0-5)
[2025-06-29] MEDS: cefTRIAXone SODIUM 2,000 MG/50 ML BAG IV STA (19:07)
--- NOTE | 2025-06-29 19:57 | History & Physical Report ---
Date of Service June 29, 2025 Assessment & Plan (1) Generalized weakness: (2) Hypothyroidism: (3) BPH (benign prostatic hyperplasia): (4) Atrial fibrillation: (5) Parkinsons disease: Plan 85yo male sent in from [facility] with generalized weakness. [facility] but was transferred to the personal care facility on 06/16/2025 #Generalized weakness - etiology unclear. Possibly mild dehydration - elevation of BUN and Cr from baseline -Admit to medical -Follow urine culture -LR at 125mL/hr x 1L -Maintain fall precautions -Turn and position q 2 hours -Wound care -Ceftriaxone 2gm IV daily for possible UTI - patient with elevated WBC count=14.58 #Parkinson's Disease -Continue Carbidopa/Levodopa #Orthostatic hypotension -Continue Midodrine 7.5mg po BID #Atrial fibrillation - rate controlled -Continue Amiodarone 200mg po BID -Continue Metoprolol 12.5mg po qAM #Bipolar disorder/Mental Health -Continue Seroquel 75mg po qHS -Continue Remeron 15mg po qHS #Hypothyroidism - patient had normal Free T34 level but T3 level low so was started on low dose Cytomel during his last hospitalization -Continue Cytomel #Bowling in place - placed during last hospital stay. Patient presently too weak to get up for the bathroom. However, would consider voiding trial prior to DC History of Present Illness Chief Complaint: weakness, fatigue Primary Care Provider: Nasreen Ryan Alex Mcneal is an 85-year-old male with history of Parkinson's disease, atrial fibrillation, BPH, heart failure and orthostatic hypotension presenting from [facility] with concern for increased weakness and fatigue. Patient is not sure exactly why he was sent to the emergency room today. He reports he does fall frequently due to his history of Parkinson's but did not fall recently. No fever but possibly some chills. Otherwise patient denies chest pain, cough, shortness of breath, abdominal pain, nausea, vomiting, diarrhea. He has a chronic, indwelling Bowling which has been present since his last hospitalization. Patient had frequent falls in the middle of May. He presented to the emergency room on May 30 and was admitted for ambulatory dysfunction as well as congestive heart failure. He was treated with Lasix. Had a Bowling catheter placed on 07/03/2024. He was discharged to [facility] on 06/04/2025. He was transferred to [facility] personal-care [facility] on 06/16/2025. Allergies Allergy/AdvReac Type Severity Reaction Status Date / Time benzalkonium chloride Allergy Unknown ON [facility] Verified 06/29/25 17:19 [facility] brimonidine Allergy Unknown ON [facility] Verified 06/29/25 17:19 [facility] diclofenac [From Voltaren] Allergy Unknown ON [facility] Verified 06/29/25 17:19 [facility] L[facility] travoprost Allergy Unknown ON [facility] Verified 06/29/25 17:19 [facility] acetaminophen AdvReac Mild ANKLES Verified 06/29/25 17:19 SWELL UP Home Medications Medication Instructions Recorded Confirmed Type Prevagen 10 mg PO QAM 06/09/24 06/29/25 History carbidopa 25 mg-levodopa 100 mg 1.5 tab PO AC 06/09/24 06/29/25 History tablet docusate sodium 100 mg tablet 200 mg PO Q24H PRN Constipation 06/09/24 06/29/25 History (Stool Softener) dorzolamide-timolol (PF) 2 %-0.5 % 1 drp OPB BID 06/09/24 06/29/25 History eye drops in a dropperette entacapone 200 mg tablet 200 mg PO AC 06/09/24 06/29/25 History glucosamine-chondroitin 750 mg-600 1 tab PO QAM 06/09/24 06/29/25 History mg tablet niacin 1,000 mg tablet,extended 2,000 mg PO HS 06/09/24 06/29/25 History release 24 hr peg 400-propylene glycol 0.4 %-0.3 1 drp OPB Q6H PRN Dry Eyes 06/09/24 06/29/25 History % eye drops (Systane (propylene glycol)) vit C 250 mg-vit E 90 mg-zinc 40 1 tab PO BID ##0 06/09/24 06/29/25 History mg-copper 1 wk-[id number]-dwnlkv capsule (PreserVision AREDS-2) vitamin B complex 1 tab PO DAILY 06/09/24 06/29/25 History finasteride 5 mg tablet 5 mg PO HS #90 tabs 07/22/24 06/29/25 Rx solifenacin 10 mg tablet 10 mg PO HS #90 tabs 07/22/24 06/29/25 Rx cholecalciferol (vitamin D3) 25 25 mcg PO DAILY 12/16/24 06/29/25 History mcg (1,000 unit) capsule (Vitamin D3) metoprolol succinate 25 mg 12.5 mg PO QAM 12/16/24 06/29/25 History tablet,extended release 24 hr furosemide 40 mg tablet 40 mg PO BID17 #30 tabs 06/03/25 06/29/25 Rx liothyronine 5 mcg tablet 5 mcg PO DAILYBB #20 tabs 06/03/25 06/29/25 Rx amiodarone 400 mg tablet 200 mg PO BIDM 06/29/25 06/29/25 History ibuprofen 200 mg tablet 400 mg PO Q6H PRN Pain 06/29/25 06/29/25 History midodrine 5 mg tablet 7.5 mg PO TID 06/29/25 06/29/25 History mirtazapine 15 mg tablet 15 mg PO HS 06/29/25 06/29/25 History potassium chloride 20 mEq 20 meq PO BID 06/29/25 06/29/25 History tablet,extended release quetiapine 50 mg tablet 75 mg PO HS 06/29/25 06/29/25 History Past Med/Surg History Problem List Parkinson's disease (Acute) Frequent falls (Acute) Generalized weakness (Acute) Hypothyroidism Thrombocytopenia Hypocalcemia Hypokalemia Pleural effusion, bilateral Orthostatic hypotension Pneumonia (Acute) Ambulatory dysfunction Heart failure with preserved ejection fraction (Acute) Elevated brain natriuretic peptide (BNP) level (Acute) Bilateral leg edema (Acute) Atrial fibrillation with rapid ventricular response (Acute) Small bowel obstruction (Acute) Small bowel obstruction Deviated nasal septum Nasal crusting Impacted cerumen Urinary urgency (Acute) BPH (benign prostatic hyperplasia) Medical History Fall Weakness Generalized weakness Pneumonia Thrombocytopenia Recurrent falls Atrial fibrillation Parkinsons disease Benign localized prostatic hyperplasia with lower urinary tract symptoms (LUTS) Surgical History History of cataract extraction 02/2017-bilateral History of bladder surgery Green light laser surgery for excess bladder tissue-03/09/14 History of Mohs micrographic surgery for skin cancer Head-2015 Left arm-2014 History of sebaceous cyst x3-2 on back, 1 on chest History of tonsillectomy and adenoidectomy 9 History of surgery femur [id number] leg repair laser vaporization with transurethral resection of prostate Previous back surgery H/O: knee surgery Family History Brother Prostate cancer Father Hypertension Heart disease following heart attack Mother Hearing loss Heart disease following heart attack Other No family history of adverse response to anesthesia No family history of bleeding disorder Social History Smoking Status: Never smoker Do You Dip or Chew Tobacco: No; Hx Alcohol Use: No Hx Substance Use: No Preferred Language: Nepali Communication Ability: Effective Deck Supervisor Required: No Beliefs That Will Affect Care: None marital status: Current Living Situation: Spouse current occupational status: retired Feels Safe at Home: Yes Assistive Devices: Walker Review of Systems Review of Systems: All systems reviewed & are unremarkable except as noted in HPI & below Physical Exam Physical Exam: General: patient resting comfortably, NAD, non-toxic in appearance, answering q uestions appropriately Skin: warm, dry, intact, no rashes or lesions HEENT: NC/AT, PERRL, EOMI, anicteric sclera, conjunctiva without injection, external ear normal to inspection and nontender, nares patent, moist mucus membranes, dentition intact, no oropharyngeal lesions, neck supple, trachea midline, no LAD, no thyromegaly, no JVD Heart: +S1/S2, regular, no m/r/g Lungs: equal air entry bilaterally, no rales/rhonchi/wheezes Abd: +BS, soft, NT/ND, no masses/organomegaly/ascites Ext: warm, 2+ pulses in UE/LE bilaterally, no clubbing/cyanosis or edema Neuro: nonfocal, speech intact, no facial droop, moving all extremities on command with equal strength 5/5 Results & Data Results & Data Vital Signs (Past 12 Hours) Vital Signs Temp Pulse Resp BP Pulse Ox O2 Del Method 06/29/25 18:54 50 L 21 121/59 L 100 Room Air 06/29/25 18:35 50 L 06/29/25 16:00 52 L 19 129/64 97 Room Air 06/29/25 14:45 50 L 06/29/25 14:42 55 L 16 98 Room Air 06/29/25 14:35 Room Air 06/29/25 14:35 36.5 C 50 L 14 112/51 L 99 Room Air Laboratory Results Laboratory Results WBC 14.58 K/ul (4.8-10.8) H 06/29/25 14:42 RBC 3.55 M/uL (4.70-6.10) L 06/29/25 14:42 Hgb 12.0 g/dl (14.0-18.0) L 06/29/25 14:42 Hct 35.5 % (42.0-52.0) L 06/29/25 14:42 MCV 100.0 fL (80.0-100.0) 06/29/25 14:42 MCH 33.8 pg (25.0-34.0) 06/29/25 14:42 MCHC 33.8 g/dL (32.0-36.0) 06/29/25 14:42 RDW Std Deviation 49.8 fL (36.4-46.3) H 06/29/25 14:42 RDW Coeff of Jose Luis 13.4 % (11.5-14.5) 06/29/25 14:42 Plt Count 148 K/uL (130-400) 06/29/25 14:42 MPV 9.4 fL (9.4-12.4) 06/29/25 14:42 Immature Gran % (Auto) 0.9 % 06/29/25 14:42 Neut % (Auto) 87.7 % 06/29/25 14:42 Lymph % (Auto) 5.5 % 06/29/25 14:42 Banner % (Auto) 5.7 % 06/29/25 14:42 Eos % (Auto) 0.1 % 06/29/25 14:42 Baso % (Auto) 0.1 % 06/29/25 14:42 Neut # (Auto) 12.79 K/uL (1.40-6.50) H 06/29/25 14:42 Lymph # (Auto) 0.80 K/uL (1.20-3.40) L 06/29/25 14:42 Banner # (Auto) 0.83 K/uL (0.11-0.59) H 06/29/25 14:42 Eos # (Auto) 0.01 K/uL (0.00-0.50) 06/29/25 14:42 Baso # (Auto) 0.02 K/uL (0.00-0.20) 06/29/25 14:42 Immature Gran # (Auto) 0.13 K/uL (0.01-0.20) 06/29/25 14:42 PT 13.1 Seconds (9.0-12.0) H 06/29/25 14:42 INR 1.2 (0.9-1.1) H 06/29/25 14:42 Sodium 142 mmol/L (136-145) 06/29/25 14:42 Potassium 3.8 mmol/L (3.5-5.1) 06/29/25 14:42 Chloride 104 mmol/L (98-107) 06/29/25 14:42 Carbon Dioxide 33 mmol/L (21-32) H 06/29/25 14:42 Anion Gap 5 (3-11) 06/29/25 14:42 BUN 38 mg/dl (6-23) H 06/29/25 14:42 Creatinine 1.37 mg/dl (0.6-1.4) 06/29/25 14:42 Est Cr Clr Drug Dosing 39.4 ml/min 06/29/25 14:42 eGFR 50.55 06/29/25 14:42 BUN/Creatinine Ratio 27.7 (10-20) H 06/29/25 14:42 Glucose 125 mg/dl (70-99(Fasting)) H 06/29/25 14:42 Calcium 8.6 mg/dl (8.6-10.3) 06/29/25 14:42 Magnesium 2.2 mg/dl (1.7-2.4) 06/29/25 14:42 Total Bilirubin 1.2 mg/dl (0.2-1.0) H 06/29/25 14:42 AST 32 U/L (13-39) 06/29/25 14:42 ALT 5 U/L (7-52) L 06/29/25 14:42 Alkaline Phosphatase 119 U/L (34-104) H 06/29/25 14:42 Troponin I High Sens 24.5 pg/ml (0-20) H 06/29/25 16:48 Total Protein 5.8 gm/dl (6.0-8.3) L 06/29/25 14:42 Albumin 3.0 gm/dl (3.4-5.0) L 06/29/25 14:42 Globulin 2.8 gm/dl (2.5-4.0) 06/29/25 14:42 Albumin/Globulin Ratio 1.1 (0.9-2) 06/29/25 14:42 TSH 0.701 uIu/ml (0.300-4.500) 06/29/25 14:42 Urine Color Dark Yellow 06/29/25 18:00 Urine Appearance Clear (Clear) 06/29/25 18:00 Urine pH 5.0 (4.5-7.5) 06/29/25 18:00 Ur Specific Arm[place] 1.015 (1.000-1.030) 06/29/25 18:00 Urine Protein Negative (Negative) 06/29/25 18:00 Urine Glucose (UA) Negative (Negative) 06/29/25 18:00 Urine Ketones Negative (Negative) 06/29/25 18:00 Urine Blood Negative (Negative) 06/29/25 18:00 Urine Nitrite Positive (Negative) A 06/29/25 18:00 Urine Bilirubin Negative (Negative) 06/29/25 18:00 Urine Urobilinogen Negative (Negative) 06/29/25 18:00 Ur Leukocyte Esterase 3+ (Negative) H 06/29/25 18:00 Urine WBC (Auto) >50 /hpf (0-5) H 06/29/25 18:00 Urine RBC (Auto) 0-2 /hpf (0-2) 06/29/25 18:00 U Hyaline Cast (Auto) 11-20 /lpf (0-2) H 06/29/25 18:00 U Epithel Cells (Auto) 0-2 /hpf (0-2) 06/29/25 18:00 Urine Bacteria (Auto) 1+ (None Seen) H 06/29/25 18:00 Hyaline Casts Present /lpf (None Presnt) A 06/29/25 18:00 Urine Comment 06/29/25 18:00 Nasal Screen MRSA (PCR) Negative (Negative) 06/29/25 22:51 Adenovirus (PCR) Not Detected (NotDetected) 06/29/25 14:42 B. pertussis DNA (PCR) Not Detected (NotDetected) 06/29/25 14:42 B.parapertussis DNA PCR Not Detected (NotDetected) 06/29/25 14:42 C. pneumoniae DNA (PCR) Not Detected (NotDetected) 06/29/25 14:42 Coronavirus OC43 (PCR) Not Detected (NotDetected) 06/29/25 14:42 Coronavirus HKU1 (PCR) Not Detected (NotDetected) 06/29/25 14:42 Coronavirus 229E (PCR) Not Detected (NotDetected) 06/29/25 14:42 SARS-CoV-2 (PCR) Not Detected (NotDetected) 06/29/25 14:42 Coronavirus NL63 (PCR) Not Detected (NotDetected) 06/29/25 14:42 Human Metapneumovir PCR Not Detected (NotDetected) 06/29/25 14:42 Influenza Type A (PCR) Not Detected (NotDetected) 06/29/25 14:42 Influenza Type B (PCR) Not Detected (NotDetected) 06/29/25 14:42 M. pneumoniae (PCR) Not Detected (NotDetected) 06/29/25 14:42 Parainfluenza 1 (PCR) Not Detected (NotDetected) 06/29/25 14:42 Parainfluenza 2 (PCR) Not Detected (NotDetected) 06/29/25 14:42 Parainfluenza 3 (PCR) Not Detected (NotDetected) 06/29/25 14:42 Parainfluenza 4 (PCR) Not Detected (NotDetected) 06/29/25 14:42 RSV (PCR) Not Detected (NotDetected) 06/29/25 14:42 Entero/Rhino (PCR) Not Detected (NotDetected) 06/29/25 14:42 Impressions Chest X-Ray 06/29/25 14:42 XR chest 1V portable CLINICAL HISTORY: weakness COMPARISON STUDY: 06/03/2025 FINDINGS: Heart size and pulmonary vasculature are normal. No consolidation or pleural effusion. No pneumothorax. IMPRESSION: No acute findings. ACT 112: Negative or not required by law. Electronically signed by: Javier Steele M.D. 06/29/2025 3:34 PM PG Care Time/CCT Total # of Minutes Spent Total Time Spent with Patient: Total time spent is greater than 50% in coordination of care (as documented) at patient's floor/unit and/or counseling patient: Coding Level of Care Code 67544 INT INP/OBS CARE 3/75MIN Diagnoses Generalized weakness R53.1 Hypothyroidism E03.9 BPH (benign prostatic hyperplasia) N40.0 Atrial fibrillation I48.91 Parkinsons disease G20.A1
[2025-06-29] MEDS: FINASTERIDE 5 MG TAB PO ONE (21:16)
[2025-06-29] MEDS: MIDODRINE HCL 2.5 MG TAB PO STA (21:16)
[2025-06-29] MEDS: MIRTAZAPINE TAB 15 MG TAB PO ONE (21:16)
[2025-06-29] MEDS: AMIODARONE 200 MG TAB PO ONE (21:18)
[2025-06-29] MEDS ORDERED: ONDANSETRON INJ 2 MG/ML 2 ML VIAL IV PRN (22:42)
[2025-06-29] MEDS: LACTATED RINGER'S 1,000 ML IV STA (23:30)
[2025-06-30] MEDS: LIOTHYRONINE SODIUM 5 MCG TAB PO SCH (06:17)
[2025-06-30] MEDS: LACTATED RINGER'S 1,000 ML IV SCH ×2 (06:18→07:54)
[2025-06-30] MEDS: MIDODRINE HCL 2.5 MG TAB PO SCH (06:19)
[2025-06-30 07:14] LABS: Hematocrit (blood only) 33.9 % (42.0-52.0); Hemoglobin 11.4 g/dl (14.0-18.0); Mean Corpuscular Hemoglobin 33.7 pg (25.0-34.0); Mean Corpuscular Volume 100.3 fL (80.0-100.0); Platelet Count 136 K/uL (130-400); RDW Standard Deviation 49.5 fL (36.4-46.3); Red Blood Count 3.38 M/uL (4.70-6.10); White Blood Count 14.15 K/ul (4.8-10.8)
[2025-06-30] MEDS: CARBIDOPA/LEVODOPA 25/100MG TAB PO SCH (07:58)
[2025-06-30] MEDS: ENTACAPONE 200 MG TAB PO SCH (07:58)
[2025-06-30 08:06] LABS: Anion Gap 7.0 (3-11); Blood Urea Nitrogen 34.0 mg/dl (6-23); Calcium 8.1 mg/dl (8.6-10.3); Carbon Dioxide 29.0 mmol/L (21-32); Chloride 106.0 mmol/L (98-107); Creatinine Clr Calc Pharmacy 45.8 ml/min; Glucose 128.0 mg/dl (70-99(Fasting)); Potassium 3.9 mmol/L (3.5-5.1); Sodium 142.0 mmol/L (136-145)
[2025-06-30] MEDS: AMIODARONE 200 MG TAB PO SCH (08:38)
[2025-06-30] MEDS: METOPROLOL SUCC 25MG EXT REL TAB PO SCH (08:38)
--- NOTE | 2025-06-30 10:29 | XRay Report ---
XR humerus LT 2V CLINICAL HISTORY: arm pain COMPARISON: None FINDINGS: No fracture or dislocation seen. No osseous lesions seen. There are mild degenerative castro ges of the left shoulder and left elbow. No radiopaque foreign body seen. IMPRESSION: No fracture seen. ACT 112: Negative or not required by law. Electronically signed by: Javier Steele M.D. 06/30/2025 10:27 AM
--- NOTE | 2025-06-30 12:47 | Hospitalist Progress Note ---
Date of Service June 30, 2025 Assessment & Plan (1) Generalized weakness: (2) Hypothyroidism: (3) BPH (benign prostatic hyperplasia): (4) Atrial fibrillation: (5) Parkinsons disease: (6) Left arm pain: Plan 85yo male sent in from [facility] with generalized weakness. Patient was initially in the care home facility but was transferred to the personal care facility on 06/16/2025. #Generalized weakness #UTI -UA suspicious for UTI -Follow urine culture -remove chronic wang catheter and void trial; possible exchange catheter depending on results -send void trial specimen for UA and culture -Maintain fall precautions -continue Ceftriaxone 2gm IV daily -CXR ordered, will follow -CT A/P ordered, will follow -PT/OT eval -CBC, BMP, CRP, will follow #Left-Sided Arm Pain -X-ray negative for fracture -suspect muscular etiology -PT/OT eval #Parkinson's Disease -Continue Carbidopa/Levodopa #Orthostatic hypotension -Continue Midodrine 7.5mg po BID #Atrial fibrillation - rate controlled -Continue Amiodarone 200mg po BID -Continue Metoprolol 12.5mg po qAM #Bipolar disorder/Mental Health -Continue Seroquel 75mg po qHS -Continue Remeron 15mg po qHS #Hypothyroidism -Continue Cytomel DVT prophylaxis: SCDs Dispo: Med/Surg Diet: Regular Code: DNR/DNI Admission and Anticipated Discharge Date Admission Date: June 29, 2025 Supervising Physician Co-Signing Physician Notes I personally examined the patient and verified all olsen points of history and exam, discussed case, and agree with decision making with Dr Diaz PGY 1 Patient is admitted with weakness for the past few days. Patient does not recall exactly what precipitated this. He does state that his left upper extremity is weak as well as having bilateral lower extremity weakness. Patient denies any fever, chills. He does report having a indwelling wang catheter since discharge from his previous hospital stay. Given risk of a complicated UTI, will trial removal of his urinary catheter. Will place on IV antibiotics and obtain a urine culture.. If weakness does not improve, will consider further Neurological workup. Subjective Patient was confused overnight. Today at bedside, he said he felt "okay," however, was complaining of left arm pain, rated 5/10 that extends from elbow to shoulder. He said he cannot move his arm. He normally ambulates with a walker at baseline.Pt denies fever, chills, CP, palpitations/flutters/skipped beats, SOB, N/V/C/D, abdominal pain, and complaints. Review of Systems Review of Systems: per HPI Physical Exam Physical Exam: GA: well groomed, well nourished in no apparent distress eating breakfast. AAO to person, place, month, year, and date HEENT: head normocephalic, atraumatic. EOMI. RESP: vesicular breath sounds b/l. No wheezes, rhonchi, or rales CARDIOVASCULAR: S1 and S2 heard. No murmurs, rubs, or gallops. Radial pulses 2+ b/l GI: Normoactive bowel sounds, no tenderness or masses felt to palpation MSK: tenderness to minimal palpation of left arm proximal to elbow. Limited ROM due to pain. SKIN: warm, dry, no edema PSYCH: appropriate mood and affect NEURO: no focal deficits Results & Data Results & Data Vital Signs (Past 12 Hours) Vital Signs Temp Pulse Resp BP Pulse Ox O2 Del Method 06/30/25 11:07 127/56 L 06/30/25 08:18 63 124/65 06/30/25 07:13 36.6 C 65 16 141/55 H 99 Room Air 06/30/25 06:20 125/64 06/30/25 02:58 36.5 C 63 16 139/63 98 Room Air 06/30/25 02:07 63 16 123/73 96 Room Air Resident Activity Tracking Resident Involvement: Resident Care Provided Care Provided: Adult Hospital Medicine (2) Hypothyroidism Hypothyroidism type: unspecified Qualified Code(s): E03.9 - Hypothyroidism, unspecified (3) BPH (benign prostatic hyperplasia) Lower urinary tract symptom presence: symptoms absent Qualified Code(s): N40.0 - Benign prostatic hyperplasia without lower urinary tract symptoms (4) Atrial fibrillation Atrial fibrillation type: unspecified Qualified Code(s): I48.91 - Unspecified atrial fibrillation (5) Parkinsons disease Dyskinesia presence: unspecified whether dyskinesia Fluctuating manifestations: unspecified whether manifestations fluctuate Qualified Code(s): G20.A1 - Parkinson's disease without dyskinesia, without mention of fluctuations
--- NOTE | 2025-06-30 13:47 | XRay Report ---
XR chest 2V PA/lateral CLINICAL HISTORY: r/o PNE COMPARISON STUDY: 06/29/2025 FINDINGS: Heart size and pulmonary vasculature are normal. No consolidation or pleural effusion seen. No pneumothorax. IMPRESSION: No pneumonia seen. ACT 112: Negative or not required by law. Electronically signed by: Javier Steele M.D. 06/30/2025 1:46 PM
--- NOTE | 2025-06-30 14:49 | CT Scan Report ---
CT OF THE ABDOMEN AND PELVIS WITHOUT CONTRAST CLINICAL HISTORY: r/o pyelonephritis, see bowel status too COMPARISON STUDY: KUB June 13, 2024. CT of the abdomen and pelvis June 09, 2024. Chest CT Augu 2024. TECHNIQUE: Axial images of the abdomen and pelvis were obtained without IV contrast. Images were revi ewed in the axial, sagittal, and coronal planes. Automated exposure control was utilized for the sammie dy. A dose lowering technique was utilized adhering to the principles of ALARA. FINDINGS: Small bilateral pleural effusions have decreased in size when compared to chest CT of Augus 2024. No pneumatosis, free air or portal venous gas is present. No renal, ureteral or bladder c alculi are present. A Bowling balloon within the bladder is noted. The bladder is collapsed. Sensitivit y for detection of pyelonephritis is diminished on unenhanced exam. However, no renal fluid collectio n is identified. There is no significant perinephric straining. A small amount of ascites within the abdomen and pelvis is present. There is a small amount of layering hyperdense material within the gal lbladder. The gallbladder is not distended. Evaluation of the abdomen and pelvis is suboptimal on thi s unenhanced exam. Unenhanced images of the liver, spleen, adrenal glands and pancreas are unremarkab le. There is no lymphadenopathy. There is a moderate amount of stool within the colon and rectum. The re is no evidence for a bowel obstruction. There is body wall edema. Of note, multiple small scleroti c lesions have developed since CT of June 09, 2024. These include a 1.7 cm right iliac bone lesion on image 192. A few smaller lesions within the lumbar spine are present. There are no pathologic frac tures. IMPRESSION: 1. No urinary calculi or hydronephrosis. Suboptimal evaluation for pyelonephritis on unenhanced exam but convincing evidence on this study. 2. 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 Although nonspecific, metastatic prostate cancer is a primary consideration. Findings c ould be correlated with PSA level. 3. Small bilateral pleural effusions. Body wall edema. Small amount of ascites within the abdomen and pelvis. 4. No evidence for a bowel obstruction. Moderate of amount stool within the colon and rectum. ACT 112: Negative or not required by law. Electronically signed by: Benjamin Urena M.D. 06/30/2025 2:48 PM
--- NOTE | 2025-06-30 15:32 | Electrocardiogram Report ---
Test Reason : Blood Pressure : */* mmHG Vent. Rate : 48 BPM Atrial Rate : 96 BPM P-R Int : 162 ms QRS Dur : 92 ms QT Int : 416 ms P-R-T Axes : * 41 84 degrees QTcB Int : 371 ms Poor data quality, interpretation may be adversely affected Sinus bradycardia Cannot rule out Anterior infarct , age undetermined Abnormal ECG When compared with ECG of 30-May-2025 16:42, Sinus rhythm has replaced Atrial fibrillation Vent. rate has decreased by 59 bpm Non-specific change in ST segment in Anterior leads Confirmed by Alex Baldwin ([id number]) on 06/30/2025 3:32:38 PM Referred By: Tammi lópez [facility] Confirmed By: Alex Baldwin
[2025-06-30] MEDS: cefTRIAXone SODIUM 2,000 MG/50 ML BAG IV SCH (17:23)
[2025-06-30] MEDS: MIRTAZAPINE TAB 15 MG TAB PO SCH (20:08)
[2025-06-30] MEDS: FINASTERIDE 5 MG TAB PO SCH (20:08)
[2025-06-30 20:43] LABS: Bacteria Urine Automated 2+ (None Seen); Cast Urine Automated >20 /lpf (0-2); Epithelial Cell Urine Auto 0-2 /hpf (0-2); WBC Urine Automated >50 /hpf (0-5)
[2025-07-01 07:16] LABS: Hematocrit (blood only) 32.2 % (42.0-52.0); Hemoglobin 10.9 g/dl (14.0-18.0); Immature Granulocytes # (auto) 0.14 K/uL (0.01-0.20); Immature Granulocytes % (auto) 1.0 %; Mean Corpuscular Hemoglobin 34.3 pg (25.0-34.0); Mean Corpuscular Volume 101.3 fL (80.0-100.0); Platelet Count 148 K/uL (130-400); RDW Standard Deviation 49.7 fL (36.4-46.3); Red Blood Count 3.18 M/uL (4.70-6.10); White Blood Count 13.83 K/ul (4.8-10.8)
[2025-07-01 07:39] LABS: Anion Gap 2.0 (3-11); Blood Urea Nitrogen 35.0 mg/dl (6-23); Calcium 8.1 mg/dl (8.6-10.3); Carbon Dioxide 33.0 mmol/L (21-32); Chloride 104.0 mmol/L (98-107); Creatinine Clr Calc Pharmacy 48.7 ml/min; Potassium 3.7 mmol/L (3.5-5.1); Sodium 139.0 mmol/L (136-145)
[2025-07-01] MEDS: ACETAMINOPHEN 325 MG TAB PO PRN (07:40)
--- NOTE | 2025-07-01 09:47 | Hospitalist Progress Note ---
Date of Service July 01, 2025 Assessment & Plan (1) Generalized weakness: (2) Hypothyroidism: (3) BPH (benign prostatic hyperplasia): (4) Atrial fibrillation: (5) Parkinsons disease: (6) Left arm pain: Plan 85yo male sent in from [facility] with generalized weakness. Patient was initially in the residential facility but was transferred to the personal care facility on 06/16/2025. Currently being managed for suspected UTI. #Generalized weakness 2/2 to infection #UTI #r/o TIA/Stroke #GBS? -UA suspicious for UTI -Follow urine culture -MRI Brain without contrast -MRI cervical spine w/wo contrast -removed chronic wang catheter; bladder scans prn (PVR: 250, 227), no catheter exchange for now -Maintain fall precautions -continue Ceftriaxone 2gm IV daily (day 3/7) -PT/OT eval -CBC, BMP, CRP, will follow #Left-Sided Arm Pain -X-ray negative for fracture -imagining as above -suspect muscular etiology -PT/OT eval -Tylenol prn for pain #Parkinson's Disease -Continue Carbidopa/Levodopa #Orthostatic hypotension -Continue Midodrine 7.5mg po BID #Atrial fibrillation - rate controlled -Continue Amiodarone 200mg po BID -Continue Metoprolol 12.5mg po qAM #Bipolar disorder/Mental Health -Continue Seroquel 75mg po qHS -Continue Remeron 15mg po qHS #Hypothyroidism -Continue Cytomel DVT prophylaxis: SCDs Dispo: Med/Surg Diet: Regular Code: DNR/DNI Admission and Anticipated Discharge Date Admission Date: June 29, 2025 Supervising Physician Co-Signing Physician Notes I personally examined the patient and verified all olsen points of history and exam, discussed case, and agree with decision making with Dr Diaz PGY 1 Patient is admitted with weakness for the past few days. Patient does not recall exactly what precipitated this. He does state that his left upper extremity is weak as well as having bilateral lower extremity weakness. Patient denies any fever, chills. He reports having a flu shot about 2 weeks ago. Removed wang cathater on 06/30 Continue IV antibiotics and obtain a urine culture. Concern for GBS vs cervical pathology vs stroke. MRI Brain was negative. MRI of cervical spine did show significant wear and tear which may explain the weakness in his left upper extremity. His lower extremity weakness may very well be from possible UTI, but given that his achilles reflex was +1 bilaterally, will likely reach out to Neuro tomorrow as a curbside. Subjective Overnight events: woke up confused, thought he was at [email or web address]. Today at bedside, he says he is feeling okay and wants to go home. He states he is still experiencing left arm pain that is unchanged since yesterday. Denies fever, chills, CP, SOB, abdominal pain, complaints. Review of Systems Review of Systems: per HPI Physical Exam Physical Exam: GA: well groomed, well nourished in no apparent distress eating breakfast. AAO to person and year but not place HEENT: head normocephalic, atraumatic. EOMI. RESP: vesicular breath sounds b/l. No wheezes, rhonchi, or rales CARDIOVASCULAR: S1 and S2 heard. No murmurs, rubs, or gallops. Radial pulses 2+ b/l GI: Normoactive bowel sounds, no tenderness or masses felt to palpation MSK: tenderness to minimal palpation of left arm proximal to elbow. Limited ROM due to pain. SKIN: warm, dry, no edema PSYCH: appropriate mood and affect NEURO: no apparent focal deficits. 2+ reflexes in B/L biceps, brachioradialis, patellar; 1+ B/L Achilles, B/L triceps deferred due to patient noncompliance and pain on left side Results & Data Results & Data Vital Signs (Past 12 Hours) Vital Signs Temp Pulse Resp BP Pulse Ox O2 Del Method 07/01/25 09:19 36.8 C 07/01/25 07:22 37.9 C H 66 18 123/54 L 99 Room Air 07/01/25 05:58 67 144/61 H 06/30/25 23:00 36.9 C 62 18 129/50 L 97 Room Air Resident Activity Tracking Resident Involvement: Resident Care Provided Care Provided: Adult Hospital Medicine (2) Hypothyroidism Hypothyroidism type: unspecified Qualified Code(s): E03.9 - Hypothyroidism, unspecified (3) BPH (benign prostatic hyperplasia) Lower urinary tract symptom presence: symptoms absent Qualified Code(s): N40.0 - Benign prostatic hyperplasia without lower urinary tract symptoms (4) Atrial fibrillation Atrial fibrillation type: unspecified Qualified Code(s): I48.91 - Unspecified atrial fibrillation (5) Parkinsons disease Dyskinesia presence: unspecified whether dyskinesia Fluctuating manifestations: unspecified whether manifestations fluctuate Qualified Code(s): G20.A1 - Parkinson's disease without dyskinesia, without mention of fluctuations
[2025-07-01] MEDS: GADOBUTROL 30ML VIAL IV ONE (13:24)
--- NOTE | 2025-07-01 13:27 | Magnetic Resonance Report ---
Clinical History: Left arm weakness Technique: Multiple T1 and T2-weighted magnetic resonance images were obtained of the brain without gadolinium contrast Findings: There is no sign of acute or old infarction with normal-appearing diffusion weighted images. There is cerebral atrophy, within expected limits for the patient's age. There are focal and confluent areas of increased T2 signal intensity within the periventricular white matter of the cerebral hemispheres bilaterally. This is most likely due to chronic small vessel ischemic disease. No definite mass lesion is seen on this noncontrast study. There is no intracranial hemorrhage or other fluid collection. No midline shift or other form of herniation is seen. There is no hydrocephalus. Normal flow-voids are seen within the arteries of the [id number]. The orbits and paranasal sinuses appear normal. The mastoid air cells appear clear. Impression: 1. Cerebral atrophy and chronic small vessel ischemic disease 2. Otherwise unremarkable noncontrast MRI of the brain Electronically signed by Heath Sam 07-01-2025 13:26 PM
--- NOTE | 2025-07-01 14:14 | Magnetic Resonance Report ---
Exam: MR cervical spine without and with intravenous contrast. History: Left arm weakness. Comparison: CT cervical spine May 30, 2025. Technique: Routine multiplanar multisequence MR images of the cervical spine without and with intravenous contrast were obtained and reviewed. Findings: Portions of the exam limited secondary to patient motion. Marrow signal demonstrates focal area of decreased T1 increased fluid-sensitive signal along the posterior central aspect of the C6 vertebral body. No definitive correlate on prior CT. Again Motion limits detail. Similar smaller focus involving the superior endplate of T3 is noted. This is fairly well-defined. Cervical spine alignment demonstrates mild dextrocurvature. Mild anterolisthesis C7 on T1 and T1 on T2. Intervertebral discs demonstrate multilevel disc desiccation and height loss with associated endplate osteophytes. Included posterior fossa and cord signal are grossly normal. Axial series demonstrates [id number]: C2-C3 level demonstrates mild facet arthropathy changes. No significant spinal canal or foraminal narrowing. C3-C4 level demonstrates mild circumferential disc osteophyte complex. Mild facet arthropathy changes. There is mild spinal canal and moderate bilateral foraminal narrowing. C4-C5 level demonstrates posterior lateral disc osteophyte complexes greater on the right than the left. Mild facet arthropathy changes. Moderate bilateral foraminal narrowing right greater than left. At least mild spinal canal narrowing. C5-C6 level demonstrates circumferential disc osteophyte complex. Mild to moderate spinal canal narrowing. Mild to moderate left and moderate right foraminal stenoses. C6-C7 level demonstrates circumferential disc osteophyte complex. Mild spinal canal with moderate to marked right and mild to moderate left foraminal narrowing. C7-T1 level demonstrates mild uncovering of the intervertebral disc. No significant foraminal narrowing. Included neck soft tissues are within normal limits. Postcontrast images demonstrate very mild elements of enhancement involving the C6 vertebral body signal intensity focus. No significant enhancement of the T2 vertebral body focus. Impression: Multilevel degenerative changes with mild to moderate spinal canal and moderate to marked foraminal stenoses. Additional nonspecific vertebral body foci of signal alteration likely benign. Recommend plain film or CT correlation. Again evaluation is limited in detail secondary to patient motion. Please see above for details. Electronically signed by Arnel Sommer 07-01-2025 2:14 PM
[2025-07-02 06:36] LABS: Hematocrit (blood only) 31.4 % (42.0-52.0); Hemoglobin 10.5 g/dl (14.0-18.0); Immature Granulocytes # (auto) 0.06 K/uL (0.01-0.20); Immature Granulocytes % (auto) 0.5 %; Mean Corpuscular Hemoglobin 33.3 pg (25.0-34.0); Mean Corpuscular Volume 99.7 fL (80.0-100.0); Platelet Count 156 K/uL (130-400); RDW Standard Deviation 48.6 fL (36.4-46.3); Red Blood Count 3.15 M/uL (4.70-6.10); White Blood Count 11.94 K/ul (4.8-10.8)
[2025-07-02 07:15] LABS: Anion Gap 5.0 (3-11); Blood Urea Nitrogen 34.0 mg/dl (6-23); Calcium 8.2 mg/dl (8.6-10.3); Carbon Dioxide 30.0 mmol/L (21-32); Chloride 104.0 mmol/L (98-107); Creatinine Clr Calc Pharmacy 52.5 ml/min; Potassium 3.8 mmol/L (3.5-5.1); Sodium 139.0 mmol/L (136-145)
--- NOTE | 2025-07-02 09:13 | Billing Data ---
Date of Service June 30, 2025 Coding Level of Care Code 93195 SUB INP/OBS CARE MIN
--- NOTE | 2025-07-02 09:19 | Billing Data ---
Date of Service July 01, 2025 Coding Level of Care Code 18872 SUB INP/OBS CARE MIN
--- NOTE | 2025-07-02 14:48 | Hospitalist Progress Note ---
Date of Service July 02, 2025 Assessment & Plan (1) Generalized weakness: (2) Hypothyroidism: (3) BPH (benign prostatic hyperplasia): (4) Atrial fibrillation: (5) Parkinsons disease: (6) Left arm pain: Plan 85yo male sent in from [facility] with generalized weakness. [facility] the personal care facility on 06/16/2025. Currently being managed for suspected UTI. Imaging: -MRI Brain without contrast 1. Cerebral atrophy and chronic small vessel ischemic disease 2. Otherwise unremarkable noncontrast MRI of the brain -MRI cervical spine w/wo contrast Multilevel degenerative changes with mild to moderate spinal canal and moderate to marked foraminal stenoses. Additional nonspecific vertebral body foci of signal alteration likely benign. #Generalized weakness 2/2 to infection vs GBS #UTI -UA suspicious for UTI -Urine Culture: pseudomonas growth -WBC 13.9->11.9 -CRP 19->16.6 -removed chronic wang catheter; no catheter exchange for now -Maintain fall precautions -stop Ceftriaxone 2gm IV daily -start Zosyn 4.5g q8hrs -PT/OT on board -CBC, BMP, CRP, will follow -consider LP if condition worsens #Left-Sided Arm Pain -X-ray negative for fracture -other imaging as above -suspect muscular etiology -PT/OT on board -Ibuprofen prn for pain #Parkinson's Disease -Continue Carbidopa/Levodopa #Orthostatic hypotension -Continue Midodrine 7.5mg po BID #Atrial fibrillation - rate controlled -Continue Amiodarone 200mg po BID -Continue Metoprolol 12.5mg po qAM #Bipolar disorder/Mental Health -Continue Seroquel 75mg po qHS -Continue Remeron 15mg po qHS #Hypothyroidism -Continue Cytomel DVT prophylaxis: SCDs, avoid chemoprophylaxis in case of need for LP for suspicion of GBS Dispo: Med/Surg Diet: Regular Code: DNR/DNI Admission and Anticipated Discharge Date Admission Date: June 29, 2025 Supervising Physician Co-Signing Physician Notes I personally examined the patient and verified all olsen points of history and exam, discussed case, and agree with decision making with Dr Diaz PGY 1 Patient is admitted with weakness for the past few days. Patient does not recall exactly what precipitated this. He does state that his left upper extremity is weak as well as having bilateral lower extremity weakness. Patient denies any fever, chills. He reports having a flu shot about 2 weeks ago. Removed wang catheter on 06/30 Continue IV antibiotics and obtained urine culture. Concern for possible GBS though lower on my differential. will wait to see how patient responds to adequate antibiotics before attempting LP. Culture showed pseudomonas and antibiotics were switched on 07/02, which would be day 1. Cervical pathology and stroke appear to be ruled out. MRI Brain was negative. MRI of cervical spine did show significant wear and tear which may explain the weakness in his left upper extremity. His lower extremity weakness may very well be from possible UTI, but given that his achilles reflex was +1 bilaterally, reached out to Neuro, and may consider LP as stated above, but will wait for now. Subjective No overnight events. Pt feels better today. Still experiencing B/L leg weakness unchanged since yesterday. He is urinating on his own without complaints. Not experiencing any UTI sx. Tolerating diet well and denies abdominal pain and N/V/C/D. Denies fever, chills, CP, SOB. Review of Systems Review of Systems: per HPI Physical Exam Physical Exam: GA: well groomed male in no apparent distress eating breakfast. AAO to person, place, month, date, and year. But thought today was Thursday. HEENT: head normocephalic, atraumatic. EOMI. RESP: vesicular breath sounds b/l. No wheezes, rhonchi, or rales CARDIOVASCULAR: S1 and S2 heard. No murmurs, rubs, or gallops. Radial pulses 2+ b/l irregularly irregular GI: Normoactive bowel sounds, no tenderness or masses felt to palpation MSK: tenderness to minimal palpation of left arm proximal to elbow. Limited ROM due to pain. SKIN: warm, dry, edema around ankles (edema is chronic as per pt) PSYCH: appropriate mood and affect NEURO: no apparent focal deficits. 2+ reflexes in B/L biceps, brachioradialis, patellar; 1+ B/L Achilles, B/L triceps deferred due to patient noncompliance and pain on left side Results & Data Results & Data Vital Signs (Past 12 Hours) Vital Signs Temp Pulse Resp BP Pulse Ox O2 Del Method 07/02/25 08:53 55 L 16 116/53 L 96 Room Air 07/02/25 07:28 37.1 C 62 18 144/62 H 98 Room Air 07/02/25 05:57 36.9 C 68 140/63 Resident Activity Tracking Resident Involvement: Resident Care Provided Care Provided: Adult Hospital Medicine (2) Hypothyroidism Hypothyroidism type: unspecified Qualified Code(s): E03.9 - Hypothyroidism, unspecified (3) BPH (benign prostatic hyperplasia) Lower urinary tract symptom presence: symptoms absent Qualified Code(s): N40.0 - Benign prostatic hyperplasia without lower urinary tract symptoms (4) Atrial fibrillation Atrial fibrillation type: unspecified Qualified Code(s): I48.91 - Unspecified atrial fibrillation (5) Parkinsons disease Dyskinesia presence: unspecified whether dyskinesia Fluctuating manifestations: unspecified whether manifestations fluctuate Qualified Code(s): G20.A1 - Parkinson's disease without dyskinesia, without mention of fluctuations
[2025-07-02] MEDS ORDERED: IBUPROFEN 200 MG TAB PO PRN (15:16)
[2025-07-02] MEDS: PIPERACILLIN/TAZOBACTAM 4.5 GM/100 ML BAG IV ONE (15:29)
[2025-07-02] MEDS: PIPERACILLIN/TAZOBACTAM 4.5 GM/100 ML BAG IV SCH (20:01)
[2025-07-03] MEDS: DOCUSATE SODIUM 100 MG CAP PO PRN (05:53)
[2025-07-03 07:02] LABS: Hematocrit (blood only) 31.0 % (42.0-52.0); Hemoglobin 10.5 g/dl (14.0-18.0); Immature Granulocytes # (auto) 0.07 K/uL (0.01-0.20); Immature Granulocytes % (auto) 0.6 %; Mean Corpuscular Hemoglobin 33.7 pg (25.0-34.0); Mean Corpuscular Volume 99.4 fL (80.0-100.0); Platelet Count 168 K/uL (130-400); RDW Standard Deviation 48.5 fL (36.4-46.3); Red Blood Count 3.12 M/uL (4.70-6.10); White Blood Count 10.92 K/ul (4.8-10.8)
[2025-07-03 07:28] LABS: Anion Gap 3.0 (3-11); Blood Urea Nitrogen 30.0 mg/dl (6-23); Calcium 7.9 mg/dl (8.6-10.3); Carbon Dioxide 31.0 mmol/L (21-32); Chloride 105.0 mmol/L (98-107); Creatinine Clr Calc Pharmacy 51.5 ml/min; Potassium 3.8 mmol/L (3.5-5.1); Sodium 139.0 mmol/L (136-145)
--- NOTE | 2025-07-03 07:30 | Hospitalist Progress Note ---
Date of Service July 03, 2025 Assessment & Plan (1) Generalized weakness: (2) Hypothyroidism: (3) BPH (benign prostatic hyperplasia): (4) Parkinsons disease: (5) Left arm pain: Plan 85yo male sent in from [facility] with generalized weakness. Patient was initially in the intermediate facility but was transferred to the personal care facility on 06/16/2025. Currently being managed for suspected UTI. Imaging: -MRI Brain without contrast 1. Cerebral atrophy and chronic small vessel ischemic disease 2. Otherwise unremarkable noncontrast MRI of the brain -MRI cervical spine w/wo contrast Multilevel degenerative changes with mild to moderate spinal canal and moderate to marked foraminal stenoses. Additional nonspecific vertebral body foci of signal alteration likely benign. #Generalized weakness 2/2 to infection vs GBS #UTI -UA suspicious for UTI -Urine Culture: pseudomonas growth -WBC 13.9->11.9->10.5 -CRP 19->16.6->11.72 -s/p chronic wang catheter removal; no catheter exchange for now, urinating on own -Maintain fall precautions -stop Ceftriaxone 2gm IV daily -start Zosyn 4.5g q8hrs -will likely switch to PO ciprofloxacin 500mg BID at discharge -PT/OT on board -CBC, BMP in AM, will follow -consider LP if condition worsens -awaiting placement #Left-Sided Arm Pain -X-ray negative for fracture -other imaging as above -suspect muscular etiology -PT/OT on board -Ibuprofen prn for pain #Parkinson's Disease -Continue Carbidopa/Levodopa #Orthostatic hypotension -Continue Midodrine 7.5mg po BID #Atrial fibrillation - rate controlled -Continue Amiodarone 200mg po BID -Continue Metoprolol 12.5mg po qAM #Bipolar disorder/Mental Health -Continue Seroquel 75mg po qHS -Continue Remeron 15mg po qHS #Hypothyroidism -Continue Cytomel DVT prophylaxis: SCDs, Start Lovenox tomorrowseeming less and less likely that an LP will be needed Dispo: Med/Surg Diet: Regular Code: DNR/DNI Admission and Anticipated Discharge Date Admission Date: June 29, 2025 Supervising Physician Co-Signing Physician Notes I personally examined the patient and verified all olsen points of history and exam, discussed case, and agree with decision making with Dr Foore resting comfortably. Awaiting placement. Vitals noted. No acute distress noted. Breathing unlabored no accessory muscle use good effort. Skin without rashes pallor or icterus. Weakness/urinary tract infection (UTI would be related to his chronic Wang- CAUTI POAand he has culture positive for Pseudomonas)continue IV antibiotics for now. Working on placementWill need SNF. Once he is set to go to SNF, can review how long we have treated and likely transition to p.o. coverage unless a full course of treatment has been completed. probable severe protein calorie malnutrion - supportive care, encourage intake DVT prophylaxisSCDs for now, start Lovenox tomorrow. Subjective No overnight events. Pt feels better today. Still experiencing B/L leg weakness unchanged since yesterday. He is urinating on his own without complaints. Not experiencing any UTI sx. Tolerating diet well and denies abdominal pain and N/V/C/D. Denies fever, chills, CP, SOB. Review of Systems Review of Systems: per HPI Physical Exam Physical Exam: GA: well groomed male in no apparent distress eating breakfast. AAO to person, place, month, date, and year. HEENT: head normocephalic, atraumatic. EOMI. RESP: vesicular breath sounds b/l. No wheezes, rhonchi, or rales CARDIOVASCULAR: S1 and S2 heard. No murmurs, rubs, or gallops. Radial pulses 2+ b/l irregularly irregular GI: Normoactive bowel sounds, no tenderness or masses felt to palpation MSK: Limited LUE ROM due to pain. SKIN: warm, dry, edema around ankles, no erythema or calf tenderness (edema is chronic as per pt) PSYCH: appropriate mood and affect NEURO: no apparent focal deficits. Results & Data Results & Data Vital Signs (Past 12 Hours) Vital Signs Temp Pulse Resp BP Pulse Ox O2 Del Method 07/03/25 07:17 36.6 C 63 16 143/64 H 96 Room Air 07/03/25 05:50 65 138/53 L 07/02/25 22:50 36.7 C 60 16 137/57 L 98 Room Air 07/02/25 20:00 Room Air Resident Activity Tracking Resident Involvement: Resident Care Provided Care Provided: Adult Hospital Medicine (2) Hypothyroidism Hypothyroidism type: unspecified Qualified Code(s): E03.9 - Hypothyroidism, unspecified (3) BPH (benign prostatic hyperplasia) Lower urinary tract symptom presence: symptoms absent Qualified Code(s): N40.0 - Benign prostatic hyperplasia without lower urinary tract symptoms (4) Parkinsons disease Dyskinesia presence: unspecified whether dyskinesia Fluctuating manifestations: unspecified whether manifestations fluctuate Qualified Code(s): G20.A1 - Parkinson's disease without dyskinesia, without mention of fluctuations
--- NOTE | 2025-07-03 08:42 | Billing Data ---
Date of Service July 02, 2025 Coding Level of Care Code [id number] SUB INP/OBS CARE MIN
--- NOTE | 2025-07-03 15:35 | Billing Data ---
Date of Service July 03, 2025 Coding Level of Care Code [id number] SUB INP/OBS CARE
--- NOTE | 2025-07-03 22:45 | Surgery Consultation ---
Date of Consultation July 03, 2025 Assessment & Plan (1) Sacral pressure ulcer: Plan Patient with multiple skin tears and sacral ulcer that was evaluated by wound team earlier today and given extent of sacral ulcer general surgery was consulted for further evaluation for possible debridement. Patient states he is having increasing pain to the area and is agreeable for debridement if indicated. For now will make patient NPO after midnight and hold morning dose of Lovenox. Will discuss patient's case with attending surgeon and final surgical plans/recommendations to follow. History of Present Illness Reason for Consultation: Sacral pressure ulcer History of Present Illness The patient is an 85-year-old male with a past medical history significant for Parkinson's, A-fib, heart failure and BPH who was admitted to the medical service on 06/29/2025 for increased weakness and fatigue. During his hospital course he has been seen by the wound care team today due to concerns for multiple skin tears, foot calluses, and sacral pressure ulcer. Upon wound care evaluation patient was noted to have an unstageable ulcer to his coccyx region and recommended surgical evaluation for possible debridement. The patient was seen and evaluated this evening. He states he has been having pain to his buttock region for quite some time and states the pain seems to be worsening. The area has a roughly 3x2.5cm eschar area over the coccyx with extending erythema to the bilateral buttock region. Allergies Allergy/AdvReac Type Severity Reaction Status Date / Time benzalkonium chloride Allergy Unknown [facility] [place] Verified 06/29/25 17:19 [facility] brimonidine Allergy Unknown ON [facility] [place] Verified 06/29/25 17:19 [facility] diclofenac [From Voltaren] Allergy Unknown ON [facility] [place] Verified 06/29/25 17:19 [facility] travoprost Allergy Unknown ON [facility] [place] Verified 06/29/25 17:19 [facility] acetaminophen AdvReac Mild ANKLES Verified 06/29/25 17:19 [facility]WE[facility] UP Home Medications Medication Instructions Recorded Confirmed Type Prevagen 10 mg PO QAM 06/09/24 06/29/25 History carbidopa 25 mg-levodopa 100 mg 1.5 tab PO AC 06/09/24 06/29/25 History tablet docusate sodium 100 mg tablet 200 mg PO Q24H PRN Constipation 06/09/24 06/29/25 History (Stool Softener) dorzolamide-timolol (PF) 2 %-0.5 % 1 drp OPB BID 06/09/24 06/29/25 History eye drops in a dropperette entacapone 200 mg tablet 200 mg PO AC 06/09/24 06/29/25 History glucosamine-chondroitin 750 mg-600 1 tab PO QAM 06/09/24 06/29/25 History mg tablet niacin 1,000 mg tablet,extended 2,000 mg PO HS 06/09/24 06/29/25 History release 24 hr peg 400-propylene glycol 0.4 %-0.3 1 drp OPB Q6H PRN Dry Eyes 06/09/24 06/29/25 History % eye drops (Systane (propylene glycol)) vit C 250 mg-vit E 90 mg-zinc 40 1 tab PO BID ##0 06/09/24 06/29/25 History mg-copper 1 [id number] capsule (PreserVision AREDS-2) vitamin B complex 1 tab PO DAILY 06/09/24 06/29/25 History finasteride 5 mg tablet 5 mg PO HS #90 tabs 07/22/24 06/29/25 Rx solifenacin 10 mg tablet 10 mg PO HS #90 tabs 07/22/24 06/29/25 Rx cholecalciferol (vitamin D3) 25 25 mcg PO DAILY 12/16/24 06/29/25 History mcg (1,000 unit) capsule (Vitamin D3) metoprolol succinate 25 mg 12.5 mg PO QAM 12/16/24 06/29/25 History tablet,extended release 24 hr furosemide 40 mg tablet 40 mg PO BID17 #30 tabs 06/03/25 06/29/25 Rx liothyronine 5 mcg tablet 5 mcg PO DAILYBB #20 tabs 06/03/25 06/29/25 Rx amiodarone 400 mg tablet 200 mg PO BIDM 06/29/25 06/29/25 History ibuprofen 200 mg tablet 400 mg PO Q6H PRN Pain 06/29/25 06/29/25 History midodrine 5 mg tablet 7.5 mg PO TID 06/29/25 06/29/25 History mirtazapine 15 mg tablet 15 mg PO HS 06/29/25 06/29/25 History potassium chloride 20 mEq 20 meq PO BID 06/29/25 06/29/25 History tablet,extended release quetiapine 50 mg tablet 75 mg PO HS 06/29/25 06/29/25 History Patient History Medical History Fall Weakness Generalized weakness Pneumonia Thrombocytopenia Recurrent falls Atrial fibrillation Parkinsons disease Benign localized prostatic hyperplasia with lower urinary tract symptoms (LUTS) Surgical History History of cataract extraction 02/2017-bilateral History of bladder surgery Green light laser surgery for excess bladder tissue-03/09/14 History of Mohs micrographic surgery for skin cancer Head-2014 Left arm-2013 History of sebaceous cyst x3-2 on back, 1 on chest History of tonsillectomy and adenoidectomy 1948 History of surgery femur [id number] leg repair laser vaporization with transurethral resection of prostate Previous back surgery H/O: knee surgery Family History Brother Prostate cancer Father Hypertension Heart disease following heart attack Mother Hearing loss Heart disease following heart attack Other No family history of adverse response to anesthesia No family history of bleeding disorder Social History Smoking Status: Never smoker Do You Dip or Chew Tobacco: No; Hx Alcohol Use: No Hx Substance Use: No Preferred Language: Nepali Communication Ability: Effective Service Director Required: No Beliefs That Will Affect Care: None marital status: Current Living Situation: Spouse current occupational status: retired Feels Safe at Home: Yes Safety Concerns: Feels Safe At This Time Assistive Devices: Walker Review of Systems Review of Systems: All systems reviewed & are unremarkable except as noted in HPI & below Physical Exam Constitutional: WD/WN, vitals as above Respiratory: normal respiratory effort, lungs clear to auscultation Cardiovascular: Rate/Rhythm: regular rate Gastrointestinal (Abdomen): normal bowel sounds, soft, nontender, no hepato splenomegaly Skin: 3cm x 2.5cm eschar area over the coccyx with extending erythema to the bilateral buttock region No drainage appreciated Results & Data Vital Signs (Past 12 Hours) Vital Signs Temp Pulse Resp BP Pulse Ox O2 Del Method 07/03/25 16:50 58 L 07/03/25 14:53 36.3 C L 51 L 20 129/58 L 97 Room Air PG Care Time/CCT Total # of Minutes Spent Total Time Spent with Patient: Total time spent is greater than 50% in coordination of care (as documented) at patient's floor/unit and/or counseling patient: [place] [address] INT INP/OBS CARE 1/40MIN Patient Type New History Problem Focused Exam Problem Focused Medical Decision Making Straight Forward Diagnoses Sacral pressure ulcer L89.159
[2025-07-04 07:42] LABS: Hematocrit (blood only) 32.4 % (42.0-52.0); Hemoglobin 11.4 g/dl (14.0-18.0); Immature Granulocytes # (auto) 0.08 K/uL (0.01-0.20); Immature Granulocytes % (auto) 0.8 %; Mean Corpuscular Hemoglobin 34.8 pg (25.0-34.0); Mean Corpuscular Volume 98.8 fL (80.0-100.0); Platelet Count 189 K/uL (130-400); RDW Standard Deviation 46.2 fL (36.4-46.3); Red Blood Count 3.28 M/uL (4.70-6.10); White Blood Count 10.47 K/ul (4.8-10.8)
[2025-07-04 08:08] LABS: Anion Gap 4.0 (3-11); Blood Urea Nitrogen 27.0 mg/dl (6-23); Calcium 8.1 mg/dl (8.6-10.3); Carbon Dioxide 32.0 mmol/L (21-32); Chloride 104.0 mmol/L (98-107); Creatinine Clr Calc Pharmacy 51.0 ml/min; Potassium 3.9 mmol/L (3.5-5.1); Sodium 140.0 mmol/L (136-145)
[2025-07-04] MEDS ORDERED: ATROPINE SULFATE 0.1 MG/ML 10ML SYR IV PRN (08:27)
[2025-07-04] MEDS ORDERED: ONDANSETRON INJ 2 MG/ML 2 ML VIAL IV PRN (08:27)
--- NOTE | 2025-07-04 08:27 | Anesthesiology Consultation ---
Date of Service July 04, 2025 Assessment & Plan Chart Review Chart Review: Acceptable Risk for Surgery and Patient NOT seen in Pre Admission Testing Consults Requested none History Surgery Operation Date: 07/04/25 07:00 Proposed Procedures p Debridement of Sacral Wound - Herbert Weldon DO Height/Weight Height: 6 ft 3 in Weight: 70.1 kg Allergies Allergy/AdvReac Type Severity Reaction Status Date / Time benzalkonium chloride Allergy Unknown ON [facility] Verified 06/29/25 17:19 [facility] brimonidine Allergy Unknown ON [facility] Verified 06/29/25 17:19 [facility] diclofenac [From Voltaren] Allergy Unknown ON [facility] Verified 06/29/25 17:19 [facility] 06/29/25 17:19 [facility] acetaminophen AdvReac Mild ANKLES Verified 06/29/25 17:19 SWELL UP Medications Home Medications Medication Instructions Recorded Confirmed Last Taken Prevagen 10 mg PO QAM 06/09/24 06/29/25 06/29/25 carbidopa 25 mg-levodopa 100 mg 1.5 tab PO AC 06/09/24 06/29/25 06/29/25 12:00 tablet docusate sodium 100 mg tablet 200 mg PO Q24H PRN Constipation 06/09/24 06/29/25 01/25/25 (Stool Softener) dorzolamide-timolol (PF) 2 %-0.5 % 1 drp OPB BID 06/09/24 06/29/25 06/29/25 08:00 eye drops in a dropperette entacapone 200 mg tablet 200 mg PO AC 06/09/24 06/29/25 06/29/25 12:00 glucosamine-chondroitin 750 mg-600 1 tab PO QAM 06/09/24 06/29/25 06/29/25 mg tablet niacin 1,000 mg tablet,extended 2,000 mg PO HS 06/09/24 06/29/25 06/28/25 release 24 hr peg 400-propylene glycol 0.4 %-0.3 1 drp OPB Q6H PRN Dry Eyes 06/09/24 06/29/25 01/25/25 % eye drops (Systane (propylene glycol)) vit C 250 mg-vit E 90 mg-zinc 40 1 tab PO BID ##0 06/09/24 06/29/25 06/29/25 08:00 mg-copper 1 [id number] capsule (PreserVision AREDS-2) vitamin B complex 1 tab PO DAILY 06/09/24 06/29/25 06/29/25 finasteride 5 mg tablet 5 mg PO HS #90 tabs 07/22/24 06/29/25 06/28/25 solifenacin 10 mg tablet 10 mg PO HS #90 tabs 07/22/24 06/29/25 06/28/25 cholecalciferol (vitamin D3) 25 25 mcg PO DAILY 12/16/24 06/29/25 06/29/25 mcg (1,000 unit) capsule (Vitamin D3) metoprolol succinate 25 mg 12.5 mg PO QAM 12/16/24 06/29/25 06/29/25 tablet,extended release 24 hr furosemide 40 mg tablet 40 mg PO BID17 #30 tabs 06/03/25 06/29/25 06/29/25 08:00 liothyronine 5 mcg tablet 5 mcg PO DAILYBB #20 tabs 06/03/25 06/29/25 06/29/25 amiodarone 400 mg tablet 200 mg PO BIDM 06/29/25 06/29/25 06/29/25 08:00 ibuprofen 200 mg tablet 400 mg PO Q6H PRN Pain 06/29/25 06/29/25 Unknown midodrine 5 mg tablet 7.5 mg PO TID 06/29/25 06/29/25 Unknown mirtazapine 15 mg tablet 15 mg PO HS 06/29/25 06/29/25 06/28/25 potassium chloride 20 mEq 20 meq PO BID 06/29/25 06/29/25 06/29/25 08:00 tablet,extended release quetiapine 50 mg tablet 75 mg PO HS 06/29/25 06/29/25 06/28/25 Active Medications Generic Name Dose Route Start Last Admin Trade Name Freq PRN Reason Stop Dose Admin Amiodarone HCl 200 mg 06/30/25 08:00 07/03/25 16:49 Amiodarone 200 Mg Tab PO 07/30/25 07:59 Not Given BIDM DENISSE Carbidopa/Levodopa 1.5 tab 06/30/25 07:30 07/03/25 16:52 Carbidopa/Levodopa 25/100mg Tab PO 07/30/25 07:29 1.5 tab AC DENISSE Administration Docusate Sodium 100 mg 06/29/25 22:42 07/03/25 16:50 Docusate Sodium 100 Mg Cap PO 07/29/25 22:41 100 mg BID PRN Administration Constipation Entacapone 200 mg 06/30/25 07:30 07/03/25 16:52 Entacapone 200 Mg Tab PO 07/30/25 07:29 200 mg AC DENISSE Administration Finasteride 5 mg 06/30/25 21:00 07/03/25 20:09 Finasteride 5 Mg Tab PO 07/30/25 20:59 5 mg HS DENISSE Administration Piperacillin Sod/Tazobactam Sod 4.5 gm in 100 mls @ 25 mls/hr 07/02/25 20:00 07/04/25 08:00 Zosyn IV 07/12/25 19:59 Infused Q8H DENISSE Infusion Protocol Liothyronine Sodium 5 mcg 06/30/25 06:30 07/04/25 06:02 Liothyronine Sodium 5 Mcg Tab PO 07/30/25 06:29 5 mcg DAILYBB DENISSE Administration Metoprolol Succinate 12.5 mg 06/30/25 09:00 07/03/25 09:25 Metoprolol Succ 25mg Ext Rel Tab PO 07/30/25 08:59 Not Given QAM DENISSE Midodrine 7.5 mg 06/30/25 07:00 07/04/25 06:02 Midodrine Hcl 2.5 Mg Tab PO 07/30/25 06:59 7.5 mg TID@0700,1100,1700 DENISSE Administration Mirtazapine 15 mg 06/30/25 21:00 07/03/25 20:10 Mirtazapine Tab 15 Mg Tab PO 07/30/25 20:59 15 mg HS DENISSE Administration Quetiapine Fumarate 75 mg 06/30/25 21:00 07/03/25 20:11 Quetiapine Fumarate 25 Mg Tablet PO 07/30/25 20:59 75 mg HS DENISSE Administration Past Medical History Medical History Fall Weakness Generalized weakness Pneumonia Thrombocytopenia Recurrent falls Atrial fibrillation Parkinsons disease Benign localized prostatic hyperplasia with lower urinary tract symptoms (LUTS) Past Family History Family History Brother Prostate cancer Father Hypertension Heart disease following heart attack Mother Hearing loss Heart disease following heart attack Other No family history of adverse response to anesthesia No family history of bleeding disorder Past Surgical History Surgical History History of cataract extraction 02/2017-bilateral History of bladder surgery Green light laser surgery for excess bladder tissue-03/09/14 History of Mohs micrographic surgery for skin cancer Head-2014 Left arm-2013 History of sebaceous cyst x3-2 on back, 1 on chest History of tonsillectomy and adenoidectomy 1948 History of surgery femur [id number] leg repair laser vaporization with transurethral resection of prostate Previous back surgery H/O: knee surgery Social History Smoking Status: Never smoker Do You Dip or Chew Tobacco: No Hx Alcohol Use: No Hx Substance Use: No Physical Exam Vital Signs Last Vital Signs Temp 36.8 C 07/04/25 08:06 Pulse 56 L 07/04/25 07:28 Resp 16 07/04/25 07:28 BP 148/64 H 07/04/25 07:28 Pulse Ox 97 07/04/25 07:28 O2 Del Method Room Air 07/04/25 07:28 Testing Laboratory Results 07/04/25 07:12 07/04/25 07:12 PT 13.1 Seconds (9.0-12.0) H 06/29/25 14:42 INR 1.2 (0.9-1.1) H 06/29/25 14:42 Urine Color Dark Yellow 06/29/25 18:00 Urine Appearance Clear (Clear) 06/29/25 18:00 Urine pH 5.0 (4.5-7.5) 06/29/25 18:00 Ur Specific [place] 1.015 (1.000-1.030) 06/29/25 18:00 Urine Protein Negative (Negative) 06/29/25 18:00 Urine Glucose (UA) Negative (Negative) 06/29/25 18:00 Urine Ketones Negative (Negative) 06/29/25 18:00 Urine Nitrite Positive (Negative) A 06/29/25 18:00 Ur Leukocyte Esterase 3+ (Negative) H 06/29/25 18:00 Urine WBC (Auto) >50 /hpf (0-5) H 06/30/25 Unknown Urine RBC (Auto) 11-20 /hpf (0-2) H 06/30/25 Unknown U Hyaline Cast (Auto) >20 /lpf (0-2) H 06/30/25 Unknown U Epithel Cells (Auto) 0-2 /hpf (0-2) 06/30/25 Unknown Urine Bacteria (Auto) 2+ (None Seen) H 06/30/25 Unknown 06/30/25 Unknown Urine Culture - Final Urine,Clean Catch Pseudomonas aeruginosa 06/29/25 18:00 Urine Culture - Final Urine,Clean Catch More than three types of organisms present, all high counts. Repeat collection recommended. No further identifications or sensitivities to follow.
[2025-07-04] MEDS ORDERED: ROCURONIUM BROMIDE 10 MG/ML 5 ML VIAL IV ONE ×2 (08:30→09:22)
[2025-07-04] MEDS ORDERED: ONDANSETRON INJ 2 MG/ML 2 ML VIAL ONE ×2 (08:30→09:52)
[2025-07-04] MEDS ORDERED: DEXAMETHASONE SOD INJ 4 MG/ML VIAL ONE ×2 (08:30→09:42)
[2025-07-04] MEDS ORDERED: PROPOFOL IV EMULSION 10 MG/ML 20 ML VIAL IV ONE ×2 (08:30→09:22)
[2025-07-04] MEDS ORDERED: SUGAMMADEX SODIUM 200 MG/2 ML VIAL IV ONE ×2 (08:31→09:54)
[2025-07-04] MEDS: LACTATED RINGER'S 1,000 ML IV SCH (08:36)
[2025-07-04] MEDS ORDERED: ENOXAPARIN INJ 40 MG/0.4 ML SYR SQ SCH (09:00)
--- NOTE | 2025-07-04 09:18 | Hospitalist Progress Note ---
Date of Service July 04, 2025 Assessment & Plan (1) Generalized weakness: (2) Hypothyroidism: (3) BPH (benign prostatic hyperplasia): (4) Parkinsons disease: (5) Left arm pain: Plan 85yo male sent in from [facility] with generalized weakness. Patient was initially in the [facility] facility but was transferred to the personal care facility on 06/16/2025. Currently being managed for suspected UTI and pressure ulcer. Imaging: -MRI Brain without contrast 1. Cerebral atrophy and chronic small vessel ischemic disease 2. Otherwise unremarkable noncontrast MRI of the brain -MRI cervical spine w/wo contrast Multilevel degenerative changes with mild to moderate spinal canal and moderate to marked foraminal stenoses. Additional nonspecific vertebral body foci of signal alteration likely benign. #Generalized weakness 2/2 to infection vs GBS #UTI -UA suspicious for UTI -Urine Culture: pseudomonas growth, pansensitive -WBC 13.9->11.9->10.5->10.4 -CRP 19->16.6->11.72 -s/p chronic wang catheter removal; no catheter exchange for now, urinating on own -Maintain fall precautions -Zosyn 4.5g q8hrs -will likely switch to PO ciprofloxacin 500mg BID at discharge -PT/OT on board -CBC in AM -awaiting placement #Sacral Pressure Ulcer -general surgery on board -plan for surgical debridement today -post-op care per surgery -wound care on board, appreciate recs #Left-Sided Arm Pain -X-ray negative for fracture -other imaging as above -suspect muscular etiology -PT/OT on board -Ibuprofen prn for pain #Parkinson's Disease -Continue Carbidopa/Levodopa #Orthostatic hypotension -Continue Midodrine 7.5mg po BID #Atrial fibrillation - rate controlled -Continue Amiodarone 200mg po BID -Continue Metoprolol 12.5mg po qAM #Bipolar disorder/Mental Health -Continue Seroquel 75mg po qHS -Continue Remeron 15mg po qHS #Hypothyroidism -Continue Cytomel DVT prophylaxis: SCDs Dispo: Med/Surg Diet: Regular Code: DNR/DNI Admission and Anticipated Discharge Date Admission Date: June 29, 2025 Supervising Physician Co-Signing Physician Notes I personally examined the patient and verified all olsen points of history and exam, discussed case, and agree with decision making with Dr Diaz tried to see several times today. The first time he was in the OR. Later he was asleep. Vitals noted. No acute distress noted. Breathing unlabored no accessory muscle use good effort. Skin without rashes pallor or icterus. Weakness/urinary tract infection (UTI would be related to his chronic Wang- CAUTI POAand he has culture positive for Pseudomonas)continue IV antibiotics for now. Working on placementWill need SNF. Once he is set to go to SNF, can review how long we have treated and likely transition to p.o. coverage unless a full course of treatment has been completed. this appears to be improving. probable severe protein calorie malnutrition - supportive care, encourage intake Full-thickness coccyx ulcernow status postdebridement. Appreciate surgery input. Ongoing wound care. almost certainly present on admission. An unfortunate sign of his weakness and frailty, corroborating his is concerned that he probably belongs at a skilled level of care. DVT prophylaxisSCDs for now, start Lovenox tomorrow (That was the plan yesterday, but then it was clear the sacral wound would require surgical debridement). Subjective No overnight events. He mentioned pain on his backside related to the pressure ulcer. Plan for surgery today. He does not note worsening of B/L leg weakness. No complaints fever, chills, CP, abdominal pain, N/V/C/D, or sx. Review of Systems Review of Systems: per HPI Physical Exam Physical Exam: GA: well groomed male in no apparent distress. AAOx3. HEENT: head normocephalic, atraumatic. EOMI. RESP: vesicular breath sounds b/l. No wheezes, rhonchi, or rales CARDIOVASCULAR: S1 and S2 heard. No murmurs, rubs, or gallops. GI: no tenderness or masses felt to palpation MSK: Limited LUE ROM due to pain. SKIN: warm, dry, edema around ankles PSYCH: appropriate mood and affect NEURO: no apparent focal deficits. Results & Data Results & Data Vital Signs (Past 12 Hours) Vital Signs Temp Pulse Pulse Resp BP Pulse Ox O2 Del Method 07/04/25 08:06 36.8 C 07/04/25 07:28 34.9 C L 56 L 56 L 16 148/64 H 97 Room Air 07/04/25 05:59 145/69 H 07/03/25 23:05 36.9 C 60 18 130/54 L 99 Room Air Resident Activity Tracking Resident Involvement: Resident Care Provided Care Provided: Adult Hospital Medicine (2) Hypothyroidism Hypothyroidism type: unspecified Qualified Code(s): E03.9 - Hypothyroidism, unspecified (3) BPH (benign prostatic hyperplasia) Lower urinary tract symptom presence: symptoms absent Qualified Code(s): N40.0 - Benign prostatic hyperplasia without lower urinary tract symptoms (4) Parkinsons disease Dyskinesia presence: unspecified whether dyskinesia Fluctuating manifestations: unspecified whether manifestations fluctuate Qualified Code(s): G20.A1 - Parkinson's disease without dyskinesia, without mention of fluctuations
[2025-07-04] MEDS ORDERED: LIDOCAINE 2% 2 ML VIAL/AMP(20MG/ML) INFIL ONE (09:22)
--- NOTE | 2025-07-04 09:27 | Surgery Progress Note ---
Date of Service July 04, 2025 Assessment & Plan (1) Sacral pressure ulcer: Plan: Will proceed with excisional debridement of a sacral ulcer in the OR today Consent was obtained, risks discussed including bleeding, infection, nonhealing wound Admission and Anticipated Discharge Date Admission Date: June 29, 2025 Subjective Patient seen and examined. No acute events overnight. Review of Systems Review of Systems: All systems reviewed & are unremarkable except as noted in HPI & below Physical Exam Constitutional: WD/WN, vitals as above Respiratory: normal respiratory effort, lungs clear to auscultation Cardiovascular: Rate/Rhythm: regular rate Gastrointestinal (Abdomen): normal bowel sounds, soft, nontender, no hepatosplenomegaly Skin: 3 x 3 cm area of eschar over the sacral region, no drainage, mild erythema surrounding Results & Data Vital Signs (Past 12 Hours) Vital Signs Temp Pulse Pulse Resp BP Pulse Ox O2 Del Method 07/04/25 08:06 36.8 C 07/04/25 07:28 34.9 C L 56 L 56 L 16 148/64 H 97 Room Air 07/04/25 05:59 145/69 H 07/03/25 23:05 36.9 C 60 18 130/54 L 99 Room Air PG Care Time/CCT Total # of Minutes Spent Total Time Spent with Patient: Total time spent is greater than 50% in coordination of care (as documented) at patient's floor/unit and/or counseling patient: Coding Level of Care Code 99002 SUB INP/OBS CARE 11/05MIN Diagnoses Sacral pressure ulcer L89.159
[2025-07-04] MEDS ORDERED: PHENYLEPHRINE 100MCG/ML 5ML SYR ONE (10:01)
--- NOTE | 2025-07-04 10:02 | Post Operative Brief Note ---
PG Immediate Post Op with CF Date of Surgery July 04, 2025 Pre & Post Diagnosis Operation Date: 07/04/25 07:00 Pre-Op Diagnosis: Sacral Wound Post-Op Diagnosis: Sacral Wound 3.0 cm x 2.5 cm I identified the patient and participated in the time-out.: Yes Procedure Operation Date: 07/04/25 07:00 Actual Procedures p Excisional Debridement of Sacral Ulcer 3cm x 2.5cm - Herbert Weldon DO Surgeon Herbert Weldon DO Director Of Consumer Marketing None Estimated Blood Loss 2 Findings See Below Full-thickness skin necrosis of the sacral wound Anesthesia Type General Complications none Disposition Disposition: Recovery Room
--- NOTE | 2025-07-04 10:05 | Operative Report ---
PG Post Operative Report Pre & Post Diagnosis Operation Date: 07/04/25 07:00 Pre-Op Diagnosis: Sacral Wound Post-Op Diagnosis: Sacral Wound 3.0 cm x 2.5 cm I identified the patient and participated in the time-out.: Yes Procedure Operation Date: 07/04/25 07:00 Actual Procedures p Excisional Debridement of Sacral Ulcer 3cm x 2.5cm - Herbert Weldon DO Surgeon Herbert Weldon DO Antichecking Iron Worker None Estimated Blood Loss 2 Findings See Below Full-thickness skin necrosis of the sacral wound Specimens Sacral wound/ulcer for culture Drains None Anesthesia Type General Complications none Disposition Disposition: Recovery Room Indications 85-year-old male with a sacral pressure ulcer Description of Procedure The patient was brought to the operating room and underwent general endotracheal anesthesia without issue. At this time the patient was placed in the prone jackknife position. The lower back was prepped and draped in the usual sterile fashion. Appropriate pre-operative antibiotics were administered. A timeout was called. The procedure was verified as Excisional debridement of sacral ulcer. Surgical, anesthesia and nursing teams agreed and the procedure was begun. The sacral ulcer had significant eschar which was taken off using a 15 blade scalpel down to healthy appearing subcutaneous tissue. There was no foul smell or drainage. The subcutaneous tissue appeared normal. The wound measured 3.0 cm x 2.5 cm. The wound was irrigated until clear. At this time hemostasis was achieved using electrocautery. Hemostasis was complete. This represents an excisional debridement of a sacral ulcer less than 20 cm down to the subcutaneous tissue. At this time the wound was dressed with Aquacel Ag and a sterile dressing was applied. At this time the patient was awakened from anesthesia and extubated having remained stable throughout the entire case and transported to PACU in stable condition. I attest to the content of the Intraoperative Record and any orders documented therein. Any exceptions are noted below.
[2025-07-04] MEDS: BUPIVACAINE/EPINEPHRINE 0.25% 1:200,000 30 ML VIAL ONE (10:08)
[2025-07-04] MEDS ORDERED: MoRPHine SULFATE 2 MG/ML CARP IV PRN (11:09)
[2025-07-04] MEDS ORDERED: POLYETHYLENE (MIRALAX) 17 GM PACK PO PRN ×2 (16:45→16:47)
--- NOTE | 2025-07-04 18:08 | Billing Data ---
Date of Service July 04, 2025 Coding Level of Care Code 56322 SUB INP/OBS CARE
[2025-07-05 07:10] LABS: Hematocrit (blood only) 30.5 % (42.0-52.0); Hemoglobin 10.8 g/dl (14.0-18.0); Immature Granulocytes # (auto) 0.14 K/uL (0.01-0.20); Immature Granulocytes % (auto) 0.9 %; Mean Corpuscular Hemoglobin 34.8 pg (25.0-34.0); Mean Corpuscular Volume 98.4 fL (80.0-100.0); Platelet Count 217 K/uL (130-400); RDW Standard Deviation 44.5 fL (36.4-46.3); Red Blood Count 3.10 M/uL (4.70-6.10); White Blood Count 14.75 K/ul (4.8-10.8)
--- NOTE | 2025-07-05 07:39 | Surgery Progress Note ---
Date of Service July 05, 2025 Assessment & Plan (1) Sacral pressure ulcer: Plan: POD#1 debridement of sacral wound Notes no issues overnight and pain controlled deferred wound check this AM as sleeping Wound care to be consulted today for ongoing dressing recommendations vs vac as they see indicated can f/u in wound center as outpatient we will follow peripherally but may call back with any questions/concerns Admission and Anticipated Discharge Date Admission Date: June 29, 2025 Subjective Patient resting and sleeping but was able to awaken and he told me he denies pain or issues with his wound overnight. Physical Exam Physical Exam: resting/sleeping, but arousable and communicative Skin: lying supine therefore did not examine buttocks region Results & Data Vital Signs (Past 12 Hours) Vital Signs Temp Pulse Resp BP Pulse Ox O2 Del Method 07/05/25 06:00 145/82 H 07/05/25 03:00 98.2 F 57 L 18 136/67 97 Room Air 07/04/25 23:00 97.7 F 54 L 18 149/65 H 99 Room Air PG Care Time/CCT Total # of Minutes Spent Total Time Spent with Patient: Total time spent is greater than 50% in coordination of care (as documented) at patient's floor/unit and/or counseling patient: Coding Level of Care Code 60989 Post Operative Follow-Up Diagnoses Sacral pressure ulcer L89.159
[2025-07-05 07:53] VITALS: PULSE 56; RESP 16; TEMP 97.5; O2SAT 95
[2025-07-05 11:50] VITALS: BP 140/50
--- NOTE | 2025-07-05 11:55 | Discharge Summary ---
Date of Service July 05, 2025 Admission HPI Per Admitting Provider Alex Mcneal is an 85-year-old male with history of Parkinson's disease, atrial fibrillation, BPH, heart failure and orthostatic hypotension presenting from [facility] with concern for increased weakness and fatigue. Patient is not sure exactly why he was sent to the emergency room today. He reports he does fall frequently due to his history of Parkinson's but did not fall recently. No fever but possibly some chills. Otherwise patient denies chest pain, cough, shortness of breath, abdominal pain, nausea, vomiting, diarrhea. He has a chronic, indwelling Wang which has been present since his last hospitalization. Patient had frequent falls in the middle of May. He presented to the emergency room on May 30 and was admitted for ambulatory dysfunction as well as congestive heart failure. He was treated with Lasix. Had a Wang catheter placed on 07/03/2024. He was discharged to [facility] prison facility on 06/04/2025. He was transferred to [facility] personal-care [facility] on 06/16/2025. Admission Exam Per Admitting Provider General: patient resting comfortably, NAD, non-toxic in appearance, answering questions appropriately Skin: warm, dry, intact, no rashes or lesions HEENT: NC/AT, PERRL, EOMI, anicteric sclera, conjunctiva without injection, external ear normal to inspection and nontender, nares patent, moist mucus membranes, dentition intact, no oropharyngeal lesions, neck supple, trachea midline, no LAD, no thyromegaly, no JVD Heart: +S1/S2, regular, no m/r/g Lungs: equal air entry bilaterally, no rales/rhonchi/wheezes Abd: +BS, soft, NT/ND, no masses/organomegaly/ascites Ext: warm, 2+ pulses in UE/LE bilaterally, no clubbing/cyanosis or edema Neuro: nonfocal, speech intact, no facial droop, moving all extremities on command with equal strength 5/5 Principal Diagnosis UTI Discharge Exam GA: well groomed male in no apparent distress. AAOx3. HEENT: head normocephalic, atraumatic. EOMI. RESP: vesicular breath sounds b/l. No wheezes, rhonchi, or rales CARDIOVASCULAR: S1 and S2 heard. No murmurs, rubs, or gallops. GI: no tenderness or masses felt to palpation MSK: Limited LUE ROM due to pain. SKIN: warm, dry, edema around ankles PSYCH: appropriate mood and affect NEURO: no apparent focal deficits. Discharge Data Allergies Allergy/AdvReac Type Severity Reaction Status Date / Time benzalkonium chloride Allergy Unknown ON [facility] Verified 06/29/25 17:19 [facility] LIST brimonidine Allergy Unknown ON [facility] Verified 06/29/25 17:19 [facility] LIST diclofenac [From Voltaren] Allergy Unknown ON [facility] Verified 06/29/25 17:19 [facility] LIST travoprost Allergy Unknown ON [facility] Verified 06/29/25 17:19 [facility] LIST acetaminophen AdvReac Mild ANKLES Verified 06/29/25 17:19 [facility] Consultations 07/03/25 18:17 Consult General Surgery Routine Procedures Performed Operation Date: 07/04/25 07:00 Actual Procedures p Excisional Debridement of Sacral Ulcer 3cm x 2.5cm - Herbert Weldon, Ordered Studies 06/30/25 11:25 CT Abd and Pelvis [CT abd pelvis wo con] Routine 07/01/25 10:48 MR brain wo con Routine MRI Cervical [MR cervical spine wo/w con] Routine Hospital Course (1) Generalized weakness: (2) Hypothyroidism: (3) BPH (benign prostatic hyperplasia): (4) Parkinsons disease: (5) Left arm pain: Plan 85yo male sent in from [facility] with generalized weakness. Patient was initially in the prison facility but was transferred to the personal care facility on 06/16/2025. Currently being managed for suspected UTI and pressure ulcer. Imaging: -MRI Brain without contrast 1. Cerebral atrophy and chronic small vessel ischemic disease 2. Otherwise unremarkable noncontrast MRI of the brain -MRI cervical spine w/wo contrast Multilevel degenerative changes with mild to moderate spinal canal and moderate to marked foraminal stenoses. Additional nonspecific vertebral body foci of signal alteration likely benign. #Generalized weakness 2/2 to infection vs GBS #UTI -Urine Culture: pseudomonas growth, pansensitive -WBC 13.9->11.9->10.5->10.4->14.7 (likely due to being post-op) -CRP 19->16.6->11.72 -s/p chronic wang catheter removal; no catheter exchange for now, urinating on own -stable for discharge to SNF -PO ciprofloxacin 500mg BID; today day 3. Finish last dose 07/09 #Sacral Pressure Ulcer s/p debridement - no wound vac - outpatient wound care clinic - post-op care per surgery and wound care #Left-Sided Arm Pain -X-ray negative for fracture -other imaging as above -suspect muscular etiology -Ibuprofen prn for pain -follow-up outpatient #Parkinson's Disease -Continue Carbidopa/Levodopa #Orthostatic hypotension -Continue Midodrine 7.5mg po BID #Atrial fibrillation - rate controlled -Continue Amiodarone 200mg po BID -Continue Metoprolol 12.5mg po qAM #Bipolar disorder/Mental Health -Continue Seroquel 75mg po qHS -Continue Remeron 15mg po qHS #Hypothyroidism -Continue Cytomel Total Time Total Time Spent Total Time Spent (In Minutes): <30 Discharge Plan Discharge Items Patient Disposition: Transfer [facility] Fac Reason For Visit: GENERALIZED WEAKNESS Discharge Diagnosis: Complicated UTI Condition on Discharge: Fair Activity: As commented below Non-emergency contact: Primary Care Provider Call non-emergency contact if: your symptoms worsen and you have a fever Follow-up/Referrals: Nasreen Ryan [Primary Care Provider] - Diet: Heart Healthy Addtl Attending Provider Instructions: You were admitted to the hospital for generalized weakness. You were found to have a urinary tract infection (UTI) and started on an appropriate antibiotic. Each day you showed improvement. During your stay, you complained of left arm pain. Imaging revealed no fractures. You were given pain medication as needed for your arm pain. Physical Therapy and Occupational Therapy saw and worked with you and you reported no worsening of pain. The wound care team also noted you had a pressure ulcer on your lower back for which the general surgery team was consulted and performed a procedure called a debridement to help clean the wound and allow it to heal better. You tolerated the procedure well and did not complain of pain afterwards. Please follow-up with your Primary Doctor within 1-2 weeks to discuss your hospitalization. Please return to the emergency room if your symptoms worsen or if you develop of fever of 100.4 or higher. Please take your medications as prescribed. Below are medication instructions. Follow up with wound center as an outpatient. New Medications: Ciprofloxacin 500mg: take one tablet twice a day for 4 more days (finish last dose morning of 07/09). Take one dose this evening and then twice a day starting 07/06. Home Medications: continue taking as prescribed. Thank you for allowing us to be a part of your care. Pending Studies at Discharge: No Stand-Alone Forms: My [facility] Skilled Items Patient informed of condition?: Yes DNR: Yes Discharge Level of Care: Skilled Communicable Disease: No Discharge Prognosis: Improving Lines: None Urinary Catheter: No Medications and DC Order Prescriptions: New ciprofloxacin HCl 500 mg tablet 500 mg PO BID Qty: 8 0RF Continued finasteride 5 mg tablet 5 mg PO HS Qty: 90 3RF solifenacin 10 mg tablet 10 mg PO HS Qty: 90 3RF niacin 1,000 mg Tablet Extended Release 24 Hr 2,000 mg PO HS entacapone 200 mg Tablet 200 mg PO AC Rx Instructions: Before meals vitamin B complex Tablet 1 tab PO DAILY carbidopa-levodopa 25-100 mg Tablet 1.5 tab PO AC Rx Instructions: Give before meals docusate sodium [Stool Softener] 100 mg Tablet 200 mg PO Q24H PRN (Reason: Constipation) glucosamine-chondroitin 750-600 mg Tablet 1 tab PO QAM Systane (propylene glycol) 0.4-0.3 % Drops 1 drp OPB Q6H PRN (Reason: Dry Eyes) dorzolamide-timolol (PF) 2-0.5 % Dropperette 1 drp OPB BID PreserVision AREDS-2 250-90-40-1 mg Capsule 1 tab PO BID Qty: 0 Prevagen 10 mg PO QAM furosemide 40 mg Tablet 40 mg PO BID17 Qty: 30 0RF liothyronine 5 mcg Tablet 5 mcg PO DAILYBB Qty: 20 0RF midodrine 5 mg tablet 7.5 mg PO TID Rx Instructions: HOLD IF LYING SBP >160 amiodarone 400 mg tablet 200 mg PO BIDM ibuprofen 200 mg Tablet 400 mg PO Q6H PRN (Reason: Pain) mirtazapine 15 mg tablet 15 mg PO HS quetiapine 50 mg tablet 75 mg PO HS potassium chloride 20 mEq tablet extended release 20 meq PO BID metoprolol succinate 25 mg tablet extended release 24 hr 12.5 mg PO QAM cholecalciferol (vitamin D3) [Vitamin D3] 25 mcg (1,000 unit) Capsule 25 mcg PO DAILY Discharge Orders: Discharge Order (Routine); Ordered 07/05/25 Ordered By: Jarod Diaz Admission Data Admit Date/Time: 06/29/25 20:11 Attending Provider: Brian Dickinson Admit Provider: Leann Tolbert Primary Care Provider: Nasreen Ryan Other Providers: Tammi Chu at [place]; Brittnee Dominguez; Chucky Roberson; Harlan Ghotra; Tenzin Palomares; Javier Angela; Veena Ortiz; Herbert Weldon; Phi Breaux; Neel Hidalgo; Promise Mahoney; Dio Chase; Quin Wilkins Other Interventions: Discharge Summary Assessment (RN) Last Done: 07/05/25 11:36 Supervising Physician Co-Signing Physician Notes I personally examined the patient and verified all olsen points of history and exam, discussed case, and agree with decision making with Dr Diaz resting comfortably, d/w wound team, assistance greatly appreciated. for baylee later today. Vitals noted. No acute distress noted. Breathing unlabored no accessory muscle use good effort. Skin without rashes pallor or ic terus. Weakness/urinary tract infection (UTI would be related to his chronic Wang- CAUTI POAand he has culture positive for Pseudomonas)aislinn lubin. probable severe protein calorie malnutrition - supportive care, encourage intake (clarification) stage 3 sacral pressure ulcer POA. Appreciate surgery input. Ongoing wound care. plan able to be continued at SNF. almost certainly present on admission. An unfortunate sign of his weakness and frailty, corroborating his is concerned that he probably belongs at a skilled level of care. DVT prophylaxisSCDs utilized during his stay (ended up not getting lovenox due to procedures/concern earlier in stay that he might need LP - then was able to be discharged) Resident Activity Tracking Resident Involvement: Resident Care Provided Care Provided: Adult Hospital Medicine
--- NOTE | 2025-07-05 12:17 | Billing Data ---
Date of Service July 05, 2025 Coding Level of Care Code 02281 IN/OBS DISCH 30 MIN/LESS
--- NOTE | 2025-07-10 18:19 | Anesthesiology Progress Note ---
Date of Service July 04, 2025 Anesthesia Post Procedure Pain Intensity Right Shoulder: Pain Intensity: 4 Left Arm: Pain Intensity: 0 Transfer of Care Handoff Completed per policy Notes Mental Status: alert / awake / arousable Patient Amnestic to Procedure: Yes Nausea / Vomiting: adequately controlled Pain: adequately controlled Airway Patency, RR, SpO2: stable & adequate BP & HR: stable & adequate Hydration State: stable & adequate Anesthetic Complications: no major complications apparent and Pt Satisfied with anesthetic care
== END 2025-07-05 14:29 | DRG 698 ==
LOC: ED 14:29 → INTOOBSV 20:11 → EDINP 20:11 → SUATTDRO 20:11 → 3N 22:41